=== PATIENT | male | born 1960 | race Caucasian/White ===

== ENCOUNTER 2020-09-15 14:07 | Outpatient (REF) | payer OTHER, SELFPAY ==
--- NOTE | 2020-09-15 | XR_ITS ---
EXAMINATION: XR CHEST CLINICAL INFORMATION: Mild intermittent asthma COMPARISON: Chest x-ray 10/05/2015 TECHNIQUE: 2 views of the chest were obtained. FINDINGS: Asymmetric elevation of left diaphragm compared to the right. No acute change. No airspace opacities. No pulmonary vascular congestion or pleural effusion. No pneumothorax. Cardiac and mediastinal contours are normal. The heart size is normal. Compared to prior chest x-ray there has not been substantial change. XR/XR chest 2V IMPRESSION: No acute abnormality of chest.
== END 2020-09-15 14:08 | disposition home or self-care (01) ==
LOC: HO.XRAY 14:07
PROVIDERS: PCP Internal Medicine; Visit Provider Internal Medicine
DX: J45.20 Mild intermittent asthma, uncomplicated (principal)
CPT/HCPCS: 71046

== ENCOUNTER 2020-11-16 10:10 | Outpatient (REF) | payer OTHER, SELFPAY | END 2020-11-16 10:11 | disposition home or self-care (01) | LOC: HO.LAB 10:10 | PROVIDERS: Visit Provider Internal Medicine | DX: Z20.822 Contact with and (suspected) exposure to COVID-19 (principal) | CPT/HCPCS: 36415; C9803; U0003 ==

== ENCOUNTER 2021-05-03 19:50 | Emergency (ER) | payer OTHER, SELFPAY ==
[2021-05-03 19:55] VITALS: BP 141/80; PULSE 76; RESP 17; TEMP 36.7; O2SAT 94; BMI 29.5
--- NOTE | 2021-05-03 21:29 | ED.ANIMALBIT ---
HPI - Animal Bite General Chief Complaint: Animal Bite Stated Complaint: dog scratch Source: patient Mode of arrival: ambulatory Limitations: no limitations History of Present Illness HPI narrative: 61-year-old male presents with a abrasion to the back of his leg which he believes is a dog bite. He was walking his dog, and other dog approached his animal, a fight ensued which ended with a superficial skin break to the left lower extremity. He does not know this was a dog bite, scratch, or injury from another unknown object. He does not report any other concerning symptoms. MD complaint: animal bite Onset (ago): hour(s) ( within the hour of arrival) Animal: dog Description of animal: household pet and unknown animal Mechanism: bite and scratch Location - Extremities: left: lower leg Context: animals fighting Associated symptoms: none Related Data Patient tetanus UTD: Yes Previous Rx's Medication Instructions Recorded amoxicillin-pot clavulanate 1 tab PO Q12H 10 Days #20 tab 05/03/21 [Augmentin] Allergies Allergy/AdvReac Type Severity Reaction Status Date / Time Iodinated Contrast Media Allergy Unknown SHORTNESS Verified 05/03/21 19:55 [IV CONTRAST] OF BREATH Review of Systems Review of Systems: Constitutional: No Fever, No Chills ENT/Mouth: No Ear Pain, No Hoarseness, No sore throat Eyes: No Eye Pain, No Swelling, No Redness, No Foreign Body Cardiovascular: No Chest Pain, No SOB Respiratory: No Cough, No Dyspnea Gastrointestinal: No Nausea, No Vomiting, No Diarrhea, No abdominal Pain Genitourinary: No Dysuria, No Hematuria Musculoskeletal: positive left leg pain, No Myalgias, No Joint Swelling Skin: positive left leg abrasion, No Skin lacerations, No rash Neuro: No Weakness, No Numbness, No Paresthesias, No Loss of Consciousness, No Dizziness, No Headache Psych: No Anxiety/Panic, No Depression Heme/Lymph: no easy bruising, no Lymphadenopathy Endocrine: No Polyuria, No Polydipsia Yes all other systems are reviewed and are negative [facility] Past Medical History Attestation statement: The following information was validated with the patient. Source: old records reviewed Medical History Asthma Social History Social History Advance Directives: No Advance Directives Information Provided: Yes Physical Exam Vital Signs: Vital Signs: Last Vital Signs Temp 98.0 F 05/03/21 19:55 Pulse 76 05/03/21 19:55 Resp 17 05/03/21 19:55 BP 141/80 H 05/03/21 19:55 Pulse Ox 94 05/03/21 19:55 Body Mass Index 29.5 Appearance: Alert. Oriented X3. No acute distress. Eyes: Pupils equal, round and reactive to light. ENT: Pharynx normal. Neck: Normal inspection. Neck supple. CVS: Normal heart rate and rhythm. Pulses normal. Respiratory: No respiratory distress. Breath sounds normal. Abdomen: Soft and nontender. Skin: 3 cm by 2 mm linear abrasion to the left leg, Skin warm and dry. Normal skin color. Normal skin turgor. Extremities: No lower extremity edema. Neuro: No motor deficit. No sensory deficit. Course Course Course Narrative: 61-year-old male presents with skin break abrasion to the back the left leg suspected to be an animal bite. Will treat for Tdap, rabies vaccine and immunoglobulin. Patient does understand that he must return for serial vaccinations. Patient verbalized understanding of and agrees plan of care discharge home. MDM - Animal Bite Differential Diagnosis Differential diagnosis: Likely bite by animal and rabies contact Medical Records Attestation: I reviewed the patient's medical records. Lab Data Attestation: I reviewed the patient's lab results. Discharge Plan Discharge Clinical Impression: Dog bite Qualifiers: Encounter type: initial encounter Qualified Code(s): W54.0XXA - Bitten by dog, initial encounter Patient Disposition: Home, Self-Care Instructions: Animal Bite (ED) Additional Instructions: you were evaluated for an injury suspected to be an animal bite. You must continue to follow-up to receive the rest of Your rabies vaccinations. please take Augmentin twice a day for the next 10 days. Thank you for choosing this emergency department for evaluation. Please follow-up with primary care physician as needed. Return to the emergency department for any new, concerning, or worsening symptoms. Prescriptions: New amoxicillin-pot clavulanate [Augmentin] 875-125 mg tablet 1 tab PO Q12H 10 Days Qty: 20 RF: 0 Interventions: ED Discharge Assessment Last Done: 05/03/21 23:42 Discharge Date/Time: 05/03/21 22:24
[2021-05-03] MEDS: Rabies Vaccine (PCEC)/PF 1 ML VIAL IM (22:01)
[2021-05-03] MEDS: Diphth,Pertus(ACell),Tet Adult 0.5 ML SYRINGE IM (22:02)
[2021-05-03] MEDS: Rabies Immune Globulin/PF 1,500 UNIT/5 ML VIAL 1923.24 UNIT IM (22:04)
[2021-05-03] MEDS: Amoxicillin/Potassium Clav 875 MG TABLET PO (22:04)
--- NOTE | 2021-05-03 23:46 | PC.NURSE ---
PT SMALL SUPERFICIAL SCRATCH TO LEFT CALF CLEANED AND LEFT GIOVANNA. PT SCRIPT FAXED TO [facility].
== END 2021-05-03 22:24 | disposition home or self-care (01) ==
PROVIDERS: Emergency Provider Internal Medicine; PCP Internal Medicine
DX: S80.812A Abrasion, left lower leg, initial encounter (principal); Z20.3 Contact with and (suspected) exposure to rabies; Z29.14 Encounter for prophylactic rabies immune globulin; W54.0XXA Bitten by dog, initial encounter; Y93.K1 Activity, walking an animal; Y92.9 Unspecified place or not applicable; Y99.9 Unspecified external cause status
CPT/HCPCS: 90375; 90471; 90675; 90715; 96372; 99284

== ENCOUNTER 2021-05-06 14:26 | Outpatient (REF) | payer OTHER, SELFPAY | END 2021-05-06 14:27 | disposition home or self-care (01) | LOC: HO.MDS 14:26 | PROVIDERS: PCP Internal Medicine; Visit Provider Nurse Practitioner Family | DX: Z29.14 Encounter for prophylactic rabies immune globulin (principal); S80.872D Other superficial bite, left lower leg, subsequent encounter; W54.0XXD Bitten by dog, subsequent encounter; Z20.3 Contact with and (suspected) exposure to rabies | CPT/HCPCS: 90471; 90675 ==

== ENCOUNTER 2021-05-10 14:26 | Outpatient (REF) | payer OTHER, SELFPAY | END 2021-05-10 14:27 | disposition home or self-care (01) | LOC: HO.MDS 14:26 | PROVIDERS: PCP Internal Medicine; Visit Provider Nurse Practitioner Family | DX: Z29.14 Encounter for prophylactic rabies immune globulin (principal); S80.872D Other superficial bite, left lower leg, subsequent encounter; W54.0XXD Bitten by dog, subsequent encounter; Z20.3 Contact with and (suspected) exposure to rabies | CPT/HCPCS: 90471; 90675 ==

== ENCOUNTER 2021-05-17 14:33 | Outpatient (REF) | payer OTHER, SELFPAY | END 2021-05-17 14:34 | disposition home or self-care (01) | LOC: HO.MDS 14:33 | PROVIDERS: PCP Internal Medicine; Visit Provider Nurse Practitioner Family | DX: Z29.14 Encounter for prophylactic rabies immune globulin (principal); S80.872D Other superficial bite, left lower leg, subsequent encounter; W54.0XXD Bitten by dog, subsequent encounter; Z20.3 Contact with and (suspected) exposure to rabies | CPT/HCPCS: 90471; 90675 ==

== ENCOUNTER 2021-05-20 11:08 | Outpatient (REF) | payer OTHER, SELFPAY | END 2021-05-20 11:09 | disposition home or self-care (01) | LOC: HO.LAB 11:08 | PROVIDERS: PCP Internal Medicine; Visit Provider Internal Medicine | DX: Z20.822 Contact with and (suspected) exposure to COVID-19 (principal) | CPT/HCPCS: C9803; U0003; U0005 ==

== ENCOUNTER 2021-05-30 13:57 | Inpatient (IN) | payer OTHER, SELFPAY ==
[2021-05-30] VITALS (8 sets, daily range): BP systolic 137–158; BP diastolic 69–109; PULSE 71–144; RESP 16–20; TEMP 36.4–36.9; O2SAT 94–98; BMI 31.1; BMI 30.9
--- NOTE | ~2021-05-30 | XR_ITS ---
EXAMINATION: XR CHEST CLINICAL INFORMATION: Asthma COMPARISON: Previous chest x-ray most recent September 2020 TECHNIQUE: Frontal view of the chest was obtained. FINDINGS: The cardiac and mediastinal contours are stable. The lungs are clear. There is elevation of the left hemidiaphragm similar to previous exam. There is no pleural effusion or pneumothorax. Bony structures are unremarkable. XR/XR chest 1V IMPRESSION: No evidence for acute disease in the chest. Elevated left hemidiaphragm similar to previous exam.
--- NOTE | 2021-05-30 14:13 | ECG_ITS ---
Test Reason : RAPID HEART RATE Blood Pressure : / mmHG Vent. Rate : 140 BPM Atrial Rate : 280 BPM P-R Int : 000 ms QRS Dur : 092 ms QT Int : 360 ms P-R-T Axes : 000 038 269 degrees QTc Int : 549 ms Atrial flutter with 2:1 A-V conduction Abnormal ECG No previous ECGs available Referred By: Santi Lima Electronically Signed By:RANDALL GOMEZ
--- NOTE | 2021-05-30 14:15 | ED_ITS ---
HPI - Arrhythmia/Palpitations General Chief Complaint: Arrhythmia/Palpitations Stated Complaint: abnormal EKG Time Seen by Provider: 05/30/21 14:15 Source: patient Mode of arrival: ambulatory Limitations: no limitations History of Present Illness HPI narrative: Patient did not feel well since last night, shoulder pain, headache and irritable. Patient is currently on prednisone for asthma. history of GERD, no heart issues. According to his data from his watch it looks like he has been having non sustained episodes since the . Onset (ago): day(s) Duration: intermittent Severity: mild Context: occurred during rest Related Data Previous Rx's Medication Instructions Recorded amoxicillin-pot clavulanate 1 tab PO Q12H 10 Days #20 tab 05/03/21 [Augmentin] Allergies Allergy/AdvReac Type Severity Reaction Status Date / Time Iodinated Contrast Media Allergy Unknown SHORTNESS Verified 05/03/21 19:55 [IV CONTRAST] OF BREATH Review of Systems Constitutional: Constitutional: Reports no additional constitutional complaints Eyes: Eyes: Reports no additional eye complaints ENT: Denies dizziness Cardiovascular: Cardiovascular: Reports no additional cardiovascular complaint s Respiratory: Respiratory: Reports as per HPI Gastrointestinal: Gastrointestinal: Reports no additional gastrointestinal complaints Musculoskeletal: Musculoskeletal: Reports no additional musculoskeletal complaints Integumentary/Breasts: Skin/Breast: Denies rash Neurologic: Reports system reviewed and no additional complaints, except as documented, Denies dizziness and Denies Sensory deficit (Neuro) Psychiatric: Psychiatric: Denies anxiety [facility] Past Medical History Medical History Asthma Social History Social History Advance Directives: No Advance Directives Information Provided: No Physical Exam Vital Signs: Vital Signs: Last Vital Signs Temp 98.4 F 05/30/21 14:08 Pulse 94 05/30/21 14:53 Resp 16 05/30/21 14:53 BP 158/104 H 05/30/21 14:53 Pulse Ox 97 05/30/21 14:53 Body Mass Index 31.1 Const: General: healthy appearing Nutritional Appearance: average body habitus Orientation/consciousness: oriented to person and patient oriented x3 Limitations: no limitations HENMT: Head: Yes normal to inspection Ears: external ears normal General nose exam: Normal external nose present Mouth: Normal oral and palatal mucosa present and oropharynx normal Throat: Yes posterior oropharynx normal Eyes: General: appearance normal, both eyes and all related structures Neck: Other: supple Neck: Yes normal visual inspection Chest: Chest palpation & inspection: normal inspection of the chest Resp: Auscultation: clear to auscultation bilaterally Cardio: Other: tacycardia Jugular venous distension: no JVD Rate: regular rate Rhythm: regular rhythm Heart sounds: S1 normal heart sound present and S2 normal heart sound present GI: Inspection: Yes normal to inspection Palpation (GI): Soft to palpation, nontender and No hepatosplenomegaly present Auscultation: normal bowel sounds : General: Yes no CVA tenderness Back/Spine/Pelvis: Back: no CVA tenderness Skin: General skin exam: no rashes or lesions noted Neuro: General: oriented to person and patient oriented x3 Cranial nerves: Yes CN's II-XII intact bilaterally Motor exam (neuro): 5/5 motor strength present throughout Sensory Exam: No Sensory deficit (Neuro) Extrem: General: Yes normal to inspection Psych: Appearance: grossly normal Course Reevaluation(s) Reevaluation #1: Discussed with Dr. Mclaughlin. He would like me to increase cardizem drip and to anticoagulate with eliquis and admit Time: 15:54 Reevaluation #2: I spent 40 minutes of critical care, with interventions, assessments, speaking to patient, consultants, and family. Time: 15:54 MDM - Arrhythmia/Palpitations Lab Data Result diagrams: 05/30/21 14:32 05/30/21 14:32 Labs: Lab Results 05/30/21 05/30/21 05/30/21 Range/Units 14:32 14:32 14:32 WBC 10.1 (4.8-10.8) X10*3/uL RBC 5.13 (4.60-5.80) X10*6/uL Hgb 15.5 (14.0-18.0) g/dl Hct 45.4 (42-52) % MCV 88.5 (80-98) fL MCH 30.2 (27.0-33.0) pg MCHC 34.1 (31.0-36.0) g/dl RDW 13.5 (11.0-16.0) % Plt Count 269 (160-400) X10*3/uL MPV 9.7 (9.4-12.4) fL Immature Gran % (Auto) 0.8 H (0.0-0.4) % Neut % (Auto) 81.7 H (45-73) % Lymph % (Auto) 12.9 L (20-40) % [place] % (Auto) 4.4 (2-11) % Eos % (Auto) 0.0 (0-4) % Baso % (Auto) 0.2 (0-2) % Lymph # (Auto) 1.3 (1.2-4.9) X10*3/uL [place] # (Auto) 0.4 (0.1-1.2) X10*3/uL Eos # (Auto) 0.0 (0.0-0.4) X10*3/uL Baso # (Auto) 0.0 (0.0-0.2) X10*3/uL Abs Immat Gran (auto) 0.08 H (0.00-0.03) X10*3/uL Absolute Neuts (auto) 8.2 (2.0-8.3) X10*3/uL Absolute Nucleated RBC 0.000 (0.0-0.012) X10*3/uL Nucleated RBC % (auto) 0.0 (0.0-0.2) /100WBC Sodium 139 (135-145) mmol/L Potassium 4.9 (3.3-5.1) mmol/L Chloride 107 (96-108) mmol/L Carbon Dioxide 22 (22-29) mmol/L Anion Gap 15 (12-20) BUN 19 H (9-16) mg/dL Creatinine 1.05 (0.5-1.4) mg/dL Estim Creat Clear Calc 91.7 Estimated GFR > 60 Random Glucose 136 H (60-115) mg/dL Calcium 9.8 (8.4-10.2) mg/dL Troponin I High Sens < 3.5 (<3.5-35.0) ng/L TSH 0.42 (0.32-4.0) uIU/mL Imaging Data Chest x-ray: Radiologist's impression: no infiltrate ECG Data Attestation: I personally reviewed and interpreted this ECG as follows: Interpretation: atrial flutter rate of [address] or twave changes Discharge Plan Discharge Clinical Impression: Atrial flutter Patient Disposition: Admitted As Inpatient Prescriptions: No Action amoxicillin-pot clavulanate [Augmentin] 875-125 mg tablet 1 tab PO Q12H 10 Days Qty: 20 RF: 0
[2021-05-30] MEDS: dilTIAZem HCL 50 MG/10 ML VIAL 15 MG IVPUSH (14:35)
[2021-05-30 14:44] LABS: MANUAL DIFF FLAG NO
[2021-05-30 14:47] LABS: Basophils Percent Auto 0.2 % (0-2); Hematocrit 45.4 % (42-52); Hemoglobin 15.5 g/dl (14.0-18.0); Imm Gran Abs Auto 0.08 X10*3/uL (0.00-0.03); Imm Gran Pct Auto 0.8 % (0.0-0.4); Lymphocytes Absolute Auto 1.3 X10*3/uL (1.2-4.9); Lymphocytes Percent Auto 12.9 % (20-40); Mean Corpuscular HGB Conc 34.1 g/dl (31.0-36.0); Mean Corpuscular Hemoglobin 30.2 pg (27.0-33.0); Mean Corpuscular Volume 88.5 fL (80-98); Mean Platelet Volume 9.7 fL (9.4-12.4); Monocytes Absolute Auto 0.4 X10*3/uL (0.1-1.2); Monocytes Percent Auto 4.4 % (2-11); Neutrophils Absolute Auto 8.2 X10*3/uL (2.0-8.3); Neutrophils Percent Auto 81.7 % (45-73); Platelet Count 269 X10*3/uL (160-400); Red Blood Count 5.13 X10*6/uL (4.60-5.80); Red Cell Distribution Width 13.5 % (11.0-16.0); White Blood Count 10.1 X10*3/uL (4.8-10.8)
[2021-05-30] MEDS: dilTIAZem HCL 125 MG in 0.9 % Sodium Chloride 100 ML 10 MG IVCONT (14:50)
[2021-05-30] MEDS: Aspirin Enteric Coated 81 MG TABLET.DR 162 MG PO (14:50)
[2021-05-30 15:05] LABS: Anion Gap 15 (12-20); Blood Urea Nitrogen 19 mg/dL (9-16); Calcium 9.8 mg/dL (8.4-10.2); Carbon Dioxide 22 mmol/L (22-29); Chloride 107 mmol/L (96-108); Creatinine Clr Calc Pharmacy 91.7; Estimated Glomerular Filt Rate > 60; Glucose Random 136 mg/dL (60-115); Potassium 4.9 mmol/L (3.3-5.1); Sodium 139 mmol/L (135-145)
[2021-05-30 15:11] LABS: Troponin-I High Sensitivity < 3.5 ng/L (<3.5-35.0)
[2021-05-30 15:27] LABS: TSH reflex Free T4 0.42 uIU/mL (0.32-4.0)
--- NOTE | 2021-05-30 16:17 | PC.NURSE ---
Cardizem titrated from 10mg/hr to 15mg/hr.
--- NOTE | 2021-05-30 16:36 | PM.IMHP ---
History of Present Illness Date of Service: 05/30/21 Chief Complaint: Sent from PCP for tachycardia This is a 61-year-old male with a past medical history of asthma who presents to the emergency room after being referred by his PCP for tachycardia. Patient reports that about 1 week ago he had a tele health/telephone visit with this primary care doctor for what appeared to be an asthma exacerbation. He was treated with albuterol and a course of prednisone and had a follow-up with the primary care provider today. When he arrived he was noted to be tachycardic in the 140s and then subsequently referred to the emergency room. Upon arrival to the ED patient's EKG revealed atrial fibrillation /flutter with rapid ventricular response. He was given IV Cardizem push without much improvement and subsequently initiated on IV Cardizem drip. The case was discussed by the ED provider with pipe and test supervisor who recommended anticoagulation in preparation for planned cardioversion tomorrow. Patient is seen and examined in the emergency room. His family is bedside. Patient endorses symptoms (shortness of breath) for at least 1 week and upon further review, likely started earlier in the month. he denies any chest pain or palpitations. He denies any orthopnea, although does endorse the site sleeps with several pillows for some time period. He denies any personal cardiac history but does endorse CVA history in his parents. He reports feeling, possibly, slight better since arrival, although his family bedside feels he appears the same. Of note, patient has a digital what and upon brief review looks like his heart rate has been above 100 since May 21. Pt endorses he received J&J vaccine for COVID-19 in February of this year. Review of Systems Review of Systems: General - denies fevers or chills, denies weakness or fatigue HEENT -denies blurred vision, denies headache, denies sore throat Cardiovascular - denies cp or palp, no edema Respiratory - +shortness of breath and cough, no wheezing Gastrointestinal - denies abdominal pain, nausea, vomiting, diarrhea - denies flank pain, denies dysuria, denies frequency or urgency Musculoskeletal - denies back pain, denies hip pain, denies knee pain, denies shoulder pain Neurological - denies any focal weakness or numbness Skin, denies any bruising or redness Psychiatric - denies any suicidal ideation, hallucinations, homicidal ideation Endocrinology - denies intolerance to hot / cold temperatures COUNTS INCLUDE 234 BEDS AT THE [facility] Medical History (Updated 05/30/21 @ 15:56 by Santi Lima MD) Asthma Family History (Updated 05/30/21 @ 16:41 by Anant Del Rio MD) Other CVA (cerebral vascular accident) Surgical History (Updated 05/30/21 @ 16:43 by Anant Del Rio MD) No significant past surgical history Social History (Updated 05/30/21 @ 16:42 by Anant Del Rio MD) Alcohol intake: current Alcohol intake frequency: 0-2 drinks per day Patient Tobacco Use Status: Never used Tobacco Use of substances other than those prescribed or required for medical reasons: No Advance Directives: No Advance Directives Information Provided: No Meds Allergies Allergy/AdvReac Type Severity Reaction Status Date / Time Iodinated Contrast Media Allergy Unknown SHORTNESS Verified 05/03/21 19:55 [IV CONTRAST] OF BREATH Active Medications: Current Medications Generic Name Dose Route Start Last Admin Trade Name Freq PRN Reason Stop Dose Admin Acetaminophen 650 mg 05/30/21 16:31 Acetaminophen 325 Mg Tablet PO Q6H PRN Pain, Mild (Pain Scale 1-3) Apixaban 5 mg 05/31/21 04:00 Apixaban 5 Mg Tablet PO Q12H [facility] Aspirin 162 mg 05/30/21 14:30 05/30/21 14:50 Aspirin Enteric Coated 81 Mg Tablet. PO 162 mg DAILY CHICO Administration Diltiazem HCl 125 mg/ Sodium 125 mls @ 0 mls/hr 05/30/21 14:30 05/30/21 16:04 Chloride IVCONT 15 mg/hr .Q0M CHICO 15 mls/hr Titration Protocol Per Protocol Lorazepam 1 mg 05/30/21 16:30 Lorazepam 1 Mg Tablet PO BEDTIME PRN Insomnia Montelukast Sodium 10 mg 05/31/21 09:00 Montelukast Sodium 10 Mg Tablet PO DAILY [facility] Non-Formulary Medication 1 puff 05/30/21 21:00 Fluticasone Propion-Salmeterol [Advair Diskus] PO BID CHICO Omeprazole 20 mg 05/31/21 09:00 Omeprazole 20 Mg Capsule. PO DAILY [facility] Ondansetron HCl 4 mg 05/30/21 16:31 Ondansetron Hcl 4 Mg/2 Ml Vial IVPUSH Q8H PRN Nausea and Vomiting Pharmacy Consult 1 each 05/30/21 15:51 Consult Rx Perform Med Rec MISCELLANE ONCE PRN Consult order Sodium Chloride 3 ml 05/31/21 00:00 0.9 % Sodium Chloride Flush 3 Ml Syringe IVFLUSH [facility] Medications Medication Instructions Recorded Confirmed Last Taken Type albuterol sulfate 2 puff INHALATION Q4H PRN 05/30/21 05/30/21 Unknown History cetirizine [Zyrtec] 10 mg PO DAILY 05/30/21 05/30/21 Unknown History fluticasone propion-salmeterol 1 puff PO BID 05/30/21 05/30/21 Unknown History [Advair Diskus] lorazepam 1 tab PO BEDTIME PRN 05/30/21 05/30/21 Unknown History montelukast 1 tab PO DAILY 05/30/21 05/30/21 Unknown History omeprazole 20 mg PO DAILY 05/30/21 05/30/21 Unknown History prednisone See Taper PO DAILY 05/30/21 05/30/21 Unknown History Physical Exam Vital Signs and Narrative: Vital Signs: Last Vital Signs Temp 98.4 F 05/30/21 14:08 Pulse 99 05/30/21 16:04 Resp 16 05/30/21 14:53 BP 150/99 H 05/30/21 16:04 Pulse Ox 97 05/30/21 14:53 Body Mass Index 31.1 Const: Other: Constitutional - Awake and Alert, No apparent distress Eyes - PERRLA, EOMI Cardiovascular - IRR, tachycardic Respiratory - Dimished breath sounds throughout, poor air entry Gastrointestinal - NT / ND; +BS; No rebound or guarding - No CVA tenderness Extremities - no calf tenderness bilaterally, no swelling Musculoskeletal - Normal inspection, normal ROM Skin - Warm/Dry Neurological - Alert & oriented x3, No focal deficit Psychological - Appropriate affect Results Labs CBC and Chem 7: 05/30/21 14:32 05/30/21 14:32 Labs: Laboratory Results - last 24 hr 05/30/21 05/30/21 05/30/21 14:32 14:32 14:32 MCV 88.5 MCH 30.2 MCHC 34.1 RDW 13.5 Plt Count 269 MPV 9.7 Immature Gran % (Auto) 0.8 H Neut % (Auto) 81.7 H Lymph % (Auto) 12.9 L [place] % (Auto) 4.4 Eos % (Auto) 0.0 Baso % (Auto) 0.2 Lymph # (Auto) 1.3 [place] # (Auto) 0.4 Eos # (Auto) 0.0 Baso # (Auto) 0.0 Abs Immat Gran (auto) 0.08 H Absolute Neuts (auto) 8.2 Absolute Nucleated RBC 0.000 Nucleated RBC % (auto) 0.0 Anion Gap 15 Estim Creat Clear Calc 91.7 Estimated GFR > 60 Random Glucose 136 H Calcium 9.8 Troponin I High Sens < 3.5 TSH 0.42 Imaging Radiologist's Impressions: Impressions Chest X-Ray 05/30/21 14:59 IMPRESSION: No evidence for acute disease in the chest. Elevated left hemidiaphragm similar to previous exam. Assessment and Plan (1) Atrial flutter: Qualifiers: Atrial flutter type: typical Qualified Code(s): I48.3 - Typical atrial flutter Status: Acute This is a relatively healthy 61 yo M who is presents to the hospital after being seen in the PCP's office where he was noted to be tachycardic in the 140s. His EKG is consistent with A. Flutter with RVR. He will be admitted for further treatment. 1. New onset A. Flutter/fib with RVR rates remain in the 100-110s on cardizem gtt @ 10 mg/hr, will likely need to uptitrated to 15mg/hr Eliquis 5mg now and then q12 hours (per cardiology recommendations) Echo May need CV if doesnt convert -- keep NPO past midnight No evidnce of CHF at this time 2. Asthma exacerbation recently treated with a course of prednisone still very tight on exam with poor air entry diffusely will give IV solu-medrol and scheduled updrafts with Xopenex (due to tachycardia) -- primarily to optimize his pulmonary status in prep for cardioversion 3. Alcohol use endorse up to 10 drinks weekly denies previous withdrawal symptoms last drink about 2 days ago not in withdrawal at this time -- will monitor with CIWA Full Code DVT pptx, Eliquis Patients COVID testing pending at the time of this note -- ordered and to be completed. Quality Stroke Does the patient have a stroke diagnosis?: No VTE Prior VTE?: No VTE Risk Level:: Medical - moderate - high VTE Device Contraindication: N/A - Device Ordered VTE Drug Contraindication: N/A - Med Ordered
[2021-05-30 16:44] LABS: B Type Natriuretic Peptide 87 pg/mL (<100)
[2021-05-30] MEDS: Apixaban 5 MG TABLET PO (17:03)
--- NOTE | 2021-05-30 17:07 | PHA.MEDREC ---
Pharmacy Consult ? Medication Reconciliation Pharmacy has completed the medication reconciliation. There are no remarkable issue for provider's attention. Rosemary Gotti, DelmyD
[2021-05-30 17:25] LABS: D Dimer < 200 NG/ML
[2021-05-30] MEDS: methylPREDNISolone Sod Succ 40 MG/ML VIAL IVPUSH (18:15)
--- NOTE | 2021-05-30 20:33 | MHC.CM.PN ---
CM met with pt. To be admitted to room 482. Pt A&Ox3. Lives with and daughter. Employed. HCP is Mylene Vergara ([phone]). It is not on file. Copy requested. Pt had J&J vaccine on 02/2021. Pt has no DME or services. Expect d/c home without services. to provide transportation home. CM to follow for d/c needs.
[2021-05-30] MEDS: Ipratropium Bromide 0.5 MG/2.5 ML SOLUTION INHALE (20:41)
[2021-05-30] MEDS: LORazepam 1 MG TABLET PO (22:23)
[2021-05-31] VITALS (15 sets, daily range): BP systolic 117–142; BP diastolic 60–90; PULSE 69–144; RESP 17–20; TEMP 36.7–37.2; O2SAT 93–96
[2021-05-31] MEDS: dilTIAZem HCL 125 MG in 0.9 % Sodium Chloride 100 ML IVCONT (00:30)
[2021-05-31 02:41] LABS: COVID-19 Test Negative (Negative); IDNOW Serial# 9DD0AD1C
[2021-05-31] MEDS: Apixaban 5 MG TABLET PO ×2 (03:53→14:24)
[2021-05-31] MEDS: methylPREDNISolone Sod Succ 40 MG/ML VIAL IVPUSH ×2 (03:53→11:13)
--- NOTE | 2021-05-31 07:30 | CA_ITS ---
Transthoracic Echocardiogram Patient (Last, First, Middle): Gerardo Vergara K Gender: Male Date of : 1960 Age: 61 Procedure Date: 05/31/2021 Procedure Type: Transthoracic Echocardiogram Location: [facility] [place] Height: 180.34 cm Weight: 100.25 kg BSA: 2.20 m2 Heart Rate: bpm BP: 142 / 90 mmHg Senior Product Development Manager: Referring MD: Andres Mclaughlin MD Symptoms: Atrial flutter Study Quality: Good ECG Rhythm: Atrial flutter with rapid rate Conclusions: - The left ventricular systolic function is normal. The visually estimated ejection fraction is between 55-60%. - Mildly increased right ventricular cavity size. - No obvious valvular pathology seen on this study. Findings Left Ventricle Normal left ventricular cavity size. The left ventricular systolic function is normal. The visually estimated ejection fraction is between 55-60%. There is no evidence of regional wall motion abnormalities. Diastolic function is indeterminate on the basis of available data. Likely normal left ventricular wall thickness. Right Ventricle Mildly increased right ventricular cavity size. There is normal right ventricular systolic function. Atria The left atrium is normal in size. The right atrium is normal in size. Aortic Valve There is a normal trileaflet aortic valve. There is no aortic valve stenosis. There is no aortic valve regurgitation. Mitral Valve There is mild anterior mitral leaflet thickening. There is no mitral valve regurgitation. There is no mitral valve stenosis. Pulmonic Valve The pulmonic valve was not well visualized. Tricuspid Valve Normal tricuspid valve structure. There is trace tricuspid valve regurgitation. The pulmonary artery systolic pressure is normal. Great Vessels The asc aorta is normal in size. Venous The inferior vena cava is mildly dilated and collapses greater than 50% with inspiration. Pericardium/Pleural There is no evidence of pericardial effusion. Prior Study Comparison No prior study available for comparison. Recommendations, Care & Conclusions No obvious valvular pathology seen on this study. Measurements 2D Linear Measurements IVSd: 1.00 0.6-0.9/0.6-1.0 cm LVIDd: 4.52 3.9-5.3/4.2-5.9 cm LVIDd Index: 2.05 2.4-3.2/2.2-3.1 cm/m2 LVIDs: 3.05 2.0-3.6 cm LVPWd: 1.31 0.7-1.1 cm Ao Root: 3.40 2.1-3.5 cm LA Diam: 4.60 2.7-3.8/3.0-4.0 cm LAIDs Index: 2.09 1.5-2.3 cm/m2 LV Mass: 288.91 67-162/88-224 g LV Mass Index: 131.32 43-95/49-115 g/m2 LVOT Diam: 2.10 3.0+(-)1.3 cm Mitral Valve MV Pk E: 1.16 MV Decel Time: 147.00 E'Lateral: 13.70 E'Medial: 14.10 E/E' Med: 8.20 E/E' Lat: 8.50 PHT: 43.00 MVA PHT: 5.12 Decel [place]: 7.91 Aortic Valve AoV Pk Yoshi: 1.76 AoV Mn Yoshi: 1.24 AoV VTI: 0.34 AoV Pk Grad: 12.00 Aov Mn Grad: 7.00 BRITTANY Cont.VTI: 2.57 LVOT LVOT Pk Yoshi: 1.35 LVOT Mn Yoshi: 0.93 LVOT VTI: 0.25 LVOT Pk Grad: 7.00 LVOT Mn Grad: 4.00 LVOT Diam: 2.10 LVOT Area: 3.46 Diastolic Function MV Pk E: 1.16 E'Medial: 14.10 E/E' Med: 8.20 E' Laterial: 13.70 E/E' Lat: 8.50 Tricuspid Valve TR Pk Yoshi: 1.97 TR Pk Grad: 16.00 RA Press: 8.00 RVSP: 24.00 Great Vessels Aorta Ao Root-2D: 3.40 2.0-3.7 cm Ao Asc: 3.40 2.1-3.4 cm Updated in Other Vendor System with Status of Final Andres Mclaughlin MD electronically signed on 05/31/2021 12:09:47 PM with status of Final
[2021-05-31] MEDS: Montelukast Sodium 10 MG TABLET PO (07:39)
[2021-05-31] MEDS: Omeprazole 20 MG CAPSULE.DR PO (07:39)
[2021-05-31] MEDS: Ipratropium Bromide 0.5 MG/2.5 ML SOLUTION INHALE ×3 (08:42→16:28)
[2021-05-31] MEDS: Fluticasone/Vilanterol 200/25 BLST.W.DEV 1 PUFF INHALE (08:42)
--- NOTE | 2021-05-31 09:55 | HO.PM.IMPN ---
Subjective Subjective Date of Service: 05/31/21 Interval History: seen and examined this AM bedside pt endorses no new complaints ROS General - no fevers or chills Cardiovascular - no chest pain Respiratory - no shortness of breath or cough Abdominal- no abdominal pain, nausea, vomiting, diarrhea Physical Exam Vital Signs: Vital Signs: Last Vital Signs Temp 98.3 F 05/31/21 07:08 Pulse 122 H 05/31/21 08:47 Resp 18 05/31/21 07:08 BP 136/86 05/31/21 07:08 Pulse Ox 94 05/31/21 07:08 Body Mass Index 30.9 Const: Other: Constitutional - Awake and Alert, No apparent distress Eyes - PERRLA, EOMI Cardiovascular - IRR, tachycardic Respiratory - improving air entry Gastrointestinal - NT / ND; +BS; No rebound or guarding - No CVA tenderness Extremities - no calf tenderness bilaterally, no swelling Musculoskeletal - Normal inspection, normal ROM Skin - Warm/Dry Neurological - Alert & oriented x3, No focal deficit Psychological - Appropriate affect Objective Data Current Medications Generic Name Dose Route Start Last Admin Trade Name Freq PRN Reason Stop Dose Admin Acetaminophen 650 mg 05/30/21 16:31 Acetaminophen 325 Mg Tablet PO Q6H PRN Pain, Mild (Pain Scale 1-3) Apixaban 5 mg 05/31/21 04:00 05/31/21 03:53 Apixaban 5 Mg Tablet PO 5 mg Q12H [facility] Administration Fluticasone/Vilanterol 1 puff 05/31/21 08:00 05/31/21 08:42 Fluticasone/Vilanterol 200/25 Blst.W.Dev INHALE 1 puff RDAILY [facility] Administration Diltiazem HCl 125 mg/ Sodium 125 mls @ 0 mls/hr 05/30/21 14:30 05/31/21 08:45 Chloride IVCONT 15 mg/hr .Q0M [facility] 15 mls/hr Titration Protocol Per Protocol Ipratropium [place] 0.5 mg 05/30/21 20:00 05/31/21 08:42 Ipratropium [place] 0.5 Mg/2.5 Ml Solution INHALE 0.5 mg RQ4H WHILE AWAKE [facility] Administration Levalbuterol HCl 1.25 mg 05/30/21 20:00 05/31/21 08:42 Levalbuterol Hcl 1.25 Mg/0.5 Ml Vial.Neb INHALE 1.25 mg RQ4H WHILE AWAKE [facility] Administration Lorazepam 1 mg 05/30/21 16:30 05/30/21 22:23 Lorazepam 1 Mg Tablet PO 1 mg BEDTIME PRN Administration Insomnia Methylprednisolone Sodium Succinate 40 mg 05/31/21 10:00 Methylprednisolone Sod Succ 40 Mg/Ml Vial IVPUSH Q24H [facility] Metoprolol Tartrate 25 mg 05/31/21 10:00 Metoprolol Tartrate 25 Mg Tablet PO TID [facility] Protocol Montelukast Sodium 10 mg 05/31/21 09:00 05/31/21 07:39 Montelukast Sodium 10 Mg Tablet PO 10 mg DAILY [facility] Administration Omeprazole 20 mg 05/31/21 09:00 05/31/21 07:39 Omeprazole 20 Mg Capsule.Dr PO 20 mg DAILY [facility] Administration Ondansetron HCl 4 mg 05/30/21 16:31 Ondansetron Hcl 4 Mg/2 Ml Vial IVPUSH Q8H PRN Nausea and Vomiting Pharmacy Consult 1 each 05/30/21 15:51 Consult Rx Perform Med Rec MISCELLANE ONCE PRN Consult order Sodium Chloride 3 ml 05/31/21 00:00 05/31/21 07:39 0.9 % Sodium Chloride Flush 3 Ml Syringe IVFLUSH Not Given QSHIFT [facility] Labs CBC & Chem 7: 05/30/21 14:32 05/30/21 14:32 Labs: Laboratory Results - last 24 hr 05/30/21 05/30/21 05/30/21 14:32 14:32 14:32 WBC 10.1 RBC 5.13 Hgb 15.5 Hct 45.4 MCV 88.5 MCH 30.2 MCHC 34.1 RDW 13.5 Plt Count 269 MPV 9.7 Immature Gran % (Auto) 0.8 H Neut % (Auto) 81.7 H Lymph % (Auto) 12.9 L [place] % (Auto) 4.4 Eos % (Auto) 0.0 Baso % (Auto) 0.2 Lymph # (Auto) 1.3 [place] # (Auto) 0.4 Eos # (Auto) 0.0 Baso # (Auto) 0.0 Abs Immat Gran (auto) 0.08 H Absolute Neuts (auto) 8.2 Absolute Nucleated RBC 0.000 Nucleated RBC % (auto) 0.0 D-Dimer Sodium 139 Potassium 4.9 Chloride 107 Carbon Dioxide 22 Anion Gap 15 BUN 19 H Creatinine 1.05 Estim Creat Clear Calc 91.7 Estimated GFR > 60 Random Glucose 136 H Calcium 9.8 Troponin I High Sens < 3.5 B-Natriuretic Peptide 87 TSH 0.42 COVID-19 ([facility]) COVID-19 Clin Com 05/30/21 05/31/21 17:01 02:16 WBC RBC Hgb Hct MCV MCH MCHC RDW Plt Count MPV Immature Gran % (Auto) Neut % (Auto) Lymph % (Auto) [place] % (Auto) Eos % (Auto) Baso % (Auto) Lymph # (Auto) [place] # (Auto) Eos # (Auto) Baso # (Auto) Abs Immat Gran (auto) Absolute Neuts (auto) Absolute Nucleated RBC Nucleated RBC % (auto) D-Dimer < 200 Sodium Potassium Chloride Carbon Dioxide Anion Gap BUN Creatinine Estim Creat Clear Calc Estimated GFR Random Glucose Calcium Troponin I High Sens B-Natriuretic Peptide TSH COVID-19 ([facility]) Negative COVID-19 Clin Com See Note Imaging Chest x-ray: Radiologist's impression: Impressions Chest X-Ray 05/30/21 14:59 IMPRESSION: No evidence for acute disease in the chest. Elevated left hemidiaphragm similar to previous exam. Assessment and Plan (1) Atrial flutter: Status: Acute Assessment and Plan: This is a relatively healthy 61 yo M who is presents to the hospital after being seen in the PCP's office where he was noted to be tachycardic in the 140s. His EKG is consistent with A. Flutter with RVR. He will be admitted for further treatment. 1. New onset A. Flutter/fib with RVR rates uncontrolled on max cardizem gtt, will add metoprolol 25mg TID may need cardioversion continue Eliquis 5mg BID no evidence of CHF 2. Asthma exacerbation air entry improving change to daily solu-medrol continue nebs scheduled + PRN 3. Alcohol use endorse up to 10 drinks weekly denies previous withdrawal symptoms CIWA have been low Full Code DVT pptx, Eliquis Quality Stroke Does the patient have a stroke diagnosis?: No VTE Prior VTE?: No VTE Risk Level:: Medical - moderate - high VTE Device Contraindication: N/A - Device Ordered VTE Drug Contraindication: N/A - Med Ordered
--- NOTE | 2021-05-31 10:27 | PM.CNCAR ---
History of Present Illness History of Present Illness Date of Service: 05/31/21 Consult reason: other (Atrial flutter) Chief complaint: a flutter with RVR Narrative: This is a cardiology consultation regarding atrial flutter. Patient has a history of asthma and he was referred to the ER after noted to have tachycardia by his PCP. He does have a history of asthma and recently been started on steroids for an exacerbation. He has also been noticing rapid heart rates on his smart watch for the last several days. Upon evaluation in the ER, found to have atrial flutter and he has been put on a Cardizem drip and admitted. He really does not feel any palpitations. Some chest tightness that seems to be more from asthma than anything else. He also has some hoarseness and parker. Otherwise, he does not have any prior cardiac issues like coronary disease or cardiomyopathy or in fact anything else. Review of Systems Review of Systems: Yes all other systems are reviewed and are negative Cardiovascular: Cardiovascular: Reports as per HPI, Reports no additional cardiovascular complaints, Denies acrocyanosis, Denies cool extremities, Denies painful fingertips, Denies chest pain, Denies chest pain at rest, Denies diaphoresis, Denies syncope, Denies irregular heart rhythm, Denies claudication, Denies leg edema, Denies lightheadedness, Denies palpitations and Reports dyspnea Respiratory: Respiratory: Reports dyspnea Neurologic: Denies syncope Endocrine: Endocrine: Denies palpitations PMFSH Past Medical History Medical History Asthma Family History Family History Other CVA (cerebral vascular accident) Surgical History Surgical History No significant past surgical history Social History Social History Household Members: Spouse and Children Housing: House Alcohol intake: current Alcohol intake frequency: 0-2 drinks per day Patient Tobacco Use Status: Never used Tobacco Use of substances other than those prescribed or required for medical reasons: No Currently Displaying Signs/Symptoms of Drug Intoxication Withdrawal: No Have you been hit, kicked, punched, or otherwise hurt by someone within the past year? If so, by whom?: No Do you feel safe in your current relationship?: Yes Is there a partner from a previous relationship who is making you feel unsafe now?: No Are you made to feel afraid or neglected: No Advance Directives: No Advance Directives Information Provided: No Do you have thoughts of harming others: None Do you have a plan to hurt others: No Plan Recently lost weight without trying: No Nutrition Risks: No Nutritional Risk service: No Current occupational status: employed Meds Allergies Allergy/AdvReac Type Severity Reaction Status Date / Time Iodinated Contrast Media Allergy Unknown SHORTNESS Verified 05/03/21 19:55 [IV CONTRAST] OF BREATH Active Medications: Current Medications Generic Name Dose Route Start Last Admin Trade Name Freq PRN Reason Stop Dose Admin Acetaminophen 650 mg 05/30/21 16:31 Acetaminophen 325 Mg Tablet PO Q6H PRN Pain, Mild (Pain Scale 1-3) Apixaban 5 mg 05/31/21 04:00 05/31/21 03:53 Apixaban 5 Mg Tablet PO 5 mg Q12H [facility] Administration Fluticasone/Vilanterol 1 puff 05/31/21 08:00 05/31/21 08:42 Fluticasone/Vilanterol 200/25 Blst.W.Dev INHALE 1 puff RDAILY [facility] Administration Diltiazem HCl 125 mg/ Sodium 125 mls @ 0 mls/hr 05/30/21 14:30 05/31/21 08:45 Chloride IVCONT 15 mg/hr .Q0M [facility] 15 mls/hr Titration Protocol Per Protocol Ipratropium [place] 0.5 mg 05/30/21 20:00 05/31/21 08:42 Ipratropium [place] 0.5 Mg/2.5 Ml Solution INHALE 0.5 mg RQ4H WHILE AWAKE [facility] Administration Levalbuterol HCl 1.25 mg 05/30/21 20:00 05/31/21 08:42 Levalbuterol Hcl 1.25 Mg/0.5 Ml Vial.Neb INHALE 1.25 mg RQ4H WHILE AWAKE [facility] Administration Lorazepam 1 mg 05/30/21 16:30 05/30/21 22:23 Lorazepam 1 Mg Tablet PO 1 mg BEDTIME PRN Administration Insomnia Methylprednisolone Sodium Succinate 40 mg 05/31/21 10:00 Methylprednisolone Sod Succ 40 Mg/Ml Vial IVPUSH Q24H [facility] Metoprolol Tartrate 25 mg 05/31/21 10:00 Metoprolol Tartrate 25 Mg Tablet PO TID [facility] Protocol Montelukast Sodium 10 mg 05/31/21 09:00 05/31/21 07:39 Montelukast Sodium 10 Mg Tablet PO 10 mg DAILY [facility] Administration Omeprazole 20 mg 05/31/21 09:00 05/31/21 07:39 Omeprazole 20 Mg Capsule.Dr PO 20 mg DAILY [facility] Administration Ondansetron HCl 4 mg 05/30/21 16:31 Ondansetron Hcl 4 Mg/2 Ml Vial IVPUSH Q8H PRN Nausea and Vomiting Pharmacy Consult 1 each 05/30/21 15:51 Consult Rx Perform Med Rec MISCELLANE ONCE PRN Consult order Sodium Chloride 3 ml 05/31/21 00:00 05/31/21 07:39 0.9 % Sodium Chloride Flush 3 Ml Syringe IVFLUSH Not Given QSHIFT [facility] Home Medications Medication Instructions Recorded Confirmed Last Taken Type albuterol sulfate 2 puff INHALATION Q4H PRN 05/30/21 05/30/21 Unknown History cetirizine [Zyrtec] 10 mg PO DAILY 05/30/21 05/30/21 Unknown History fluticasone propion-salmeterol 1 puff PO BID 05/30/21 05/30/21 Unknown History [Advair Diskus] lorazepam 1 tab PO BEDTIME PRN 05/30/21 05/30/21 Unknown History montelukast 1 tab PO DAILY 05/30/21 05/30/21 Unknown History omeprazole 20 mg PO DAILY 05/30/21 05/30/21 Unknown History prednisone See Taper PO DAILY 05/30/21 05/30/21 Unknown History psyllium [Metamucil] 1 packet PO TID PRN 05/30/21 05/30/21 Unknown History Physical Exam Vital Signs: Vital Signs: Last Vital Signs Temp 98.3 F 05/31/21 07:08 Pulse 122 H 05/31/21 08:47 Resp 18 05/31/21 07:08 BP 136/86 05/31/21 07:08 Pulse Ox 94 05/31/21 07:08 Body Mass Index 30.9 Const: General: cooperative and no acute distress HENMT: Other: Unremarkable Neck: Neck: Yes normal visual inspection Chest: Chest palpation & inspection: normal inspection of the chest Resp: Auscultation: clear to auscultation bilaterally, no crackles and no wheezes Cardio: Jugular venous distension: no JVD Palpation: normal PMI Heart sounds: S1 normal heart sound present, S2 normal heart sound present, no gallops, no murmurs and no rubs GI: Palpation (GI): Soft to palpation Back/Spine/Pelvis: Other: unremarkable Skin: General skin exam: no rashes or lesions noted Neuro: Cranial nerves: Yes Other cranial nerve findings present Extrem: General: Yes no clubbing, cyanosis or edema Psych: Mental Status: other Results Labs and Meds Result diagrams: 05/30/21 14:32 05/30/21 14:32 Lab results: Laboratory Results - last 24 hr 05/30/21 05/30/21 05/30/21 14:32 14:32 14:32 WBC 10.1 RBC 5.13 Hgb 15.5 Hct 45.4 MCV 88.5 MCH 30.2 MCHC 34.1 RDW 13.5 Plt Count 269 MPV 9.7 Immature Gran % (Auto) 0.8 H Neut % (Auto) 81.7 H Lymph % (Auto) 12.9 L [place] % (Auto) 4.4 Eos % (Auto) 0.0 Baso % (Auto) 0.2 Lymph # (Auto) 1.3 [place] # (Auto) 0.4 Eos # (Auto) 0.0 Baso # (Auto) 0.0 Abs Immat Gran (auto) 0.08 H Absolute Neuts (auto) 8.2 Absolute Nucleated RBC 0.000 Nucleated RBC % (auto) 0.0 D-Dimer Sodium 139 Potassium 4.9 Chloride 107 Carbon Dioxide 22 Anion Gap 15 BUN 19 H Creatinine 1.05 Estim Creat Clear Calc 91.7 Estimated GFR > 60 Random Glucose 136 H Calcium 9.8 Troponin I High Sens < 3.5 B-Natriuretic Peptide 87 TSH 0.42 COVID-19 ([facility]) COVID-19 Clin Com 05/30/21 05/31/21 17:01 02:16 WBC RBC Hgb Hct MCV MCH MCHC RDW Plt Count MPV Immature Gran % (Auto) Neut % (Auto) Lymph % (Auto) [place] % (Auto) Eos % (Auto) Baso % (Auto) Lymph # (Auto) [place] # (Auto) Eos # (Auto) Baso # (Auto) Abs Immat Gran (auto) Absolute Neuts (auto) Absolute Nucleated RBC Nucleated RBC % (auto) D-Dimer < 200 Sodium Potassium Chloride Carbon Dioxide Anion Gap BUN Creatinine Estim Creat Clear Calc Estimated GFR Random Glucose Calcium Troponin I High Sens B-Natriuretic Peptide TSH COVID-19 ([facility]) Negative COVID-19 Clin Com See Note ECG Attestation: I personally reviewed and interpreted this ECG as follows: Interpretation: EKG with atrial flutter and rapid rate at 140/Min. Typical flutter. Imaging Radiologist's impression: Impressions Chest X-Ray 05/30/21 14:59 IMPRESSION: No evidence for acute disease in the chest. Elevated left hemidiaphragm similar to previous exam. Assessment and Plan (1) Atrial flutter with rapid ventricular response: Status: Acute Atrial flutter of uncertain duration. Based on smart watch episodes of tachycardia, at least several days but could be longer. Asthma exacerbation/respiratory issues may have played a role. He is on a Cardizem drip at maximum dose and still quite tachycardic. May add some beta-blockers as he does not have any wheezing. If he continues to be in rapid atrial flutter tomorrow, then SHE/cardioversion. Discussed about this with the patient and he understands and agrees. Also discussed with . Procedures Date of Service Date of Service: 05/31/21
[2021-05-31] MEDS: Metoprolol Tartrate 25 MG TABLET PO ×3 (11:12→23:50)
[2021-05-31] MEDS: Acetaminophen 325 MG TABLET 650 MG PO (11:21)
[2021-05-31] MEDS: dilTIAZem HCL 125 MG in 0.9 % Sodium Chloride 100 ML 15 MG IVCONT (14:21)
[2021-05-31] MEDS: LORazepam 1 MG TABLET PO (20:55)
[2021-05-31] MEDS: 0.9 % Sodium Chloride Flush 3 ML SYRINGE IVFLUSH (23:53)
[2021-06-01] VITALS (19 sets, daily range): BP systolic 84–142; BP diastolic 41–90; PULSE 67–122; RESP 16–20; TEMP 36.3–36.9; O2SAT 93–97
--- NOTE | 2021-06-01 | ECG_ITS ---
Test Reason : POST CARDIOVERSION Blood Pressure : / mmHG Vent. Rate : 077 BPM Atrial Rate : 077 BPM P-R Int : 164 ms QRS Dur : 090 ms QT Int : 386 ms P-R-T Axes : 056 034 032 degrees QTc Int : 436 ms Normal sinus rhythm Normal ECG When compared with ECG of 30-MAY-2021 14:13, Sinus rhythm has replaced Atrial flutter Vent. rate has decreased BY 63 BPM Referred By: Randall Gomez Electronically Signed By:RANDALL GOMEZ
[2021-06-01] MEDS: dilTIAZem HCL 125 MG in 0.9 % Sodium Chloride 100 ML 15 MG IVCONT (00:06)
[2021-06-01] MEDS: Apixaban 5 MG TABLET PO ×2 (05:50→15:21)
[2021-06-01] MEDS: Metoprolol Tartrate 25 MG TABLET PO (05:50)
[2021-06-01] MEDS: 0.9 % Sodium Chloride Flush 3 ML SYRINGE IVFLUSH ×3 (08:07→21:47)
[2021-06-01] MEDS: Fluticasone/Vilanterol 200/25 BLST.W.DEV 1 PUFF INHALE (08:14)
[2021-06-01] MEDS: Ipratropium Bromide 0.5 MG/2.5 ML SOLUTION INHALE ×4 (08:14→20:17)
--- NOTE | 2021-06-01 09:56 | MHC.SHP ---
Pre-Procedural Eval Section A Date of Service: 06/01/21 Section B Chief Complaint: a flutter with RVR Allergies: Allergies Allergy/AdvReac Type Severity Reaction Status Date / Time Iodinated Contrast Media Allergy Unknown SHORTNESS Verified 05/03/21 19:55 [IV CONTRAST] OF BREATH Plan I have reviewed the history and physical and performed a pertinent physical examination on my patient. No changes have occurred unless specified.
--- NOTE | 2021-06-01 09:57 | HO.ANESPROP2 ---
FORM[facility]LY [facility] Active Problems Active Problems: All Active Problems (Updated 05/31/21 @ 10:30 by Andres Mclaughlin MD) Atrial flutter with rapid ventricular response (Acute) Atrial flutter (Acute) Past Medical History Medical History Asthma Family History Family History Other CVA (cerebral vascular accident) Surgical History Surgical History No significant past surgical history Social History Social History Household Members: Spouse and Children Housing: House Alcohol intake: current Alcohol intake frequency: 0-2 drinks per day Patient Tobacco Use Status: Never used Tobacco Use of substances other than those prescribed or required for medical reasons: No Currently Displaying Signs/Symptoms of Drug Intoxication Withdrawal: No Have you been hit, kicked, punched, or otherwise hurt by someone within the past year? If so, by whom?: No Do you feel safe in your current relationship?: Yes Is there a partner from a previous relationship who is making you feel unsafe now?: No Are you made to feel afraid or neglected: No Are you DNR?: No Advance Directives: No Advance Directives Information Provided: No Do you have thoughts of harming others: None Do you have a plan to hurt others: No Plan Recently lost weight without trying: No Nutrition Risks: No Nutritional Risk service: No Current occupational status: employed Meds Allergies Allergy/AdvReac Type Severity Reaction Status Date / Time Iodinated Contrast Media Allergy Unknown SHORTNESS Verified 05/03/21 19:55 [IV CONTRAST] OF BREATH Active Medications: Current Medications Generic Name Dose Route Start Last Admin Trade Name Freq PRN Reason Stop Dose Admin Acetaminophen 650 mg 05/30/21 16:31 05/31/21 11:21 Acetaminophen 325 Mg Tablet PO 650 mg Q6H PRN Administration Pain, Mild (Pain Scale 1-3) Apixaban 5 mg 05/31/21 04:00 06/01/21 05:50 Apixaban 5 Mg Tablet PO 5 mg Q12H [facility] Administration Fluticasone/Vilanterol 1 puff 05/31/21 08:00 06/01/21 08:14 Fluticasone/Vilanterol 200/25 Blst.W.Dev INHALE 1 puff RDAILY [facility] Administration Diltiazem HCl 125 mg/ Sodium 125 mls @ 0 mls/hr 05/30/21 14:30 06/01/21 08:52 Chloride IVCONT 0 mg/hr .Q0M [facility] 0 mls/hr Titration Protocol Per Protocol Ipratropium [place] 0.5 mg 05/30/21 20:00 06/01/21 08:14 Ipratropium [place] 0.5 Mg/2.5 Ml Solution INHALE 0.5 mg RQ4H WHILE AWAKE [facility] Administration Levalbuterol HCl 1.25 mg 05/30/21 20:00 06/01/21 08:14 Levalbuterol Hcl 1.25 Mg/0.5 Ml Vial.Neb INHALE 1.25 mg RQ4H WHILE AWAKE [facility] Administration Lorazepam 1 mg 05/30/21 16:30 05/31/21 20:55 Lorazepam 1 Mg Tablet PO 1 mg BEDTIME PRN Administration Insomnia Methylprednisolone Sodium Succinate 40 mg 05/31/21 10:00 05/31/21 11:13 Methylprednisolone Sod Succ 40 Mg/Ml Vial IVPUSH 40 mg Q24H [facility] Administration Metoprolol Tartrate 25 mg 05/31/21 11:00 06/01/21 05:50 Metoprolol Tartrate 25 Mg Tablet PO 25 mg Q6H [facility] Administration Protocol Montelukast Sodium 10 mg 05/31/21 09:00 06/01/21 08:08 Montelukast Sodium 10 Mg Tablet PO Not Given DAILY [facility] Omeprazole 20 mg 05/31/21 09:00 06/01/21 08:08 Omeprazole 20 Mg Capsule.Dr PO Not Given DAILY [facility] Ondansetron HCl 4 mg 05/30/21 16:31 Ondansetron Hcl 4 Mg/2 Ml Vial IVPUSH Q8H PRN Nausea and Vomiting Pharmacy Consult 1 each 05/30/21 15:51 Consult Rx Perform Med Rec MISCELLANE ONCE PRN Consult order Sodium Chloride 3 ml 05/31/21 00:00 06/01/21 08:07 0.9 % Sodium Chloride Flush 3 Ml Syringe IVFLUSH 3 ml QSHIFT [facility] Administration Home Medications Medication Instructions Recorded Confirmed Last Taken Type albuterol sulfate 90 mcg/actuation 2 puff INHALATION Q4H PRN 05/30/21 05/30/21 Unknown History aerosol inhaler cetirizine 10 mg capsule (Zyrtec) 10 mg PO DAILY 05/30/21 05/30/21 Unknown History fluticasone 500 mcg-salmeterol 50 1 puff PO BID 05/30/21 05/30/21 Unknown History mcg/dose blistr powdr for inhalation (Advair Diskus) lorazepam 1 mg tablet 1 tab PO BEDTIME PRN 05/30/21 05/30/21 Unknown History montelukast 10 mg tablet 1 tab PO DAILY 05/30/21 05/30/21 Unknown History omeprazole 20 mg tablet,delayed 20 mg PO DAILY 05/30/21 05/30/21 Unknown History release prednisone 10 mg tablet See Taper PO DAILY 05/30/21 05/30/21 Unknown History psyllium 1 packet PO TID PRN 05/30/21 05/30/21 Unknown History Exam Exam Date and Time: June 01, 2021 0957 Height,Weight and Vital Signs: Height 5 ft 11 in Weight 100.4 kg Last Vital Signs Temp 98 F 06/01/21 09:16 Pulse 122 H 06/01/21 09:16 Resp 18 06/01/21 09:16 BP 142/83 H 06/01/21 09:16 Pulse Ox 94 06/01/21 09:16 Pertinent Lab Results Pertinent Lab Results: Laboratory Tests 05/30/21 05/30/21 05/30/21 14:32 14:32 14:32 WBC 10.1 RBC 5.13 Hgb 15.5 Hct 45.4 MCV 88.5 MCH 30.2 MCHC 34.1 RDW 13.5 Plt Count 269 MPV 9.7 Immature Gran % (Auto) 0.8 H Neut % (Auto) 81.7 H Lymph % (Auto) 12.9 L [place] % (Auto) 4.4 Eos % (Auto) 0.0 Baso % (Auto) 0.2 Lymph # (Auto) 1.3 [place] # (Auto) 0.4 Eos # (Auto) 0.0 Baso # (Auto) 0.0 Abs Immat Gran (auto) 0.08 H Absolute Neuts (auto) 8.2 Absolute Nucleated RBC 0.000 Nucleated RBC % (auto) 0.0 D-Dimer Sodium 139 Potassium 4.9 Chloride 107 Carbon Dioxide 22 Anion Gap 15 BUN 19 H Creatinine 1.05 Estim Creat Clear Calc 91.7 Estimated GFR > 60 Random Glucose 136 H Calcium 9.8 Troponin I High Sens < 3.5 B-Natriuretic Peptide 87 TSH 0.42 COVID-19 ([facility]) COVID-19 Clin Com 05/30/21 05/31/21 17:01 02:16 WBC RBC Hgb Hct MCV MCH MCHC RDW Plt Count MPV Immature Gran % (Auto) Neut % (Auto) Lymph % (Auto) [place] % (Auto) Eos % (Auto) Baso % (Auto) Lymph # (Auto) [place] # (Auto) Eos # (Auto) Baso # (Auto) Abs Immat Gran (auto) Absolute Neuts (auto) Absolute Nucleated RBC Nucleated RBC % (auto) D-Dimer < 200 Sodium Potassium Chloride Carbon Dioxide Anion Gap BUN Creatinine Estim Creat Clear Calc Estimated GFR Random Glucose Calcium Troponin I High Sens B-Natriuretic Peptide TSH COVID-19 ([facility]) Negative COVID-19 Clin Com See Note Assessment and Plan Final Anesthetic Review NPO: Yes ASA Class: III Final Preanesthetic Review: No Changes in Pt Med Stat, Meds/Allgs Chart Reviewed and Anes Risks/Benef Reviewed Patient Risk: Intermediate Procedure Risk: Low Assessment/Block/Sedation in SS: Assess/Block/Sedation-SS Anesthetic Plan Anesthetic Plan: GA Disposition: Standard PACU
--- NOTE | 2021-06-01 10:30 | CA_ITS ---
Transesophageal Echocardiogram Patient (Last, First, Middle): Gerardo Vergara K Gender: Male Date of : 1960 Age: 61 Procedure Date: 06/01/2021 Procedure Type: Transesophageal Echocardiogram Location: [facility] [place] Height: 180.34 cm Weight: 100.25 kg BSA: 2.20 m2 Heart Rate: bpm BP: 142 / 83 mmHg Artist Relationship Manager: ALENA Referring MD: Andres Mclaughlin MD Symptoms: Atrial flutter Conclusion: ??? There is no evidence of a thrombus in the left atrial appendage. Findings Procedure Information The quality of the study was good. Consent was obtained prior to the procedure. The adult 3D probe was passed with no difficulty. Left Ventricle Normal left ventricular cavity size. The left ventricular systolic function is normal. The visually estimated ejection fraction is between 55-60%. There is no evidence of regional wall motion abnormalities. Right Ventricle Normal right ventricular cavity size and systolic function. Atria The left atrial appendage is normal in size and flow. There is no evidence of a thrombus in the left atrial appendage. There is no evidence of interatrial shunt by color Doppler. Aortic Valve There is a normal trileaflet aortic valve. There is no aortic valve stenosis. There is trace (trivial) aortic valve regurgitation. Mitral Valve The mitral valve appears normal. There is mild mitral valve regurgitation. There is no mitral valve stenosis. Pulmonic Valve The pulmonic valve is likely normal. Tricuspid Valve Normal tricuspid valve structure. There is trace tricuspid valve regurgitation. Great Vessels The aortic annulus, sinuses of valsalva, and asc aorta are normal in size. Pericardium/Pleural There is no evidence of pericardial effusion. Prior Study Comparison No significant change compared to prior study dated: 05/31/2021. Updated by Andres Mclaughlin on 04:25 PM with Status of Final Andres Mclaughlin MD electronically signed on 06/01/2021 4:25:45 PM with status of Final
--- NOTE | 2021-06-01 11:19 | PM.PNCARD ---
Subjective Subjective Date of Service: 06/01/21 Interval history: Feels well. No specific complaints. Review of Systems Review of Systems Yes all other systems are reviewed and are negative Cardiovascular: Reports as per HPI, Reports no additional cardiovascular complaints, Denies acrocyanosis, Denies cool extremities, Denies painful fingertips, Denies chest pain, Denies chest pain at rest, Denies diaphoresis, Denies syncope, Denies irregular heart rhythm, Denies claudication, Denies leg edema, Denies lightheadedness, Denies palpitations and Reports dyspnea Respiratory: Reports dyspnea Denies syncope Endocrine: Denies palpitations Physical Exam Vital Signs: Last Vital Signs Temp 98 F 06/01/21 09:16 Pulse 122 H 06/01/21 09:16 Resp 18 06/01/21 09:16 BP 142/83 H 06/01/21 09:16 Pulse Ox 94 06/01/21 09:16 Body Mass Index 30.9 Const General: cooperative and no acute distress [facility] Other: Unremarkable Neck Neck: Yes normal visual inspection Chest Chest palpation & inspection: normal inspection of the chest Resp Auscultation: clear to auscultation bilaterally, no crackles and no wheezes Cardio Jugular venous distension: no JVD Palpation: normal PMI Heart sounds: S1 normal heart sound present, S2 normal heart sound present, no gallops, no murmurs and no rubs GI Palpation (GI): Soft to palpation Back/Spine/Pelvis Other: unremarkable Skin General skin exam: no rashes or lesions noted Neuro Cranial nerves: Yes Other cranial nerve findings present Extrem General: Yes no clubbing, cyanosis or edema Psych Mental Status: other Results Labs and Meds Result diagrams: 05/30/21 14:32 05/30/21 14:32 Progress Note: A&P Assessment and plan (1) Atrial flutter with rapid ventricular response: Status: Acute Assessment and Plan: Atrial flutter of uncertain duration. Based on smart watch episodes of tachycardia, at least several days but could be longer. Asthma exacerbation/respiratory issues may have played a role. He underwent SHE today. No evidence of any left atrial appendage thrombus. Successful cardioversion at 120 joules. He is in sinus rhythm now. Start flecainide 50 mg b.i.d.. Start diltiazem p.o.. Will watch him today and possibly discharge tomorrow. Fall Risk Details Current Medications: Current Medications Generic Name Dose Route Start Last Admin Trade Name Freq PRN Reason Stop Dose Admin Acetaminophen 650 mg 05/30/21 16:31 05/31/21 11:21 Acetaminophen 325 Mg Tablet PO 650 mg Q6H PRN Administration Pain, Mild (Pain Scale 1-3) Apixaban 5 mg 05/31/21 04:00 06/01/21 05:50 Apixaban 5 Mg Tablet PO 5 mg Q12H [facility] Administration Flecainide Acetate 50 mg 06/01/21 11:20 Flecainide Acetate 50 Mg Tablet PO BID [facility] Fluticasone/Vilanterol 1 puff 05/31/21 08:00 06/01/21 08:14 Fluticasone/Vilanterol 200/25 Blst.W.Dev INHALE 1 puff RDAILY [facility] Administration Ipratropium [place] 0.5 mg 05/30/21 20:00 06/01/21 08:14 Ipratropium [place] 0.5 Mg/2.5 Ml Solution INHALE 0.5 mg RQ4H WHILE AWAKE [facility] Administration Levalbuterol HCl 1.25 mg 05/30/21 20:00 06/01/21 08:14 Levalbuterol Hcl 1.25 Mg/0.5 Ml Vial.Neb INHALE 1.25 mg RQ4H WHILE AWAKE [facility] Administration Lorazepam 1 mg 05/30/21 16:30 05/31/21 20:55 Lorazepam 1 Mg Tablet PO 1 mg BEDTIME PRN Administration Insomnia Methylprednisolone Sodium Succinate 40 mg 05/31/21 10:00 05/31/21 11:13 Methylprednisolone Sod Succ 40 Mg/Ml Vial IVPUSH 40 mg Q24H [facility] Administration Montelukast Sodium 10 mg 05/31/21 09:00 06/01/21 08:08 Montelukast Sodium 10 Mg Tablet PO Not Given DAILY [facility] Omeprazole 20 mg 05/31/21 09:00 06/01/21 08:08 Omeprazole 20 Mg Capsule.Dr PO Not Given DAILY [facility] Ondansetron HCl 4 mg 05/30/21 16:31 Ondansetron Hcl 4 Mg/2 Ml Vial IVPUSH Q8H PRN Nausea and Vomiting Pharmacy Consult 1 each 05/30/21 15:51 Consult Rx Perform Med Rec MISCELLANE ONCE PRN Consult order Sodium Chloride 3 ml 05/31/21 00:00 06/01/21 08:07 0.9 % Sodium Chloride Flush 3 Ml Syringe IVFLUSH 3 ml QSHIFT [facility] Administration Time Spent With Patient Time: Total time spent is greater than 50% in coordination of care (as documented) at patient's floor/unit and/or counseling patient: Time with patient: less than 15 minutes Progress Note: Quality Stroke Does the patient have a stroke diagnosis?: No Procedures Date of Service Date of Service: 06/01/21
--- NOTE | 2021-06-01 11:22 | HO.CARDIVERS ---
Cardioversion Procedure Note Cardioversion Date of Procedure: 06/01/2021 Ordering Provider: Dr. Mclaughlin Performing Provider: Dr. Mclaughlin Indication for Procedure: Atrial flutter with rapid rate Pre-Op Diagnosis: Atrial flutter with rapid rate Post-Op Diagnosis: Sinus rhythm SHE findings (if SHE Performed): No evidence of left atrial appendage thrombus. History: Atrial flutter with rapid rate; shortness of breath; asthma exacerbation Consent: Informed consent obtained. Procedure: After informed consent was obtained, patient was taken to the PACU. The patient was then positioned appropriately. The cardioversion pads were placed in anteroposterior position. Once under anesthesia, 120 joules of synchronized shock was administered. The rhythm converted from atrial flutter to sinus rhythm. Patient remained in sinus rhythm after the end of procedure. Complications: None Impression: Successful cardioversion from atrial flutter to sinus. Recommendations: Obtain EKG; start Flecainide/Cardizem.
[2021-06-01] MEDS: Flecainide Acetate 50 MG TABLET PO ×2 (11:51→21:44)
[2021-06-01] MEDS: dilTIAZem HCL CD 120 MG CAP.ER.DEG PO (11:52)
--- NOTE | 2021-06-01 11:54 | P.CDIC_ITS ---
CDI Concurrent Query Service Date: 06/01/21 Documentation Clarification: Please clarify if you are treating a proba ble/suspected/likely or confirmed: Specifics: Typical Atrial Flutter Atypical Atrial Flutter Please specify if known or undetermined Undetermined Atrial Flutter Provider Response: Other Other Diagnosis: Undetermined A. Flutter PLEASE DO NOT DELETE/MODIFY EXISTING CONTENT Additional information is needed in order to code to the highest accuracy and appropriate Severity of Illness (SOI). Please clarify the information noted below in your progress notes and discharge summary. Risk Factors/Clinical Indicators/Treatments H&P: Assessment/plan: #1 Atrial flutter: Typical Qualified code: I48.3 - Typical atrial flutter new onset A Flutter/fib w RVR rates remain in the 100-110's on Cardizem gtt 10 mg/hr. may need cardioverson CDS: Helena Little CCS, CDIS Contact Number: [phone] Please Review the information above and exercise your independent professional judgment in responding to the query. If you concur, pleas document in the PROGRESS NOTES and DISCHARGE SUMMARY. If you do not agree with the query, please document in the query above. THIS QUERY IS PART OF THE PERMANENT MEDICAL RECORD
[2021-06-01] MEDS: methylPREDNISolone Sod Succ 40 MG/ML VIAL IVPUSH (12:14)
--- NOTE | 2021-06-01 13:18 | MHC.CM.PN ---
Male 61 DX AFIB. Patient S/P Cardioversion today. DP home no services family will transport. CM will follow.
--- NOTE | 2021-06-01 15:11 | P.PNIM_ITS ---
Subjective Subjective Date of Service: 06/01/21 Interval History: seen and examined this AM awaiting CV at that time no new complaints ROS General - no fevers or chills Cardiovascular - no chest pain Respiratory - no shortness of breath or cough Abdominal- no abdominal pain, nausea, vomiting, diarrhea Physical Exam Vital Signs: Vital Signs: Last Vital Signs Temp 97.3 F 06/01/21 12:00 Pulse 69 06/01/21 12:27 Resp 20 06/01/21 12:00 BP 109/68 06/01/21 12:00 Pulse Ox 96 06/01/21 12:00 Body Mass Index 30.9 Const: Other: Constitutional - Awake and Alert, No apparent distress Eyes - PERRLA, EOMI Cardiovascular - IRR, tachycardic Respiratory - improving air entry Gastrointestinal - NT / ND; +BS; No rebound or guarding - No CVA tenderness Extremities - no calf tenderness bilaterally, no swelling Musculoskeletal - Normal inspection, normal ROM Skin - Warm/Dry Neurological - Alert & oriented x3, No focal deficit Psychological - Appropriate affect Objective Data Current Medications Generic Name Dose Route Start Last Admin Trade Name Freq PRN Reason Stop Dose Admin Acetaminophen 650 mg 05/30/21 16:31 05/31/21 11:21 Acetaminophen 325 Mg Tablet PO 650 mg Q6H PRN Administration Pain, Mild (Pain Scale 1-3) Apixaban 5 mg 05/31/21 04:00 06/01/21 05:50 Apixaban 5 Mg Tablet PO 5 mg Q12H [facility] Administration Diltiazem HCl 120 mg 06/01/21 12:00 06/01/21 11:52 Diltiazem Hcl Cd 120 Mg Cap.Er.Deg PO 120 mg DAILY [facility] Administration Protocol Flecainide Acetate 50 mg 06/01/21 12:00 06/01/21 11:51 Flecainide Acetate 50 Mg Tablet PO 50 mg BID [facility] Administration Fluticasone/Vilanterol 1 puff 05/31/21 08:00 06/01/21 08:14 Fluticasone/Vilanterol 200/25 Blst.W.Dev INHALE 1 puff RDAILY [facility] Administration Ipratropium [place] 0.5 mg 05/30/21 20:00 06/01/21 12:26 Ipratropium [place] 0.5 Mg/2.5 Ml Solution INHALE 0.5 mg RQ4H WHILE AWAKE [facility] Administration Levalbuterol HCl 1.25 mg 05/30/21 20:00 06/01/21 12:26 Levalbuterol Hcl 1.25 Mg/0.5 Ml Vial.Neb INHALE 1.25 mg RQ4H WHILE AWAKE [facility] Administration Lorazepam 1 mg 05/30/21 16:30 05/31/21 20:55 Lorazepam 1 Mg Tablet PO 1 mg BEDTIME PRN Administration Insomnia Methylprednisolone Sodium Succinate 40 mg 05/31/21 10:00 06/01/21 12:14 Methylprednisolone Sod Succ 40 Mg/Ml Vial IVPUSH 40 mg Q24H [facility] Administration Montelukast Sodium 10 mg 05/31/21 09:00 06/01/21 08:08 Montelukast Sodium 10 Mg Tablet PO Not Given DAILY [facility] Omeprazole 20 mg 05/31/21 09:00 06/01/21 08:08 Omeprazole 20 Mg Capsule.Dr PO Not Given DAILY [facility] Ondansetron HCl 4 mg 05/30/21 16:31 Ondansetron Hcl 4 Mg/2 Ml Vial IVPUSH Q8H PRN Nausea and Vomiting Pharmacy Consult 1 each 05/30/21 15:51 Consult Rx Perform Med Rec MISCELLANE ONCE PRN Consult order Sodium Chloride 3 ml 05/31/21 00:00 06/01/21 08:07 0.9 % Sodium Chloride Flush 3 Ml Syringe IVFLUSH 3 ml QSHIFT [place] Administration Labs CBC & Chem 7: 05/30/21 14:32 05/30/21 14:32 Assessment and Plan (1) Atrial flutter with rapid ventricular response: Status: Acute Assessment and Plan: This is a relatively healthy 61 yo M who is presents to the hospital after being seen in the PCP's office where he was noted to be tachycardic in the 140s. His EKG is consistent with A. Flutter with RVR. He will be admitted for further treatment. 1. New onset A. Flutter/fib with RVR s/p cardioversion started on Flec 50mg BID + Cardizem 120 CD continue Eliquis 5mg BID monitor on tele over night, likely d/c in the AM 2. Asthma exacerbation improved change to prednisone upon d/c for total 5D 3. Alcohol use CIWA low, can stop monitoring Full Code DVT pptx, Eliquis Quality Stroke Does the patient have a stroke diagnosis?: No VTE Prior VTE?: No VTE Risk Level:: Medical - moderate - high VTE Device Contraindication: N/A - Device Ordered VTE Drug Contraindication: N/A - Med Ordered
[2021-06-01] MEDS: LORazepam 1 MG TABLET PO (21:44)
[2021-06-02] VITALS (7 sets, daily range): BP systolic 106–144; BP diastolic 58–82; PULSE 71–94; RESP 18; TEMP 36.1–36.4; O2SAT 94–97
[2021-06-02] MEDS: Apixaban 5 MG TABLET PO (03:05)
--- NOTE | 2021-06-02 08:16 | HO.POSTANES ---
Post Anesthesia Evaluation Post Anesthesia Evaluation Vital Signs: Vital Signs Temp Pulse Resp BP Pulse Ox 06/02/21 07:27 97.5 F 82 18 142/82 H 95 06/02/21 03:01 97.4 F 80 18 114/62 94 06/02/21 00:00 97 F 86 18 106/58 L 95 06/01/21 21:44 100 133/75 06/01/21 20:17 90 Anesthesia: Monitored Mental Status: Awake Pain Control: Satisfactory Nausea/Vomiting: None Hydration: Adequate Anesthesia-Related Issues: No Anes. Related Issues
[2021-06-02] MEDS: Ipratropium Bromide 0.5 MG/2.5 ML SOLUTION INHALE ×2 (08:33→12:16)
[2021-06-02] MEDS: Fluticasone/Vilanterol 200/25 BLST.W.DEV 1 PUFF INHALE (08:33)
--- NOTE | 2021-06-02 09:44 | PM.DS ---
DS: Providers Provider Date of Service: 06/02/21 Date of admission: 05/30/21 16:31 Primary care physician: Memo Hamilton MD Consults: 05/31/21 08:51 Consult to Cardiology Routine Consulting Provider: [facility] Cardiovascular Services Reason for consultation: a. fib rvr DS: Diagnosis Discharge Diagnosis (1) Atrial flutter with rapid ventricular response: Status: Acute DS: Medications Discharge Medications Home Medications: Home Medications Medication Instructions Recorded Confirmed albuterol sulfate 90 mcg/actuation 2 puff INHALATION Q4H PRN 05/30/21 05/30/21 aerosol inhaler cetirizine 10 mg capsule (Zyrtec) 10 mg PO DAILY 05/30/21 05/30/21 fluticasone 500 mcg-salmeterol 50 1 puff PO BID 05/30/21 05/30/21 mcg/dose blistr powdr for inhalation (Advair Diskus) lorazepam 1 mg tablet 1 tab PO BEDTIME PRN 05/30/21 05/30/21 montelukast 10 mg tablet 1 tab PO DAILY 05/30/21 05/30/21 omeprazole 20 mg tablet,delayed 20 mg PO DAILY 05/30/21 05/30/21 release psyllium 1 packet PO TID PRN 05/30/21 05/30/21 Previous Rx's Medication Instructions Recorded apixaban 5 mg tablet (Eliquis) 5 mg PO Q12H #60 tab 06/02/21 diltiazem HCl 120 mg 120 mg PO DAILY #30 cap 06/02/21 capsule,extended release 24 hr (Cardizem CD) flecainide 50 mg tablet 50 mg PO BID #60 tab 06/02/21 DS: Summary Hospital Course Hospital Course: Discharge diagnosis: 1. A Flutter with RVR 2. Asthma Exacerbation HPI from the admission H&P: This is a 61-year-old male with a past medical history of asthma who presents to the emergency room after being referred by his PCP for tachycardia.? Patient reports that about 1 week ago he had a tele health/telephone visit with this primary care doctor for what appeared to be an asthma exacerbation.? He was treated with albuterol and a course of prednisone and had a follow-up with the primary care provider today.? When he arrived he was noted to be tachycardic in the 140s and then subsequently referred to the emergency room.? Upon arrival to the ED patient's EKG revealed atrial fibrillation /flutter with rapid ventricular response.? He was given IV Cardizem push without much improvement and subsequently initiated on IV Cardizem drip.? The case was discussed by the ED provider with semiconductor processing technician who recommended anticoagulation in preparation for planned cardioversion tomorrow. Patient is seen and examined in the emergency room.? His family is bedside.? Patient endorses symptoms (shortness of breath) for at least 1 week and upon further review, likely started earlier in the month.? he denies any chest pain or palpitations.? He denies any orthopnea, although does endorse the site sleeps with several pillows for some time period. ? He denies any personal cardiac history but does endorse CVA history in his parents. He reports feeling, possibly, slight better since arrival, although his family bedside feels he appears the same. ? Of note, patient has a digital what and upon brief review looks like his heart rate has been above 100 since May 21. Pt endorses he received J&J vaccine for COVID-19 in February of this year. Hospital Course: Patient was started on Eliquis, cardizem drip and was admitted. He was evaluated by Cardiology and metoprolol was added.. His remained in rapid A. Flutter and ultimately underwent cardioversion successfully. He was started on Flecainide 50mg BID post cardioversion which he will be d/c on. He was also transitioned to oral Cardizem 120mg daily. He will be d/c on on Cardizem 120mg daily, Flecainide 50mg BID, Eliquis 5mg BID (which he needs to take for a minimum of 4 weeks due to recent cardioversion). He will be followed up with the cardiology clinic. Echo showed: The left ventricular systolic function is normal.? The visually estimated ejection fraction is between 55-60%. ? - Mildly increased right ventricular cavity size.? - No obvious valvular pathology seen on this study.? Patients was also treated for asthma exacerbation with IV systemic steroids and nebulizers. His respiratory symptoms have improved and he has completed his steroid course which was started as an outpatient, in the hospital. Time Spent with Patient Time attestation: Total time spent providing and/or coordinating discharge services: Discharge coordination time: Greater than 30 minutes Quality: Stroke Does the patient have a stroke diagnosis?: No Physical Exam Vital Signs: Vital Signs: Last Vital Signs Temp 97.5 F 06/02/21 07:27 Pulse 71 06/02/21 08:33 Resp 18 06/02/21 07:27 BP 142/82 H 06/02/21 07:27 Pulse Ox 95 06/02/21 07:27 Body Mass Index 30.9 General - no acute distress, appears comfortable Cardiovascular - regular rate and rhythm, S1-S2 Lungs - normal respiratory effort, clear to auscultation bilaterally, no wheezing Abdomen - soft, nontender, no rebound or guarding Extremities - no edema bilaterally Neuro - awake and alert, no focal deficits DS: Data Imaging Chest x-ray: Radiologist's impression: ITS Impressions Chest X-Ray 05/30/21 14:59 IMPRESSION: No evidence for acute disease in the chest. Elevated left hemidiaphragm similar to previous exam. Discharge Plan Discharge Patient Disposition: Home Health Service Discharge Diagnosis: New onset A. Fib Referrals: Memo Hamilton MD [Primary Care Provider] - 1 Week Andres Mclaughlin MD [Physician] - None Discharge Medications: New flecainide 50 mg Tablet 50 mg PO BID Qty: 60 RF: 0 diltiazem HCl [Cardizem CD] 120 mg Capsule,Extended Release 24hr 120 mg PO DAILY Qty: 30 RF: 0 Eliquis 5 mg Tablet 5 mg PO Q12H Qty: 60 RF: 0 Continued fluticasone propion-salmeterol [Advair Diskus] 500-50 mcg/dose blister with device 1 puff PO BID RF: 0 montelukast 10 mg tablet 1 tab PO DAILY RF: 0 lorazepam 1 mg tablet 1 tab PO BEDTIME PRN (Reason: Insomnia) RF: 0 albuterol sulfate 90 mcg/actuation HFA aerosol inhaler 2 puff inhalation Q4H PRN (Reason: Wheezing) RF: 0 omeprazole 20 mg Tablet,Delayed Release (Dr/Ec) 20 mg PO DAILY RF: 0 Zyrtec 10 mg Capsule 10 mg PO DAILY RF: 0 psyllium Packet 1 packet PO TID PRN (Reason: Digestion) RF: 0 Discontinued prednisone 10 mg tablet See Taper mg PO DAILY RF: 0 Discharge Orders: Discharge Order (Routine); Ordered 06/02/21 Ordered By: Anant Del [place] Diet: advance to usual diet Activity on Discharge: As tolerated Stand Alone Forms: Patient Portal Discharge page Care Plan Goals: To stay healthy and out of the hospital. Health Concerns: New-onset A. Flutter Plan of Treatment: Take Flecainide Take Cardizem Take Eliquis Follow up with Dr. Mclaughlin (his office will call you to arrange for follow up) Assessment: 61 yo M presented with A. Flutter with RVR. Underwent successful cardioversion and started on Flecainide, Cardizem and Eliquis
--- NOTE | 2021-06-02 10:02 | MHC.CM.PN ---
Male 61 DX A-flutter w/RVR discharge today to home with family. Family is providing transportation to home. No home services ordered or needed.
[2021-06-02] MEDS: 0.9 % Sodium Chloride Flush 3 ML SYRINGE IVFLUSH (10:39)
[2021-06-02] MEDS: dilTIAZem HCL CD 120 MG CAP.ER.DEG PO (10:40)
[2021-06-02] MEDS: Flecainide Acetate 50 MG TABLET PO (10:40)
[2021-06-02] MEDS: Montelukast Sodium 10 MG TABLET PO (10:41)
[2021-06-02] MEDS: Omeprazole 20 MG CAPSULE.DR PO (10:41)
[2021-06-02] MEDS: methylPREDNISolone Sod Succ 40 MG/ML VIAL IVPUSH (10:42)
--- NOTE | 2021-06-02 11:21 | PM.PNCARD ---
Subjective Subjective Date of Service: 06/02/21 Interval history: Feels well. No complaints. Review of Systems Review of Systems Yes all other systems are reviewed and are negative Cardiovascular: Reports as per HPI, Reports no additional cardiovascular complaints, Denies acrocyanosis, Denies cool extremities, Denies painful fingertips, Denies chest pain, Denies chest pain at rest, Denies diaphoresis, Denies syncope, Denies irregular heart rhythm, Denies claudication, Denies leg edema, Denies lightheadedness, Denies palpitations and Reports dyspnea Respiratory: Reports dyspnea Denies syncope Endocrine: Denies palpitations Physical Exam Vital Signs: Last Vital Signs Temp 97.5 F 06/02/21 11:16 Pulse 78 06/02/21 11:16 Resp 18 06/02/21 11:16 BP 133/72 06/02/21 11:16 Pulse Ox 95 06/02/21 11:16 Body Mass Index 30.9 Const General: cooperative and no acute distress Neck Neck: Yes normal visual inspection Chest Chest palpation & inspection: normal inspection of the chest Resp Auscultation: clear to auscultation bilaterally, no crackles and no wheezes Cardio Jugular venous distension: no JVD Palpation: normal PMI Heart sounds: S1 normal heart sound present, S2 normal heart sound present, no gallops, no murmurs and no rubs GI Palpation (GI): Soft to palpation Skin General skin exam: no rashes or lesions noted Neuro Cranial nerves: Yes Other cranial nerve findings present Extrem General: Yes no clubbing, cyanosis or edema Psych Mental Status: other Results Labs and Meds Result diagrams: 05/30/21 14:32 05/30/21 14:32 Progress Note: A&P Assessment and plan (1) Atrial flutter with rapid ventricular response: Status: Acute Assessment and Plan: Atrial flutter of uncertain duration. Based on smart watch episodes of tachycardia, at least several days but could be longer. Asthma exacerbation/respiratory issues may have played a role. He underwent SHE yesterday. No evidence of any left atrial appendage thrombus. Successful cardioversion at 120 joules. He is in sinus rhythm now. Continue flecainide 50 mg b.i.d./ diltiazem p.o.. Discharge. FU in office. Fall Risk Details Current Medications: Current Medications Generic Name Dose Route Start Last Admin Trade Name Freq PRN Reason Stop Dose Admin Acetaminophen 650 mg 05/30/21 16:31 05/31/21 11:21 Acetaminophen 325 Mg Tablet PO 650 mg Q6H PRN Administration Pain, Mild (Pain Scale 1-3) Apixaban 5 mg 05/31/21 04:00 06/02/21 03:05 Apixaban 5 Mg Tablet PO 5 mg Q12H [facility] Administration Diltiazem HCl 120 mg 06/01/21 12:00 06/02/21 10:40 Diltiazem Hcl Cd 120 Mg Cap.Er.Deg PO 120 mg DAILY [facility] Administration Protocol Flecainide Acetate 50 mg 06/01/21 12:00 06/02/21 10:40 Flecainide Acetate 50 Mg Tablet PO 50 mg BID [facility] Administration Fluticasone/Vilanterol 1 puff 05/31/21 08:00 06/02/21 08:33 Fluticasone/Vilanterol 200/25 Blst.W.Dev INHALE 1 puff RDAILY [facility] Administration Ipratropium [place] 0.5 mg 05/30/21 20:00 06/02/21 08:33 Ipratropium [place] 0.5 Mg/2.5 Ml Solution INHALE 0.5 mg RQ4H WHILE AWAKE [facility] Administration Levalbuterol HCl 1.25 mg 05/30/21 20:00 06/02/21 08:33 Levalbuterol Hcl 1.25 Mg/0.5 Ml Vial.Neb INHALE 1.25 mg RQ4H WHILE AWAKE [place] Administration Lorazepam 1 mg 05/30/21 16:30 06/01/21 21:44 Lorazepam 1 Mg Tablet PO 1 mg BEDTIME PRN Administration Insomnia Methylprednisolone Sodium Succinate 40 mg 05/31/21 10:00 06/02/21 10:42 Methylprednisolone Sod Succ 40 Mg/Ml Vial IVPUSH 40 mg Q24H [facility] Administration Montelukast Sodium 10 mg 05/31/21 09:00 06/02/21 10:41 Montelukast Sodium 10 Mg Tablet PO 10 mg DAILY [facility] Administration Omeprazole 20 mg 05/31/21 09:00 06/02/21 10:41 Omeprazole 20 Mg Capsule.Dr PO 20 mg DAILY [facility] Administration Ondansetron HCl 4 mg 05/30/21 16:31 Ondansetron Hcl 4 Mg/2 Ml Vial IVPUSH Q8H PRN Nausea and Vomiting Pharmacy Consult 1 each 05/30/21 15:51 Consult Rx Perform Med Rec MISCELLANE ONCE PRN Consult order Sodium Chloride 3 ml 05/31/21 00:00 06/02/21 10:39 0.9 % Sodium Chloride Flush 3 Ml Syringe IVFLUSH 3 ml QSHIFT [place] Administration Time Spent With Patient Time: Total time spent is greater than 50% in coordination of care (as documented) at patient's floor/unit and/or counseling patient: Time with patient: less than 15 minutes Progress Note: Quality Stroke Does the patient have a stroke diagnosis?: No Procedures Date of Service Date of Service: 06/02/21
== END 2021-06-02 13:27 | disposition home health service (06) | DRG 309 ==
LOC: HO.ED 15:56 → HO.EDOVER 16:53 → HO.IMC 19:58
PROVIDERS: Internal Medicine; Admitting Provider Family Medicine; Emergency Provider Emergency Medicine; PCP Internal Medicine; Visit Provider Family Medicine
PROC: 5A2204Z Restoration of Cardiac Rhythm, Single (ICD-10-PCS; principal; 2021-06-01 10:20)
DX: I48.3 Typical atrial flutter (principal); J45.901 Unspecified asthma with (acute) exacerbation; Z20.822 Contact with and (suspected) exposure to COVID-19; Z79.01 Long term (current) use of anticoagulants; Z79.899 Other long term (current) drug therapy
CPT/HCPCS: 36415; 71045; 80048; 83880; 84443; 84484; 85025; 85379; 87635; 92960; 93005; 93306; 93312; 94640; 99285; J2250; J2920

== ENCOUNTER → 2021-06-20 10:27 | Outpatient (BNVA) | payer OTHER, SELFPAY | PROVIDERS: PCP Internal Medicine; Referring Provider Internal Medicine; Visit Provider Internal Medicine | DX: I48.92 Unspecified atrial flutter (principal) | CPT/HCPCS: 93005 ==

== ENCOUNTER 2021-06-21 09:58 | Day surgery (SDC) | payer OTHER, SELFPAY ==
--- NOTE | 2021-06-20 14:22 | P.CONAN_ITS ---
Documented by User: Dinorah Chong NP 06/20/21 14:25 HPI - Anesthesia Eval Consult details Narrative: 61yo M for Cardioversion s/p SHE/Cardioversion 06/01/21 [facility] Active Problems Active Problems: All Active Problems (Updated 06/20/21 @ 11:05 by Andres Mclaughlin MD) Atrial flutter with rapid ventricular response (Acute) Past Medical History Medical History Asthma Atrial flutter Atrial flutter with rapid ventricular response Family History Family History Other CVA (cerebral vascular accident) Surgical History Surgical History No significant past surgical history Social History Social History Household Members: Spouse and Children Housing: House Alcohol intake: current Alcohol intake frequency: 0-2 drinks per day Patient Tobacco Use Status: Never used Tobacco Advance Directives: No Advance Directives Information Provided: Yes service: No Current occupational status: employed Meds Allergies Allergy/AdvReac Type Severity Reaction Status Date / Time Iodinated Contrast Media Allergy Unknown SHORTNESS Verified 06/21/21 10:26 [IV CONTRAST] OF BREATH Home Medications Medication Instructions Recorded Confirmed Last Taken Type albuterol sulfate 90 mcg/actuation 2 puff INHALATION Q4H PRN 05/30/21 06/20/21 06/21/21 08:00 History aerosol inhaler cetirizine 10 mg capsule (Zyrtec) 10 mg PO DAILY 05/30/21 06/20/21 06/21/21 08:00 History fluticasone 500 mcg-salmeterol 50 1 puff PO BID 05/30/21 06/20/21 Unknown History mcg/dose blistr powdr for inhalation (Advair Diskus) lorazepam 1 mg tablet 1 tab PO BEDTIME PRN 05/30/21 06/20/21 Unknown History montelukast 10 mg tablet 1 tab PO DAILY 05/30/21 06/20/21 Unknown History omeprazole 20 mg tablet,delayed 20 mg PO DAILY 05/30/21 06/20/21 06/21/21 08:00 History release psyllium 1 packet PO TID PRN 05/30/21 06/20/21 Unknown History flecainide 50 mg tablet 100 mg PO BID tab 06/20/21 06/20/21 06/21/21 08:00 History fluticasone 500 mcg-salmeterol 50 1 puff PO BID 06/21/21 06/21/21 06/21/21 08:00 History mcg/dose blistr powdr for inhalation (Advair Diskus) Exam Exam Date and Time: June 20, 2021 1422 Narrative Narrative: EKG 06/20/21 atrial flutter with 2-1 block at 124/Min ECHO 05/2021 Conclusions: - The left ventricular systolic function is normal.? The visually estimated ejection fraction is between 55-60%. ? - Mildly increased right ventricular cavity size.? - No obvious valvular pathology seen on this study.? ? ? Assessment and Plan Assessment Anesthesia Assessment: Chart Reviewed Documented by User: Houston Bajwa MD 06/21/21 10:39 [facility] Past Medical History Medical History Asthma Atrial flutter Atrial flutter with rapid ventricular response Family History Family History Other CVA (cerebral vascular accident) Family history of problems with anesthesia: No Surgical History Surgical History No significant past surgical history History of Problems with Anesthesia: No Social History Social History Household Members: Spouse and Children Housing: House Alcohol intake: current Alcohol intake frequency: 0-2 drinks per day Patient Tobacco Use Status: Never used Tobacco Advance Directives: No Advance Directives Information Provided: Yes service: No Current occupational status: employed Meds Allergies Allergy/AdvReac Type Severity Reaction Status Date / Time Iodinated Contrast Media Allergy Unknown SHORTNESS Verified 06/21/21 10:26 [IV CONTRAST] OF BREATH Home Medications Medication Instructions Recorded Confirmed Last Taken Type albuterol sulfate 90 mcg/actuation 2 puff INHALATION Q4H PRN 05/30/21 06/20/21 06/21/21 08:00 History aerosol inhaler cetirizine 10 mg capsule (Zyrtec) 10 mg PO DAILY 05/30/21 06/20/21 06/21/21 08:00 History fluticasone 500 mcg-salmeterol 50 1 puff PO BID 05/30/21 06/20/21 Unknown History mcg/dose blistr powdr for inhalation (Advair Diskus) lorazepam 1 mg tablet 1 tab PO BEDTIME PRN 05/30/21 06/20/21 Unknown History montelukast 10 mg tablet 1 tab PO DAILY 05/30/21 06/20/21 Unknown History omeprazole 20 mg tablet,delayed 20 mg PO DAILY 05/30/21 06/20/21 06/21/21 08:00 History release psyllium 1 packet PO TID PRN 05/30/21 06/20/21 Unknown History flecainide 50 mg tablet 100 mg PO BID tab 06/20/21 06/20/21 06/21/21 08:00 History fluticasone 500 mcg-salmeterol 50 1 puff PO BID 06/21/21 06/21/21 06/21/21 08:00 History mcg/dose blistr powdr for inhalation (Advair Diskus) Exam Airway Mallampati Class: III TM Dist: >3cm Neck ROM: Full Loose/Missing/Broken Teeth: No Heart: irreg irreg s1s2 Lungs: cta b/l Assessment and Plan Assessment Anesthesia Assessment: Anesthesia Plan Discussed Final Anesthetic Review Family History of Problems with Anesthesia: No History of Problems with Anesthesia: No NPO: Yes ASA Class: III Final Preanesthetic Review: No Changes in Pt Med Stat, Meds/Allgs Chart Reviewed, Consent Obtained/Reviewed and Anes Risks/Benef Reviewed Patient Risk: Intermediate Procedure Risk: Low Assessment/Block/Sedation in SS: Assess/Block/Sedation-SS Anesthetic Plan Anesthetic Plan: MAC: and Agree w/ Assess. and Plan Disposition: Standard PACU
[2021-06-21] VITALS (7 sets, daily range): BP systolic 117–147; BP diastolic 75–104; PULSE 77–128; RESP 14–21; TEMP 36.9–37.2; O2SAT 94–98; BMI 30.1
--- NOTE | 2021-06-21 | ECG_ITS ---
Test Reason : POST CARDIOVERSION Blood Pressure : / mmHG Vent. Rate : 076 BPM Atrial Rate : 076 BPM P-R Int : 182 ms QRS Dur : 102 ms QT Int : 398 ms P-R-T Axes : 060 028 038 degrees QTc Int : 447 ms Normal sinus rhythm Possible Left atrial enlargement Borderline ECG When compared with ECG of 01-JUN-2021 11:42, No significant change was found Referred By: Andres Mclaughlin Electronically Signed By:LISA DUPREE
--- NOTE | 2021-06-21 11:32 | MHC.SHP ---
Pre-Procedural Eval Section A Date of Service: 06/21/21 The patient is an INPATIENT: No Section B Chief Complaint: Atrial Flutter Allergies: Allergies Allergy/AdvReac Type Severity Reaction Status Date / Time Iodinated Contrast Media Allergy Unknown SHORTNESS Verified 06/21/21 10:26 [IV CONTRAST] OF BREATH Plan I have reviewed the history and physical and performed a pertinent physical examination on my patient. No changes have occurred unless specified.
--- NOTE | 2021-06-21 11:47 | HO.CARDIVERS ---
Cardioversion Procedure Note Cardioversion Date of Procedure: 06/21/2021 Ordering Provider: Dr. Mclaughlin Performing Provider: Dr. Mclaughlin Indication for Procedure: Atrial flutter with rapid ventricular rate Pre-Op Diagnosis: Atrial flutter with rapid ventricular rate Post-Op Diagnosis: Sinus rhythm History: Symptomatic atrial flutter with palpitations and shortness of breath and hence referred for cardioversion. Consent: Verbal and Written consent was obtained from the patient before starting. Procedure: After informed consent was obtained, patient was taken to the PACU. The patient was then positioned appropriately. The cardioversion pads were placed in anteroposterior position. Once under anesthesia, 120 joules of synchronized shock was administered. The rhythm converted from atrial flutter to sinus rhythm. Patient remained in sinus rhythm after the end of procedure. Complications: None Impression: Successful cardioversion from atrial flutter to sinus rhythm Recommendations: Referred for atrial flutter ablation. Continue current medications.
== END 2021-06-21 12:45 | disposition home or self-care (01) ==
PROVIDERS: PCP Internal Medicine; Visit Provider Internal Medicine
PROC: 5A2204Z Restoration of Cardiac Rhythm, Single (ICD-10-PCS; principal; 2021-06-21 12:30)
DX: I48.92 Unspecified atrial flutter (principal); Z79.01 Long term (current) use of anticoagulants; R00.2 Palpitations; J45.909 Unspecified asthma, uncomplicated; Z79.51 Long term (current) use of inhaled steroids; Z82.3 Family history of stroke; Z91.041 Radiographic dye allergy status
CPT/HCPCS: 92960; 93005; J0330; J0461; J2370

== ENCOUNTER → 2021-07-04 13:05 | Outpatient (BNVA) | payer OTHER, SELFPAY | PROVIDERS: PCP Internal Medicine; Visit Provider Internal Medicine | DX: I48.92 Unspecified atrial flutter (principal) | CPT/HCPCS: 93005 ==

== ENCOUNTER → 2021-07-22 08:03 | Outpatient (REF) | payer OTHER, SELFPAY ==
--- NOTE | ~2021-07-22 | NM_ITS ---
Lexiscan Myocardial perfusion study Indication: Atrial flutter, on antiarrhythmics, assess for ischemia Technique: The patient was brought in for a Lexiscan perfusion study on 07/22/2021 and was injected 0.4 mg of Lexiscan intravenously. Within a minute of this injection 35 mCi of sestamibi was given intravenously. Images were obtained using the SPECT gamma camera interlaced with the gating device. Images were obtained in supine position. Resting perfusion study was performed on 07/25/2021. Patient was administered 35 mCi of sestamibi intravenously at rest. Images were then obtained in supine position. Total DLP 109mGy-cm. Images were processed with the software and compared side to side in short axis, horizontal long axis and vertical long axis views. Findings: Raw acquisition reviewed. The stress perfusion study showed mildly diminished tracer uptake along the inferior wall. With CT attrition correction, there is improvement suggesting diaphragmatic attenuation artifact. The gated study shows mildly diminished LV systolic function with calculated LVEF of 49%. LV cavity is normal in size. The gated study shows normal wall thickening and contraction of segments. Resting study shows diminished tracer uptake along the inferior wall, more prominent in the basal portion. There is improvement with CT attenuation correction and hence suggestive of diaphragmatic attenuation artifact. Gating at rest reveals normal wall motion with ejection fraction at 62%. The findings are consistent with no reversible defects. Fixed inferior defect likely from diaphragmatic attenuation artifact. NH/NH cardiolite stress test Impression: 1. Myocardial perfusion imaging study shows no evidence of any ischemia or infarction. Likely normal perfusion. 2. Gated LVEF is 49% during stress but visually appears normal; 62% during rest-correlate with echocardiogram. 3. Transient ischemic dilatation not present. EKG component of the test reported separately.
--- NOTE | 2021-07-22 08:08 | CA_ITS ---
Acquisition Time: 2021-07-22 08:10:15 Total Exercise Time: 00:02:00 Test Indications: Abnormal Treadmill Test Medications: ALBUTEROL APIXABAN CETIRIZINE DILTIAZEM FLECAINIDE ADVAIR LORAZAPAM SINGULAIR OMEPRAZOLE Protocol: LEXISCAN Max HR: 115 BPM 71% of Pred: 161 BPM Max BP: 142/068 mmHG Max Work Load: 1.6 METS Pharmacological stress test with Lexiscan injection, while walking on treadmill, without anginal symptoms, without arrythmia, with normotensive response to injection, with nondiagnostic EKG for ischemia. IAt 6 min recovery he reported ongoing lightheadedness that was treated with Aminophylline 75mg IVP to reverse Lexiscan with resolution of symptom. Nuclear images pending. Test reviewed with Dr Oconnell. Referred By: Andres Mclaughlin Overread By: SADA TRUJILLO
== END ==
LOC: HO.CARD 08:03
PROVIDERS: Visit Provider Internal Medicine
DX: I48.92 Unspecified atrial flutter (principal); R06.02 Shortness of breath
CPT/HCPCS: 78452; 93017; A9500; J0280; J2785

== ENCOUNTER 2021-07-27 08:23 | Outpatient (REF) | payer OTHER, SELFPAY ==
[2021-07-27 10:13] LABS: MANUAL DIFF FLAG NO
[2021-07-27 10:16] LABS: Basophils Absolute Auto 0.1 X10*3/uL (0.0-0.2); Basophils Percent Auto 0.9 % (0-2); Eosinophils Absolute Auto 0.1 X10*3/uL (0.0-0.4); Eosinophils Percent Auto 2.6 % (0-4); Hematocrit 46.7 % (42-52); Hemoglobin 15.5 g/dl (14.0-18.0); Imm Gran Abs Auto 0.02 X10*3/uL (0.00-0.03); Imm Gran Pct Auto 0.4 % (0.0-0.4); Lymphocytes Absolute Auto 1.6 X10*3/uL (1.2-4.9); Lymphocytes Percent Auto 28.7 % (20-40); Mean Corpuscular HGB Conc 33.2 g/dl (31.0-36.0); Mean Corpuscular Hemoglobin 29.9 pg (27.0-33.0); Monocytes Absolute Auto 0.4 X10*3/uL (0.1-1.2); Monocytes Percent Auto 7.9 % (2-11); Neutrophils Absolute Auto 3.2 X10*3/uL (2.0-8.3); Neutrophils Percent Auto 59.5 % (45-73); Platelet Count 257 X10*3/uL (160-400); Red Blood Count 5.19 X10*6/uL (4.60-5.80); Red Cell Distribution Width 13.1 % (11.0-16.0); White Blood Count 5.4 X10*3/uL (4.8-10.8)
[2021-07-27 10:56] LABS: Erythrocyte Sedimentation Rate 4 MM/HR (0-15)
== END 2021-07-27 08:24 | disposition home or self-care (01) ==
LOC: HO.LAB 08:23
PROVIDERS: PCP Internal Medicine; Visit Provider Hospitalist
DX: J45.40 Moderate persistent asthma, uncomplicated (principal); I48.92 Unspecified atrial flutter; R05 Cough; Z79.51 Long term (current) use of inhaled steroids
CPT/HCPCS: 36415; 82785; 85025; 85652; 86003

== ENCOUNTER 2021-08-08 08:12 | Outpatient (REF) | payer OTHER, SELFPAY ==
--- NOTE | 2021-08-08 17:11 | PFT_ITS ---
INDICATION: Asthma. SPIROMETRY: The FEV1 to FVC of 79% with an FEV1 of 2.88 L which is 76% predicted and FVC of 3.66 L, which is 72% predicted. Post bronchodilators, there was a significant improvement of the FEV1 by 13%. Also to note, the patient had a significant amount of small airway disease of 50% predicted that normalized after the bronchodilation was provided. Maximum voluntary ventilation 91% predicted. LUNG VOLUMES: Total lung capacity 94% predicted with residual volume of 130% predicted. DIFFUSION CAPACITY: DLCO of 85% predicted. COMPARISONS: None. INTERPRETATION: There is a reversible obstructive ventilatory defect consistent with diagnosis of asthma. There was a significant response to bronchodilators noted. There is also significant amount of small airways disease also consistent with diagnosis of asthma. Maximum voluntary ventilation was within normal limits. Lung volumes with significant air trapping due to the small airway disease and the obstructive airway disease. In addition to that, diffusion capacity is within normal limits. Clinical correlation warranted. MD OCTAVIO Ewing/DENICE / [id number]
== END 2021-08-08 08:13 | disposition home or self-care (01) ==
LOC: HO.RESP 08:12
PROVIDERS: PCP Internal Medicine; Visit Provider Hospitalist
DX: J45.909 Unspecified asthma, uncomplicated (principal); I48.92 Unspecified atrial flutter
CPT/HCPCS: 94060; 94727; 94729

== ENCOUNTER 2021-08-22 08:33 | Outpatient (REF) | payer OTHER, SELFPAY ==
--- NOTE | ~2021-08-22 | FL_ITS ---
EXAMINATION: FL BARIUM SWALLOW CLINICAL INFORMATION: Difficulty swallowing. COMPARISON: None. TECHNIQUE: Barium swallow examination is performed using fluoroscopic evaluation in addition to multiple fluoroscopic spot views. The patient is imaged both upright and prone and using both thick and thin sulfate along with effervescent granules. Fluoroscopy time: 1.7 minutes DAP: 13.163 Gycm2 Images: 53 FINDINGS: Following oral administration of thick barium and barium-coated turkey in upright view, there is normal propagation of bolus from the oral cavity through the pharynx and thoracic esophagus and into the stomach without obstruction. There is mild irregularity seen along the cervical esophagus on initial images, on image 3/6 at or below the cervical esophageal sphincter. This is not seen on subsequent images. The rest of the esophagus is normal caliber. On placing patient prone and oral administration of thin barium, there is good distention of the entire esophagus without any evidence of obstruction, narrowing or stricture. There is no gastroesophageal reflux or hiatal hernia seen in supine or prone position. FL/FL barium swallow IMPRESSION: Mild irregularity seen along the cervical esophagus on initial images not seen subsequently. Otherwise the rest of the esophagus is unremarkable. No gastroesophageal reflux or hiatal hernia.
== END 2021-08-22 08:34 | disposition home or self-care (01) ==
LOC: HO.XRAY 08:33
PROVIDERS: PCP Internal Medicine; Visit Provider Hospitalist
DX: K21.9 Gastro-esophageal reflux disease without esophagitis (principal)
CPT/HCPCS: 74220

== ENCOUNTER → 2021-09-07 09:05 | Outpatient (BNVA) | payer OTHER, SELFPAY | PROVIDERS: PCP Internal Medicine; Visit Provider Hospitalist | DX: J45.40 Moderate persistent asthma, uncomplicated (principal); I48.92 Unspecified atrial flutter; R05.3 Chronic cough | CPT/HCPCS: 90471; 90732 ==

== ENCOUNTER 2021-09-13 10:44 | Outpatient (REF) | payer OTHER, SELFPAY ==
[2021-09-13 10:47] LABS: MANUAL DIFF FLAG NO
[2021-09-13 10:58] LABS: Imm Gran Abs Auto 0.01 X10*3/uL (0.00-0.03); Imm Gran Pct Auto 0.2 % (0.0-0.4)
[2021-09-13 11:04] LABS: Appearance Urine CLEAR; Color Urine YELLOW; Glucose Urine UA NEG (NEG); Leukocyte Esterase Urine NEG (NEG); Nitrite Urine NEG (NEG); PH 5.5 (5.0-8.0); Specific Gravity - Urine 1.025 (1.005-1.025); Urine Blood NEG (NEG); Urine Ketones NEG (NEG); Urine Protein NEG (NEG-TRACE)
[2021-09-13 11:09] LABS: Basophils Percent Auto 0.7 % (0-2); Eosinophils Absolute Auto 0.1 X10*3/uL (0.0-0.4); Eosinophils Percent Auto 2.3 % (0-4); Hematocrit 45.8 % (42.0-52.0); Hemoglobin 15.3 g/dl (14.0-18.0); Lymphocytes Percent Auto 22.8 % (20-40); Mean Corpuscular HGB Conc 33.4 g/dl (31.0-36.0); Mean Corpuscular Hemoglobin 30.2 pg (27.0-33.0); Mean Corpuscular Volume 90.3 fL (80.0-98.0); Mean Platelet Volume 10.5 fL (9.4-12.4); Monocytes Absolute Auto 0.4 X10*3/uL (0.1-1.2); Monocytes Percent Auto 9.4 % (2-11); Neutrophils Absolute Auto 2.8 x10*3/uL (2.0-8.3); Neutrophils Percent Auto 64.6 % (45-73); Platelet Count 271 X10*3/uL (160-400); Red Blood Count 5.07 X10*6/uL (4.60-5.80); Red Cell Distribution Width 13.1 % (11.0-16.0); White Blood Count 4.3 X10*3/uL (4.8-10.8)
[2021-09-13 11:32] LABS: Alanine Aminotransferase 16 U/L (0-40); Albumin Level 4.4 g/dL (3.5-5.0); Alkaline Phosphatase 97 U/L (39-117); Anion Gap 16 (12-20); Aspartate Amino Transferase 17 U/L (5-37); Bilirubin Total 0.6 mg/dL (0.0-1.0); Blood Urea Nitrogen 11 mg/dL (9-16); Calcium 9.3 mg/dL (8.4-10.2); Carbon Dioxide 22 mmol/L (22-29); Chloride 109 mmol/L (96-108); Cholesterol 245 mg/dL; Estimated Glomerular Filt Rate > 60; Glucose Fasting 95 mg/dL (60-99); HDL Cholesterol 61 mg/dL; LDL Cholesterol Calculated 161 mg/dl; Potassium 4.4 mmol/L (3.3-5.1); Sodium 143 mmol/L (135-145); Total Protein 6.7 g/dL (6.5-8.0); Triglycerides 115 mg/dL
[2021-09-13 11:56] LABS: PSA,Total (Free>4and<10) 1.48 ng/mL (0.00-4.00)
[2021-09-13 13:47] LABS: Reflex LDLD? No
== END 2021-09-13 10:45 | disposition home or self-care (01) ==
LOC: HO.LNP 10:44
PROVIDERS: PCP Internal Medicine; Visit Provider Internal Medicine
DX: Z00.00 Encounter for general adult medical examination without abnormal findings (principal); Z12.5 Encounter for screening for malignant neoplasm of prostate; E78.00 Pure hypercholesterolemia, unspecified
CPT/HCPCS: 80053; 80061; 81003; 84153; 85025

== ENCOUNTER → 2021-10-04 12:47 | Outpatient (BNVA) | payer OTHER, SELFPAY | PROVIDERS: PCP Internal Medicine; Referring Provider Internal Medicine; Visit Provider Internal Medicine | DX: I48.92 Unspecified atrial flutter (principal); J45.909 Unspecified asthma, uncomplicated; R05.3 Chronic cough; R00.1 Bradycardia, unspecified; Z98.890 Other specified postprocedural states; Z82.3 Family history of stroke; Z91.041 Radiographic dye allergy status; Z79.899 Other long term (current) drug therapy; Z79.01 Long term (current) use of anticoagulants; Z51.81 Encounter for therapeutic drug level monitoring | CPT/HCPCS: 93005 ==

== ENCOUNTER 2021-12-12 12:04 | Day surgery (SDC) | payer OTHER, SELFPAY ==
[2021-12-06 15:15] VITALS: BMI 29.9
--- NOTE | 2021-12-09 13:19 | P.CONAN_ITS ---
Documented by User: Dinorah Chong NP 12/09/21 13:21 HPI - Anesthesia Eval Consult details Narrative: 61yo M for Upper Endoscopy s/p cardioversion 06/2021 with TIVA PMF[facility] Active Problems Active Problems: All Active Problems (Updated 12/06/21 @ 15:13 by Jennifer Madera RN) Paroxysmal atrial flutter (Acute) Status post catheter ablation of atrial flutter (Acute) Anticoagulation management encounter (Acute) Chronic cough (Acute) Asthma (Acute) Atrial flutter with rapid ventricular response (Acute) Past Medical History Medical History (Updated 12/06/21 @ 15:13 by Jennifer Madera RN) Asthma Atrial flutter with rapid ventricular response Chronic cough History of cardioversion Renal calculi Family History Family History Other CVA (cerebral vascular accident) Family history of problems with anesthesia: No Surgical History Surgical History H/O colonoscopy History of cardiac radiofrequency ablation History of esophagogastroduodenoscopy (EGD) Hx of tonsillectomy History of Problems with Anesthesia: No Social History Social History Household Members: Spouse and Children Housing: House Alcohol intake: current Alcohol intake frequency: former alcohol drinker Patient Tobacco Use Status: Never used Tobacco Advance Directives: No Advance Directives Information Provided: Yes Advance Directives on File: No service: No Current occupational status: employed Meds Allergies Allergy/AdvReac Type Severity Reaction Status Date / Time Iodinated Contrast Media Allergy Severe SHORTNESS Verified 10/04/21 12:56 [IV CONTRAST] OF BREATH Home Medications Medication Instructions Recorded Confirmed Last Taken Type albuterol 2 puff 05/30/21 12/06/21 06/21/21 08:00 History sulfate 90 INHALATION Q4H mcg/actuation PRN aerosol inhaler cetirizine 10 10 mg PO DAILY 05/30/21 12/06/21 06/21/21 08:00 History mg capsule (Zyrtec) lorazepam 1 mg 1 tab PO 05/30/21 12/06/21 Unknown History tablet BEDTIME PRN montelukast 10 1 tab PO DAILY 05/30/21 12/06/21 Unknown History mg tablet psyllium 1 packet PO TID 05/30/21 12/06/21 Unknown History PRN cholecalciferol 25 mcg PO DAILY 09/07/21 12/06/21 Unknown History (vitamin D3) 25 mcg (1,000 unit) capsule Exam Exam Date and Time: December 09, 2021 1319 Height,Weight and Vital Signs: Height 5 ft 11 in Weight 97.522 kg Pertinent Lab Results Pertinent Lab Results: Laboratory Tests 09/13/21 09/13/21 07:55 07:55 WBC 4.3 L Hgb 15.3 Hct 45.8 Plt Count 271 Sodium 143 Potassium 4.4 Chloride 109 H Carbon Dioxide 22 BUN 11 Creatinine 0.91 Narrative Narrative: ECHO 05/2021 Conclusions: - The left ventricular systolic function is normal.? The visually estimated ejection fraction is between 55-60%. ? - Mildly increased right ventricular cavity size.? - No obvious valvular pathology seen on this study. EKG 09/2021 sinus bradycardia, 52/Min; no significant ST-T changes and otherwise unremarkable Assessment and Plan Assessment Anesthesia Assessment: Chart Reviewed Final Anesthetic Review Family History of Problems with Anesthesia: No History of Problems with Anesthesia: No Documented by User: Terrence Gomez 12/12/21 16:43 HPI - Anesthesia Eval Consult details Narrative: 61yo M for Upper Endoscopy s/p cardioversion 06/2021 with TIVA s/p ablation in [facility] Past Medical History Medical History (Updated 12/06/21 @ 15:13 by Jennifer Madera RN) Asthma Atrial flutter with rapid ventricular response Chronic cough History of cardioversion Renal calculi Family History Family History Other CVA (cerebral vascular accident) Surgical History Surgical History H/O colonoscopy History of cardiac radiofrequency ablation History of esophagogastroduodenoscopy (EGD) Hx of tonsillectomy Social History Social History Household Members: Spouse and Children Housing: House Alcohol intake: current Alcohol intake frequency: former alcohol drinker Patient Tobacco Use Status: Never used Tobacco Advance Directives: No Advance Directives Information Provided: Yes Advance Directives on File: No service: No Current occupational status: employed Meds Allergies Allergy/AdvReac Type Severity Reaction Status Date / Time Iodinated Contrast Media Allergy Severe SHORTNESS Verified 10/04/21 12:56 [IV CONTRAST] OF BREATH Home Medications Medication Instructions Recorded Confirmed Last Taken Type albuterol 2 puff 05/30/21 12/06/21 06/21/21 08:00 History sulfate 90 INHALATION Q4H mcg/actuation PRN aerosol inhaler cetirizine 10 10 mg PO DAILY 05/30/21 12/06/21 06/21/21 08:00 History mg capsule (Zyrtec) lorazepam 1 mg 1 tab PO 05/30/21 12/06/21 Unknown History tablet BEDTIME PRN montelukast 10 1 tab PO DAILY 05/30/21 12/06/21 Unknown History mg tablet psyllium 1 packet PO TID 05/30/21 12/06/21 Unknown History PRN cholecalciferol 25 mcg PO DAILY 09/07/21 12/06/21 Unknown History (vitamin D3) 25 mcg (1,000 unit) capsule Exam Airway Mallampati Class: II TM Dist: >3cm Neck ROM: Full Loose/Missing/Broken Teeth: Yes (Cap , fillings ) Heart: rrr Lungs: bl breath sounds Assessment and Plan Assessment Anesthesia Assessment: Anesthesia Plan Discussed Final Anesthetic Review NPO: Yes ASA Class: III Final Preanesthetic Review: Meds/Allgs Chart Reviewed and Anes Risks/Benef Reviewed Patient Risk: Intermediate Procedure Risk: Intermediate Anesthetic Plan Anesthetic Plan: MAC: Disposition: Standard PACU
[2021-12-12 12:33] VITALS: BP 150/87; PULSE 56; RESP 18; TEMP 36.6; O2SAT 97
[2021-12-12] MEDS: Lactated Ringers 1,000 ML 100 ML IVCONT (12:39)
[2021-12-12 14:33] VITALS: BP 117/69; PULSE 56; RESP 20; TEMP 36.6; O2SAT 95
--- NOTE | 2021-12-12 14:35 | P.BOP_ITS ---
Brief Operative Note Date of Service: 12/12/21 Pre-op diagnosis: GERD, Abnormal Barium swallow Post-op diagnosis: other (Hiatal hernia, R/O Galan's, Gastric polyps) Procedure: EGD with biopsies Surgeon: Bala Romero Anesthesia: MAC Was an Cashier Associate used for this Procedure?: No Estimated blood loss (mL): 2.0 Pathology: other (A. Esophagus 37-38cm B. Gastric polyps) Condition: stable Disposition: PACU
[2021-12-12 14:48] VITALS: BP 124/77; PULSE 53; RESP 18; TEMP 36.3; O2SAT 95
--- NOTE | 2021-12-13 00:42 | OP_ITS ---
SURGEON: Bala Romero MD INDICATIONS: The patient presents for evaluation of gastroesophageal reflux and abnormal barium swallow. Full consent was obtained from him for this, including risks of bleeding and perforation. PREOPERATIVE DIAGNOSIS: POSTOPERATIVE DIAGNOSIS: PROCEDURE PERFORMED: Esophagogastroduodenoscopy with biopsies. ESTIMATED BLOOD LOSS: COMPLICATIONS: ANESTHESIA: Medication used, monitored anesthesia care. ASSISTANTS: SPECIMENS: PREOPERATIVE DIAGNOSES: Gastroesophageal reflux and abnormal barium swallow. POSTOPERATIVE DIAGNOSES: Gastroesophageal reflux and abnormal barium swallow, hiatal hernia, rule out Galan's esophagus, gastric polyps. DESCRIPTION OF PROCEDURE: Patient was placed in the left lateral decubitus position. The Olympus video gastroscope was passed in the posterior oropharynx and upper esophagus under direct vision. The scope was passed slowly into the distal esophagus. The gastroesophageal junction appeared at 38 cm. Extending from this to 37 cm where some areas of probable Galan's mucosa. There was no evidence of any ulceration, esophagitis, nor mass. The scope was advanced into the stomach, there was a small hiatal hernia. The scope was advanced to the pylorus and the duodenum was cannulated to the descending portion. The duodenum including the bulb appeared normal without mass or ulceration. Scope was withdrawn back in the stomach. The gastric antrum and body appeared normal with good peristalsis. The scope was retroflexed, visualizing the proximal stomach carefully, which appeared normal without any sign of mass or ulceration, other than multiple hyperplastic appearing gastric polyps. Two of these were biopsied. The scope was withdrawn back in the esophagus. Biopsies were obtained between 37 and 38 cm to inspect for the Galan's esophagus. Proximal to this, the esophageal mucosa appeared normal. The cervical esophagus appeared normal without any abnormality. The scope was withdrawn from the patient. He tolerated the procedure well and was returned to recovery area in stable condition. IMPRESSION: 1. Hiatal hernia, gastroesophageal reflux, rule out Galan's esophagus. 2. Gastric polyps. PLAN: The results of the biopsies will be checked. Assuming there is Galan's esophagus without dysplasia, I would recommend a repeat upper endoscopy in 3 years for surveillance. He was advised to continue his daily PPI. He will be due for colonoscopy next year. MD SINGH Beck/DENICE / [id number] LUIS
== END 2021-12-12 15:27 | disposition home or self-care (01) ==
PROVIDERS: PCP Internal Medicine; Visit Provider Internal Medicine
PROC: 0DJ08ZZ Inspection of Upper Intestinal Tract, Via Natural or Artificial Opening Endoscopic (ICD-10-PCS; CPT 43235; principal; 2021-12-12 13:10)
DX: K21.9 Gastro-esophageal reflux disease without esophagitis (principal); K22.70 Barrett's esophagus without dysplasia; K31.7 Polyp of stomach and duodenum; K44.9 Diaphragmatic hernia without obstruction or gangrene; J45.909 Unspecified asthma, uncomplicated; I48.91 Unspecified atrial fibrillation; Z87.442 Personal history of urinary calculi; Z79.51 Long term (current) use of inhaled steroids; Z79.899 Other long term (current) drug therapy
CPT/HCPCS: 43239; 88305; 88342

== ENCOUNTER → 2022-01-03 09:04 | Outpatient (BNVA) | payer OTHER, SELFPAY | PROVIDERS: PCP Internal Medicine; Visit Provider Hospitalist | DX: J45.909 Unspecified asthma, uncomplicated (principal) ==

== ENCOUNTER → 2022-03-30 12:34 | Outpatient (BNVA) | payer OTHER, SELFPAY | PROVIDERS: PCP Internal Medicine; Referring Provider Internal Medicine; Visit Provider Internal Medicine | DX: I48.92 Unspecified atrial flutter (principal) ==

== ENCOUNTER 2022-09-19 11:03 | Outpatient (REF) | payer OTHER, SELFPAY ==
[2022-09-19 11:07] LABS: MANUAL DIFF FLAG NO
[2022-09-19 11:20] LABS: Basophils Absolute Auto 0.1 X10*3/uL (0.0-0.2); Basophils Percent Auto 1.5 % (0-2); Eosinophils Absolute Auto 0.3 X10*3/uL (0.0-0.4); Eosinophils Percent Auto 6.7 % (0-4); Hematocrit 40.8 % (42.0-52.0); Hemoglobin 13.6 g/dl (14.0-18.0); Imm Gran Abs Auto 0.01 X10*3/uL (0.00-0.03); Imm Gran Pct Auto 0.2 % (0.0-0.4); Lymphocytes Absolute Auto 1.4 X10*3/uL (1.2-4.9); Lymphocytes Percent Auto 30.1 % (20-40); Mean Corpuscular HGB Conc 33.3 g/dl (31.0-36.0); Mean Corpuscular Hemoglobin 30.2 pg (27.0-33.0); Mean Corpuscular Volume 90.5 fL (80.0-98.0); Mean Platelet Volume 10.5 fL (9.4-12.4); Monocytes Absolute Auto 0.5 X10*3/uL (0.1-1.2); Monocytes Percent Auto 9.8 % (2-11); Neutrophils Absolute Auto 2.5 x10*3/uL (2.0-8.3); Neutrophils Percent Auto 51.7 % (45-73); Platelet Count 214 X10*3/uL (160-400); Red Blood Count 4.51 X10*6/uL (4.60-5.80); Red Cell Distribution Width 12.3 % (11.0-16.0); White Blood Count 4.8 X10*3/uL (4.8-10.8)
[2022-09-19 11:37] LABS: Alanine Aminotransferase 21 U/L (0-40); Alkaline Phosphatase 107 U/L (39-117); Anion Gap 17 (12-20); Aspartate Amino Transferase 19 U/L (5-37); Bilirubin Total 0.8 mg/dL (0.0-1.0); Blood Urea Nitrogen 16 mg/dL (9-16); Calcium 9.2 mg/dL (8.4-10.2); Carbon Dioxide 26 mmol/L (22-29); Chloride 103 mmol/L (96-108); Cholesterol 193 mg/dL; Estimated Glomerular Filt Rate > 60; Glucose Fasting 93 mg/dL (60-99); HDL Cholesterol 48 mg/dL; LDL Cholesterol Calculated 136 mg/dl; Potassium 3.9 mmol/L (3.3-5.1); Sodium 142 mmol/L (135-145); Total Protein 6.6 g/dL (6.5-8.0); Triglycerides 48 mg/dL
[2022-09-19 11:57] LABS: PSA,Total (Free>4and<10) 3.17 ng/mL (0.00-4.00)
[2022-09-19 12:01] LABS: Appearance Urine Clear; Color Urine Yellow; Glucose Urine UA Negative (Negative); Leukocyte Esterase Urine Negative (Negative); Nitrite Urine Negative (Negative); Specific Gravity - Urine 1.025 (1.005-1.025); Urine Blood Negative (Negative); Urine Ketones Negative (Negative); Urine Protein Negative (Neg-Trace)
[2022-09-19 12:52] LABS: Bacteria Urine Trace (None Seen); Hyaline Casts Urine 0-2 /LPF (0-2); RBC Urine 0-2 /HPF (0-2); Squamous Epithelial Cell Urine 0-2 /HPF (0-2); WBC Urine 0-5 /HPF (0-5)
== END 2022-09-19 11:04 | disposition home or self-care (01) ==
LOC: HO.LNP 11:03
PROVIDERS: Visit Provider Internal Medicine
DX: Z00.00 Encounter for general adult medical examination without abnormal findings (principal); E78.00 Pure hypercholesterolemia, unspecified; Z12.5 Encounter for screening for malignant neoplasm of prostate
CPT/HCPCS: 80053; 80061; 81001; 84153; 85025

== ENCOUNTER 2022-09-25 16:07 | Outpatient (REF) | payer OTHER, SELFPAY ==
[2022-09-25 17:08] LABS: PSA,Total (Free>4and<10) 1.26 ng/mL (0.00-4.00)
== END 2022-09-25 16:08 | disposition home or self-care (01) ==
LOC: HO.LNP 16:07
PROVIDERS: Visit Provider Internal Medicine
DX: Z12.5 Encounter for screening for malignant neoplasm of prostate (principal); R97.20 Elevated prostate specific antigen [PSA]
CPT/HCPCS: 84153

== ENCOUNTER 2022-11-25 12:39 | Emergency (ER) | payer OTHER, SELFPAY ==
--- NOTE | ~2022-11-25 | US_ITS ---
EXAMINATION: US VENOUS ULTRASOUND WITH DOPPLER LOWER EXTREMITY, RIGHT CLINICAL INFORMATION: Pain and numbness COMPARISON: None TECHNIQUE: Ultrasound of the deep veins is performed from the hip to the calf with compression sonography and color and pulse Doppler assessment. Spectral analysis with color-flow imaging is performed. FINDINGS: There is normal venous compression and respiratory variation and augmented flow. The visualized common femoral vein, superficial femoral vein, profunda femoral vein, popliteal vein, and the trifurcation region shows no evidence of deep venous thrombosis. There is no significant popliteal fossa cyst. If the patient's symptoms persist, followup ultrasound in 5 days 7 days might be of value to exclude proximal propagation from a non-visualized calf vein. US/US venous duplex LE RT IMPRESSION: No DVT demonstrated in the right lower extremity.
[2022-11-25 12:43] VITALS: BP 157/63; PULSE 80; RESP 18; TEMP 36.8; O2SAT 98; BMI 30.4
--- NOTE | 2022-11-25 12:49 | ED_ITS ---
HPI - Extremity Problem General Chief complaint: General Medical <Beryl Carrizales CNP - Last Filed: 11/25/22 12:52> Stated complaint: r calf numbness covid + <Beryl Carrizales CNP - Last Filed: 11/25/22 12:52> Time Seen by Provider: 11/25/22 13:12 <Beryl Carrizales CNP - Last Filed: 11/25/22 12:52> Source: patient <Jacob Zeng MD - Last Filed: 11/25/22 15:55> Mode of arrival: ambulatory <Jacob Zeng MD - Last Filed: 11/25/22 15:55> Limitations: no limitations <Jacob Zeng MD - Last Filed: 11/25/22 15:55> History of Present Illness HPI Narrative: pt presented because rt calf numbness and pain,he was diagnosed with covid 2 Weeks ago and he has been taking paxlovid X 2 course,denies fever,chills,vomiting,SOB and fever <Jacob Zeng MD - Last Filed: 11/25/22 15:55> MD Complaint: other (rt calf) <Jacob Zeng MD - Last Filed: 11/25/22 15:55> Onset (ago): day(s) (1) <Jacob Zeng MD - Last Filed: 11/25/22 15:55> Pain Consistency: constant <Jacob Zeng MD - Last Filed: 11/25/22 15:55> Location: right and other (calf) <Jacob Zeng MD - Last Filed: 11/25/22 15:55> Radiation: none <Jacob Zeng MD - Last Filed: 11/25/22 15:55> Relieving factors: nothing <Jacob Zeng MD - Last Filed: 11/25/22 15:55> Exacerbating factors: nothing <Jacob Zeng MD - Last Filed: 11/25/22 15:55> Associated symptoms: denies other symptoms <Jacob Zeng MD - Last Filed: 11/25/22 15:55> Related Data Home medications: Home Medications Medication Instructions Recorded Confirmed cetirizine 10 mg capsule (Zyrtec) 10 mg PO DAILY 05/30/21 03/30/22 lorazepam 1 mg tablet 1 tab PO BEDTIME PRN Insomnia 05/30/21 03/30/22 cholecalciferol (vitamin D3) 25 25 mcg PO DAILY 09/07/21 03/30/22 mcg (1,000 unit) capsule Previous Rx's Medication Instructions Recorded omeprazole 40 mg capsule,delayed 40 mg PO DAILY 30 days #30 caps 07/27/21 release beclomethasone dipropionate 80 1 inh inhalation BID 90 days #30.6 06/02/22 mcg/actuation HFA breath activated grams aerosol (Qvar RediHaler) levalbuterol tartrate 45 2 puff inhalation Q6H PRN 08/17/22 mcg/actuation aerosol inhaler shortness of breath or wheezing 90 (Xopenex HFA) days #3 ea doxycycline hyclate 100 mg capsule 100 mg PO BID 10 days #20 caps 08/21/22 prednisone 20 mg tablet See Rx Instructions PO DAILY 10 08/21/22 days #15 tabs levalbuterol HCl 1.25 mg/3 mL 1.25 mg (3 mL) inhalation BID #540 11/10/22 solution for nebulization mL <Beryl Carrizales CNP - Last Filed: 11/25/22 12:52> Allergies/Adverse reactions: Allergies Allergy/AdvReac Type Severity Reaction Status Date / Time Iodinated Contrast Media Allergy Severe SHORTNESS Verified 08/01/22 10:37 [IV CONTRAST] OF BREATH <Beryl Carrizales CNP - Last Filed: 11/25/22 12:52> Review of Systems Constitutional: Constitutional: Reports no additional constitutional complaints <Jacob Zeng MD - Last Filed: 11/25/22 15:55> Cardiovascular: Cardiovascular: Reports no additional cardiovascular complaints <Jacob Zeng MD - Last Filed: 11/25/22 15:55> Respiratory: Respiratory: Reports other (cough) <Jacob Zeng MD - Last Filed: 11/25/22 15:55> [facility] Past Medical History Medical History: Medical History Asthma Atrial flutter with rapid ventricular response Chronic cough History of cardioversion Renal calculi <Beryl De La Rosa JAYDON Carrizales - Last Filed: 11/25/22 12:52> Surgical History: Surgical History H/O colonoscopy History of cardiac radiofrequency ablation History of esophagogastroduodenoscopy (EGD) Hx of tonsillectomy <Beryl Estrellalinda Carrizales CNP - Last Filed: 11/25/22 12:52> Family History Family History: Family History Other CVA (cerebral vascular accident) <Beryl Estrellalinda Carrizales CNP - Last Filed: 11/25/22 12:52> Social History Social History: Social History Household Members: Spouse and Children Housing: House Alcohol intake: unknown Patient Tobacco Use Status: Never used Tobacco Smoked in Last 30 Days: No Use of substances other than those prescribed or required for medical reasons: Unknown Advance Directives: Yes Advance Directives on File: No service: No Current occupational status: employed <Beryl De La Rosa JAYDON Carrizales - Last Filed: 11/25/22 12:52> Physical Exam Vital Signs: Vital Signs: Last Vital Signs Temp 98.2 F 11/25/22 12:43 Pulse 67 11/25/22 13:58 Resp 18 11/25/22 13:58 BP 139/80 11/25/22 13:58 Pulse Ox 95 11/25/22 13:58 O2 Del Method 11/25/22 13:58 BMI result Body Mass Index 30.4 <Beryl De La Rosa JAYDON Carrizales - Last Filed: 11/25/22 12:52> Vital Signs: Last Vital Signs Temp 98.2 F 11/25/22 12:43 Pulse 67 11/25/22 13:58 Resp 18 11/25/22 13:58 BP 139/80 11/25/22 13:58 Pulse Ox 95 11/25/22 13:58 O2 Del Method 11/25/22 13:58 BMI result Body Mass Index 30.4 <Jacob Zeng MD - Last Filed: 11/25/22 15:55> Const: General: cooperative, healthy appearing, comfortable, no acute distress , well developed, alert and awake <Jacob Zeng MD - Last Filed: 11/25/22 15:55> Nutritional Appearance: average body habitus <Jacob Zeng MD - Last Filed: 11/25/22 15:55> Orientation/consciousness: patient oriented x3 <Jacob Zeng MD - Last Filed: 11/25/22 15:55> Limitations: no limitations <Jacob Zeng MD - Last Filed: 11/25/22 15:55> HEENT: Head: Yes normal to inspection <Jacob Zeng MD - Last Filed: 11/25/22 15:55> Ears: hearing grossly normal bilaterally <Jacob Zeng MD - Last Filed: 11/25/22 15:55> General nose exam: Normal external nose present <Jacob Zeng MD - Last Filed: 11/25/22 15:55> Face and sinus: Yes normal facial exam <Jacob Zeng MD - Last Filed: 11/25/22 15:55> Throat: Yes posterior oropharynx normal <Jacob Zeng MD - Last Filed: 11/25/22 15:55> Neck: Neck: Yes normal visual inspection and Yes full ROM <Jacob Zeng MD - Last Filed: 11/25/22 15:55> Chest: Chest palpation & inspection: normal inspection of the chest <Jacob Zeng MD - Last Filed: 11/25/22 15:55> Resp: Effort & Inspection: normal respiratory effort <Jacob Zeng MD - Last Filed: 11/25/22 15:55> Cardio: Jugular venous distension: no JVD <Jacob Zeng MD - Last Filed: 11/25/22 15:55> Rate: regular rate <Jacob Zeng MD - Last Filed: 11/25/22 15:55> Rhythm: regular rhythm <MD Robyn Mendosa Last Filed: 11/25/22 15:55> GI: Inspection: Yes normal to inspection <MD Robyn Mendosa Last Filed: 11/25/22 15:55> Palpation (GI): Soft to palpation, not firm and nontender <Jacob Zeng MD - Last Filed: 11/25/22 15:55> : General: Yes no CVA tenderness <Jacob Zeng MD - Last Filed: 11/25/22 15:55> Back/Spine/Pelvis: Back: no CVA tenderness <Jacob Zeng MD - Last Filed: 11/25/22 15:55> Neuro: General: patient oriented x3 <Jacob Zeng MD - Last Filed: 11/25/22 15:55> Cranial nerves: Yes CN's II-XII intact bilaterally <Jacob Zeng MD - Last Filed: 11/25/22 15:55> Extrem: Other: rt lower extremity very good pulses ,good color,good capillary refill <Jacob Zeng MD - Last Filed: 11/25/22 15:55> Course Course Course Narrative: This is an RME: Additional HPI, ROS, PE not included below will be deferred to primary provider. Patient is a 8-year-old male who presents emergency department for evaluation of right leg pain/numbness. Patient states that 2 weeks ago he tested positive for COVID-19, he was treated with Paxlovid. Had rebound symptoms and he began taking a 2nd course of Paxlovid 2 days ago. Currently complaining of sharp pain and numbness to the right anterior skin. Plan: labs, venous US <Beryl Carrizales CNP - Last Filed: 11/25/22 12:52> Reevaluation(s) Reevaluation #1: US negative willn d/c home <Jacob Zeng MD - Last Filed: 11/25/22 15:55> Time: 15:23 <Jacob Zeng MD - Last Filed: 11/25/22 15:55> Medical Decision Making Medical Decision Making MDM Narrative: presend with rt calf pain <Jacob Zeng MD - Last Filed: 11/25/22 15:55> Differential Diagnosis dvt/perypheral neuritis <Jacob Zeng MD - Last Filed: 11/25/22 15:55> Lab Data MDM Lab Attestation statement: I reviewed the patient's lab results. <Jacob Zeng MD - Last Filed: 01/21/23 15:55> Result Diagrams: 11/25/22 12:58 11/25/22 12:58 <Beryl Carrizales, [employer] - Last Filed: 11/25/22 12:52> Labs: Lab Results 11/25/22 11/25/22 11/25/22 Range/Units 12:58 12:58 12:58 WBC 5.3 (4.8-10.8) X10*3/uL RBC 5.28 (4.60-5.80) X10*6/uL Hgb 15.9 (14.0-18.0) g/dl Hct 46.9 (42.0-52.0) % MCV 88.8 (80.0-98.0) fL MCH 30.1 (27.0-33.0) pg MCHC 33.9 (31.0-36.0) g/dl RDW 12.6 (11.0-16.0) % Plt Count 254 (160-400) X10*3/uL MPV 9.6 (9.4-12.4) fL Immature Gran % (Auto) 0.8 H (0.0-0.4) % Neut % (Auto) 57.8 (45-73) % Lymph % (Auto) 29.9 (20-40) % [place] % (Auto) 9.2 (2-11) % Eos % (Auto) 1.5 (0-4) % Baso % (Auto) 0.8 (0-2) % Lymph # (Auto) 1.6 (1.2-4.9) X10*3/uL [place] # (Auto) 0.5 (0.1-1.2) X10*3/uL Eos # (Auto) 0.1 (0.0-0.4) X10*3/uL Baso # (Auto) 0.0 (0.0-0.2) X10*3/uL Abs Immat Gran (auto) 0.04 H (0.00-0.03) X10*3/uL Absolute Neuts (auto) 3.1 (2.0-8.3) x10*3/uL Absolute Nucleated RBC 0.000 (0.0-0.012) X10*3/uL Nucleated RBC % (auto) 0.0 (0.0-0.2) /100WBC PT 12.0 (10.0-13.1) SEC INR 1.0 (0.9-1.1) Sodium 143 (135-145) mmol/L Potassium 4.9 D (3.3-5.1) mmol/L Chloride 106 (96-108) mmol/L Carbon Dioxide 24 (22-29) mmol/L Anion Gap 18 (12-20) BUN 14 (9-16) mg/dL Creatinine 1.14 (0.5-1.4) mg/dL Estim Creat Clear Calc 82.5 Estimated GFR > 60 Random Glucose 150 H (60-115) mg/dL Calcium 9.8 D (8.4-10.2) mg/dL Total Bilirubin 0.7 (0.0-1.0) mg/dL AST 18 (5-37) U/L ALT 14 (0-40) U/L Alkaline Phosphatase 87 (39-117) U/L Total Protein 7.0 (6.5-8.0) g/dL Albumin 4.4 (3.5-5.0) g/dL <Beryl Carrizales, [employer] - Last Filed: 11/25/22 12:52> Lab Results 11/25/22 11/25/22 11/25/22 Range/Units 12:58 12:58 12:58 WBC 5.3 (4.8-10.8) X10*3/uL RBC 5.28 (4.60-5.80) X10*6/uL Hgb 15.9 (14.0-18.0) g/dl Hct 46.9 (42.0-52.0) % MCV 88.8 (80.0-98.0) fL MCH 30.1 (27.0-33.0) pg MCHC 33.9 (31.0-36.0) g/dl RDW 12.6 (11.0-16.0) % Plt Count 254 (160-400) X10*3/uL MPV 9.6 (9.4-12.4) fL Immature Gran % (Auto) 0.8 H (0.0-0.4) % Neut % (Auto) 57.8 (45-73) % Lymph % (Auto) 29.9 (20-40) % [place] % (Auto) 9.2 (2-11) % Eos % (Auto) 1.5 (0-4) % Baso % (Auto) 0.8 (0-2) % Lymph # (Auto) 1.6 (1.2-4.9) X10*3/uL [place] # (Auto) 0.5 (0.1-1.2) X10*3/uL Eos # (Auto) 0.1 (0.0-0.4) X10*3/uL Baso # (Auto) 0.0 (0.0-0.2) X10*3/uL Abs Immat Gran (auto) 0.04 H (0.00-0.03) X10*3/uL Absolute Neuts (auto) 3.1 (2.0-8.3) x10*3/uL Absolute Nucleated RBC 0.000 (0.0-0.012) X10*3/uL Nucleated RBC % (auto) 0.0 (0.0-0.2) /100WBC PT 12.0 (10.0-13.1) SEC INR 1.0 (0.9-1.1) Sodium 143 (135-145) mmol/L Potassium 4.9 D (3.3-5.1) mmol/L Chloride 106 (96-108) mmol/L Carbon Dioxide 24 (22-29) mmol/L Anion Gap 18 (12-20) BUN 14 (9-16) mg/dL Creatinine 1.14 (0.5-1.4) mg/dL Estim Creat Clear Calc 82.5 Estimated GFR > 60 Random Glucose 150 H (60-115) mg/dL Calcium 9.8 D (8.4-10.2) mg/dL Total Bilirubin 0.7 (0.0-1.0) mg/dL AST 18 (5-37) U/L ALT 14 (0-40) U/L Alkaline Phosphatase 87 (39-117) U/L Total Protein 7.0 (6.5-8.0) g/dL Albumin 4.4 (3.5-5.0) g/dL <Jacob Zeng MD - Last Filed: 11/25/22 15:55> Independent Interpretation I performed an independent interpretation of an: Ultrasound <Jacob Zeng MD - Last Filed: 11/25/22 15:55> Interpretation: negative for DVT <Jacob Zeng MD - Last Filed: 11/25/22 15:55> Radiology Impression Radiologist Impression: Ultrasound of the deep veins is performed from the hip to the calf with compression sonography and color and pulse Doppler assessment. Spectral analysis with color-flow imaging is performed. FINDINGS: There is normal venous compression and respiratory variation and augmented flow. The visualized common femoral vein, superficial femoral vein, profunda femoral vein, popliteal vein, and the trifurcation region shows no evidence of deep venous thrombosis. ? There is no significant popliteal fossa cyst. If the patient's symptoms persist, followup ultrasound in 5 days 7 days might be of value to exclude proximal propagation from a non-visualized calf vein. US/US venous duplex LE RT IMPRESSION: No DVT demonstrated in the right lower extremity. Dictated By: Jose Villanueva MD Signed By: <Electronically signed by Jose Villanueva MD in [place]> 11/25/22 1414 <Jacob Zeng MD - Last Filed: 11/25/22 15:55> Discharge Plan Discharge Clinical Impression: Leg pain <Beryl Carrizales CNP - Last Filed: 11/25/22 12:52> Patient Disposition: Home, Self-Care <Beryl Carrizales CNP - Last Filed: 11/25/22 12:52> Instructions: Leg Pain (ED) <Beryl Carrizales CNP - Last Filed: 11/25/22 12:52> Additional Instructions: follow nup with Primary care doctor <Beryl Carrizales CNP - Last Filed: 11/25/22 12:52> Prescriptions: No Action Qvar RediHaler 80 mcg/actuation HFA aerosol breath activated 1 inh inhalation BID 90 Days Qty: 30.6 3RF levalbuterol tartrate [Xopenex HFA] 45 mcg/actuation HFA aerosol inhaler 2 puff inhalation Q6H PRN (Reason: shortness of breath or wheezing) 90 Days Qty: 3 3RF doxycycline hyclate 100 mg capsule 100 mg PO BID 10 Days Qty: 20 0RF prednisone 20 mg tablet See Rx Instructions PO DAILY 10 Days Qty: 15 0RF Rx Instructions: PO daily; Take 2 tabs daily x 5 days, then 1 tablet daily x 5 days levalbuterol HCl 1.25 mg/3 mL solution for nebulization 1.25 mg inhalation BID Qty: 540 0RF lorazepam 1 mg tablet 1 tab PO BEDTIME PRN (Reason: Insomnia) Zyrtec 10 mg Capsule 10 mg PO DAILY omeprazole 40 mg capsule,delayed release(DR/EC) 40 mg PO DAILY 30 Days Qty: 30 4RF cholecalciferol (vitamin D3) 25 mcg (1,000 unit) capsule 25 mcg PO DAILY <Beryl Carrizales CNP - Last Filed: 11/25/22 12:52> Interventions: ED Discharge Assessment Last Done: 11/25/22 15:31 <Beryl Carrizales CNP - Last Filed: 11/25/22 12:52> Discharge Date/Time: 11/25/22 15:32 <Beryl Carrizales CNP - Last Filed: 11/25/22 12:52>
[2022-11-25 13:02] LABS: MANUAL DIFF FLAG NO
[2022-11-25 13:12] LABS: Basophils Percent Auto 0.8 % (0-2); Eosinophils Absolute Auto 0.1 X10*3/uL (0.0-0.4); Eosinophils Percent Auto 1.5 % (0-4); Hematocrit 46.9 % (42.0-52.0); Hemoglobin 15.9 g/dl (14.0-18.0); Imm Gran Abs Auto 0.04 X10*3/uL (0.00-0.03); Imm Gran Pct Auto 0.8 % (0.0-0.4); Lymphocytes Absolute Auto 1.6 X10*3/uL (1.2-4.9); Lymphocytes Percent Auto 29.9 % (20-40); Mean Corpuscular HGB Conc 33.9 g/dl (31.0-36.0); Mean Corpuscular Hemoglobin 30.1 pg (27.0-33.0); Mean Corpuscular Volume 88.8 fL (80.0-98.0); Mean Platelet Volume 9.6 fL (9.4-12.4); Monocytes Absolute Auto 0.5 X10*3/uL (0.1-1.2); Monocytes Percent Auto 9.2 % (2-11); Neutrophils Absolute Auto 3.1 x10*3/uL (2.0-8.3); Neutrophils Percent Auto 57.8 % (45-73); Platelet Count 254 X10*3/uL (160-400); Red Blood Count 5.28 X10*6/uL (4.60-5.80); Red Cell Distribution Width 12.6 % (11.0-16.0); White Blood Count 5.3 X10*3/uL (4.8-10.8)
[2022-11-25 13:48] VITALS: BP 139/80; PULSE 66; RESP 18; O2SAT 95
[2022-11-25 13:57] LABS: Alanine Aminotransferase 14 U/L (0-40); Albumin Level 4.4 g/dL (3.5-5.0); Alkaline Phosphatase 87 U/L (39-117); Anion Gap 18 (12-20); Aspartate Amino Transferase 18 U/L (5-37); Bilirubin Total 0.7 mg/dL (0.0-1.0); Blood Urea Nitrogen 14 mg/dL (9-16); Calcium 9.8 mg/dL (8.4-10.2); Carbon Dioxide 24 mmol/L (22-29); Chloride 106 mmol/L (96-108); Creatinine Clr Calc Pharmacy 82.5; Estimated Glomerular Filt Rate > 60; Glucose Random 150 mg/dL (60-115); Potassium 4.9 mmol/L (3.3-5.1); Sodium 143 mmol/L (135-145)
[2022-11-25 13:58] VITALS: BP 139/80; PULSE 67; RESP 18; O2SAT 95
== END 2022-11-25 15:32 | disposition home or self-care (01) ==
PROVIDERS: Nurse Practitioner Family; Emergency Provider Emergency Medicine; PCP Internal Medicine
DX: M79.661 Pain in right lower leg (principal); R20.0 Anesthesia of skin; Z79.899 Other long term (current) drug therapy
CPT/HCPCS: 36415; 80053; 85025; 85610; 93971; 99284

== ENCOUNTER 2022-12-29 10:00 | Outpatient (REF) | payer OTHER, SELFPAY ==
--- NOTE | ~2022-12-29 | XR_ITS ---
EXAMINATION: XR chest 2V CLINICAL INFORMATION: Reason for Exam ACUTE ASTHMA COMPARISON: Chest radiograph 05/30/2021 TECHNIQUE: 2 views of the chest FINDINGS: Persistent elevation of the left hemidiaphragm. Lung bases are clear. Unchanged cardiomediastinal silhouette. No effusion or pneumothorax. XR/XR chest 2V Impression: Persistent elevation of the left hemidiaphragm.
--- NOTE | 2022-12-29 11:28 | PFT_ITS ---
FLOWS: 1. FEV1 63% of predicted at 2.37 L. 2. FVC 74% of predicted at 3.64 L. 3. FEV1 to FVC ratio 0.65. 4. No bronchodilator response. LUNG VOLUMES: 1. Total lung capacity 84% of predicted at 6.10 L. 2. Residual volume 106% of predicted at 2.47 L. 3. Slow vital capacity 74% of predicted at 3.64 L. 4. Expiratory reserve volume 27% of predicted at 0.4 L. 5. Diffusion capacity is normal. In comparison to pulmonary function test from August of 2021, FVC and SVC have been without significant changes; FEV1 has decreased by 0.51 L; total lung capacity has decreased by 0.69 L; residual volume has decreased by 0.51 L; expiratory reserve volume has decreased by 0.9 L; diffusion capacity has been without significant changes. IMPRESSION: Moderate obstructive ventilatory defect with no bronchodilator response. Decreased expiratory reserve volume suggests extrathoracic restriction likely secondary to abdominal obesity. MD ROXANNA Kendrick/MOD[facility] / [id number]
== END 2022-12-29 10:01 | disposition home or self-care (01) ==
LOC: HO.RESP 10:00
PROVIDERS: Absent Provider Internal Medicine; PCP Internal Medicine; Visit Provider Hospitalist
DX: J45.40 Moderate persistent asthma, uncomplicated (principal)
CPT/HCPCS: 71046; 94060; 94727; 94729

== ENCOUNTER 2023-01-02 22:39 | Emergency (ER) | payer OTHER, SELFPAY ==
--- NOTE | 2023-01-02 22:44 | ECG_ITS ---
Test Reason : chest pain Blood Pressure : / mmHG Vent. Rate : 131 BPM Atrial Rate : 234 BPM P-R Int : 000 ms QRS Dur : 092 ms QT Int : 330 ms P-R-T Axes : -88 030 -47 degrees QTc Int : 487 ms Atrial flutter with variable A-V block ST & T wave abnormality, consider lateral ischemia Abnormal ECG When compared with ECG of 21-JUN-2021 11:53, Atrial flutter has replaced Sinus rhythm Vent. rate has increased BY [address] now depressed in Anterior leads T wave inversion now evident in Inferior leads T wave inversion now evident in Lateral leads Referred By: Dipti Thakkar Electronically Signed By:TADEO BINGHAM MD
[2023-01-02 22:46] VITALS: BP 164/89; PULSE 122; RESP 18; TEMP 37; O2SAT 96; BMI 40.8
[2023-01-02] MEDS: Metoprolol Tartrate 5 MG/5 ML VIAL IVPUSH (23:24)
[2023-01-02 23:26] LABS: MANUAL DIFF FLAG NO
[2023-01-02 23:27] LABS: Basophils Absolute Auto 0.1 X10*3/uL (0.0-0.2); Basophils Percent Auto 0.7 % (0-2); Eosinophils Absolute Auto 0.2 X10*3/uL (0.0-0.4); Eosinophils Percent Auto 1.9 % (0-4); Hematocrit 44.1 % (42.0-52.0); Hemoglobin 15.3 g/dl (14.0-18.0); Imm Gran Abs Auto 0.02 X10*3/uL (0.00-0.03); Imm Gran Pct Auto 0.2 % (0.0-0.4); Lymphocytes Absolute Auto 2.6 X10*3/uL (1.2-4.9); Lymphocytes Percent Auto 29.7 % (20-40); Mean Corpuscular HGB Conc 34.7 g/dl (31.0-36.0); Mean Corpuscular Hemoglobin 30.5 pg (27.0-33.0); Mean Platelet Volume 9.5 fL (9.4-12.4); Monocytes Absolute Auto 0.6 X10*3/uL (0.1-1.2); Monocytes Percent Auto 6.4 % (2-11); Neutrophils Absolute Auto 5.3 x10*3/uL (2.0-8.3); Neutrophils Percent Auto 61.1 % (45-73); Platelet Count 251 X10*3/uL (160-400); Red Blood Count 5.01 X10*6/uL (4.60-5.80); White Blood Count 8.6 X10*3/uL (4.8-10.8)
--- NOTE | 2023-01-02 23:29 | PC.NURSE ---
pt hr 150 high 160 treated with metoprolol 5mg iv. bp stable 176/83 pt denies pain, skin pink warm and dry, talking in full sentences. provider is aware of hr.
[2023-01-02 23:30] VITALS: BP 176/83; PULSE 131; RESP 16; O2SAT 97
--- NOTE | 2023-01-02 23:31 | ED_ITS ---
HPI - Arrhythmia/Palpitations General Chief Complaint: Arrhythmia/Palpitations Stated Complaint: palpitations Time Seen by Provider: 01/02/23 22:58 Source: patient Mode of arrival: ambulatory History of Present Illness HPI narrative: 62-year-old male with prior history of atrial flutter and underwent an ablation procedure little over a year ago and has not been on anticoagulation and denies any problems since that time until this evening. Patient states that he has some alcohol with dinner also has some caffeine throughout the day and states that as he was getting ready for bed began feeling chest tightness and felt that his heart was racing. He denies any recent illnesses to include no fevers, chills, changes in medications. Related Data Home Medications Medication Instructions Recorded Confirmed cetirizine 10 mg capsule (Zyrtec) 10 mg PO DAILY 05/30/21 03/30/22 lorazepam 1 mg tablet 1 tab PO BEDTIME PRN Insomnia 05/30/21 03/30/22 cholecalciferol (vitamin D3) 25 25 mcg PO DAILY 09/07/21 03/30/22 mcg (1,000 unit) capsule Previous Rx's Medication Instructions Recorded omeprazole 40 mg capsule,delayed 40 mg PO DAILY 30 days #30 caps 07/27/21 release beclomethasone dipropionate 80 1 inh inhalation BID 90 days #30.6 06/02/22 mcg/actuation HFA breath activated grams aerosol (Qvar RediHaler) levalbuterol tartrate 45 2 puff inhalation Q6H PRN 08/17/22 mcg/actuation aerosol inhaler shortness of breath or wheezing 90 (Xopenex HFA) days #3 ea doxycycline hyclate 100 mg capsule 100 mg PO BID 10 days #20 caps 08/21/22 prednisone 20 mg tablet See Rx Instructions PO DAILY 10 08/21/22 days #15 tabs levalbuterol HCl 1.25 mg/3 mL 1.25 mg (3 mL) inhalation BID #540 11/10/22 solution for nebulization mL apixaban 5 mg tablet (Eliquis) 5 mg PO BID #60 tabs 01/03/23 Allergies Allergy/AdvReac Type Severity Reaction Status Date / Time Iodinated Contrast Media Allergy Severe SHORTNESS Verified 08/01/22 10:37 [IV CONTRAST] OF BREATH Review of Systems Review of Systems: Pertinent positives and negatives as stated in HPI PMFSH Past Medical History Source: nursing notes reviewed Medical History Asthma Atrial flutter with rapid ventricular response Chronic cough History of cardioversion Renal calculi Surgical History H/O colonoscopy History of cardiac radiofrequency ablation History of esophagogastroduodenoscopy (EGD) Hx of tonsillectomy Family History Family History Other CVA (cerebral vascular accident) Social History Social History Household Members: Spouse and Children Housing: House Alcohol intake: unknown Patient Tobacco Use Status: Never used Tobacco Advance Directives: No Advance Directives Information Provided: No service: No Current occupational status: employed Physical Exam Vital Signs: Vital Signs: Last Vital Signs Temp 98.6 F 01/02/23 22:46 Pulse 132 H 01/03/23 00:07 Resp 16 01/03/23 00:07 BP 134/93 H 01/03/23 00:07 Pulse Ox 97 01/03/23 00:07 O2 Del Method 01/03/23 00:07 BMI result Body Mass Index 40.8 VITAL SIGNS: Reviewed. GENERAL: Well developed, well nourished, in no acute distress. HEAD: Normocephalic/atraumatic EYES: PERRLA, EOMI LUNGS: Normal breath sounds. No adventitious sounds or accessory muscle use. SpO2<97> CARDIOVASCULAR: IRR rate and IRR rhythm without noted murmurs, no JVD or lower extremity edema. ABDOMEN: Soft, non-tender, non-distended with bowel sounds. MUSCULOSKELETAL: No tenderness, deformities, or effusions noted on gross inspection. EXTREMITIES: No cyanosis, clubbing or edema. SKIN: Inspection of the skin reveals no rashes NEUROLOGIC: Alert and oriented x 4. Strength and sensation to light touch were grossly intact x 4. Medications Administered Discontinued Medications Generic Name Dose Route Start Last Admin Trade Name Freq PRN Reason Stop Dose Admin Metoprolol Tartrate 5 mg 01/02/23 23:12 01/02/23 23:24 Metoprolol Tartrate 5 Mg/5 Ml Vial IVPUSH 01/02/23 23:13 5 mg ONCE ONE Administration Metoprolol Tartrate 5 mg 01/02/23 23:46 01/03/23 00:13 Metoprolol Tartrate 5 Mg/5 Ml Vial IVPUSH 01/02/23 23:47 5 mg ONCE ONE Administration Medical Decision Making Medical Decision Making MDM Narrative: 62-year-old male with atrial fibrillation and RVR with stable blood pressure. P atient is not currently anticoagulated cardioversion is not an option. Will treat with IV Lopressor and evaluation for infection, anemia, electrolyte abnormalities. 0043: After 2 rounds Lopressor 5 mg patient is noted to have converted into a normal sinus rhythm. He is otherwise hemodynamically stable and endorses feeling well. I reviewed all investigate shins in my interpretation is spontane ous arrhythmia possibly associated with alcohol and/or caffeine consumption that was successfully rate controlled and converted to normal sinus rhythm. Patient's chads Vasc score-1, I have given him risk by a signing hypertension as review of multiple blood pressures here in the emergency department he meets criteria for hypertension. This places the patient in to a low-moderate risk and therefore I will initiate anticoagulation, patient is aware of this decision and agrees with the plan to remain on the anticoagulation until he is re- evaluated and seen by his clinical rehabilitation specialist. Differential Diagnosis Please see the discussion above Lab Data Please see the above discussion 01/02/23 23:20 01/02/23 23:20 Labs: Lab Results 01/02/23 01/02/23 01/02/23 Range/Units 23:19 23:20 23:20 WBC (4.8-10.8) X10*3/uL RBC (4.60-5.80) X10*6/uL Hgb (14.0-18.0) g/dl Hct (42.0-52.0) % MCV (80.0-98.0) fL MCH (27.0-33.0) pg MCHC (31.0-36.0) g/dl RDW (11.0-16.0) % Plt Count (160-400) X10*3/uL MPV (9.4-12.4) fL Immature Gran % (Auto) (0.0-0.4) % Neut % (Auto) (45-73) % Lymph % (Auto) (20-40) % [place] % (Auto) (2-11) % Eos % (Auto) (0-4) % Baso % (Auto) (0-2) % Lymph # (Auto) (1.2-4.9) X10*3/uL [place] # (Auto) (0.1-1.2) X10*3/uL Eos # (Auto) (0.0-0.4) X10*3/uL Baso # (Auto) (0.0-0.2) X10*3/uL Abs Immat Gran (auto) (0.00-0.03) X10*3/uL Absolute Neuts (auto) (2.0-8.3) x10*3/uL Absolute Nucleated RBC (0.0-0.012) X10*3/uL Nucleated RBC % (auto) (0.0-0.2) /100WBC PT (10.0-13.1) SEC INR (0.9-1.1) Sodium (135-145) mmol/L Potassium (3.3-5.1) mmol/L Chloride (96-108) mmol/L Carbon Dioxide (22-29) mmol/L Anion Gap (12-20) BUN (9-16) mg/dL Creatinine (0.5-1.4) mg/dL Estim Creat Clear Calc Estimated GFR Random Glucose (60-115) mg/dL Calcium (8.4-10.2) mg/dL Total Bilirubin (0.0-1.0) mg/dL AST (5-37) U/L ALT (0-40) U/L Alkaline Phosphatase (39-117) U/L Troponin I High Sens 3.8 (<3.5-35.0) ng/L B-Natriuretic Peptide 19 (<100) pg/mL Total Protein (6.5-8.0) g/dL Albumin (3.5-5.0) g/dL COVID-19 ([facility]) (Negative) COVID-19 Clin Com Influenza Type A ([facility]) Negative (Negative) Influenza Type B ([facility]) Negative (Negative) Influenza A & B Note See Note 01/02/23 01/02/23 01/02/23 Range/Units 23:20 23:20 23:20 WBC 8.6 (4.8-10.8) X10*3/uL RBC 5.01 (4.60-5.80) X10*6/uL Hgb 15.3 (14.0-18.0) g/dl Hct 44.1 (42.0-52.0) % MCV 88.0 (80.0-98.0) fL MCH 30.5 (27.0-33.0) pg MCHC 34.7 (31.0-36.0) g/dl RDW 13.0 (11.0-16.0) % Plt Count 251 (160-400) X10*3/uL MPV 9.5 (9.4-12.4) fL Immature Gran % (Auto) 0.2 (0.0-0.4) % Neut % (Auto) 61.1 (45-73) % Lymph % (Auto) 29.7 (20-40) % [place] % (Auto) 6.4 (2-11) % Eos % (Auto) 1.9 (0-4) % Baso % (Auto) 0.7 (0-2) % Lymph # (Auto) 2.6 (1.2-4.9) X10*3/uL [place] # (Auto) 0.6 (0.1-1.2) X10*3/uL Eos # (Auto) 0.2 (0.0-0.4) X10*3/uL Baso # (Auto) 0.1 (0.0-0.2) X10*3/uL Abs Immat Gran (auto) 0.02 (0.00-0.03) X10*3/uL Absolute Neuts (auto) 5.3 (2.0-8.3) x10*3/uL Absolute Nucleated RBC 0.000 (0.0-0.012) X10*3/uL Nucleated RBC % (auto) 0.0 (0.0-0.2) /100WBC PT 10.3 (10.0-13.1) SEC INR 0.9 (0.9-1.1) Sodium (135-145) mmol/L Potassium (3.3-5.1) mmol/L Chloride (96-108) mmol/L Carbon Dioxide (22-29) mmol/L Anion Gap (12-20) BUN (9-16) mg/dL Creatinine (0.5-1.4) mg/dL Estim Creat Clear Calc Estimated GFR Random Glucose (60-115) mg/dL Calcium (8.4-10.2) mg/dL Total Bilirubin (0.0-1.0) mg/dL AST (5-37) U/L ALT (0-40) U/L Alkaline Phosphatase (39-117) U/L Troponin I High Sens (<3.5-35.0) ng/L B-Natriuretic Peptide (<100) pg/mL Total Protein (6.5-8.0) g/dL Albumin (3.5-5.0) g/dL COVID-19 ([facility]) Negative (Negative) COVID-19 Clin Com See Note Influenza Type A ([facility]) (Negative) Influenza Type B ([facility]) (Negative) Influenza A & B Note 01/02/23 Range/Units 23:20 WBC (4.8-10.8) X10*3/uL RBC (4.60-5.80) X10*6/uL Hgb (14.0-18.0) g/dl Hct (42.0-52.0) % MCV (80.0-98.0) fL MCH (27.0-33.0) pg MCHC (31.0-36.0) g/dl RDW (11.0-16.0) % Plt Count (160-400) X10*3/uL MPV (9.4-12.4) fL Immature Gran % (Auto) (0.0-0.4) % Neut % (Auto) (45-73) % Lymph % (Auto) (20-40) % [place] % (Auto) (2-11) % Eos % (Auto) (0-4) % Baso % (Auto) (0-2) % Lymph # (Auto) (1.2-4.9) X10*3/uL [place] # (Auto) (0.1-1.2) X10*3/uL Eos # (Auto) (0.0-0.4) X10*3/uL Baso # (Auto) (0.0-0.2) X10*3/uL Abs Immat Gran (auto) (0.00-0.03) X10*3/uL Absolute Neuts (auto) (2.0-8.3) x10*3/uL Absolute Nucleated RBC (0.0-0.012) X10*3/uL Nucleated RBC % (auto) (0.0-0.2) /100WBC PT (10.0-13.1) SEC INR (0.9-1.1) Sodium 142 (135-145) mmol/L Potassium 3.5 D (3.3-5.1) mmol/L Chloride 109 H (96-108) mmol/L Carbon Dioxide 21 L (22-29) mmol/L Anion Gap 16 (12-20) BUN 15 (9-16) mg/dL Creatinine 0.78 (0.5-1.4) mg/dL Estim Creat Clear Calc 100.5 Estimated GFR > 60 Random Glucose 130 H (60-115) mg/dL Calcium 9.1 D (8.4-10.2) mg/dL Total Bilirubin 0.5 (0.0-1.0) mg/dL AST 17 (5-37) U/L ALT 16 (0-40) U/L Alkaline Phosphatase 87 (39-117) U/L Troponin I High Sens (<3.5-35.0) ng/L B-Natriuretic Peptide (<100) pg/mL Total Protein 6.3 L (6.5-8.0) g/dL Albumin 4.1 (3.5-5.0) g/dL COVID-19 ([facility]) (Negative) COVID-19 Clin Com Influenza Type A ([facility]) (Negative) Influenza Type B ([facility]) (Negative) Influenza A & B Note Independent Interpretation I performed an independent interpretation of an: EKG Interpretation: 2244: Atrial fibrillation with RVR, HR-131, no STEMI, QRS within normal limits QTC-487. ST changes in anteriorly likely associated with increased work and rate. 0039: Normal sinus rhythm, HR-75, TN/QRS/QTC is within normal limits. External Record Review External record reviewed: Outpatient record and Prior outpatient labs Chronic Conditions Patient?s care impacted by: Hypertension Critical Care Time Critical Care Time Critical Care Time: Yes Total Critical Care Time: 30 Attestation: I personally attest to this time spent taking care of the patient. Discharge Plan Discharge Clinical Impression: Atrial fibrillation with RVR Patient Disposition: Home, Self-Care Instructions: A-fib (Atrial Fibrillation) (ED), Blood Thinners (ED) Additional Instructions: 1. Resume all home medications as prescribed. 2. I have prescribed Eliquis and sent this prescription to your pharmacy. 3. Please find the referral below to Cardiology. 4. Return to the ER for any worsening of symptoms. Prescriptions: New Eliquis 5 mg tablet 5 mg PO BID Qty: 60 0RF No Action Qvar RediHaler 80 mcg/actuation HFA aerosol breath activated 1 inh inhalation BID 90 Days Qty: 30.6 3RF levalbuterol tartrate [Xopenex HFA] 45 mcg/actuation HFA aerosol inhaler 2 puff inhalation Q6H PRN (Reason: shortness of breath or wheezing) 90 Days Qty: 3 3RF doxycycline hyclate 100 mg capsule 100 mg PO BID 10 Days Qty: 20 0RF prednisone 20 mg tablet See Rx Instructions PO DAILY 10 Days Qty: 15 0RF Rx Instructions: PO daily; Take 2 tabs daily x 5 days, then 1 tablet daily x 5 days levalbuterol HCl 1.25 mg/3 mL solution for nebulization 1.25 mg inhalation BID Qty: 540 0RF lorazepam 1 mg tablet 1 tab PO BEDTIME PRN (Reason: Insomnia) Zyrtec 10 mg Capsule 10 mg PO DAILY omeprazole 40 mg capsule,delayed release(DR/EC) 40 mg PO DAILY 30 Days Qty: 30 4RF cholecalciferol (vitamin D3) 25 mcg (1,000 unit) capsule 25 mcg PO DAILY Referrals: Chuck Hamilton MD [Primary Care Provider] - Andres Mclaughlin MD [Physician] - 1 day (Went into a-fib with RVR, converted with 2x 5mg lopressor, Chads-vasc: 1, started on Eliquis)
[2023-01-02 23:33] LABS: INTERNATIONAL NORM RATIO 0.9 (0.9-1.1); Prothrombin Time 10.3 SEC (10.0-13.1)
[2023-01-02 23:34] VITALS: BP 131/100; PULSE 114; RESP 14; O2SAT 96
[2023-01-02 23:42] VITALS: BP 136/95; PULSE 113; RESP 14; O2SAT 96
[2023-01-02 23:42] LABS: Alanine Aminotransferase 16 U/L (0-40); Albumin Level 4.1 g/dL (3.5-5.0); Alkaline Phosphatase 87 U/L (39-117); Anion Gap 16 (12-20); Aspartate Amino Transferase 17 U/L (5-37); Bilirubin Total 0.5 mg/dL (0.0-1.0); Blood Urea Nitrogen 15 mg/dL (9-16); Calcium 9.1 mg/dL (8.4-10.2); Carbon Dioxide 21 mmol/L (22-29); Chloride 109 mmol/L (96-108); Creatinine Clr Calc Pharmacy 100.5; Estimated Glomerular Filt Rate > 60; Glucose Random 130 mg/dL (60-115); Potassium 3.5 mmol/L (3.3-5.1); Sodium 142 mmol/L (135-145); Total Protein 6.3 g/dL (6.5-8.0)
[2023-01-02 23:44] LABS: COVID-19 Test Negative (Negative); IDNOW Serial# 16C4AD1C; IDNOW Serial# BCCEAD1C; Influenza A Negative (Negative); Influenza B2 Negative (Negative)
[2023-01-02 23:48] LABS: Troponin-I High Sensitivity 3.8 ng/L (<3.5-35.0)
[2023-01-02 23:49] LABS: B Type Natriuretic Peptide 19 pg/mL (<100)
[2023-01-03 00:07] VITALS: BP 134/92; BP 134/93; PULSE 132; PULSE 75; RESP 16; O2SAT 97
[2023-01-03] MEDS: Metoprolol Tartrate 5 MG/5 ML VIAL IVPUSH (00:13)
[2023-01-03 00:22] VITALS: BP 126/91; PULSE 73; RESP 16
--- NOTE | 2023-01-03 00:27 | ECG_ITS ---
Test Reason : aflutter to nsr Blood Pressure : / mmHG Vent. Rate : 075 BPM Atrial Rate : 075 BPM P-R Int : 178 ms QRS Dur : 096 ms QT Int : 358 ms P-R-T Axes : 060 030 032 degrees QTc Int : 399 ms Normal sinus rhythm Normal ECG When compared with ECG of 02-JAN-2023 22:44, Sinus rhythm has replaced Atrial flutter Vent. rate has decreased BY [address] no longer depressed in Inferior leads ST no longer depressed in Anterior leads T wave inversion no longer evident in Inferior leads T wave inversion no longer evident in Lateral leads Referred By: Dipti Thakkar Electronically Signed By:TADEO BINGHAM MD
[2023-01-03 01:03] VITALS: BP 126/85; PULSE 70; RESP 16; TEMP 36.4; O2SAT 96
[2023-01-03 01:04] LABS: Appearance Urine Cloudy; Color Urine Yellow; Glucose Urine UA Negative (Negative); Leukocyte Esterase Urine Negative (Negative); Nitrite Urine Negative (Negative); Specific Gravity - Urine <= 1.005 (1.005-1.025); Urine Blood Negative (Negative); Urine Ketones Negative (Negative); Urine Protein Negative (Neg-Trace)
[2023-01-03] MEDS: Apixaban 5 MG TABLET PO (01:04)
[2023-01-03 01:06] VITALS: BP 122/89; PULSE 68; RESP 16; O2SAT 96
== END 2023-01-03 01:25 | disposition home or self-care (01) ==
PROVIDERS: Emergency Provider Student in an Organized Health Care Education/Training Program; PCP Internal Medicine
DX: I48.20 Chronic atrial fibrillation, unspecified (principal); R07.89 Other chest pain; R00.2 Palpitations; R06.02 Shortness of breath; I48.91 Unspecified atrial fibrillation; Z79.01 Long term (current) use of anticoagulants; Z20.822 Contact with and (suspected) exposure to COVID-19; Z20.828 Contact with and (suspected) exposure to other viral communicable diseases; Z79.899 Other long term (current) drug therapy
CPT/HCPCS: 36415; 80053; 81003; 83880; 84484; 85025; 85610; 87502; 87635; 93005; 96374; 96376; 99285

== ENCOUNTER → 2023-01-03 10:04 | Outpatient (BNVA) | payer OTHER, SELFPAY | PROVIDERS: PCP Internal Medicine; Visit Provider Hospitalist | DX: Z13.89 Encounter for screening for other disorder (principal) ==

== ENCOUNTER → 2023-01-04 08:33 | Outpatient (BNVA) | payer OTHER, SELFPAY | PROVIDERS: PCP Internal Medicine; Visit Provider Internal Medicine | DX: Z13.89 Encounter for screening for other disorder (principal) ==

== ENCOUNTER 2023-01-07 10:31 | Inpatient (IN) | payer OTHER, SELFPAY ==
[2023-01-07] VITALS (7 sets, daily range): BP systolic 115–159; BP diastolic 74–111; PULSE 63–123; RESP 12–20; TEMP 36.1–36.7; O2SAT 96; BMI 30.2
--- NOTE | ~2023-01-07 | XR_ITS ---
EXAMINATION: XR CHEST CLINICAL INFORMATION: Atrial flutter and dizziness COMPARISON: Chest 12/29/2022 TECHNIQUE: Frontal view of the chest was obtained. FINDINGS: The lungs are well-expanded and clear of acute process. There is elevated left hemidiaphragm. The heart size and pulmonary vascularity is normal. No gross bony abnormality seen. XR/XR chest 1V IMPRESSION: Elevated left hemidiaphragm. No acute process seen.
--- NOTE | 2023-01-07 10:32 | ECG_ITS ---
Test Reason : AFLUTTER Blood Pressure : / mmHG Vent. Rate : 122 BPM Atrial Rate : 244 BPM P-R Int : 000 ms QRS Dur : 088 ms QT Int : 314 ms P-R-T Axes : 266 031 -43 degrees QTc Int : 447 ms Atrial flutter with 2:1 A-V conduction Abnormal ECG When compared with ECG of 03-JAN-2023 00:39, Atrial flutter has replaced Sinus rhythm Referred By: Generic ED Physician Electronically Signed By:RANDALL GOMEZ
[2023-01-07 11:19] LABS: MANUAL DIFF FLAG NO
[2023-01-07 11:21] LABS: Basophils Absolute Auto 0.1 X10*3/uL (0.0-0.2); Basophils Percent Auto 0.9 % (0-2); Eosinophils Absolute Auto 0.1 X10*3/uL (0.0-0.4); Hematocrit 48.5 % (42.0-52.0); Hemoglobin 16.5 g/dl (14.0-18.0); Imm Gran Abs Auto 0.02 X10*3/uL (0.00-0.03); Imm Gran Pct Auto 0.3 % (0.0-0.4); Lymphocytes Absolute Auto 1.9 X10*3/uL (1.2-4.9); Lymphocytes Percent Auto 29.1 % (20-40); Mean Corpuscular Hemoglobin 29.8 pg (27.0-33.0); Mean Corpuscular Volume 87.5 fL (80.0-98.0); Mean Platelet Volume 9.5 fL (9.4-12.4); Monocytes Absolute Auto 0.5 X10*3/uL (0.1-1.2); Neutrophils Absolute Auto 3.9 x10*3/uL (2.0-8.3); Neutrophils Percent Auto 60.7 % (45-73); Platelet Count 276 X10*3/uL (160-400); Red Blood Count 5.54 X10*6/uL (4.60-5.80); Red Cell Distribution Width 13.1 % (11.0-16.0); White Blood Count 6.4 X10*3/uL (4.8-10.8)
[2023-01-07 11:22] LABS: Appearance Urine Clear; Color Urine Yellow; Glucose Urine UA Negative (Negative); Leukocyte Esterase Urine Negative (Negative); Nitrite Urine Negative (Negative); Urine Blood Negative (Negative); Urine Ketones Negative (Negative); Urine Protein Negative (Neg-Trace)
--- NOTE | 2023-01-07 11:23 | ED_ITS ---
HPI - General Adult General Chief complaint: General Medical Stated complaint: Atrial flutter Time Seen by Provider: 01/07/23 11:02 Source: patient and family (Spouse.) Mode of arrival: ambulatory Limitations: no limitations History of Present Illness HPI narrative: 62-year-old male came in for evaluation of lightheadedness. Patient with a history of atrial flutter patient had a cardiac ablation in 12/2020 patient was doing fine after the ablation until last week when he presented for rapid atrial flutter,he was started on Eliquis and diltiazem, patient was walking the dog today when he felt a flutter palpitation in his chest with some shortness of breath and lightheadedness patient came to the ED for further evaluation for the above symptoms. Related Data Home Medications Medication Instructions Recorded Confirmed cetirizine 10 mg capsule (Zyrtec) 10 mg PO DAILY 05/30/21 01/04/23 lorazepam 1 mg tablet 1 tab PO BEDTIME PRN Insomnia 05/30/21 01/04/23 cholecalciferol (vitamin D3) 25 25 mcg PO DAILY 09/07/21 01/04/23 mcg (1,000 unit) capsule nebulizers 01/03/23 01/04/23 Previous Rx's Medication Instructions Recorded omeprazole 40 mg capsule,delayed 40 mg PO DAILY 30 days #30 caps 07/27/21 release beclomethasone dipropionate 80 1 inh inhalation BID 90 days #30.6 06/02/22 mcg/actuation HFA breath activated grams aerosol (Qvar RediHaler) levalbuterol tartrate 45 2 puff inhalation Q6H PRN 08/17/22 mcg/actuation aerosol inhaler shortness of breath or wheezing 90 (Xopenex HFA) days #3 ea levalbuterol HCl 1.25 mg/3 mL 1.25 mg (3 mL) inhalation BID #540 11/10/22 solution for nebulization mL apixaban 5 mg tablet (Eliquis) 5 mg PO BID 90 days #180 tabs 01/03/23 diltiazem HCl 120 mg 120 mg PO DAILY #90 caps 01/03/23 capsule,extended release 24 hr tiotropium bromide 2.5 2 puff inhalation DAILY 30 days #1 01/03/23 mcg/actuation mist for inhalation ea (Spiriva Respimat) Allergies Allergy/AdvReac Type Severity Reaction Status Date / Time Iodinated Contrast Media Allergy Severe SHORTNESS Verified 01/04/23 08:45 [IV CONTRAST] OF BREATH Review of Systems Review of Systems: All other systems are reviewed and are negative Constitutional: Reports as per HPI and Reports no additional constitutional complaints Eyes: Reports as per HPI and Reports no additional eye complaints Reports system reviewed and no additional complaints, except as documented Cardiovascular: Reports as per HPI and Reports no additional cardiovascular complaints Respiratory: Reports as per HPI and Reports no additional respiratory complaints Gastrointestinal: Reports as per HPI and Reports no additional gastrointestinal complaints Genitourinary: Reports no additional female genitourinary complaints Musculoskeletal: Reports no additional musculoskeletal complaints Skin/Breast: Reports system reviewed and no additional complaints, except as do cu Psychiatric: Reports no additional psychiatric complaints Endocrine: Reports no additional endocrine complaints Hematologic/Lymphatic: Reports no additional hematologic/lymphatic complaints Allergic/Immunologic: Reports no additional allergic/immunologic complaints Reports system reviewed and no additional complaints, except as documented and Reports Abnormal speech present [facility] Past Medical History Medical History Asthma Atrial flutter with rapid ventricular response Chronic cough History of cardioversion Renal calculi Surgical History H/O colonoscopy History of cardiac radiofrequency ablation History of esophagogastroduodenoscopy (EGD) Hx of tonsillectomy Family History Family History Mother A-fib CVA (cerebral vascular accident) Father CVA (cerebral vascular accident) Social History Social History Household Members: Spouse and Children Housing: House Alcohol intake: current Alcohol intake frequency: former alcohol drinker Alcohol type: beer, wine and hard liquor Patient Tobacco Use Status: Never used Tobacco Advance Directives: Yes Advance Directives Information Provided: No Advance Directives on File: No service: No Current occupational status: employed Physical Exam ED Vital Signs: Vital Signs - 24 hr 01/07/23 10:35 01/07/23 11:15 01/07/23 11:48 Temperature 97 F 98.0 F Pulse Rate 122 H 123 H 118 H Respiratory Rate 20 18 Blood Pressure 146/98 H 159/111 H 150/101 H Pulse Oximetry 96 96 Oxygen Delivery Method Room Air Room Air 01/07/23 12:36 Temperature 98 F Pulse Rate 117 H Respiratory Rate 14 Blood Pressure 146/106 H Pulse Oximetry 96 Oxygen Delivery Method Room Air BMI result Body Mass Index 30.2 Vital signs have been reviewed as appeared to be correct. Blood pressure elevated. Heart rate elevated. Respiration rate normal. Temperature normal. Oxygen saturation normal. Appearance: Alert. Oriented X3. No acute distress. Head: Normal external exam. Normocephalic. Atraumatic. No Roach signs noted. No raccoon eyes noted Eyes: PERRLA. EOMI. Conjunctiva and sclera normal. Eyelids normal. ENT: TM's Normal. Pharynx normal. Uvula midline. Moist mucous membranes. No trismus noted. No drooling noted. No muffled voice noted. Neck: Normal inspection. Neck supple. FROM. No adenopathy. Thyroid Normal. No meningeal signs. No neck mass noted. CVS: Normal heart rate and rhythm. Heart sound normal. No murmurs noted. Pulses normal throughout. Respiratory: No respiratory distress. Painless inspiration. Breath sounds normal. No wheezes/rales/rhonchi noted. Chest nontender. No accessory muscle usage noted or decreased air movement noted. Abdomen: Soft and nontender. Bowel sounds normal in all 4 quadrants. No distention noted. No organomegaly noted. No visible injury noted. Back: No CVA tenderness. Full range of motion noted. Skin: Skin warm and dry. Normal skin color. Normal skin turgor. No rashes/lesions/lacerations noted. Extremities: No lower extremity edema. Extremities exhibit normal range of motion. Extremities nontender. Neuro: Oriented X 3. Cranial nerve exam: II-XII are grossly intact No motor deficit. No sensory deficit. Reflexes normal. Course Course Course Narrative: 62-year-old male with history of atrial flutter status post ablation in 2020 patient had no atrial flutter since then until last week when he presented to the ED found to be in rapid a flutter patient was discharged home in diltiazem and was started on Eliquis, returned today because he felt dizzy, lightheadedness, shortness of breath while he was walking his dog and found to be in atrial flutter at rate of 122. Patient was given Lopressor in the emergency department and will be admitted for further evaluation. Reevaluation(s) Reevaluation #1: Patient received Lopressor x2 with no effect on the heart rate patient now is getting Cardizem 20 mg IV then start on Cardizem drip heart rate now is better 60-70 BPM. Time: 13:31 Medications Administered Discontinued Medications Generic Name Dose Route Start Last Admin Trade Name Freq PRN Reason Stop Dose Admin Diltiazem HCl 20 mg 01/07/23 13:00 01/07/23 13:13 Diltiazem Hcl 50 Mg/10 Ml Vial IVPUSH 01/07/23 13:01 20 mg STAT STA Administration Metoprolol Tartrate 5 mg 01/07/23 11:21 01/07/23 11:27 Metoprolol Tartrate 5 Mg/5 Ml Vial IVPUSH 01/07/23 11:22 5 mg ONCE ONE Administration Metoprolol Tartrate 25 mg 01/07/23 11:21 01/07/23 11:27 Metoprolol Tartrate 25 Mg Tablet PO 01/07/23 11:22 25 mg ONCE ONE Administration Protocol Metoprolol Tartrate 5 mg 01/07/23 11:49 01/07/23 12:09 Metoprolol Tartrate 5 Mg/5 Ml Vial IVPUSH 01/07/23 11:50 5 mg ONCE ONE Administration Medical Decision Making Differential Diagnosis Differential Diagnoses: The differential diagnosis associated with the presentation includes (Atrial flutter, atrial fibrillation, ACS, CHF, electrolyte disturbance, severe anemia.) Admission/Observation Consideration of admission/observation: Escalation of care including admission/observation considered Consult Healthcare Provider Management of the patient was discussed with: Hospitalist Lab Data MDM Lab Attestation statement: I reviewed the patient's lab results. 01/07/23 11:14 01/07/23 11:14 Labs: Lab Results 01/07/23 01/07/23 01/07/23 Range/Units 11:13 11:14 11:14 WBC 6.4 (4.8-10.8) X10*3/uL RBC 5.54 (4.60-5.80) X10*6/uL Hgb 16.5 (14.0-18.0) g/dl Hct 48.5 (42.0-52.0) % MCV 87.5 (80.0-98.0) fL MCH 29.8 (27.0-33.0) pg MCHC 34.0 (31.0-36.0) g/dl RDW 13.1 (11.0-16.0) % Plt Count 276 (160-400) X10*3/uL MPV 9.5 (9.4-12.4) fL Immature Gran % (Auto) 0.3 (0.0-0.4) % Neut % (Auto) 60.7 (45-73) % Lymph % (Auto) 29.1 (20-40) % [place] % (Auto) 7.0 (2-11) % Eos % (Auto) 2.0 (0-4) % Baso % (Auto) 0.9 (0-2) % Lymph # (Auto) 1.9 (1.2-4.9) X10*3/uL [place] # (Auto) 0.5 (0.1-1.2) X10*3/uL Eos # (Auto) 0.1 (0.0-0.4) X10*3/uL Baso # (Auto) 0.1 (0.0-0.2) X10*3/uL Abs Immat Gran (auto) 0.02 (0.00-0.03) X10*3/uL Absolute Neuts (auto) 3.9 (2.0-8.3) x10*3/uL Absolute Nucleated RBC 0.000 (0.0-0.012) X10*3/uL Nucleated RBC % (auto) 0.0 (0.0-0.2) /100WBC Sodium 143 (135-145) mmol/L Potassium 4.5 D (3.3-5.1) mmol/L Chloride 108 (96-108) mmol/L Carbon Dioxide 24 (22-29) mmol/L Anion Gap 16 (12-20) BUN 16 (9-16) mg/dL Creatinine 0.89 (0.5-1.4) mg/dL Estim Creat Clear Calc 105.5 Estimated GFR > 60 Random Glucose 95 (60-115) mg/dL Calcium 9.5 (8.4-10.2) mg/dL Troponin I High Sens (<3.5-35.0) ng/L B-Natriuretic Peptide (<100) pg/mL Urine Color Yellow Urine Appearance Clear Urine pH 6.0 (5.0-9.0) Ur Specific [place] 1.010 (1.005-1.025) Urine Protein Negative (Neg-Trace) mg/dL Urine Glucose (UA) Negative (Negative) mg/dL Urine Ketones Negative (Negative) mg/dL Urine Blood Negative (Negative) Urine Nitrite Negative (Negative) Ur Leukocyte Esterase Negative (Negative) COVID-19 ([facility]) (Negative) COVID-19 Clin Com 01/07/23 01/07/23 01/07/23 Range/Units 11:14 11:14 12:20 WBC (4.8-10.8) X10*3/uL RBC (4.60-5.80) X10*6/uL Hgb (14.0-18.0) g/dl Hct (42.0-52.0) % MCV (80.0-98.0) fL MCH (27.0-33.0) pg MCHC (31.0-36.0) g/dl RDW (11.0-16.0) % Plt Count (160-400) X10*3/uL MPV (9.4-12.4) fL Immature Gran % (Auto) (0.0-0.4) % Neut % (Auto) (45-73) % Lymph % (Auto) (20-40) % [place] % (Auto) (2-11) % Eos % (Auto) (0-4) % Baso % (Auto) (0-2) % Lymph # (Auto) (1.2-4.9) X10*3/uL [place] # (Auto) (0.1-1.2) X10*3/uL Eos # (Auto) (0.0-0.4) X10*3/uL Baso # (Auto) (0.0-0.2) X10*3/uL Abs Immat Gran (auto) (0.00-0.03) X10*3/uL Absolute Neuts (auto) (2.0-8.3) x10*3/uL Absolute Nucleated RBC (0.0-0.012) X10*3/uL Nucleated RBC % (auto) (0.0-0.2) /100WBC Sodium (135-145) mmol/L Potassium (3.3-5.1) mmol/L Chloride (96-108) mmol/L Carbon Dioxide (22-29) mmol/L Anion Gap (12-20) BUN (9-16) mg/dL Creatinine (0.5-1.4) mg/dL Estim Creat Clear Calc Estimated GFR Random Glucose (60-115) mg/dL Calcium (8.4-10.2) mg/dL Troponin I High Sens 6.3 D (<3.5-35.0) ng/L B-Natriuretic Peptide 20 (<100) pg/mL Urine Color Urine Appearance Urine pH (5.0-9.0) Ur Specific [place] (1.005-1.025) Urine Protein (Neg-Trace) mg/dL Urine Glucose (UA) (Negative) mg/dL Urine Ketones (Negative) mg/dL Urine Blood (Negative) Urine Nitrite (Negative) Ur Leukocyte Esterase (Negative) COVID-19 ([facility]) Negative (Negative) COVID-19 Clin Com See Note Independent Interpretation I performed an independent interpretation of an: EKG (Atrial flutter at 122 beats per minutes, 2-1 AV block conduction, otherwise normal intervals.) and Plain X-Ray (No acute intrathoracic pathology.) Radiology Impression Discussion of test interpretation with radiology: I have reviewed the radiologist's reading. Critical Care Time Critical Care Time Critical Care Time: Yes Total Critical Care Time: 60 Attestation: I spent 60 minutes providing critical care service to the patient, this including time spent at the bedside to evaluate the patient, reassess the patient, monitoring vital signs, review labs, and radiographic studies, counseling the patient/family, discussing the case with consultants, disposition the patient. Discharge Plan Discharge Clinical Impression: Atrial flutter with rapid ventricular response Patient Disposition: Admitted As Inpatient
[2023-01-07] MEDS: Metoprolol Tartrate 25 MG TABLET PO (11:27)
[2023-01-07] MEDS: Metoprolol Tartrate 5 MG/5 ML VIAL IVPUSH ×2 (11:27→12:09)
[2023-01-07 11:36] LABS: Anion Gap 16 (12-20); Blood Urea Nitrogen 16 mg/dL (9-16); Calcium 9.5 mg/dL (8.4-10.2); Carbon Dioxide 24 mmol/L (22-29); Chloride 108 mmol/L (96-108); Creatinine Clr Calc Pharmacy 105.5; Estimated Glomerular Filt Rate > 60; Glucose Random 95 mg/dL (60-115); Potassium 4.5 mmol/L (3.3-5.1); Sodium 143 mmol/L (135-145)
[2023-01-07 11:43] LABS: B Type Natriuretic Peptide 20 pg/mL (<100)
[2023-01-07 11:44] LABS: Troponin-I High Sensitivity 6.3 ng/L (<3.5-35.0)
[2023-01-07 12:38] LABS: COVID-19 Test Negative (Negative); IDNOW Serial# BCCEAD1C
[2023-01-07] MEDS: dilTIAZem HCL 50 MG/10 ML VIAL 20 MG IVPUSH (13:13)
--- NOTE | 2023-01-07 13:20 | ECG_ITS ---
Test Reason : s/p cardizem Blood Pressure : / mmHG Vent. Rate : 060 BPM Atrial Rate : 234 BPM P-R Int : 000 ms QRS Dur : 094 ms QT Int : 384 ms P-R-T Axes : 251 027 011 degrees QTc Int : 384 ms Atrial flutter with variable A-V block Abnormal ECG When compared with ECG of 07-JAN-2023 10:35, Vent. rate has decreased BY 62 BPM Referred By: Shaheen De La Cruz Electronically Signed By:RANDALL GOMEZ
--- NOTE | 2023-01-07 13:24 | PC.NURSE ---
Patients Heart rate sustaining at 120's. Diltiazem ordered iv push and given. tele: afib 59-60's now bp also improved. Patient states feels much better now that heart rate is controlled.
--- NOTE | 2023-01-07 13:27 | PM.IMHP ---
History of Present Illness Date of Service: 01/07/23 Attending physician on admission: Jacquelin Louis Chief Complaint: palpitations 62-year-old gentleman with past medical history significant for atrial flutter diagnosed in May of 2021 status post cardioversion x2 and ablation in August 2021 was doing fine up until recently when he presented to ER last week with chest tightness and palpitation and was diagnosed to be in atrial flutter patient was treated in ER with beta-blockers heart rate improved patient was subsequently discharged and was evaluated by primary cadd manager Dr. Mclaughlin patient was treated with Cardizem CD 120 mg and Eliquis 5 mg b.i.d. and plan was for repeat ablation treatment however this morning while walking the dog he felt palpitation and chest with some shortness of breath and lightheadedness therefore came to the emergency room EKG showed atrial flutter with rapid ventricular response patient was treated with IV and by mouth Lopressor ventricular rate remains in 120s elevated blood pressure 146/106, patient few feels persistent chest fluttering he has been complaining of dizziness in last few days denies recent fever chills rigors, no URI symptoms, has stopped caffeine intake since last week, history of heavy alcohol abuse but trying to quit, denies smoking has not been using QVAR in last several days due to recurrent atrial flutter with RVR patient is being admitted to [facility] his electrolytes and CBC are unremarkable, and troponin within normal range, chest x-ray showed no acute process, EKG showed atrial flutter with variable AV blocks. Review of Systems Review of Systems: General no headache no dizziness no fever chills. Respiratory no cough no sputum production, no respiratory distress. Gastrointestinal no nausea no vomiting, no abdominal pain no urgency, no frequency musculoskeletal no pain Yes all other systems are reviewed and are negative [facility] Medical History Asthma Atrial flutter with rapid ventricular response Chronic cough History of cardioversion Renal calculi Family History Mother A-fib CVA (cerebral vascular accident) Father CVA (cerebral vascular accident) Surgical History H/O colonoscopy History of cardiac radiofrequency ablation History of esophagogastroduodenoscopy (EGD) Hx of tonsillectomy Social History Household Members: Spouse and Children Housing: House Alcohol intake: current Alcohol intake frequency: former alcohol drinker Alcohol type: beer, wine and hard liquor Patient Tobacco Use Status: Never used Tobacco Advance Directives: Yes Advance Directives Information Provided: No Advance Directives on File: No service: No Current occupational status: employed Meds Allergies Allergy/AdvReac Type Severity Reaction Status Date / Time Iodinated Contrast Media Allergy Severe SHORTNESS Verified 01/04/23 08:45 [IV CONTRAST] OF BREATH Active Medications: Current Medications Pharmacy Consult (Consult Rx Perform Med Rec) 1 each MISCELLANE ONCE PRN PRN Reason: Consult order Home Medications Medication Instructions Recorded Confirmed Last Taken Type cetirizine 10 mg capsule (Zyrtec) 10 mg PO DAILY 05/30/21 01/07/23 01/06/23 History lorazepam 1 mg tablet 1 tab PO BEDTIME PRN Insomnia 05/30/21 01/07/23 Unknown History cholecalciferol (vitamin D3) 25 25 mcg PO DAILY 09/07/21 01/07/23 01/07/23 History mcg (1,000 unit) capsule nebulizers 01/03/23 01/04/23 Unknown History levalbuterol HCl 1.25 mg/3 mL 1.25 mg inhalation BID PRN 01/07/23 01/07/23 Unknown History solution for nebulization Shortness Of Breath Or Wheezing psyllium 1 packet PO DAILY 01/07/23 01/07/23 01/06/23 History Physical Exam Vital Signs and Narrative: Vital Signs: Last Vital Signs Temp 98 F 01/07/23 12:36 Pulse 117 H 01/07/23 12:36 Resp 14 01/07/23 12:36 BP 146/106 H 01/07/23 12:36 Pulse Ox 96 01/07/23 12:36 O2 Del Method 01/07/23 12:36 BMI result Body Mass Index 30.2 Const: Other: General awake alert x3, resting comfortably in no acute distress. anicteric sclera Neck supple no JVD. CVS irregular rate rhythm, tachy, no murmurs Respiratory lungs clear to auscultation, no respiratory distress, no wheeze, no rhonchi. Gastrointestinal abdomen soft, nontender, bowel sounds audible, no guarding , no rigidity. Extremities no edema. Neuro nonfocal , speech clear. Skin no rash psych appropriate affect Results Labs 01/07/23 11:14 01/07/23 11:14 Labs: Laboratory Results - last 24 hr 01/07/23 01/07/23 01/07/23 11:13 11:14 11:14 MCV 87.5 MCH 29.8 MCHC 34.0 RDW 13.1 Plt Count 276 MPV 9.5 Immature Gran % (Auto) 0.3 Neut % (Auto) 60.7 Lymph % (Auto) 29.1 [place] % (Auto) 7.0 Eos % (Auto) 2.0 Baso % (Auto) 0.9 Lymph # (Auto) 1.9 [place] # (Auto) 0.5 Eos # (Auto) 0.1 Baso # (Auto) 0.1 Abs Immat Gran (auto) 0.02 Absolute Neuts (auto) 3.9 Absolute Nucleated RBC 0.000 Nucleated RBC % (auto) 0.0 Anion Gap 16 Estim Creat Clear Calc 105.5 Estimated GFR > 60 Random Glucose 95 Calcium 9.5 Troponin I High Sens B-Natriuretic Peptide Urine Color Yellow Urine Appearance Clear Urine pH 6.0 Ur Specific [place] 1.010 Urine Protein Negative Urine Glucose (UA) Negative Urine Ketones Negative Urine Blood Negative Urine Nitrite Negative Ur Leukocyte Esterase Negative COVID-19 ([facility]) COVID-[place] Com 01/07/23 01/07/23 01/07/23 11:14 11:14 12:20 MCV MCH MCHC RDW Plt Count MPV Immature Gran % (Auto) Neut % (Auto) Lymph % (Auto) [place] % (Auto) Eos % (Auto) Baso % (Auto) Lymph # (Auto) [place] # (Auto) Eos # (Auto) Baso # (Auto) Abs Immat Gran (auto) Absolute Neuts (auto) Absolute Nucleated RBC Nucleated RBC % (auto) Anion Gap Estim Creat Clear Calc Estimated GFR Random Glucose Calcium Troponin I High Sens 6.3 D B-Natriuretic Peptide 20 Urine Color Urine Appearance Urine pH Ur Specific [place] Urine Protein Urine Glucose (UA) Urine Ketones Urine Blood Urine Nitrite Ur Leukocyte Esterase COVID-19 ([facility]) Negative COVID-19 Clin Com See Note Imaging Radiologist's Impressions: Impressions Chest X-Ray 01/07/23 12:18 IMPRESSION: Elevated left hemidiaphragm. No acute process seen. Assessment and Plan (1) Atrial flutter with rapid ventricular response: Status: Acute Plan 62-year-old gentleman with past medical history of atrial flutter presented to [facility] due to palpitation might lightheadedness and noted to be in atrial flutter with rapid ventricular rate. paroxysmal Atrial flutter with RVR status post cardioversion x2 and status post ablation August 2021 patient received 3 dosages of beta blockers with no significant improvement ,will give Cardizem [address] on IV diltiazem drip, continue Eliquis, no evidence of CHF or acute decompensation patient recently evaluated by primary cadd manager and referred for EP study and repeat ablation echocardiogram 2020, showed normal EF, myocardial perfusion imaging study showed no acute ischemia or infarction strongly recommend to abstain from alcohol, normal electrolytes, will check TSH history of mild persistent asthma with no acute exacerbation will resume home medication. alcohol use disorder, patient has not had alcohol in last several days declined care team eval code status full code DVT prophylaxis with Eliquis patient need 2 night inpatient stay for atrial flutter with RVR since requiring IV Cardizem drip and close tele monitoring. Time Spent With Patient Time: Total time managing care of this patient today ____ minutes. Quality Stroke Does the patient have a stroke diagnosis?: No VTE Prior VTE?: No VTE Risk Level:: Medical - moderate - high VTE Device Contraindication: Treatment Not Indicated VTE Drug Contraindication: N/A - Med Ordered
[2023-01-07] MEDS: dilTIAZem HCL 125 MG in 0.9 % Sodium Chloride 100 ML IVCONT (13:42)
--- NOTE | 2023-01-07 14:27 | PHA.MEDREC ---
Pharmacy Consult ? Medication Reconciliation Pharmacy has completed the medication reconciliation. med rec completed. spoke with patient
[2023-01-07] MEDS: Apixaban 5 MG TABLET PO (21:09)
[2023-01-07] MEDS: LORazepam 1 MG TABLET PO (21:09)
--- NOTE | 2023-01-08 00:06 | PC.NURSE ---
pt ambulatory to bathroom. pt assisted back into bed, reconnected to awake overnight monitor. resting on stretcher at this time
[2023-01-08 04:19] VITALS: BP 126/75; PULSE 80; RESP 14; O2SAT 96
--- NOTE | 2023-01-08 04:20 | PC.NURSE ---
pt sleeping on back on stretcher. HR 80 at this time
--- NOTE | 2023-01-08 05:11 | PC.NURSE ---
pt ambulatory to bathroom. pt requested additional blanket at this time. pt assisted back into bed and provided with warm blanket
[2023-01-08 06:31] VITALS: BP 133/79; PULSE 94; RESP 11; TEMP 36.5; O2SAT 96
[2023-01-08] MEDS: Omeprazole 40 MG CAPSULE.DR PO (06:41)
[2023-01-08] MEDS: Loratadine 10 MG TABLET PO (09:24)
[2023-01-08] MEDS: Metoprolol Tartrate 25 MG TABLET PO ×3 (09:24→17:28)
[2023-01-08] MEDS: Cholecalciferol (Vitamin D3) 25 MCG TABLET PO (09:25)
[2023-01-08] MEDS: Apixaban 5 MG TABLET PO (09:29)
[2023-01-08] MEDS: dilTIAZem HCL 125 MG in 0.9 % Sodium Chloride 100 ML 10 MG IVCONT (09:40)
--- NOTE | 2023-01-08 10:11 | P.CONCA_ITS ---
History of Present Illness History of Present Illness Date of Service: 01/08/23 Chief complaint: Atrial Flutter with RVR Narrative: This is a cardiology consultation regarding atrial flutter with rapid rate. Patient is well known to us. He was recently seen just last week. He has a his tory of atrial flutter with rapid rate. In the past, underwent cardioversion but kept having recurrences. Subsequently, underwent atrial flutter ablation. He had 1 further occurrence of flutter few days ago at that point, we restarted diltiazem as well as Eliquis. He was supposed to see EP for possibly a repeat ablation. However, he had 1 further episode of palpitations accompanied by chest discomfort and various other symptoms leading to hospitalization. He is atrial flutter with rapid rate and on Cardizem drip. Still feels the palpitations. Review of Systems Review of Systems: Yes all other systems are reviewed and are negative Constitutional: Constitutional: Reports as per HPI and Reports no additional constitutional complaints Eyes: Eyes: Reports as per HPI and Denies no additional eye complaints ENT: Denies system reviewed and no additional complaints, except as documented and Reports as per HPI Cardiovascular: Cardiovascular: Reports as per HPI, Reports no additional cardiovascular complaints, Denies acrocyanosis, Denies cool extremities, Denies chest pain, Denies leg edema, Denies lightheadedness, Reports palpitations and Denies dyspnea Respiratory: Respiratory: Reports as per HPI, Denies no additional respiratory complaints and Denies dyspnea Gastrointestinal: Gastrointestinal: Reports as per HPI and Denies no additional gastrointestinal complaints Genitourinary: Genitourinary: Reports no additional male genitourinary complaints and Reports as per HPI Musculoskeletal: Musculoskeletal: Reports no additional musculoskeletal complaints and Reports as per HPI Integumentary/Breasts: Skin/Breast: Reports system reviewed and no additional complaints, except as docu Neurologic: Reports system reviewed and no additional complaints, except as documented and Reports as per HPI Psychiatric: Psychiatric: Reports no additional psychiatric complaints and Reports as per HPI Endocrine: Endocrine: Reports no additional endocrine complaints, Reports as per HPI and Reports palpitations Hematologic/Lymphatic: Hematologic/Lymphatic: Reports no additional hematologic/lymphatic complaints and Reports as per HPI Allergic/Immunologic: Allergic/Immunologic: Reports no additional allerg ic/immunologic complaints and Reports as per HPI [facility] Past Medical History Medical History Asthma Atrial flutter with rapid ventricular response Chronic cough History of cardioversion Renal calculi Family History Family History Mother A-fib CVA (cerebral vascular accident) Father CVA (cerebral vascular accident) Surgical History Surgical History H/O colonoscopy History of cardiac radiofrequency ablation History of esophagogastroduodenoscopy (EGD) Hx of tonsillectomy Social History Social History Household Members: Spouse and Children Housing: House Alcohol intake: current Alcohol intake frequency: former alcohol drinker Alcohol type: beer, wine and hard liquor Patient Tobacco Use Status: Never used Tobacco Advance Directives: Yes Advance Directives Information Provided: No Advance Directives on File: No service: No Current occupational status: employed Meds Allergies Allergy/AdvReac Type Severity Reaction Status Date / Time Iodinated Contrast Media Allergy Severe SHORTNESS Verified 01/04/23 08:45 [IV CONTRAST] OF BREATH Active Medications: Current Medications Acetaminophen (Acetaminophen 325 Mg Tablet) 650 mg PO Q6H PRN PRN Reason: Pain, Mild (Pain Scale 1-3) Apixaban (Apixaban 5 Mg Tablet) 5 mg PO BID [facility] Last Admin: 01/08/23 09:29 Dose: 5 mg Fluticasone Propionate (Fluticasone Propionate 100 Mcg Blst.W.Dev) 1 puff INHALE RBID [facility] Last Admin: 01/08/23 07:37 Dose: Not Given Diltiazem HCl 125 mg/ Sodium (Chloride) 125 mls @ 0 mls/hr IVCONT .Q0M [facility]; Protocol Last Admin: 01/08/23 09:40 Dose: 10 mg/hr, 10 mls/hr Levalbuterol HCl (Levalbuterol Hcl 1.25 Mg/0.5 Ml Vial.Neb) 1.25 mg INHALE Q3H PRN PRN Reason: SHORTNESS OF BREATH Loratadine (Loratadine 10 Mg Tablet) 10 mg PO DAILY [facility] Last Admin: 01/08/23 09:24 Dose: 10 mg Lorazepam (Lorazepam 1 Mg Tablet) 1 mg PO BEDTIME PRN PRN Reason: Insomnia Last Admin: 01/07/23 21:09 Dose: 1 mg Melatonin (Melatonin 3 Mg Tablet) 6 mg PO BEDTIME PRN PRN Reason: Insomnia Metoprolol Tartrate (Metoprolol Tartrate 25 Mg Tablet) 25 mg PO QID [facility]; Protocol Last Admin: 01/08/23 09:24 Dose: 25 mg Omeprazole (Omeprazole 40 Mg Capsule.Dr) 40 mg PO DAILY@0630 [facility] Last Admin: 01/08/23 06:41 Dose: 40 mg Ondansetron HCl (Ondansetron Hcl 4 Mg/2 Ml Vial) 4 mg IVPUSH Q8H PRN PRN Reason: Nausea and Vomiting Pharmacy Consult (Consult Rx Perform Med Rec) 1 each MISCELLANE ONCE PRN PRN Reason: Consult order Psyllium Hydrophilic Mucilloid (Psyllium Seed 3.4 Gm Powd.Pack) 3.4 gm PO DAILY [facility] Last Admin: 01/08/23 09:28 Dose: Not Given Sodium Chloride (0.9 % Sodium Chloride Flush 3 Ml Syringe) 3 ml IVFLUSH QSHIFT [facility] Last Admin: 01/08/23 09:28 Dose: Not Given Vitamin D (Cholecalciferol (Vitamin D3) 25 Mcg Tablet) 25 mcg PO DAILY [facility] Last Admin: 01/08/23 09:25 Dose: 25 mcg Home Medications Medication Instructions Recorded Confirmed Last Taken Type cetirizine 10 mg capsule (Zyrtec) 10 mg PO DAILY 05/30/21 01/07/23 01/06/23 History lorazepam 1 mg tablet 1 tab PO BEDTIME PRN Insomnia 05/30/21 01/07/23 Unknown History cholecalciferol (vitamin D3) 25 25 mcg PO DAILY 09/07/21 01/07/23 01/07/23 History mcg (1,000 unit) capsule nebulizers 01/03/23 01/04/23 Unknown History levalbuterol HCl 1.25 mg/3 mL 1.25 mg inhalation BID PRN 01/07/23 01/07/23 Unknown History solution for nebulization Shortness Of Breath Or Wheezing psyllium 1 packet PO DAILY 01/07/23 01/07/23 01/06/23 History Physical Exam Vital Signs: Vital Signs: Last Vital Signs Temp 97.7 F 01/08/23 06:31 Pulse 94 01/08/23 06:31 Resp 11 L 01/08/23 06:31 BP 133/79 01/08/23 06:31 Pulse Ox 96 01/08/23 06:31 O2 Del Method 01/08/23 06:31 BMI result Body Mass Index 30.2 Const: General: comfortable and no acute distress Orie ntation/consciousness: patient oriented x3 HEENT: Other: Unremarkable Head: Yes normal to inspection Neck: Neck: Yes normal visual inspection Chest: Chest palpation & inspection: normal inspection of the chest Resp: Auscultation: clear to auscultation bilaterally Cardio: Palpation: normal PMI Heart sounds: S1 normal heart sound present, S2 normal heart sound present, no gallops, no murmurs and no rubs GI: Palpation (GI): Soft to palpation Back/Spine/Pelvis: Other: unremarkable Skin: General skin exam: no rashes or lesions noted Neuro: General: patient oriented x3 Extrem: General: Yes normal to inspection Psych: Mental Status: mental status grossly normal Objective Labs and Meds 01/07/23 11:14 01/07/23 11:14 Lab results: Laboratory Results - last 24 hr 01/07/23 01/07/23 01/07/23 11:13 11:14 11:14 WBC 6.4 RBC 5.54 Hgb 16.5 Hct 48.5 MCV 87.5 MCH 29.8 MCHC 34.0 RDW 13.1 Plt Count 276 MPV 9.5 Immature Gran % (Auto) 0.3 Neut % (Auto) 60.7 Lymph % (Auto) 29.1 [place] % (Auto) 7.0 Eos % (Auto) 2.0 Baso % (Auto) 0.9 Lymph # (Auto) 1.9 [place] # (Auto) 0.5 Eos # (Auto) 0.1 Baso # (Auto) 0.1 Abs Immat Gran (auto) 0.02 Absolute Neuts (auto) 3.9 Absolute Nucleated RBC 0.000 Nucleated RBC % (auto) 0.0 Sodium 143 Potassium 4.5 D Chloride 108 Carbon Dioxide 24 Anion Gap 16 BUN 16 Creatinine 0.89 Estim Creat Clear Calc 105.5 Estimated GFR > 60 Random Glucose 95 Calcium 9.5 Troponin I High Sens B-Natriuretic Peptide TSH 1.30 Urine Color Yellow Urine Appearance Clear Urine pH 6.0 Ur Specific [place] 1.010 Urine Protein Negative Urine Glucose (UA) Negative Urine Ketones Negative Urine Blood Negative Urine Nitrite Negative Ur Leukocyte Esterase Negative COVID-19 ([facility]) COVID-19 Clin Com 01/07/23 01/07/23 01/07/23 11:14 11:14 12:20 WBC RBC Hgb Hct MCV MCH MCHC RDW Plt Count MPV Immature Gran % (Auto) Neut % (Auto) Lymph % (Auto) [place] % (Auto) Eos % (Auto) Baso % (Auto) Lymph # (Auto) [place] # (Auto) Eos # (Auto) Baso # (Auto) Abs Immat Gran (auto) Absolute Neuts (auto) Absolute Nucleated RBC Nucleated RBC % (auto) Sodium Potassium Chloride Carbon Dioxide Anion Gap BUN Creatinine Estim Creat Clear Calc Estimated GFR Random Glucose Calcium Troponin I High Sens 6.3 D B-Natriuretic Peptide 20 TSH Urine Color Urine Appearance Urine pH Ur Specific [place] Urine Protein Urine Glucose (UA) Urine Ketones Urine Blood Urine Nitrite Ur Leukocyte Esterase COVID-19 ([facility]) Negative COVID-19 Clin Com See Note ECG Interpretation: EKG with atrial flutter and rate of 122/Min. On telemetry, still in atrial flutter with rapid rate. Imaging Radiologist's impression: Impressions Chest X-Ray 01/07/23 12:18 IMPRESSION: Elevated left hemidiaphragm. No acute process seen. Assessment and Plan (1) Atrial flutter with rapid ventricular response: Status: Acute Plan Labs unremarkable. Troponin within normal limits. Renal function normal. Cardiac BNP is also normal. Thyroid function within normal limits. As he is having recurrent episodes of highly symptomatic atrial flutter and rapid in spite of diltiazem drip, he will benefit from repeat ablation. This was supposed to be done as an outpatient but because of recurrent symptoms, he got admitted. Discussed with , electrophysiology at [facility]. Based on the clinical situation, probably appropriate to ablate him as an inpatient. Hence we will transfer the patient today for procedure. In the interim, keep him on diltiazem drip but increase the rate. Add oral metoprolol for additional rate control. Continue Eliquis. Plan discussed with patient and he is highly interested in proceeding with ablation. Hence can be transferred. Time Spent With Patient Time: Total time managing care of this patient today 75 minutes. Procedures Date of Service Date of Service: 01/08/23
--- NOTE | 2023-01-08 10:43 | PM.DS ---
DS: Providers Provider Date of Service: 01/08/23 Date of admission: 01/07/23 13:25 Primary care physician: Memo Hamilton MD Consults: 01/08/23 07:16 Consult to Cardiology Routine Consulting Provider: Andres Mclaughlin Reason for consultation: atrial flutter Has provider been notified: No DS: Diagnosis Discharge Diagnosis (1) Atrial flutter with rapid ventricular response: Status: Acute DS: Summary Hospital Course Hospital Course: Date of Service: 01/07/23 Attending physician on admission: Jacquelin Louis Chief Complaint:? palpitations ?62-year-old gentleman with past medical history significant for atrial flutter diagnosed in May of 2021 status post? cardioversion x2 and ablation in August 2021 was doing fine up until recently when he presented to ER ?last week with chest tightness and palpitation and was diagnosed to be in atrial flutter patient was treated in ER with beta-blockers heart rate improved patient was subsequently discharged and was evaluated by primary retirement plan specialist Dr. Mclaughlin patient was treated with Cardizem CD 120 mg and Eliquis 5 mg b.i.d. and plan was for repeat ablation treatment however this morning while walking the dog he felt palpitation and chest with some shortness of breath and lightheadedness therefore came to the emergency room EKG showed atrial flutter with rapid ventricular response patient was treated with IV and by mouth Lopressor ventricular rate remains in 120s elevated blood pressure? 146/106, patient few feels persistent chest fluttering he has been complaining of dizziness in last few days denies recent fever chills rigors, no URI symptoms, has stopped caffeine intake since last week, history of heavy alcohol abuse but trying to quit, denies smoking has not been using QVAR in last several days due to recurrent atrial flutter with RVR patient is being admitted to [facility] his electrolytes and CBC are unremarkable, and troponin within normal range, chest x-ray showed no acute process, EKG showed atrial flutter with variable AV blocks. hospital course 62-year-old gentleman with past medical history of atrial flutter presented to [facility] due to palpitation ,lightheadedness and noted to be in atrial flutter with rapid ventricular rate. ?Paroxysmal Atrial flutter with RVR, patient admitted to intermediate care unit and placed on IV Cardizem drip, troponins were within normal limits, renal function was stable, chest x-ray showed no acute abnormality , cardiac BNP normal, patient remained in atrial flutter with rapid rate despite diltiazem drip therefore started on metoprolol 25 mg q.6 hours patient evaluated by Dr. Mclaughlin he recommend transfer to [facility] for repeat ablation due to highly symptomatic atrial flutter therefore will discharge him on IV diltiazem beta-blockers in regard to his underlying history of mild persistent asthma there is no acute exacerbation, noted patient has been strongly advised to abstain from alcohol. ? Time Spent with Patient Time attestation: Total time managing care of this patient today ____ minutes. Discharge coordination time: Greater than 30 minutes Quality: Safe Use of Opioids Does Pt have an Active Cancer Diagnosis on the Problem List?: No Quality: Stroke Does the patient have a stroke diagnosis?: No Physical Exam Vital Signs: Vital Signs: Last Vital Signs Temp 97.7 F 01/08/23 06:31 Pulse 94 01/08/23 06:31 Resp 11 L 01/08/23 06:31 BP 133/79 01/08/23 06:31 Pulse Ox 96 01/08/23 06:31 O2 Del Method 01/08/23 06:31 BMI result Body Mass Index 30.2 Const: Other: General? awake eldon rt x3, resting com fortably in no acu te distress. anict mily sclera Neck? supple no JVD. CVS ? irregular rate r hythm, tachy, no m urmurs Respiratory lungs clear to au scultation, no res piratory distress, no wheeze, no rho nchi. Gastrointest inal abdomen soft, nontender, bowel sounds audible, no guarding , no rig idity. Extremities no edema. Neuro n onfocal , speech c lear. Skin no rash psych appropriate affect DS: Data Data Completed and Pending Completed studies during hospitalization [Text1]: Procedures [facility] Cardiac Rhythm, Single (05/30/21) Labs on day of discharge: Laboratory Results - last 24 hr 01/07/23 01/07/23 01/07/23 11:13 11:14 11:14 WBC 6.4 RBC 5.54 Hgb 16.5 Hct 48.5 MCV 87.5 MCH 29.8 MCHC 34.0 RDW 13.1 Plt Count 276 MPV 9.5 Immature Gran % (Auto) 0.3 Neut % (Auto) 60.7 Lymph % (Auto) 29.1 [place] % (Auto) 7.0 Eos % (Auto) 2.0 Baso % (Auto) 0.9 Lymph # (Auto) 1.9 [place] # (Auto) 0.5 Eos # (Auto) 0.1 Baso # (Auto) 0.1 Abs Immat Gran (auto) 0.02 Absolute Neuts (auto) 3.9 Absolute Nucleated RBC 0.000 Nucleated RBC % (auto) 0.0 Sodium 143 Potassium 4.5 D Chloride 108 Carbon Dioxide 24 Anion Gap 16 BUN 16 Creatinine 0.89 Estim Creat Clear Calc 105.5 Estimated GFR > 60 Random Glucose 95 Calcium 9.5 Troponin I High Sens B-Natriuretic Peptide TSH 1.30 Urine Color Yellow Urine Appearance Clear Urine pH 6.0 Ur Specific [place] 1.010 Urine Protein Negative Urine Glucose (UA) Negative Urine Ketones Negative Urine Blood Negative Urine Nitrite Negative Ur Leukocyte Esterase Negative COVID-19 ([facility]) COVID-[employer] 01/07/23 01/07/23 01/07/23 11:14 11:14 12:20 WBC RBC Hgb Hct MCV MCH MCHC RDW Plt Count MPV Immature Gran % (Auto) Neut % (Auto) Lymph % (Auto) [place] % (Auto) Eos % (Auto) Baso % (Auto) Lymph # (Auto) [place] # (Auto) Eos # (Auto) Baso # (Auto) Abs Immat Gran (auto) Absolute Neuts (auto) Absolute Nucleated RBC Nucleated RBC % (auto) Sodium Potassium Chloride Carbon Dioxide Anion Gap BUN Creatinine Estim Creat Clear Calc Estimated GFR Random Glucose Calcium Troponin I High Sens 6.3 D B-Natriuretic Peptide 20 TSH Urine Color Urine Appearance Urine pH Ur Specific [place] Urine Protein Urine Glucose (UA) Urine Ketones Urine Blood Urine Nitrite Ur Leukocyte Esterase COVID-19 ([facility]) Negative COVID-[employer] See Note Discharge Plan Discharge Anticipated Discharge Date/Time: 01/08/23 10:29 Patient Disposition: Xfer Acute Care Hospital Discharge Diagnosis: atrial flutter with RVR Referrals: Memo Hamilton MD [Primary Care Provider] - 1 Week Discharge Medications: New metoprolol tartrate 25 mg Tablet 25 mg PO QID Qty: 30 0RF Protocol: Hold for SBP/HR < HOLD for SBP < : 90 HOLD for HR < : 60 Continued Qvar RediHaler 80 mcg/actuation HFA aerosol breath activated 1 inh inhalation BID 90 Days Qty: 30.6 3RF Rx Instructions: patient states he only uses once a day levalbuterol tartrate [Xopenex HFA] 45 mcg/actuation HFA aerosol inhaler 2 puff inhalation Q6H PRN (Reason: shortness of breath or wheezing) 90 Days Qty: 3 3RF Eliquis 5 mg tablet 5 mg PO BID 90 Days Qty: 180 1RF lorazepam 1 mg tablet 1 tab PO BEDTIME PRN (Reason: Insomnia) Zyrtec 10 mg Capsule 10 mg PO DAILY psyllium Packet 1 packet PO DAILY Rx Instructions: mix into at least 8 oz of water or juice before administering levalbuterol HCl 1.25 mg/3 mL solution for nebulization 1.25 mg inhalation BID PRN (Reason: Shortness Of Breath Or Wheezing) omeprazole 40 mg capsule,delayed release(DR/EC) 40 mg PO DAILY 30 Days Qty: 30 4RF cholecalciferol (vitamin D3) 25 mcg (1,000 unit) capsule 25 mcg PO DAILY (DME) nebulizers Misc See Rx Instructions .Route Rx Instructions: As directed Spiriva Respimat 2.5 mcg/actuation mist 2 puff inhalation DAILY 30 Days Qty: 1 6RF Rx Instructions: medication was just recently prescribed and pt has not started yet Discontinued diltiazem HCl 120 mg capsule,extended release 24hr 120 mg PO DAILY Qty: 90 1RF Discharge Orders: Discharge Order (Routine); Ordered 01/08/23 Ordered By: Jacquelin Louis Diet: Low fat, low cholesterol Activity on Discharge: bedrest Stand Alone Forms: Patient Portal Discharge page Care Plan Goals: atrial flutter with rapid ventricular response, on IV diltiazem drip 10mg/h and metoprolol 25 mg q.6 hours, continue Murray being discharged to [facility] for electrophysiology at [facility] to ablate him as inpatient continue IV diltiazem drip 10 milligram/hour and titrate for desired heart rate. Health Concerns: continue all home inhalers no acute exacerbation Plan of Treatment: follow-up with cardiology and primary care physician Assessment: As above
[2023-01-08 14:33] VITALS: BP 120/60; PULSE 116; RESP 15; O2SAT 95
--- NOTE | 2023-01-08 14:33 | PC.NURSE ---
medicated as ordered, a flutter on monitor, skin wpd, ate lunch, no comoplaints, skin wpd, no pain or dizziness, no sob
--- NOTE | 2023-01-09 08:13 | MHC.CM.ED ---
Patient transferred to [facility] before being seen by case management.
== END 2023-01-08 17:55 | disposition short-term general hospital (02) | DRG 201 ==
LOC: HO.ED 12:14 → HO.EDOVER 13:30
PROVIDERS: Admitting Provider Hospitalist; Emergency Provider Emergency Medicine; PCP Internal Medicine; Visit Provider Hospitalist
DX: I48.92 Unspecified atrial flutter (principal); F10.10 Alcohol abuse, uncomplicated; J45.30 Mild persistent asthma, uncomplicated; Z20.822 Contact with and (suspected) exposure to COVID-19; Z79.01 Long term (current) use of anticoagulants; Z91.041 Radiographic dye allergy status; Z79.899 Other long term (current) drug therapy
CPT/HCPCS: 36415; 71045; 80048; 81003; 83880; 84443; 84484; 85025; 87635; 93005; 99285

== ENCOUNTER → 2023-02-02 10:56 | Outpatient (REF) | payer OTHER, SELFPAY ==
--- NOTE | 2023-02-02 10:58 | HM_ITS ---
Cardiac event monitor Indication: Hypothyroidism Technique: Patient was hooked up to cardiac event monitor on 02/02/2023 for total period of 30 days with compliance rate of 88.3%. Some of the rhythm strip showed artifactual data. Findings: Baseline was normal sinus rhythm with lowest heart rate of 47 beats per minute fastest heart of 122 beats per minute. There were no significant pauses or AV block noted. Frequent sinus bradycardia with 41.5% time heart rate below 60 beats per minute was noted No episodes of atrial fibrillation noted total burden of PVCs at about 2% consistent with frequent PVCs, all isolated. Patient reported symptoms 12 times with no associated symptoms, correlating with sinus rhythm Conclusion: 1. Baseline was normal sinus rhythm with no pauses 2. Frequent isolated PVCs, 2% of total beats 3. Patient reported events correlated with sinus rhythm MTDD
== END ==
LOC: HO.CARD 10:56
PROVIDERS: PCP Internal Medicine; Visit Provider Internal Medicine
DX: I48.0 Paroxysmal atrial fibrillation (principal); I48.92 Unspecified atrial flutter
CPT/HCPCS: 93270

== ENCOUNTER → 2023-04-06 14:18 | Outpatient (BNVA) | payer OTHER, SELFPAY | PROVIDERS: PCP Internal Medicine; Referring Provider Internal Medicine; Visit Provider Nurse Practitioner Family ==

== ENCOUNTER 2023-07-13 09:18 | Outpatient (REF) | payer OTHER, SELFPAY ==
--- NOTE | ~2023-07-13 | XR_ITS ---
EXAMINATION: XR CHEST 2 VIEWS CLINICAL INFORMATION: Elevated diaphragm. COMPARISON: Prior chest radiographs as remote as 09/17/2008. TECHNIQUE: Frontal and lateral views of the chest were obtained. FINDINGS: The heart, great vessels, pulmonary vasculature and mediastinum are normal. The lungs show no focal infiltrate, effusion or pneumothorax. There is chronic mild to moderate elevation of the left hemidiaphragm. There is no acute osseous abnormality. XR/XR chest 2V IMPRESSION: 1. No active cardiopulmonary disease. 2. There is chronic mild to moderate elevation of the left hemidiaphragm.
== END 2023-07-13 09:19 | disposition home or self-care (01) ==
LOC: HO.XRAY 09:18
PROVIDERS: PCP Internal Medicine; Visit Provider Internal Medicine
DX: J98.6 Disorders of diaphragm (principal)
CPT/HCPCS: 71046

== ENCOUNTER 2023-08-08 09:57 | Outpatient (AMB) | payer OTHER, SELFPAY ==
[2023-08-08 10:08] VITALS: PULSE 60; O2SAT 96
--- NOTE | 2023-08-08 10:08 | A.OFFVIS_ITS ---
Intake Vital Signs 08/08/23 10:08 Height 5 ft 11 in Weight 215 lb BMI 30.0 Pulse 60 Pulse Source Pulse Oximeter Pulse Oximetry (%) 96 Oxygen Delivery Method Room Air Intake Visit Reasons: Asthma Gunite Nozzle Operator Required: No Allergies Iodinated Contrast Media [IV CONTRAST] Allergy (Severe, Verified 08/08/23 10:09) SHORTNESS OF BREATH HPI HPI Comments History of Present Illness Details The patient is a 63-year-old gentleman with a previous history of asthma who apparently it has been noticing increasing chest tightness and coughing for the last few years but now getting worse. Per the patient required a short-acting beta agonist a more recently he was placed on Advair. The inhal ers to help control his symptoms But only partially. In addition to this the patient started developing vague symptoms of fatigue and chest heaviness. He was evaluated by his primary care doctor who symptom to the ER to be evaluated for tachyarrhythmia. The patient is diagnosed with AFib and flutter. he has been cardioverted x2. Currently on anticoagulation. He was also placed on a anti rhythmic agent. Now considering ablation which is likely going to her in the next few weeks. In the meantime the patient denies any significant exposures. he was exposed to secondhand smoke. May also have mold in his home. denies having any birds or any farm animals. The patient does complaint of heartburn. He has been taking omeprazole [id number]. Symptoms usually worse at nighttime. 09/07/2021 the patient is here for a pulmonary follow-up visit. Overall he is doing better. He is tolerating the QVAR. Since we last spoke he did have his ablation and now has been in normal sinus mechanism. This is been reassuring. We did review his blood work demonstrating no evidence of any allergies or any eosinophilia. He also had a barium swallow which was relatively normal severe did mention some initial irregularity to the mucosa in the cervical area. Therefore, the patient is aware and the symptoms that may be will need to be looked that is specially if he continues having any symptoms. We did review his pulmonary function studies which demonstrated small airways disease in addition to a reversible obstruction consistent with asthma moderate severity. The patient also had air trapping consistent with small airways disease. He did have 1 episode where he felt chest tightness but he was concerned about using his albuterol. Specially with a history of AFib and failed cardioversions. Therefore, I will prescribe Xopenex for in order for him to be able to use short-acting beta agonist with less concern of precipitating cardiac arrhythmias with his history will continue with reflux diet for now and will follow-up in 6 months. 01/03/2022 the patient is here for a pulmo sandyy follow-up visit. He continues to do well. He continues on the QVAR. He was able to stop the singular. He has been doing well after the ablation and was able to stop the Eliquis as well. He has not required a short-acting beta agonist. He does have Xopenex because of history of tachyarrhythmias. He did receive a letter from his insurance company that they are no longer going to cover it. Right now he has enough medication and will add readdress that once he needs a refill. In the meantime he did follow-up with GI he was diagnosed with Galan's esophagus. He is going to be closely monitor for that. He continue the reflux diet and seems to be helpful. Overall the patient is doing well. Will plan to follow-up in a year's time will PFTs. 08/01/2022 the patient is here for sick v isit. Apparently he started developing worsening chest tightness and shortness of breath. He denies any sick contacts although the recently spent time with a therefore may have been exposed then. Denies any fevers or chills denies any for throat. He has continued to use the QVAR. He also start using his rescue inhaler. He felt that he needed a nebulizer because of the chest tightness that was moderate severity. The inhaler was only partially helpful. However when he went to use the nebulizer was broken. The patient actually has now received a nebulizer himself this was a stoney down. Therefore, the patient needs to get a nebulizer at this time. I did provide him with Xopenex nebulized therapy in the office. The patient does have a history of AFib and flutter so therefore try to minimize beta agonist effect. Currently he does have some expiratory wheezing but minimal. I am hopeful that increasing the inhaled steroids and using the nebulizer would help him improve his symptoms. However, the patient is not better by the end of week he will call the office in order to send him additional medicines of pharmacy including prednisone and possibly an antibiotic if he is congested. We can also consider long-acting muscarinic antagonist if he continues to have symptoms in order to provide bronchodilation without interacting with his cardiac issues. 01/03/2023 the patient is here for a pulmo carola follow-up visit. Last night he had to go to the ER because his AFib was acting up. He was rate controlled and he was able to be discharged home. He is back in the Eliis and he is taking better care of himself. Sore breathing standpoint the patient did have COVID and he was taking QVAR his rescue inhaler more often. Now he is recovering and doing better. He it does continue to use the QVAR but has not had to use the Xopenex recently. On examination he still has some wheezing. Specially when the forced exhalation. Therefore we talked about considering to try a small dose of long-acting muscarinic antagonist to help with breathing but not interf ere with his cardiac issues. The patient is willing to do so. I did give him a prescription on paper for him to in order to consider. He is continue the QVAR for now. We did review his chest x-ray that he had recently specially when he had COVID and he still has that elevated left hemidiaphragm. Otherwise no acute disease. Will plan to follow-up in the fall or sooner if he develops any other new issues. 08/08/2023 the patient is here for a pul n[place] follow-up visit. The patient was doing well till about a week ago when he started developing URI like symptoms. Had some fevers and chills. Also runny nose. Positive sick contacts in the house. His fevers went away he tested negative for COVID but then started developing increasing chest tightness and shortness of breath and wheezing. Increased the QVAR to twice a day. He has been using the Xopenex via the nebulizer. This has been partially helpful. He still has some wheezing on examination. The patient will benefit from additional prednisone and antibiotics at this time. Likely has a component of post viral reactive airway disease and or the possibility of a postviral bacterial process that may be starting. In the meantime the patient did have a chest x-ray in July 13 before he got sick and was noted again that he is left hemidiaphragm is elevated. This goes back sometime. We talked about that is likely related to an injury of some type. Will go ahead and request a sniff study to assess for any diaphragmatic excursion of that left hemidiaphragm. [facility] Medical History (Updated 08/08/23 @ 10:20 by Luis Schroeder MD) Acquired elevated diaphragm Renal calculi History of cardioversion Chronic cough Atrial flutter with rapid ventricular response Asthma Surgical History (Updated 04/06/23 @ 15:49 by Saida Martinez NP-C) Hx of tonsillectomy History of esophagogastroduodenoscopy (EGD) H/O colonoscopy History of cardiac radiofrequency ablation Family History Mother A-fib CVA (cerebral vascular accident) Father CVA (cerebral vascular accident) Social History Household Members: Spouse and Children Housing: House Alcohol intake: current Alcohol intake frequency: former alcohol drinker Alcohol type: beer, wine and hard liquor Patient Tobacco Use Status: Never used Tobacco service: No Current occupational status: employed [employer] Const Denies chills, Denies fatigue, Denies fever(s), Denies frequent falls, Denies weakness, Denies weight gain and Denies weight loss ENT Denies dizziness Card Denies chest pain, Denies leg edema, Denies lightheadedness, Denies dyspnea, Reports dyspnea on exertion, Denies orthopnea and Denies other (Loss of consciousness) Resp Reports chest congestion, Reports cough, Denies dyspnea, Reports dyspnea on exertion and Reports wheezing GI Denies hematochezia and Denies change in bowel habits Musc Denies abnormal gait, Denies muscle weakness, Denies numbness, Denies radiating pain into limb and Denies tingling Neuro Denies abnormal gait, Denies dizziness, Denies frequent falls, Denies numbness, Denies tingling and Denies weakness Endo Denies fatigue Aller/Immun Reports wheezing Physical Exam Vital Signs: Last Vital Signs Pulse 60 08/08/23 10:08 Pulse Ox 96 08/08/23 10:08 Oxygen Delivery Method Room Air 08/08/23 10:08 BMI result Body Mass Index 30.0 Const General: alert Neck Neck: Yes normal visual inspection, Yes full ROM and Yes no lymphadenopathy Chest Chest palpation & inspection: normal inspection of the chest Resp Auscultation: wheezes and diminished lung sounds Cardio Rate: regular rate Rhythm: abnormal rhythm Heart sounds: S1 normal heart sound present and S2 normal heart sound present GI Palpation (GI): Soft to palpation and nontender Auscultation: normal bowel sounds Skin General skin exam: rashes and/or lesions noted Assessment & Plan Assessment & Plan (1) Asthma: Code(s): J45.909 - Unspecified asthma, uncomplicated Qualifiers: Asthma complication type: with acute exacerbation Asthma persistence: persistent Asthma severity: moderate Qualified Code(s): J45.41 - Moderate persistent asthma with (acute) exacerbation (2) Paroxysmal atrial flutter: Code(s): I48.92 - Unspecified atrial flutter Plan: s/p ablation (3) Chronic cough: Code(s): R05 - Cough (4) Acquired elevated diaphragm: Code(s): J98.6 - Disorders of diaphragm Plan continue reflux diet continue QVAR 2puff Xopenex as needed Needs a nebulizer continue spiriva start Prednisone taper start doxycycline SNIFF study F/U 6 months Orders: Orders IR fluoroscopy <1hr Today J98.6 - Disorders of diaphragm Medications: New prednisone PO daily; Take 2 tabs daily x 5 days, then 1 tablet daily x 5 days 10 days 15 tabs 0RF doxycycline hyclate 100 mg PO BID 10 days 20 caps 0RF Coding Level of Care Code Est Pt Level 4 (11740) Diagnoses Moderate persistent asthma with acute exacerbation J45.41 Asthma complication type: with acute exacerbation Asthma persistence: persistent Asthma severity: moderate Paroxysmal atrial flutter I48.92 Chronic cough R05 Acquired elevated diaphragm J98.6 Time Spent (min) 17
== END 2023-08-08 10:27 | disposition home or self-care (01) ==
PROVIDERS: PCP Internal Medicine; Visit Provider Hospitalist
DX: J45.41 Moderate persistent asthma with (acute) exacerbation (principal); I48.92 Unspecified atrial flutter; R05.9 Cough, unspecified; J98.6 Disorders of diaphragm
CPT/HCPCS: 99214

== ENCOUNTER → 2023-08-08 09:57 | Outpatient (BNVA) | payer OTHER, SELFPAY | PROVIDERS: Visit Provider Hospitalist ==

== ENCOUNTER 2023-09-25 10:33 | Outpatient (REF) | payer OTHER, SELFPAY ==
[2023-09-25 10:36] LABS: MANUAL DIFF FLAG NO
[2023-09-25 11:07] LABS: Appearance Urine Clear; Color Urine Yellow; Glucose Urine UA Negative (Negative); Leukocyte Esterase Urine Negative (Negative); Nitrite Urine Negative (Negative); Urine Blood Negative (Negative); Urine Ketones Negative (Negative); Urine Protein Negative (Neg-Trace)
[2023-09-25 11:10] LABS: Basophils Absolute Auto 0.1 X10*3/uL (0.0-0.2); Basophils Percent Auto 0.9 % (0-2); Eosinophils Absolute Auto 0.1 X10*3/uL (0.0-0.4); Eosinophils Percent Auto 0.6 % (0-4); Hematocrit 43.9 % (42.0-52.0); Hemoglobin 14.4 g/dl (14.0-18.0); Imm Gran Abs Auto 0.05 X10*3/uL (0.00-0.03); Imm Gran Pct Auto 0.5 % (0.0-0.4); Lymphocytes Absolute Auto 3.7 X10*3/uL (1.2-4.9); Lymphocytes Percent Auto 38.3 % (20-40); Mean Corpuscular HGB Conc 32.8 g/dl (31.0-36.0); Mean Corpuscular Hemoglobin 29.1 pg (27.0-33.0); Mean Corpuscular Volume 88.9 fL (80.0-98.0); Mean Platelet Volume 9.8 fL (9.4-12.4); Monocytes Absolute Auto 0.9 X10*3/uL (0.1-1.2); Monocytes Percent Auto 8.7 % (2-11); Platelet Count 283 X10*3/uL (160-400); Red Blood Count 4.94 X10*6/uL (4.60-5.80); Red Cell Distribution Width 12.8 % (11.0-16.0); White Blood Count 9.8 X10*3/uL (4.8-10.8)
[2023-09-25 11:12] LABS: Bacteria Urine None Seen (None Seen); Hyaline Casts Urine 0-2 /LPF (0-2); RBC Urine 0-2 /HPF (0-2); Squamous Epithelial Cell Urine 0-2 /HPF (0-2); WBC Urine 0-5 /HPF (0-5)
[2023-09-25 11:23] LABS: Alanine Aminotransferase 14 U/L (0-40); Alkaline Phosphatase 78 U/L (39-117); Anion Gap 8 (12-20); Aspartate Amino Transferase 16 U/L (5-37); Bilirubin Total 0.6 mg/dL (0.0-1.0); Blood Urea Nitrogen 16 mg/dL (9-16); Calcium 9.4 mg/dL (8.4-10.2); Carbon Dioxide 29 mmol/L (22-29); Chloride 105 mmol/L (96-108); Cholesterol 271 mg/dL (<200); Estimated Glomerular Filt Rate > 60; Glucose Fasting 76 mg/dL (60-99); HDL Cholesterol 65 mg/dL (>40); LDL Cholesterol Calculated 179 mg/dL (<100); Potassium 3.7 mmol/L (3.3-5.1); Sodium 138 mmol/L (135-145); Total Protein 6.6 g/dL (6.5-8.0); Triglycerides 136 mg/dL (<150)
[2023-09-25 11:40] LABS: PSA,Total (Free>4and<10) 1.02 ng/mL (0.00-4.00)
== END 2023-09-25 10:34 | disposition home or self-care (01) ==
LOC: HO.LNP 10:33
PROVIDERS: Visit Provider Internal Medicine
DX: Z00.00 Encounter for general adult medical examination without abnormal findings (principal); Z12.5 Encounter for screening for malignant neoplasm of prostate; E78.00 Pure hypercholesterolemia, unspecified
CPT/HCPCS: 80053; 80061; 81001; 84153; 85025

== ENCOUNTER 2023-10-08 13:58 | Outpatient (AMB) | payer OTHER, SELFPAY ==
--- NOTE | 2023-10-08 14:00 | A.OFFVIS_ITS ---
Intake Vital Signs 10/08/23 14:01 Height 5 ft 11 in Weight 224 lb 13.944 oz BMI 31.4 BP 110/70 Blood Pressure Location Lt brachial Position Sitting Pulse 71 Intake Visit Reasons: 6 month f/u per DC Intake Note: 6 month follow up Fleet Operations Manager Required: No Accompanied by: Self / Same As Patient Allergies Iodinated Contrast Media [IV CONTRAST] Allergy (Severe, Verified 10/08/23 14:03) SHORTNESS OF BREATH Medication List - Last Reconciled 10/08/23 by Andres Mclaughlin MD beclomethasone dipropionate 80 mcg/actuation (Qvar RediHaler) 1 inh PO BID cetirizine (Zyrtec) 10 mg PO DAILY cholecalciferol (vitamin D3) 25 mcg PO DAILY diltiazem HCl 120 mg PO DAILY levalbuterol HCl 1.25 mg (3 mL) inhalation BID PRN levalbuterol tartrate 45 mcg/actuation (Xopenex HFA) 2 puffs inhalation Q6H PRN 90 days lorazepam 1 tab PO BEDTIME PRN nebulizers As directed omeprazole 40 mg PO DAILY 30 days psyllium 1 packet PO DAILY HPI HPI Comments History of Present Illness0 Details Gerardo returns for atrial flutter. He has undergone 2 cardioversions as well as 2 ablations. Most recent flutter ablation was performed in January 3. After that, no further episodes. He states he is feeling good. Fairly active with no limitations. He is even running on the treadmill, doing the rowing machine extra. [facility] Medical History (Updated 08/08/23 @ 10:20 by Luis Schroeder MD) Acquired elevated diaphragm Renal calculi History of cardioversion Chronic cough Atrial flutter with rapid ventricular response Asthma Surgical History (Updated 10/08/23 @ 14:05 by Beryl Oliver) History of ureteroscopy Hx of tonsillectomy History of esophagogastroduodenoscopy (EGD) H/O colonoscopy History of cardiac radiofrequency ablation Family History Mother A-fib CVA (cerebral vascular accident) Father CVA (cerebral vascular accident) Social History Household Members: Spouse and Children Housing: House Alcohol intake: current Alcohol intake frequency: former alcohol drinker Alcohol type: beer, wine and hard liquor Patient Tobacco Use Status: Never used Tobacco service: No Current occupational status: employed Review [employer] Systems Const Denies weakness ENT Denies dizziness Card Denies chest pain, Denies chest pain with activity, Denies syncope, Denies rapid heart rate, Denies pedal edema, Denies edema, Denies leg edema, Denies lightheadedness, Denies palpitations, Denies dyspnea, Denies dyspnea on exertion and Denies orthopnea Resp Denies cough, Denies dyspnea and Denies dyspnea on exertion GI Denies hematochezia and Denies change in stool character Musc Denies abnormal gait, Denies muscle cramps, Denies muscle weakness, Denies numbness, Denies radiating pain into limb and Denies tingling Neuro Denies abnormal gait, Denies dizziness, Denies syncope, Denies numbness, Denies tingling and Denies weakness Endo Denies palpitations Physical Exam Vital Signs: Last Vital Signs Pulse 71 10/08/23 14:01 BP 110/70 10/08/23 14:01 BMI result Body Mass Index 31.4 Const General: comfortable and no acute distress Orientation/consciousness: patient oriented x3 HEENT Other: Unremarkable Head: Yes normal to inspection Neck Neck: Yes normal visual inspection Chest Chest palpation & inspection: normal inspection of the chest Resp Auscultation: clear to auscultation bilaterally Cardio Palpation: normal PMI Heart sounds: S1 normal heart sound present, S2 normal heart sound present, no gallops, no murmurs and no rubs GI Palpation (GI): Soft to palpation Back/Spine/Pelvis Other: unremarkable Skin General skin exam: no rashes or lesions noted Neuro General: patient oriented x3 Extrem General: Yes normal to inspection Psych Mental Status: mental status grossly normal Assessment & Plan Assessment & Plan (1) Paroxysmal atrial flutter: Code(s): I48.92 - Unspecified atrial flutter (2) Status post catheter ablation of atrial flutter: Comment: 2020 and again 01/10/23 Code(s): Z98.890 - Other specified postprocedural states Plan Status post cardioversion x2 as well as flutter ablation x2. Remains in sinus rhythm. Continue Diltiazem. Due to low thromboembolic risk, off Eliquis. Otherwise, stable. Cardiac testing- Echocardiogram with normal LVEF. Myocardial perfusion imaging study without any ischemia or infarction. Coding Level of Care Code Est Pt Level 3 (90165) Diagnoses Paroxysmal atrial flutter I48.92 Status post catheter ablation of atrial flutter Z98.890
[2023-10-08 14:01] VITALS: BP 110/70; PULSE 71; BMI 31.4
== END 2023-10-08 14:16 | disposition home or self-care (01) ==
PROVIDERS: PCP Internal Medicine; Visit Provider Internal Medicine
DX: I48.92 Unspecified atrial flutter (principal); Z98.890 Other specified postprocedural states
CPT/HCPCS: 99213

== ENCOUNTER → 2023-10-08 13:58 | Outpatient (BNVA) | payer OTHER, SELFPAY | PROVIDERS: PCP Internal Medicine; Visit Provider Internal Medicine ==

== ENCOUNTER 2024-02-12 10:56 | Outpatient (REF) | payer OTHER, SELFPAY ==
[2024-02-12 12:38] LABS: Alanine Aminotransferase 21 U/L (0-40); Albumin Level 4.2 g/dL (3.5-5.0); Alkaline Phosphatase 74 U/L (39-117); Aspartate Amino Transferase 26 U/L (5-37); Bilirubin Direct 0.3 mg/dL (0.0-0.5); Bilirubin Total 0.9 mg/dL (0.0-1.0); Cholesterol 211 mg/dL (<200); HDL Cholesterol 65 mg/dL (>40); LDL Cholesterol Calculated 126 mg/dL (<100); Total Protein 6.5 g/dL (6.5-8.0); Triglycerides 104 mg/dL (<150)
[2024-02-12 12:52] LABS: Reflex LDLD? No
== END 2024-02-12 10:57 | disposition home or self-care (01) ==
LOC: HO.LNP 10:56
PROVIDERS: Visit Provider Internal Medicine
DX: E78.00 Pure hypercholesterolemia, unspecified (principal)
CPT/HCPCS: 80061; 80076

== ENCOUNTER 2024-02-13 10:14 | Outpatient (AMB) | payer OTHER, SELFPAY ==
[2024-02-13 10:24] VITALS: PULSE 64; O2SAT 95; BMI 30.4
--- NOTE | 2024-02-13 10:24 | MHC.OFFVIS ---
Intake Vital Signs 02/13/24 10:24 Height 5 ft 11 in Weight 218 lb BMI 30.4 Pulse 64 Pulse Source Pulse Oximeter Pulse Oximetry (%) 95 Oxygen Delivery Method Room Air Intake Visit Reasons: Asthma Vocational Rehabilitation Consultant Required: No Allergies Iodinated Contrast Media [IV CONTRAST] Allergy (Severe, Verified 02/13/24 10:25) SHORTNESS OF BREATH HPI HPI Comments History of Present Illness Details The patient is a 64-year-old gentleman with a previous history of asthma who apparently it has been noticing increasing chest tightness and coughing for the last few years but now getting worse. Per the patient required a short-acting beta agonist a more recently he was placed on Advair. The inhalers to help control his symptoms But only partially. In addition to this the patient started developing vague symptoms of fatigue and chest heaviness. He was evaluated by his primary care doctor who symptom to the ER to be evaluated for tachyarrhythmia. The patient is diagnosed with AFib and flutter. he has been cardioverted x2. Currently on anticoagulation. He was also placed on a anti rhythmic agent. Now considering ablation which is likely going to her in the next few weeks. In the meantime the patient denies any significant exposures. he was exposed to secondhand smoke. May also have mold in his home. denies having any birds or any farm animals. The patient does complaint of heartburn. He has been taking omeprazole [id number]. Symptoms usually worse at nighttime. 09/07/2021 the patient is here for a pulmonary follow-up visit. Overall he is doing better. He is tolerating the QVAR. Since we last spoke he did have his ablation and now has been in normal sinus mechanism. This is been reassuring. We did review his blood work demonstrating no evidence of any allergies or any eosinophilia. He also had a barium swallow which was relatively normal severe did mention some initial irregularity to the mucosa in the cervical area. Therefore, the patient is aware and the symptoms that may be will need to be looked that is specially if he continues having any symptoms. We did review his pulmonary function studies which demonstrated small airways disease in addition to a reversible obstruction consistent with asthma moderate severity. The patient also had air trapping consistent with small airways disease. He did have 1 episode where he felt chest tightness but he was concerned about using his albuterol. Specially with a history of AFib and failed cardioversions. Therefore, I will prescribe Xopenex for in order for him to be able to use short-acting beta agonist with less concern of precipitating cardiac arrhythmias with his history will continue with reflux diet for now and will follow-up in 6 months. 01/03/2022 the patient is here for a pulmonary follow-up visit. He continues to do well. He continues on the QVAR. He was able to stop the singular. He has been doing well after the ablation and was able to stop the Eliquis as well. He has not required a short-acting beta agonist. He does have Xopenex because of history of tachyarrhythmias. He did receive a letter from his insurance company that they are no longer going to cover it. Right now he has enough medication and will add readdress that once he needs a refill. In the meantime he did follow-up with GI he was diagnosed with Galan's esophagus. He is going to be closely monitor for that. He continue the reflux diet and seems to be helpful. Overall the patient is doing well. Will plan to follow-up in a year's time will PFTs. 08/01/2022 the patient is here for sick visit. Apparently he started developing worsening chest tightness and shortness of breath. He denies any sick contacts although the recently spent time with a therefore may have been exposed then. Denies any fevers or chills denies any for throat. He has continued to use the QVAR. He also start using his rescue inhaler. He felt that he needed a nebulizer because of the chest tightness that was moderate severity. The inhaler was only partially helpful. However when he went to use the nebulizer was broken. The patient actually has now received a nebulizer himself this was a stoney down. Therefore, the patient needs to get a nebulizer at this time. I did provide him with Xopenex nebulized therapy in the office. The patient does have a history of AFib and flutter so therefore try to minimize beta agonist effect. Currently he does have some expiratory wheezing but minimal. I am hopeful that increasing the inhaled steroids and using the nebulizer would help him improve his symptoms. However, the patient is not better by the end of week he will call the office in order to send him additional medicines of pharmacy including prednisone and possibly an antibiotic if he is congested. We can also consider long-acting muscarinic antagonist if he continues to have symptoms in order to provide bronchodilation without interacting with his cardiac issues. 01/03/2023 the patient is here for a pulmonary follow-up visit. Last night he had to go to the ER because his AFib was acting up. He was rate controlled and he was able to be discharged home. He is back in the Eliquis and he is taking better care of himself. Sore breathing standpoint the patient did have COVID and he was taking QVAR his rescue inhaler more often. Now he is recovering and doing better. He it does continue to use the QVAR but has not had to use the Xopenex recently. On examination he still has some wheezing. Specially when the forced exhalation. Therefore we talked about considering to try a small dose of long-acting muscarinic antagonist to help with breathing but not interfere with his cardiac issues. The patient is willing to do so. I did give him a prescription on paper for him to in order to consider. He is continue the QVAR for now. We did review his chest x-ray that he had recently specially when he had COVID and he still has that elevated left hemidiaphragm. Otherwise no acute disease. Will plan to follow-up in the fall or sooner if he develops any other new issues. 08/08/2023 the patient is here for a pulmonary follow-up visit. The patient was doing well till about a week ago when he started developing URI like symptoms. Had some fevers and chills. Also runny nose. Positive sick contacts in the house. His fevers went away he tested negative for COVID but then started developing increasing chest tightness and shortness of breath and wheezing. Increased the QVAR to twice a day. He has been using the Xopenex via the nebulizer. This has been partially helpful. He still has some wheezing on examination. The patient will benefit from additional prednisone and antibiotics at this time. Likely has a component of post viral reactive airway disease and or the possibility of a postviral bacterial process that may be starting. In the meantime the patient did have a chest x-ray in July 13 before he got sick and was noted again that he is left hemidiaphragm is elevated. This goes back sometime. We talked about that is likely related to an injury of some type. Will go ahead and request a sniff study to assess for any diaphragmatic excursion of that left hemidiaphragm. 02/13/2024 the patient is here for a pulmonary follow-up visit. The patient has been doing well. He did undergo an ablation and has been sinus rhythm. The patient was taken off the Eliquis. His breathing has been very good. Denies any significant chest tightness or wheezing. He was able to come off the Spiriva and also had not been using his rescue inhaler. He has continued on the QVAR. However, more recently he started developing some chest tightness and cough. He is thinking about using the levo albuterol. He does not have the Spiriva any longer. The patient may have a component of allergies as well. He did not have his sniff study done. At this point the patient is doing well would like to hold off. Therefore will continue to monitor his symptoms and will hold off on the sniff study. He understands he does have an elevated diaphragm doing likely an injury of some type. The patient will continue with current respiratory therapy and follow-up in a year's time unless he has any new issues he will call for an earlier assessment. [facility] Medical History (Updated 02/13/24 @ 10:26 by Luis Schroeder MD) Acquired elevated diaphragm Renal calculi History of cardioversion Chronic cough Atrial flutter with rapid ventricular response Asthma Surgical History (Updated 10/08/23 @ 14:05 by Beryl Oliver) History of ureteroscopy Hx of tonsillectomy History of esophagogastroduodenoscopy (EGD) H/O colonoscopy History of cardiac radiofrequency ablation Family History Mother A-fib CVA (cerebral vascular accident) Father CVA (cerebral vascular accident) Social History Household Members: Spouse and Children Housing: House Alcohol intake: current Alcohol intake frequency: former alcohol drinker Alcohol type: beer, wine and hard liquor Patient Tobacco Use Status: Never used Tobacco service: No Current occupational status: employed Review of Systems Const Denies chills, Denies fatigue, Denies fever(s), Denies frequent falls, Denies weakness, Denies weight gain and Denies weight loss ENT Denies dizziness Card Denies chest pain, Denies leg edema, Denies lightheadedness, Denies dyspnea, Reports dyspnea on exertion, Denies orthopnea and Denies other (Loss of consciousness) Resp Reports chest congestion, Reports cough, Denies dyspnea, Reports dyspnea on exertion and Reports wheezing GI Denies hematochezia and Denies change in bowel habits Musc Denies abnormal gait, Denies muscle weakness, Denies numbness, Denies radiating pain into limb and Denies tingling Neuro Denies abnormal gait, Denies dizziness, Denies frequent falls, Denies numbness, Denies tingling and Denies weakness Endo Denies fatigue Aller/Immun Reports wheezing Physical Exam Vital Signs: Last Vital Signs Pulse 64 02/13/24 10:24 Pulse Ox 95 02/13/24 10:24 Oxygen Delivery Method Room Air 02/13/24 10:24 BMI result Body Mass Index 30.4 Const General: alert Neck Neck: Yes normal visual inspection, Yes full ROM and Yes no lymphadenopathy Chest Chest palpation & inspection: normal inspection of the chest Resp Auscultation: no wheezes and diminished lung sounds Cardio Rate: regular rate Rhythm: regular rhythm Heart sounds: S1 normal heart sound present and S2 normal heart sound present GI Palpation (GI): Soft to palpation and nontender Auscultation: normal bowel sounds Skin General skin exam: rashes and/or lesions noted Assessment & Plan Assessment & Plan (1) Asthma: Code(s): J45.909 - Unspecified asthma, uncomplicated Qualifiers: Asthma complication type: uncomplicated Asthma persistence: persistent Asthma severity: moderate Qualified Code(s): J45.40 - Moderate persistent asthma, uncomplicated (2) Paroxysmal atrial flutter: Comment: s/p ablation Code(s): I48.92 - Unspecified atrial flutter Plan: s/p ablation (3) Chronic cough: Code(s): R05 - Cough (4) Acquired elevated diaphragm: Code(s): J98.6 - Disorders of diaphragm Plan continue reflux diet continue QVAR 2puff Xopenex as needed start Singulair consider spiriva consider SNIFF study F/U 6 months Medications: New tiotropium bromide 2.5 mcg/actuation (Spiriva Respimat) 2 puffs inhalation DAILY 1 ea 11RF 30 days montelukast (Singulair) 10 mg PO BEDTIME 30 tabs 11RF 30 days J45.909 - Unspecified asthma, uncomplicated Changed From levalbuterol tartrate 45 mcg/actuation (Xopenex HFA) 2 puffs inhalation Q6H 90 days PRN 3 ea 3RF shortness of breath or wheezing J45.909 - Unspecified asthma, uncomplicated To levalbuterol tartrate 45 mcg/actuation (Xopenex HFA) 2 puffs inhalation Q6H PRN 1 ea 11RF shortness of breath or wheezing 30 days J45.909 - Unspecified asthma, uncomplicated Coding Level of Care Code Est Pt Level 4 (11974) Diagnoses Moderate persistent asthma without complication J45.40 Asthma complication type: uncomplicated Asthma persistence: persistent Asthma severity: moderate Paroxysmal atrial flutter I48.92 Chronic cough R05 Acquired elevated diaphragm J98.6 Time Spent (min) 16
== END 2024-02-13 10:35 | disposition home or self-care (01) ==
PROVIDERS: PCP Internal Medicine; Visit Provider Hospitalist
DX: J45.40 Moderate persistent asthma, uncomplicated (principal); I48.92 Unspecified atrial flutter; R05.9 Cough, unspecified; J98.6 Disorders of diaphragm
CPT/HCPCS: 99214

== ENCOUNTER → 2024-02-13 10:14 | Outpatient (BNVA) | payer OTHER, SELFPAY | PROVIDERS: PCP Internal Medicine; Visit Provider Hospitalist | DX: J98.6 Disorders of diaphragm (principal) ==

== ENCOUNTER 2024-07-04 11:11 | Outpatient (REF) | payer BC, SELFPAY ==
[2024-07-04 11:39] LABS: Alanine Aminotransferase 22 U/L (0-40); Albumin Level 4.3 g/dL (3.5-5.0); Alkaline Phosphatase 73 U/L (39-117); Aspartate Amino Transferase 25 U/L (5-37); Bilirubin Direct 0.3 mg/dL (0.0-0.5); Bilirubin Total 0.9 mg/dL (0.0-1.0); Cholesterol 176 mg/dL (<200); HDL Cholesterol 59 mg/dL (>40); LDL Cholesterol Calculated 96 mg/dL (<100); Total Protein 6.7 g/dL (6.5-8.0); Triglycerides 105 mg/dL (<150)
[2024-07-04 14:23] LABS: Reflex LDLD? No
== END 2024-07-04 11:12 | disposition home or self-care (01) ==
LOC: HO.LNP 11:11
PROVIDERS: Visit Provider Internal Medicine
DX: E78.00 Pure hypercholesterolemia, unspecified (principal)
CPT/HCPCS: 80061; 80076

== ENCOUNTER 2024-07-29 10:07 | Outpatient (AMB) | payer BC, SELFPAY ==
--- NOTE | 2024-07-29 10:10 | MHC.OFFVIS ---
Vital Signs 07/29/24 10:11 Height 5 ft 11 in Weight 219 lb 5.759 oz BMI 30.6 BP 128/70 Blood Pressure Location Lt brachial Position Sitting Pulse 58 Pulse Source Pulse Oximeter Pulse Oximetry (%) 97 Oxygen Delivery Method Room Air Intake Visit Reasons: Asthma Information Services Vice President Required: No Allergies Iodinated Contrast Media [IV CONTRAST] Allergy (Severe, Verified 07/29/24 10:13) SHORTNESS OF BREATH HPI Comments Details: The patient is a 64-year-old gentleman with a previous history of asthma who apparently it has been noticing increasing chest tightness and coughing for the last few years but now getting worse. Per the patient required a short-acting beta agonist a more recently he was placed on Advair. The inhalers to help control his symptoms But only partially. In addition to this the patient started developing vague symptoms of fatigue and chest heaviness. He was evaluated by his primary care doctor who symptom to the ER to be evaluated for tachyarrhythmia. The patient is diagnosed with AFib and flutter. he has been cardioverted x2. Currently on anticoagulation. He was also placed on a anti rhythmic agent. Now considering ablation which is likely going to her in the next few weeks. In the meantime the patient denies any significant exposures. he was exposed to secondhand smoke. May also have mold in his home. denies having any birds or any farm animals. The patient does complaint of heartburn. He has been taking omeprazole [id number]. Symptoms usually worse at nighttime. 09/07/2021 the patient is here for a pulmonary follow-up visit. Overall he is doing better. He is tolerating the QVAR. Since we last spoke he did have his ablation and now has been in normal sinus mechanism. This is been reassuring. We did review his blood work demonstrating no evidence of any allergies or any eosinophilia. He also had a barium swallow which was relatively normal severe did mention some initial irregularity to the mucosa in the cervical area. Therefore, the patient is aware and the symptoms that may be will need to be looked that is specially if he continues having any symptoms. We did review his pulmonary function studies which demonstrated small airways disease in addition to a reversible obstruction consistent with asthma moderate severity. The patient also had air trapping consistent with small airways disease. He did have 1 episode where he felt chest tightness but he was concerned about using his albuterol. Specially with a history of AFib and failed cardioversions. Therefore, I will prescribe Xopenex for in order for him to be able to use short-acting beta agonist with less concern of precipitating cardiac arrhythmias with his history will continue with reflux diet for now and will follow-up in 6 months. 01/03/2022 the patient is here for a pulmonary follow-up visit. He continues to do well. He continues on the QVAR. He was able to stop the singular. He has been doing well after the ablation and was able to stop the Eliquis as well. He has not required a short-acting beta agonist. He does have Xopenex because of history of tachyarrhythmias. He did receive a letter from his insurance company that they are no longer going to cover it. Right now he has enough medication and will add readdress that once he needs a refill. In the meantime he did follow-up with GI he was diagnosed with Galan's esophagus. He is going to be closely monitor for that. He continue the reflux diet and seems to be helpful. Overall the patient is doing well. Will plan to follow-up in a year's time will PFTs. 08/01/2022 the patient is here for sick visit. Apparently he started developing worsening chest tightness and shortness of breath. He denies any sick contacts although the recently spent time with a therefore may have been exposed then. Denies any fevers or chills denies any for throat. He has continued to use the QVAR. He also start using his rescue inhaler. He felt that he needed a nebulizer because of the chest tightness that was moderate severity. The inhaler was only partially helpful. However when he went to use the nebulizer was broken. The patient actually has now received a nebulizer himself this was a stoney down. Therefore, the patient needs to get a nebulizer at this time. I did provide him with Xopenex nebulized therapy in the office. The patient does have a history of AFib and flutter so therefore try to minimize beta agonist effect. Currently he does have some expiratory wheezing but minimal. I am hopeful that increasing the inhaled steroids and using the nebulizer would help him improve his symptoms. However, the patient is not better by the end of week he will call the office in order to send him additional medicines of pharmacy including prednisone and possibly an antibiotic if he is congested. We can also consider long-acting muscarinic antagonist if he continues to have symptoms in order to provide bronchodilation without interacting with his cardiac issues. 01/03/2023 the patient is here for a pulmonary follow-up visit. Last night he had to go to the ER because his AFib was acting up. He was rate controlled and he was able to be discharged home. He is back in the [facility] and he is taking better care of himself. Sore breathing standpoint the patient did have COVID and he was taking QVAR his rescue inhaler more often. Now he is recovering and doing better. He it does continue to use the QVAR but has not had to use the Xopenex recently. On examination he still has some wheezing. Specially when the forced exhalation. Therefore we talked about considering to try a small dose of long-acting muscarinic antagonist to help with breathing but not interfere with his cardiac issues. The patient is willing to do so. I did give him a prescription on paper for him to in order to consider. He is continue the QVAR for now. We did review his chest x-ray that he had recently specially when he had COVID and he still has that elevated left hemidiaphragm. Otherwise no acute disease. Will plan to follow-up in the fall or sooner if he develops any other new issues. 08/08/2023 the patient is here for a pulmonary follow-up visit. The patient was doing well till about a week ago when he started developing URI like symptoms. Had some fevers and chills. Also runny nose. Positive sick contacts in the house. His fevers went away he tested negative for COVID but then started developing increasing chest tightness and shortness of breath and wheezing. Increased the QVAR to twice a day. He has been using the Xopenex via the nebulizer. This has been partially helpful. He still has some wheezing on examination. The patient will benefit from additional prednisone and antibiotics at this time. Likely has a component of post viral reactive airway disease and or the possibility of a postviral bacterial process that may be starting. In the meantime the patient did have a chest x-ray in July 13 before he got sick and was noted again that he is left hemidiaphragm is elevated. This goes back sometime. We talked about that is likely related to an injury of some type. Will go ahead and request a sniff study to assess for any diaphragmatic excursion of that left hemidiaphragm. 02/13/2024 the patient is here for a pulmonary follow-up visit. The patient has been doing well. He did undergo an ablation and has been sinus rhythm. The patient was taken off the Eliquis. His breathing has been very good. Denies any significant chest tightness or wheezing. He was able to come off the Spiriva and also had not been using his rescue inhaler. He has continued on the QVAR. However, more recently he started developing some chest tightness and cough. He is thinking about using the levo albuterol. He does not have the Spiriva any longer. The patient may have a component of allergies as well. He did not have his sniff study done. At this point the patient is doing well would like to hold off. Therefore will continue to monitor his symptoms and will hold off on the sniff study. He understands he does have an elevated diaphragm doing likely an injury of some type. The patient will continue with current respiratory therapy and follow-up in a year's time unless he has any new issues he will call for an earlier assessment. 07/29/2024 the patient is here for a pulmonary follow-up visit. Overall the patient has been doing okay. He is still having episodes of atrial fibrillation at times. Seems like the asthma seems to be better controlled on the singular. He does take that nightly. In addition to that he is continue with respiratory inhalers. Seems to be tolerating well. He does need a refill Xopenex as he is out at this time. The patient does have underlying daytime drowsiness. Does have headaches in the morning. His [place] score is elevated 09/28. In view of his underlying cardiac arrhythmias and daytime drowsiness the patient should definitely get a sleep study. I will request a home sleep study at this time. If he does have sleep apnea then we need to talk about potential therapies specially with a cardiac history. [facility] Medical History (Updated 07/29/24 @ 10:18 by Luis Schroeder MD) YOLANDE (obstructive sleep apnea) Acquired elevated diaphragm Renal calculi History of cardioversion Chronic cough Atrial flutter with rapid ventricular response Asthma Surgical History (Updated 10/08/23 @ 14:05 by Beryl Oliver) History of ureteroscopy Hx of tonsillectomy History of esophagogastroduodenoscopy (EGD) H/O colonoscopy History of cardiac radiofrequency ablation Family History Mother A-fib CVA (cerebral vascular accident) Father CVA (cerebral vascular accident) Social History Household Members: Spouse and Children Housing: House Alcohol intake: current Alcohol intake frequency: former alcohol drinker Alcohol type: beer, wine and hard liquor Patient Tobacco Use Status: Never used Tobacco service: No Current occupational status: employed Review of Systems Const Denies chills, Reports daytime sleepiness, Reports difficulty sleeping, Denies fatigue, Denies fever(s), Denies frequent falls, Reports snoring, Denies weakness, Denies weight gain and Denies weight loss ENT Denies dizziness Card Denies chest pain, Denies leg edema, Denies lightheadedness, Reports palpitations, Denies dyspnea, Reports dyspnea on exertion and Denies other (Loss of consciousness) Resp Denies chest congestion, Reports cough, Denies dyspnea, Reports dyspnea on exertion, Reports snoring and Reports wheezing GI Denies hematochezia and Denies change in bowel habits Musc Denies abnormal gait, Denies muscle weakness, Denies numbness, Denies radiating pain into limb and Denies tingling Neuro Denies abnormal gait, Denies dizziness, Denies frequent falls, Denies numbness, Denies tingling and Denies weakness Endo Denies fatigue and Reports palpitations Aller/Immun Reports wheezing Physical Exam Vital Signs: Last Vital Signs Pulse 58 07/29/24 10:11 BP 128/70 07/29/24 10:11 Pulse Ox 97 07/29/24 10:11 Oxygen Delivery Method Room Air 07/29/24 10:11 BMI result Body Mass Index 30.6 Const General: alert Neck Neck: Yes normal visual inspection, Yes full ROM and Yes no lymphadenopathy Chest Chest palpation & inspection: normal inspection of the chest Resp Auscultation: no wheezes and diminished lung sounds Cardio Rate: regular rate Rhythm: regular rhythm Heart sounds: S1 normal heart sound present and S2 normal heart sound present GI Palpation (GI): Soft to palpation and nontender Auscultation: normal bowel sounds Skin General skin exam: rashes and/or lesions noted Assessment & Plan Assessment & Plan (1) Asthma: Code(s): J45.909 - Unspecified asthma, uncomplicated Category: Medical Qualifiers: Asthma complication type: uncomplicated Asthma persistence: persistent Asthma severity: moderate Qualified Code(s): J45.40 - Moderate persistent asthma, uncomplicated (2) Paroxysmal atrial flutter: Comment: s/p ablation Code(s): I48.92 - Unspecified atrial flutter Category: Medical Plan: s/p ablation (3) Chronic cough: Code(s): R05 - Cough Category: Medical (4) Acquired elevated diaphragm: Code(s): J98.6 - Disorders of diaphragm Category: Medical (5) YOLANDE (obstructive sleep apnea): Code(s): G47.33 - Obstructive sleep apnea (adult) (pediatric) Category: Medical Plan continue reflux diet continue QVAR 2puff Xopenex as needed continue Singulair consider spiriva home PSG consider SNIFF study F/U 6 months Orders: Orders RT home sleep study Today G47.33 - Obstructive sleep apnea (adult) (pediatric), I48.92 - Unspecified atrial flutter Medications: Changed From levalbuterol HCl 1.25 mg (3 mL) inhalation BID PRN 90 mL 0RF Shortness Of Breath Or Wheezing J45.40 - Moderate persistent asthma, uncomplicated To levalbuterol HCl 1.25 mg (3 mL) inhalation BID 30 days PRN 90 mL 11RF Shortness Of Breath Or Wheezing J45.40 - Moderate persistent asthma, uncomplicated Refilled levalbuterol HCl 1.25 mg (3 mL) inhalation BID PRN 90 mL 11RF Shortness Of Breath Or Wheezing 30 days J45.40 - Moderate persistent asthma, uncomplicated levalbuterol tartrate 45 mcg/actuation (Xopenex HFA) 2 puffs inhalation Q6H PRN 1 ea 11RF shortness of breath or wheezing 30 days J45.909 - Unspecified asthma, uncomplicated Coding Level of Care Code Est Pt Level 4 (03372) Diagnoses Moderate persistent asthma without complication J45.40 Asthma complication type: uncomplicated Asthma persistence: persistent Asthma severity: moderate Paroxysmal atrial flutter I48.92 Chronic cough R05 Acquired elevated diaphragm J98.6 YOLANDE (obstructive sleep apnea) G47.33 Time Spent (min) 16
[2024-07-29 10:11] VITALS: BP 128/70; PULSE 58; O2SAT 97; BMI 30.6
== END 2024-07-29 10:25 | disposition home or self-care (01) ==
PROVIDERS: PCP Internal Medicine; Visit Provider Hospitalist
DX: J45.40 Moderate persistent asthma, uncomplicated (principal); I48.92 Unspecified atrial flutter; R05.9 Cough, unspecified; J98.6 Disorders of diaphragm; G47.33 Obstructive sleep apnea (adult) (pediatric)
CPT/HCPCS: 99214

== ENCOUNTER → 2024-07-29 10:07 | Outpatient (BNVA) | payer OTHER, SELFPAY | PROVIDERS: PCP Internal Medicine; Visit Provider Hospitalist ==

== ENCOUNTER 2024-08-15 10:32 | Outpatient (REF) | payer BC, SELFPAY ==
[2024-08-15 14:02] LABS: Potassium 4.7 mmol/L (3.3-5.1)
== END 2024-08-15 10:33 | disposition home or self-care (01) ==
LOC: HO.10HDL 10:32
PROVIDERS: Visit Provider Internal Medicine
DX: I48.91 Unspecified atrial fibrillation (principal)
CPT/HCPCS: 36415; 84132

== ENCOUNTER → 2024-09-17 10:05 | Outpatient (REF) | payer BC, SELFPAY | LOC: HO.SL 10:05 | PROVIDERS: PCP Internal Medicine; Visit Provider Hospitalist | DX: G47.33 Obstructive sleep apnea (adult) (pediatric) (principal); I48.92 Unspecified atrial flutter | CPT/HCPCS: 95806 ==

== ENCOUNTER → 2024-09-17 10:15 | Outpatient (BNV) | payer BC, SELFPAY | PROVIDERS: PCP Internal Medicine; Visit Provider Internal Medicine | DX: R06.83 Snoring (principal) | CPT/HCPCS: 95806 ==

== ENCOUNTER 2024-09-19 12:05 | Outpatient (REF) | payer BC, SELFPAY ==
--- NOTE | ~2024-09-19 | US_ITS ---
EXAMINATION: US TRIPLEX LOWER EXTREMITY, RIGHT CLINICAL INFORMATION: Right calf tenderness COMPARISON: DVT ultrasound November 25, 2022 TECHNIQUE: Color-flow triplex imaging with spectral analysis and compression Doppler were performed on the right lower extremity. FINDINGS: Respiratory variation, normal compression and augmented flow are noted throughout the right lower extremity. The visualized common femoral vein, superficial femoral vein, profunda femoral vein, popliteal vein and midcalf peroneal and posterior tibial venous segments show no evidence of deep venous thrombosis. There is no Willson's cyst. US/US venous duplex LE RT IMPRESSION: No evidence of deep venous thrombosis involving the right lower extremity. Electronically signed by: Juwan Mejia MD 09/19/2024 01:06 PM KARMEN ARZATE
== END 2024-09-19 12:06 | disposition home or self-care (01) ==
LOC: HO.US 12:05
PROVIDERS: PCP Internal Medicine; Visit Provider Internal Medicine
DX: M79.661 Pain in right lower leg (principal)
CPT/HCPCS: 93971

== ENCOUNTER 2024-09-23 11:54 | Outpatient (REF) | payer BC, SELFPAY ==
[2024-09-23 11:59] LABS: MANUAL DIFF FLAG NO
[2024-09-23 12:35] LABS: Basophils Absolute Auto 0.1 X10*3/uL (0.0-0.2); Eosinophils Absolute Auto 0.2 X10*3/uL (0.0-0.4); Hematocrit 45.6 % (42.0-52.0); Hemoglobin 15.4 g/dl (14.0-18.0); Lymphocytes Absolute Auto 1.8 X10*3/uL (1.2-4.9); Lymphocytes Percent Auto 35.1 % (20-40); Mean Corpuscular HGB Conc 33.8 g/dl (31.0-36.0); Mean Corpuscular Hemoglobin 30.3 pg (27.0-33.0); Mean Corpuscular Volume 89.6 fL (80.0-98.0); Mean Platelet Volume 9.9 fL (9.4-12.4); Monocytes Absolute Auto 0.4 X10*3/uL (0.1-1.2); Neutrophils Absolute Auto 2.6 x10*3/uL (2.0-8.3); Neutrophils Percent Auto 52.9 % (45-73); Platelet Count 270 X10*3/uL (160-400); Red Blood Count 5.09 X10*6/uL (4.60-5.80); Red Cell Distribution Width 12.8 % (11.0-16.0)
[2024-09-23 12:46] LABS: Alanine Aminotransferase 21 U/L (0-40); Alkaline Phosphatase 77 U/L (39-117); Anion Gap 8 (12-20); Aspartate Amino Transferase 25 U/L (5-37); Bilirubin Total 0.6 mg/dL (0.0-1.0); Blood Urea Nitrogen 13 mg/dL (9-16); Carbon Dioxide 27 mmol/L (22-29); Chloride 109 mmol/L (96-108); Cholesterol 184 mg/dL (<200); Estimated Glomerular Filt Rate > 60; Glucose Fasting 107 mg/dL (60-99); HDL Cholesterol 66 mg/dL (>40); LDL Cholesterol Calculated 102 mg/dL (<100); Potassium 4.2 mmol/L (3.3-5.1); Sodium 140 mmol/L (135-145); Total Protein 6.4 g/dL (6.5-8.0); Triglycerides 80 mg/dL (<150)
[2024-09-23 13:06] LABS: PSA,Total (Free>4and<10) 1.03 ng/mL (0.00-4.00)
== END 2024-09-23 11:55 | disposition home or self-care (01) ==
LOC: HO.LNP 11:54
PROVIDERS: Visit Provider Internal Medicine
DX: Z00.00 Encounter for general adult medical examination without abnormal findings (principal); E78.00 Pure hypercholesterolemia, unspecified
CPT/HCPCS: 80053; 80061; 84153; 85025

== ENCOUNTER 2024-10-07 10:08 | Outpatient (AMB) | payer BC, SELFPAY ==
[2024-10-07 10:10] VITALS: BP 130/50; PULSE 58; BMI 30.6
--- NOTE | 2024-10-07 10:10 | A.OFFVIS_ITS ---
Vital Signs 10/07/24 10:10 Height 5 ft 11 in Weight 219 lb 9.286 oz BMI 30.6 BP 130/50 L Blood Pressure Location Lt brachial Position Sitting Pulse 58 Intake Visit Reasons: 1 year follow up Director Mba Required: No Accompanied by: Self / Same As Patient Allergies Iodinated Contrast Media [IV CONTRAST] Allergy (Severe, Verified 07/29/24 10:13) SHORTNESS OF BREATH Medication List - Last Reconciled 10/07/24 by Andres Mclaughlin MD atorvastatin 20 mg PO DAILY beclomethasone dipropionate 80 mcg/actuation (Qvar RediHaler) 1 inh PO BID cetirizine (Zyrtec) 10 mg PO DAILY cholecalciferol (vitamin D3) 25 mcg PO DAILY diltiazem HCl CD 120 mg PO DAILY levalbuterol HCl 1.25 mg (3 mL) inhalation BID PRN 30 days levalbuterol tartrate 45 mcg/actuation (Xopenex HFA) 2 puffs inhalation Q6H PRN 30 days lorazepam 1 tab PO BEDTIME PRN montelukast (Singulair) 10 mg PO BEDTIME 30 days nebulizers As directed omeprazole 40 mg PO DAILY 30 days potassium citrate ER 2,160 mg PO BID psyllium 1 packet PO DAILY HPI Comments Details: Gerardo returns for follow-up regarding atrial flutter. He has undergone 2 cardioversions as well as 2 ablations. Last atrial flutter ablation was performed in January 2023. Overall, he states that he feels good. He has had very short episodes of heart fluttering/palpitations but otherwise fine for the most part. These episodes last for a few minutes and he takes extra diltiazem and then it resolved completely. Otherwise, quite active with no limitations. [facility] Medical History (Updated 07/29/24 @ 10:18 by Luis Schroeder MD) YOLANDE (obstructive sleep apnea) Acquired elevated diaphragm Renal calculi History of cardioversion Chronic cough Atrial flutter with rapid ventricular response Asthma Surgical History History of ureteroscopy Hx of tonsillectomy History of esophagogastroduodenoscopy (EGD) H/O colonoscopy History of cardiac radiofrequency ablation Family History Mother A-fib CVA (cerebral vascular accident) Father CVA (cerebral vascular accident) Social History Household Members: Spouse and Children Housing: House Alcohol intake: current Alcohol intake frequency: former alcohol drinker Alcohol type: beer, wine and hard liquor Patient Tobacco Use Status: Never used Tobacco service: No Current occupational status: employed Review of Systems Const Denies chills, Denies fatigue, Denies fever(s), Denies weight gain and Denies weight loss ENT Denies dizziness Card Denies chest pain, Denies leg edema, Denies lightheadedness, Denies palpitations, Denies dyspnea on exertion, Denies orthopnea and Denies other Resp Denies cough and Denies dyspnea on exertion GI Denies hematochezia and Denies change in stool character Musc Denies abnormal gait, Denies muscle weakness, Denies numbness, Denies radiating pain into limb and Denies tingling Neuro Denies abnormal gait, Denies dizziness, Denies numbness and Denies tingling Endo Denies fatigue and Denies palpitations Physical Exam Vital Signs: Last Vital Signs Pulse 58 10/07/24 10:10 BP 130/50 L 10/07/24 10:10 BMI result Body Mass Index 30.6 Const General: comfortable and no acute distress Orientation/consciousness: patient oriented x3 HEENT Other: Unremarkable Head: Yes normal to inspection Neck Neck: Yes normal visual inspection Chest Chest palpation & inspection: normal inspection of the chest Resp Auscultation: clear to auscultation bilaterally Cardio Palpation: normal PMI Heart sounds: S1 normal heart sound present, S2 normal heart sound present, no gallops, no murmurs and no rubs GI Palpation (GI): Soft to palpation Back/Spine/Pelvis Other: unremarkable Skin General skin exam: no rashes or lesions noted Neuro General: patient oriented x3 Extrem General: Yes normal to inspection Psych Mental Status: mental status grossly normal Office Procedures EKG Details: EKG with sinus bradycardia at 58/Min; no significant ST-T changes and otherwise unremarkable[place] [id number], Complete Assessment & Plan Assessment & Plan (1) Paroxysmal atrial flutter: Comment: s/p ablation Code(s): I48.92 - Unspecified atrial flutter Category: Medical (2) Status post catheter ablation of atrial flutter: Comment: 2020 and again 01/10/23 Code(s): Z98.890 - Other specified postprocedural states Category: Surgical Plan Status post cardioversion x2 as well as flutter ablation x2. EKG today shows sinus rhythm. Reviewed his smart watch tracings. Lot of the rhythm is sinus. There is suggestion of atrial fibrillation a couple of strips but fairly brief duration. Overall, possible rare atrial fibrillation but very low burden. Advised him that the next time he feels palpitations, he should probably contact us so we can get an EKG for confirmation. Otherwise, we will do a 2 week monitor. Continue diltiazem. He has not been on Eliquis since the ablation. Otherwise stable. Total time spent including review of data, counseling, documentation, taxicab coordinator rdination of care-31 minutes. Orders: Orders ECG 14 day holter monitor Today I48.0 - Paroxysmal atrial fibrillation CA echo transthoracic complete Today I48.92 - Unspecified atrial flutter Coding Level of Care Code Est Pt Level 4 (21856) Diagnoses Paroxysmal atrial flutter I48.92 Status post catheter ablation of atrial flutter Z98.890 CPT Codes EKG - CPT: 90012-[id number], Complete ([id number])
== END 2024-10-07 10:36 | disposition home or self-care (01) ==
PROVIDERS: PCP Internal Medicine; Visit Provider Internal Medicine
DX: I48.92 Unspecified atrial flutter (principal); Z98.890 Other specified postprocedural states
CPT/HCPCS: 93010; 99214

== ENCOUNTER → 2024-10-07 10:08 | Outpatient (BNVA) | payer OTHER, SELFPAY | PROVIDERS: PCP Internal Medicine; Visit Provider Internal Medicine | DX: I48.0 Paroxysmal atrial fibrillation (principal); I48.92 Unspecified atrial flutter; Z98.890 Other specified postprocedural states | CPT/HCPCS: 93005 ==

== ENCOUNTER → 2024-11-03 09:59 | Outpatient (REF) | payer BC, SELFPAY ==
--- OUTSIDE RECORDS SUMMARY | 2024-11-03 10:02 | XMS_ITS ---
Author Organization Memo Hamilton MD Address [address] [place] [id number] Care Team Providers Care Outbound Sales Advisor Name Role Phone Memo Hamilton Primary Care Provider ALLERGIES Allergen (clinical drug ingredient) Drug/Non Drug Allergy documented on EMR Reaction Allergy Type Onset Date Status IVP Dye (uncoded) panic attack Allergy Active REASON FOR VISIT annual visit MEDICATIONS Medication SIG (Take, Route, Frequency, Duration) Notes Start Date End Date Status LORazepam 1 MG take 1 tablet by terence th at bedtime once a day as needed Orally Once a day for 30 days 10/09/2024 Active Tadalafil 20 MG 1 tablet Orally Once a day for 30 day(s) 06/20/2019 Not-Taking Xopenex HFA 45 MCG/ACT 1 puff as needed Inhalation every 4 hrs Not-Takin g Propranolol HCl 20 MG 2 tablet Orally on ce a day for 1 days 09/23/2013 Not-Taking Ibuprofen 200 MG 1 tablet with food o r milk as needed Orally Three times a day Not-Taking Qvar RediHaler 40 MCG/ACT 1 puff Inhalat ion Once a day Active Spiriva HandiHaler 18 MCG 1 capsule by i nhaling the contents of the capsule using the HandiHaler device Inhalation Once a day Not-Taking Nystatin 074958 UNIT/ML as directed Mouth/Throat 01/26/2023 Not-Taking Nystatin 843578 UNIT/ML as directed Mouth/Throat every 8 hrs for 10 days 01/25/2023 Not-Taking Atorvastatin Calcium 20 MG 1 tablet Orally Once a day 10/26/2023 Active Levalbuterol HCl 0.63 MG/3ML 3 mL as needed Inhalation every 8 hrs Active Singulair 10 MG 1 tablet Orally Once a day Active Omeprazole 20 MG 1 capsule Orally Onc e a day 11/28/2016 Active Vitamin D3 25 MCG (1000 UT) 1 capsule Orally Once a day for 30 day(s) Active Metamucil 48.57 % as directed Orally Active ZyrTEC Allergy 10 MG 1 tablet Orally Onc e a day for 30 day(s) Active dilTIAZem HCl 120 MG as directed Orally Active Potassium Citrate ER 10 MEQ (1080 MG) 1 tablet with meals Orally Three times a day for 30 day(s) Active SOCIAL HISTORY Tobacco Use: Social History Observation Description Date Details (start date - stop date) Never Smoker NA - NA Sex Assigned At : Social History Observation Description Sex Assigned At Unknown Tobacco Use/Smoking Question Answer Notes Patient is a nonsmoker Additional Findings: Tobacco Non-User Cu rrent non-smoker, currently using no form of tobacco Alcohol Screen Question Answer Notes Did you have a drink contain ing alcohol in the past year? Yes How often did you have a dri nk containing alcohol in the past year? Monthly or less (1 point) How many drinks did you have on a typical day when you were drinking in the past year? 1 or 2 drinks (0 point) How often did you have 6 or more drinks on one occasion in the past year? 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 10/09/2024 Subcutaneous nodule (ICD-10 - R22.9) needs referral to [facility] info given to patient to call and make his own appt 10/09/2024 Unspecified atrial fibrillation (ICD-10 - I48.91) is being evaluated by cardiology PLAN OF TREATMENT Medication Medication Name Sig Start Date Stop Date Notes LORazepam 1 MG take 1 tablet by terence th at bedtime once a day as needed Orally Once a day for 30 days 10/09/2024 Treatment Notes Assessment Notes Encounter for general adult medical examination with abnormal findings Labs reviewed and discussed with patient Pure hypercholesterolemia well controlle d 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 Subcutaneous nodule needs referral to [facility] info given to patient to call and make his own appt Unspecified atrial fibrillation is being evaluated by cardiology Next Appt Details Follow Up: 6 Months, Reason: Provider Name:Memo cummings, 04/03/2025 07:30:00 AM, [address] [place] [address], [address], [phone], Provider Name:Memo cummings, 04/10/2025 09:00:00 AM, [address] [place] [address], [address] [place] [address], [phone], Provider Name:Memo cummings, 10/06/2025 07:45:00 AM, [address] [place] [address], [address], [phone], Provider Name:Memo cummings, 10/13/2025 08:30:00 AM, [address] [place] [address], [address], [phone], Progress Notes * Examination Category Sub-Category Detail Notes General Examination GENERAL APPEARANCE: well dev eloped, well nourished, in no acute distress HEAD: normocephalic, atrau matic EYES: pupils equal, round, reactive to light and accommodation, sclera non- icteric EARS: normal THROAT: clear NECK/THYROID: neck supple, full ra nge of motion, no cervical lymphadenopathy, no bruits HEART: regular rate and rhy thm, S1, S2 normal, no murmurs LUNGS: clear to auscultatio n bilaterally ABDOMEN: soft, nontender, non distended, bowel sounds present, normal, no organomegaly , no masses palpable NEUROLOGIC: nonfocal, motor stre ngth normal upper and lower extremities, sensory exam intact SKIN: warm and dry, no shiraz picious lesions EXTREMITIES: no clubbing, cyanosi s, or edema MALE GENITOURINARY: circumcised , no pen ile lesions or discharge , testes descended bilaterally , no testicular mass RECTAL EXAM: normal tone, no exte rnal hemorrhoids, no masses palpable, prostate normal, stool guaiac negative , abnormal o n the right buttocks is a one inch nodule ORAL CAVITY: mucosa moist History and Physical Notes * HPI (History of Present Illness) Category Sub-Category Detail Notes Depression Screening PHQ-9 Little inte rest or pleasure in doing things: Not at all Feeling down, depressed, or hopeless: No t at all Trouble falling or staying asleep, or sl eeping too much: Not at all Feeling tired or having little energy: N ot at all Poor appetite or overeating: Not at all Feeling bad about yourself o r that you are a failure, or have let yourself or your family down: Not at all Trouble concentrating on thi ngs, such as reading the newspaper or watching television: Not at all Moving or speaking so slowly that other people could have noticed; or the opposite, being so fidgety or restless that you have been moving around a lot more than usual: Not at all Thoughts that you would be b fidel off or of hurting yourself in some way: Not at all Total Score: 0 SDOH Questions SDOH Questions In the past year have you been worried about losing housing?: No In the past year have you or any family members you live with been unable to get any of the following when it was really needed? Check all that apply:: None Fall Risk History Have you had any falls with injury in the past year?: No Have you had two or more falls in the year?: No Communication Needs Communication Needs Does the patient have a hearing impairment: No Does the patient have a vision impairmen t?: Yes ?If yes, what is the vision impairment?: Glasses Does the patient have a cognition impair ment?: No
--- OUTSIDE RECORDS SUMMARY | 2024-11-03 10:02 | XMS_ITS ---
Author Organization Memo Hamilton MD Address [address] [place] [address] [place] [phone] Care Team Providers Care Coin Machine Service Repairer Name Role Phone Memo Hamilton Primary Care Provider REASON FOR VISIT referral to urology Encounters Encounter Location Date Provider Diagnosis Memo Hamilton MD [address] [place] [address] [place] [phone] 10/30/2024 Memo Hamilton PLAN OF TREATMENT Next Appt Details Provider Name:Memo Christiansen iekaylin, 04/03/2025 07:30:00 AM, [address] [place] [address], [address], [phone], Provider Name:Memo cummings, 04/10/2025 09:00:00 AM, [address] [place] [address], [address], [phone], Provider Name:Memo cummings, 10/06/2025 07:45:00 AM, [address] [place] [address], [address], [phone], Provider Name:Memo cummings, 10/13/2025 08:30:00 AM, [address] [place] [address], [phone],
--- NOTE | 2024-11-03 10:03 | CA_ITS ---
Transthoracic Echocardiogram Patient (Last, First, Middle): Gerardo Vergara K Gender: Male Date of : 1960 Age: 64 Procedure Date: 11/03/2024 Procedure Type: Transthoracic Echocardiogram Location: OP Height: 177.8 cm Weight: 100.25 kg BSA: 2.18 m2 Heart Rate: 64 bpm BP: 138 / 80 mmHg Tax Consultant: SERGE Vila MD: Andres Mclaughlin MD Etymology Professor: Mitesh Francis MD Symptoms: I48.92 - Unspecified atrial flutter Study Quality: Fair ECG Rhythm: Sinus Conclusions: - 1. Normal LV ejection fraction of 60 65% with impaired relaxation filling pattern 2. Mildly dilated left atrium 3. Normal cardiac valvular Dopplers 4. No gross pericardial effusion Findings Left Ventricle Normal left ventricular size, thickness, and systolic function. The visually estimated ejection fraction is between 60-65%. Spectral Doppler is indicative of an impaired relaxation filling pattern. Right Ventricle Normal right ventricular cavity size and systolic function. Atria The left atrium is mildly dilated. There is no evidence of interatrial shunt. The right atrium is normal in size. Aortic Valve Normal aortic valve structure and function. There is no aortic valve stenosis. There is no aortic valve regurgitation. Mitral Valve Normal mitral valve structure and function. There is trace mitral valve regurgitation. There is no mitral valve stenosis. Tricuspid Valve Likely normal tricuspid valve structure and function. Tricuspid regurgitation envelope is inadequate for calculation of right ventricular systolic pressure. Normal right atrial pressure. Great Vessels All visible segments of the aorta are normal in size. The pulmonary artery was not well visualized. There is no dilatation of the ascending aorta measuring 3.40 cm. Venous The inferior vena cava is normal in size. Pericardium/Pleural There is no evidence of pericardial effusion. Measurements 2D Linear Measurements IVSd: 0.78 0.6-0.9/0.6-1.0 cm LVIDd: 4.25 3.9-5.3/4.2-5.9 cm LVIDd Index: 1.95 2.4-3.2/2.2-3.1 cm/m2 LVIDs: 2.52 2.0-3.6 cm LVPWd: 1.08 0.7-1.1 cm LA Diam: 4.30 2.7-3.8/3.0-4.0 cm LAIDs Index: 1.97 1.5-2.3 cm/m2 LV Mass: 156.80 67-162/88-224 g LV Mass Index: 71.93 43-95/49-115 g/m2 LVOT Diam: 1.90 3.0+(-)1.3 cm 2D Systolic Function EF 4C: 59.90 >55% EF 2C: 74.00 >55% EF BiP: 65.60 >55% Mitral Valve MV Pk E: 0.95 MV PK A: 0.82 MV Decel Time: 191.00 E/A: 1.20 E'Lateral: 11.10 E'Medial: 7.07 E/E' Med: 13.40 E/E' Lat: 8.50 PHT: 56.00 MVA PHT: 3.93 Decel Bre[place]itt: 4.95 Aortic Valve AoV Pk Yoshi: 1.77 AoV Mn Yoshi: 1.30 AoV VTI: 0.41 AoV Pk Grad: 13.00 Aov Mn Grad: 8.00 BRITTANY Cont.VTI: 2.40 LVOT LVOT Pk Yoshi: 1.65 LVOT Mn Yoshi: 1.04 LVOT VTI: 0.34 LVOT Pk Grad: 11.00 LVOT Mn Grad: 5.00 LVOT Diam: 1.90 LVOT Area: 2.84 Diastolic Function MV Pk E: 0.95 MV Pk A: 0.82 E/A: 1.20 E'Medial: 7.07 E/E' Med: 13.40 E' Laterial: 11.10 E/E' Lat: 8.50 Right Ventricle TAPSE (mm): 26.70 TVS' Yoshi: 14.00 Tricuspid Valve RA Press: 15.00 Great Vessels Aorta Sinus of Valsalva: 3.20 2.0-3.5 cm Ao Asc: 3.40 2.1-3.4 cm Ao Arch: 3.20 Pulmonary Valve PV Pk Yoshi: 1.76 Peak PV Grad: 12.00 Updated in Other Vendor System with Status of Final Mitesh Francis MD electronically signed on 11/04/2024 12:04:47 PM with status of Final
--- OUTSIDE RECORDS SUMMARY | 2024-11-03 10:03 | XMS_ITS | Patient Health Record ---
Author Organization Memo Hamilton MD Address [address] [place], [place] [id number] Care Team Providers Care Installer Interior Assemblies Name Role Phone Memo Hamilton Primary Care Provider ALLERGIES Allergen (clinical drug ingredient) Drug/Non Drug Allergy documented on EMR Reaction Allergy Type Onset Date Status IVP Dye (uncoded) panic attack Allergy Active RESULTS Component Value Reference Range Notes Hold Gold Reviewed date:02/12/2024 02:04:48 PM Interpretation: Performing Lab:[facility], [address] [place] [phone] Notes/Report: Jose Alfredo Prather See Note Specimen held untested for 24 hours; Call to request Chemistry testing. Liver Panel Reviewed date:02/12/2024 02:07:32 PM Interpretation: Performing Lab:[facility], [address] [place] [phone] Notes/Report: Bilirubin Total 0.9 0.0-1.0 mg/dL Bilirubin Direct 0.3 0.0-0.5 mg/dL Aspartate Amino Transferase 26 5-37 U/L Alanine Aminotransferase 21 0-40 U/L Total Protein 6.5 6.5-8.0 g/dL Albumin Level 4.2 3.5-5.0 g/dL Alkaline Phosphatase 74 39-117 U/L Lipid Panel with Reflex Reviewed date:02/12/2024 02:05:05 PM Interpretation: Performing Lab:[facility], [address] [place] [phone] Notes/Report: Triglycerides 104 <150 mg/dL Desirable Triglyceride: less than 150 mg/dL Borderline High Triglyceride 150-199 mg/dL High Triglyceride: 200-499 mg/dL Very High Triglyceride: greater than or equal to 5OO mg/dL Cholesterol 211 <200 mg/dL Desirable Cholesterol: less than 200 mg/dL Borderline High Cholesterol: 200-239 mg/dL High Cholesterol: greater than 239 mg/dL LDL Cholesterol Calculated 126 <100 mg/dL Desirable LDL: less than 100 mg/dL Near Optimal/Above Optimal LDL: 110-129 mg/dL Borderline High LDL: 130-159 mg/dL High LDL: 160-189 mg/dL Very High LDL: greater than or equal to 190 mg/dL HDL Cholesterol 65 >40 mg/dL Desirable HDL: greater than 40 mg/dL Note: This HDL assay may give artificially low results in patients with liver disease. Jose Alfredo Prather Reviewed date:07/04/2024 12:18:03 PM Interpretation: Performing Lab:[facility], [address] [place] [phone] Notes/Report: Jose Alfredo Prather See Note Specimen held untested for 24 hours; Call to request Chemistry testing. Liver Panel Reviewed date:07/06/2024 03:27:33 PM Interpretation: Performing Lab:[facility], [address] [place] [phone] Notes/Report: Bilirubin Total 0.9 0.0-1.0 mg/dL Bilirubin Direct 0.3 0.0-0.5 mg/dL Aspartate Amino Transferase 25 5-37 U/L Alanine Aminotransferase 22 0-40 U/L Total Protein 6.7 6.5-8.0 g/dL Albumin Level 4.3 3.5-5.0 g/dL Alkaline Phosphatase 73 39-117 U/L Lipid Panel with Reflex Reviewed date:07/04/2024 04:37:28 PM Interpretation: Performing Lab:[facility], [address] [place] [phone] Notes/Report: Triglycerides 105 <150 mg/dL Desirable Triglyceride: less than 150 mg/dL Borderline High Triglyceride 150-199 mg/dL High Triglyceride: 200-499 mg/dL Very High Triglyceride: greater than or equal to 5OO mg/dL Cholesterol 176 <200 mg/dL Desirable Cholesterol: less than 200 mg/dL Borderline High Cholesterol: 200-239 mg/dL High Cholesterol: greater than 239 mg/dL LDL Cholesterol Calculated 96 <100 mg/dL Desirable LDL: less than 100 mg/dL Near Optimal/Above Optimal LDL: 110-129 mg/dL Borderline High LDL: 130-159 mg/dL High LDL: 160-189 mg/dL Very High LDL: greater than or equal to 190 mg/dL HDL Cholesterol 59 >40 mg/dL Desirable HDL: greater than 40 mg/dL Note: This HDL assay may give artificially low results in patients with liver disease. Potassium Reviewed date:08/17/2024 09:19:05 AM Interpretation: Performing Lab:[facility], [address] [place] [phone] Notes/Report: Potassium 4.7 3.3-5.1 mmol/L US venous duplex LE RT Reviewed date:09/19/2024 01:47:09 PM Interpretation: Performing Lab: Notes/Report: [address] [address] Ultrasound Report Signed Patient: Gerardo Vergara MR#: [id number] 2 : 1960 Acct:[id number] Age/Sex: 64 / M ADM Date: 09/19/24 Loc: HO.US Attending Dr: Memo Hamilton MD Ordering Physician: Memo Hamilton MD Date of Service: 09/19/24 Procedure(s): US venous duplex LE RT Accession Number(s): [id number] cc: Memo Hamilton MD EXAMINATION: US TRIPLEX LOWER EXTREMITY, RIGHT CLINICAL INFORMATION: Right calf tenderness COMPARISON: DVT ultrasound November 25, 2022 TECHNIQUE: Color-flow triplex imaging with spectral analysis and compression Doppler were performed on the right lower extremity. FINDINGS: Respiratory variation, normal compression and augmented flow are noted throughout the right lower extremity. The visualized common femoral vein, superficial femoral vein, profunda femoral vein, popliteal vein and midcalf peroneal and posterior tibial venous segments show no evidence of deep venous thrombosis. There is no Willson's cyst. US/US venous duplex LE RT IMPRESSION: No evidence of deep venous thrombosis involving the right lower extremity. Electronically signed by: Juwan Mejia MD 09/19/2024 01:06 PM [facility] Dictated By: Juwan Mejia MD Signed By: <Electronically signed by Juwan Mejia MD in OV> 09/19/24 1306 DD/ 1241 TD/TT: 09/19/24 1248 Nut Grader: Complete Blood Count Auto Di ff Reviewed date:09/23/2024 08:13:39 PM Interpretation: Performing Lab:[facility], [address] [place] [phone] Notes/Report: White Blood Count 5.0 4.8-10.8 X10*3/uL Red Blood Count 5.09 4.60-5.80 X10*6/uL Hemoglobin 15.4 14.0-18.0 g/dl Hematocrit 45.6 42.0-52.0 % Mean Corpuscular Volume 89.6 80.0-98.0 fL Mean Corpuscular Hemoglobin 30.3 27.0-33.0 pg Mean Corpuscular HGB Conc 33.8 31.0-36.0 g/dl Red Cell Distribution Width 12.8 11.0-16.0 % Platelet Count 270 160-400 X10*3/uL Mean Platelet Volume 9.9 9.4-12.4 fL Neutrophils Percent Auto 52.9 45-73 % Imm Gran Pct Auto 0.0 0.0-0.4 % Lymphocytes Percent Auto 35.1 20-40 % Monocytes Percent Auto 8.0 2-11 % Eosinophils Percent Auto 3.0 0-4 % Basophils Percent Auto 1.0 0-2 % NRBC Pct Auto 0.0 0.0-0.2 /100WBC Neutrophils Absolute Auto 2.6 2.0-8.3 x10*3/u L Imm Gran Abs Auto 0.00 0.00-0.03 X10*3/uL Lymphocytes Absolute Auto 1.8 1.2-4.9 X10*3/u L Monocytes Absolute Auto 0.4 0.1-1.2 X10*3/uL Eosinophils Absolute Auto 0.2 0.0-0.4 X10*3/u L Basophils Absolute Auto 0.1 0.0-0.2 X10*3/uL NRBC Abs Auto 0.000 0.0-0.012 X10*3/uL Comprehensive [place]. Panel Fa st Reviewed date:09/23/2024 08:11:15 PM Interpretation: Performing Lab:[facility], [address] [place] [phone] Notes/Report: Sodium 140 135-145 mmol/L Potassium 4.2 3.3-5.1 mmol/L Chloride 109 96-108 mmol/L Carbon Dioxide 27 22-29 mmol/L Anion Gap 8 12-20 Blood Urea Nitrogen 13 9-16 mg/dL Creatinine 0.83 0.5-1.4 mg/dL Estimated Glomerular Filt Rate > 60 Chronic Kidney Disease: Estimated GFR < 60 mL/min/1.73m2 Severe Kidney Disease: Estimated GFR < 15 mL/min/1.73m2 Glucose Fasting 107 60-99 mg/dL A fasting glucose from 100-125 mg/dl is considered impaired (pre-diabetes). Calcium 9.0 8.4-10.2 mg/dL Bilirubin Total 0.6 0.0-1.0 mg/dL Aspartate Amino Transferase 25 5-37 U/L Alanine Aminotransferase 21 0-40 U/L Total Protein 6.4 6.5-8.0 g/dL Albumin Level 4.0 3.5-5.0 g/dL Alkaline Phosphatase 77 39-117 U/L Lipid Panel Reviewed date:09/23/2024 08:10:49 PM Interpretation: Performing Lab:[facility], [address] [place] [phone] Notes/Report: Triglycerides 80 <150 mg/dL Desirable Triglyceride: less than 150 mg/dL Borderline High Triglyceride 150-199 mg/dL High Triglyceride: 200-499 mg/dL Very High Triglyceride: greater than or equal to 5OO mg/dL Cholesterol 184 <200 mg/dL Desirable Cholesterol: less than 200 mg/dL Borderline High Cholesterol: 200-239 mg/dL High Cholesterol: greater than 239 mg/dL LDL Cholesterol Calculated 102 <100 mg/dL Desirable LDL: less than 100 mg/dL Near Optimal/Above Optimal LDL: 110-129 mg/dL Borderline High LDL: 130-159 mg/dL High LDL: 160-189 mg/dL Very High LDL: greater than or equal to 190 mg/dL HDL Cholesterol 66 >40 mg/dL Desirable HDL: greater than 40 mg/dL Note: This HDL assay may give artificially low results in patients with liver disease. PSA,Total (Free>4and<10) Reviewed date:09/23/2024 08:09:36 PM Interpretation: Performing Lab:[facility], [address] [facility], [place] [address] Notes/Report: PSA,Total (Free>4and<10) 1.03 0.00-4.00 ng/mL A Free PSA was not performed: The percentage of Free PSA can be used to enhance the differentiation of prostate cancer from benign prostatic disease in subjects whose PSA levels are between 4.0 and 10.0 ng/mL. For subjects whose PSA levels are below 4.0 or above 10.0 ng/mL, the risk of prostate cancer is determined on the basis of the PSA alone. Therefore the % Free PSA is recommended only for those subjects whose PSA levels are between 4.0 and 10.0 ng/mL. PSA methodology: [employer] i Chemiluminescent Microparticle Immunoassay (CMIA) REASON FOR REFERRAL No Information MEDICATIONS Medication SIG (Take, Route, Frequency, Duration) Notes Start Date End Date Status Qvar RediHaler 40 MCG/ACT 1 puff Inhalat ion Once a day Active LORazepam 1 MG take 1 tablet by terence th at bedtime once a day as needed Orally Once a day for 30 days 10/09/2024 Active Levalbuterol HCl 0.63 MG/3ML 3 mL as needed Inhalation every 8 hrs Active Singulair 10 MG 1 tablet Orally Once a day Active Tadalafil 20 MG 1 tablet Orally Once a day for 30 day(s) 06/20/2019 Not-Taking Omeprazole 20 MG 1 capsule Orally Onc e a day 11/28/2016 Active Xopenex HFA 45 MCG/ACT 1 puff as needed Inhalation every 4 hrs Not-Takin g Vitamin D3 25 MCG (1000 UT) 1 capsule Orally Once a day for 30 day(s) Active Propranolol HCl 20 MG 2 tablet Orally on ce a day for 1 days 09/23/2013 Not-Taking Metamucil 48.57 % as directed Orally Active Ibuprofen 200 MG 1 tablet with food o r milk as needed Orally Three times a day Not-Taking ZyrTEC Allergy 10 MG 1 tablet Orally Onc e a day for 30 day(s) Active Spiriva HandiHaler 18 MCG 1 capsule by i nhaling the contents of the capsule using the HandiHaler device Inhalation Once a day Not-Taking dilTIAZem HCl 120 MG as directed Orally Active Nystatin 693020 UNIT/ML as directed Mouth/Throat 01/26/2023 Not-Taking Potassium Citrate ER 10 MEQ (1080 MG) 1 tablet with meals Orally Three times a day for 30 day(s) Active Nystatin 507063 UNIT/ML as directed Mouth/Throat every 8 hrs for 10 days 01/25/2023 Not-Taking Atorvastatin Calcium 20 MG 1 tablet Orally Once a day 10/26/2023 Active IMMUNIZATIONS Vaccine Route Administration Date Status Comme nts Flu Vaccine IM Intramuscular 07/22/2012 Administered PPSV23 (Pnemovax) IM Intramuscular 04/29/2015 Administered Fluarix Quadrivalent IM Intramuscular 08/17/2015 Administe red Fluarix Quadrivalent IM Intramuscular 01/02/2017 Administe red Fluarix Quadrivalent IM Intramuscular 09/05/2018 Administe red Shingrix IM Intramuscular 09/12/2018 Administered Shingrix IM Intramuscular 12/12/2018 Administered TDaP Unknown 07/07/2019 Administered [facility] Fluarix Quadrivalent IM Intramuscular 08/05/2019 Administe red Fluarix Quadrivalent IM Intramuscular 08/05/2020 Administe red PPSV23 (Pnemovax) IM Intramuscular 09/07/2020 Administered Covid Vaccine Unknown 02/12/2021 Administered J&J Fluarix Quadrivalent IM Intramuscular 07/25/2021 Administe red SARS-COV-2 Moderna Unknown 09/10/2021 Administered Fluarix Quadrivalent IM Intramuscular 09/19/2022 Administe red SARS-COV-2 Moderna Unknown 09/19/2022 Administered Fluarix Quadrivalent IM Intramuscular 07/13/2023 Administe red SARS-COV-2 Pfizer Unknown 09/06/2023 Administered [facility] SOCIAL HISTORY Tobacco Use: Social History Observation [...] Never (0 point) Points 1 Interpretation Negative PROBLEMS Problem Type ICD Code Onset Dates Problem Status W/U Status Risk SNOMED Code Notes Problem Anxiety (F41.9) Active confirmed 023595 02 Problem 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90) Active confirmed 085200360 Problem Social phobia (F40.10) Active confirmed Social phobia (22834367) Problem Pure hypercholesterolemia (E78.00) Active confirmed 205595998 Problem Acute asthma (J45.909) Active confirmed Acute asthma (097255462) Problem Calculus of parotid gland (K11.5) Active confirmed 468832242 Problem Tinnitus of both ear s (H93.13) Active confirmed 1795589944868 VITAL SIGNS Blood pressure diastolic 60 mm Hg 10/09/2024 Height 71.25 in 10/09/2024 Blood pressure systolic 102 mm Hg 10/09/2024 Weight 214 lbs 10/09/2024 BMI 29.63 kg/m2 10/09/2024 Encounters Encounter Location Date Provider Diagnosis Memo Hamilton MD [address] [place] [id number] 10/09/2024 Memo Hamilton Anxiety F41.9 ; [facility]co unter for general adult medical examination with abnormal findings Z00.01 ; Pure hypercholesterolemia E78.00 ; 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 ; Subcutaneous nodule R22.9 and Unspecified atrial fibrillation I48.91 Memo Hamilton MD [address] [place] [id number] 09/23/2024 Memo Hamilton Blood tests for rout ine general physical examination Z00.00 and Pure hypercholesterolemia E78.00 Memo Hamilton MD [address] [place] [id number] 02/12/2024 Memo Hamilton Pure hypercholestero lemia E78.00 Memo Hamilton MD [address] [place] [id number] 07/04/2024 Memo Hamilton Pure hypercholestero lemia E78.00 and Hemorrhoids, external K64.4 Memo Hamilton MD [address] [place] [id number] 04/04/2024 Memo Hamilton Typical atrial flutt er I48.3 ; Mild intermittent asthma without complication J45.20 ; Pure hypercholesterolemia E78.00 and Hemorrhoids, external K64.4 Memo Hamilton MD [address] [place] [id number] 09/19/2024 Memo Hamilton Anxiety F41.9 and Tenderness of right calf M79.661 Memo Hamilton MD [address] [place] [id number] 08/15/2024 Memo Hamilton Unspecified atrial fibrillation I48.91 Memo Hamilton MD [address] [place] [id number] 12/06/2023 Memo Hamilton Anxiety F41.9 Memo Hamilton MD [address] [place] [id number] 04/04/2024 Memo Hamilton Anxiety F41.9 Memo Hamilton MD [address] [place] [id number] 07/25/2024 Memo Hamilton Anxiety F41.9 Memo Hamilton MD [address] [place] [id number] 07/29/2024 Memo Hamilton MD [address] [place] [id number] 08/15/2024 Memo Hamilton MD [address] [place] [id number] 10/07/2024 Memo Hamilton MD [address] [place] [id number] 10/30/2024 Memo Hamilton ASSESSMENTS Encounter Date Diagnosis Assessment Notes Treatment Notes Treatment Clinical Notes 10/09/2024 Anxiety (ICD-10 - F41.9) 10/09/2024 Encounter for genera l adult medical examination with abnormal findings (ICD-10 - Z00.01) Labs reviewed and discussed with patient 09/23/2024 Pure hypercholestero lemia (ICD-10 - E78.00) 09/23/[address] ine general physical examination (ICD-10 - Z00.00) 02/12/2024 Pure hypercholestero lemia (ICD-10 - E78.00) 07/04/2024 Pure hypercholestero lemia (ICD-10 - E78.00) 07/04/2024 Hemorrhoids, externa l (ICD-10 - K64.4) 04/04/2024 Typical atrial flutt er (ICD-10 - I48.3) no further problems since ablation, will continue to monitor 04/04/2024 Mild intermittent as thma without complication (ICD-10 - J45.20) not having any problems this year.will continue current regiment 09/19/2024 Anxiety (ICD-10 - F41.9) Tot al time spent on the date of the encounter is 35 minutes including both face to face time spent and time spent reviewing documentation, and counseling the patient. 09/19/2024 Tenderness of right calf (ICD-10 - M79.661) seems that is not a clot but has family history of clots/ 08/15/2024 Unspecified atrial fibrillation (ICD-10 - I48.91) has resolved. has intermitant episodes. usually after eating or drinking too much/ lab order given to patient, pending lab 12/06/2023 Anxiety (ICD-10 - F41.9) 04/04/2024 Anxiety (ICD-10 - F41.9) 07/25/2024 Anxiety (ICD-10 - F41.9) 10/09/2024 Pure hypercholestero lemia (ICD-10 - E78.00) well controlled 04/04/2024 Pure hypercholestero lemia (ICD-10 - E78.00) stable, will continue current regiment 10/09/2024 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 04/04/2024 Hemorrhoids, externa l (ICD-10 - K64.4) refer to dr aldana 10/09/2024 Subcutaneous nodule (ICD-10 - R22.9) needs referral to [facility] info given to patient to call and make his own appt 10/09/2024 Unspecified atrial fibrillation (ICD-10 - I48.91) is being evaluated by cardiology PLAN OF TREATMENT Pending Test Test Name Order Date Electrocardiogram (EKG) 04/11/2013 Electrocardiogram (EKG) 05/24/2017 Electrocardiogram (EKG) 06/07/2018 Electrocardiogram (EKG) 06/20/2019 DIRECT MICROSCOPIC EXAM 11/13/2019 XR CHEST 2 VIEW PA & LAT 09/13/2020 XR CHEST 2 VIEW PA & LAT 10/05/2015 XR CHEST 2 VIEW PA & LAT 12/11/2022 XR chest 2V 07/12/2023 UA ClnCatch+Micro w/rflx Cult 09/23/2024 Next Appt Details Provider Name:Memo cummings, 04/03/2025 07:30:00 AM, [address] [place] [address], [address], [phone], Provider Name:Memo panr, 04/10/2025 09:00:00 AM, [address] [place] [address], [address] [place] [address], [phone], Provider Name:Memo panr, 10/06/2025 07:45:00 AM, [address] [place] [address], [address] [place] [address], [phone], Provider Name:Memo Christiansen ier, 10/13/2025 08:30:00 AM, [address] [place] [address], [address], [phone], Insurance Providers Payer Name Payer Address Payer Phone Subscriber Number Group Number Insured Name Patient Relationship to Insured Coverage Start Date Coverage End Date [employer] [address] [place], [place] [id number] Gerardo Vergara Self - patient is the insured MEDICAL (GENERAL) HISTORY Medical History History ICD Code colonoscopy 01/02/2013 - repe at 12 years: 12/19/21 Upper endoscopy repeat 3 years hematuria evaluation 2014 History of kidney stones CHADS SCORE 2023 of 1
--- OUTSIDE RECORDS SUMMARY | 2024-11-03 10:03 | XMS_ITS ---
Author Organization Memo Hamilton MD Address [address] [place] [address] [place] [phone] Care Team Providers Care Pattern Changer Name Role Phone Memo Hamilton Primary Care Provider REASON FOR VISIT referral Encounters Encounter Location Date Provider Diagnosis Memo Hamilton MD [address] [place] [address] [place] [phone] 10/07/2024 Memo Hamilton PLAN OF TREATMENT Next Appt Details Provider Name:Memo cummings, 04/03/2025 07:30:00 AM, [address] [place] [address], [address], [phone], Provider Name:Memo cummings, 04/10/2025 09:00:00 AM, [address] [place] [address], [address], [phone], Provider Name:Memo cummings, 10/06/2025 07:45:00 AM, [address] [place] [address], [address], [phone], Provider Name:Memo cummings, 10/13/2025 08:30:00 AM, [address] [place] [address], [phone],
--- OUTSIDE RECORDS SUMMARY | 2024-11-03 10:04 | XMS_ITS | Patient Health Record ---
Author Organization [facility] Address [address] [place] [address] Care Team Providers Care Director Apparel Name Role Phone Memo Hamilton MD Primary Care Provider Bala Villanueva [phone] ALLERGIES Allergen (clinical drug ingredient) Drug/Non Drug Allergy documented on EMR Reaction Allergy Type Onset Date Status IVP Dye (uncoded) Unknown Allergy Ac tive REASON FOR REFERRAL No Information MEDICATIONS Medication SIG (Take, Route, Frequency, Duration) Notes Start Date End Date Status Levalbuterol HCl 1.25 MG/3ML Inhalation for 30 Active PriLOSEC 20 MG 1 capsule 30 minutes before morning meal Orally Once a day for 30 day(s) Active ZyrTEC Active Vitamin D Active Ventolin HFA 90mg Un known Qvar RediHaler 80 MCG/ACT Inhalation for 30 Active Flonase 50mg Unknown IMMUNIZATIONS Vaccine Route Administration Date Status Comme nts Influenza Unknown 07/06/2021 Administered SOCIAL HISTORY Sex Assigned At : Social History Observation Description Sex Assigned At Unknown PROBLEMS Problem Type ICD Code Onset Dates Problem Status W/U Status Risk SNOMED Code Notes Problem Colon cancer screening (Z12.11) Active confirmed Colon can cer screening (334664262) Problem Encounter for screening for malignant neoplasm of colon (Z12.11) Active confirmed 508798413 Problem Gastric polyp (K31.7) Active confirmed Gastric polyp (14629181) Problem Abnormal barium swallow (R93.3) Active confirmed 888647911 Problem Gastroesophageal reflux (K21.9) Active confirmed Esophageal reflux finding (485316390) Problem Galan''s esophagus without dysplasia (K22.70) Active confirmed Galan (907188372) Problem Gastroesophageal reflux disease, unspecified whether esophagitis present (K21.9) Active confirmed 783448556 PLAN OF TREATMENT Pending Test Test Name Order Date Pathology 12/12/2021 Future Test Test Name Order Date COLONOSCOPY 11/12/2012 UPPER GI ENDOSCOPY 11/15/2021 COLONOSCOPY 07/18/2022 Next Appt Details Provider Name:Bala Romero , 12/23/2024 02:00:00 PM, [address] [place] [address], [address], [place], [phone], Insurance Providers Payer Name Payer Address Payer Phone Subscriber Number Group Number Insured Name Patient Relationship to Insured Coverage Start Date Coverage End Date [employer] PPO [address] [place] [phone] [id number] KEVON IRVIN Self - patient is the insured MEDICAL (GENERAL) HISTORY Medical History History ICD Code Asthma-sees Dr. Schroeder Denies [place],DM,CVA,renal disease Afib -he had a cardiac ablation in Octob er of 2020- Dr. Mclaughlin Kidney stones GERD-describes a negative EGD 20-30 year s ago Negative screening colonoscopy his [email or web address] Upper endoscopy in December of 2021-Galan's esophagus without dysplasia, small hiatal hernia, benign gastric polyps Surgical History Surgery Date(Month/Year) Tonsillectomy 1965
== END ==
LOC: HO.CARD 09:59
PROVIDERS: PCP Internal Medicine; Visit Provider Internal Medicine
DX: I48.0 Paroxysmal atrial fibrillation (principal); I48.92 Unspecified atrial flutter
CPT/HCPCS: 93246; 93306

== ENCOUNTER → 2024-11-03 10:03 | Outpatient (BNV) | payer BC, SELFPAY | PROVIDERS: PCP Internal Medicine; Visit Provider Internal Medicine Cardiovascular Disease | DX: I48.92 Unspecified atrial flutter (principal) | CPT/HCPCS: 93306 ==

== ENCOUNTER 2024-12-23 10:04 | Emergency (ER) | payer BC, SELFPAY ==
--- NOTE | ~2024-12-23 | XR_ITS ---
EXAMINATION: XR CHEST CLINICAL INFORMATION: CP COMPARISON: 07/14/2023, 01/07/2023. TECHNIQUE: 2 views of the chest were obtained. FINDINGS: Stable moderately elevated left hemidiaphragm. Mild eventration right hemidiaphragm. The cardiac, hilar, and mediastinal contours are normal. The lungs demonstrate mild chronic appearing scarring/atelectasis left base. Lungs otherwise clear. There is no pneumothorax or pleural effusion. There is no focal osseous or soft tissue abnormality. XR/XR chest 2V IMPRESSION: No active pulmonary disease. Stable moderately elevated left hemidiaphragm. No interval change. Electronically signed by: Gigi Ivory MD 12/23/2024 01:05 PM KARMEN
--- NOTE | 2024-12-23 10:06 | ECG_ITS ---
Test Reason : chest pain Blood Pressure : */* mmHG Vent. Rate : 63 BPM Atrial Rate : 63 BPM P-R Int : 178 ms QRS Dur : 96 ms QT Int : 404 ms P-R-T Axes : 52 28 42 degrees QTcB Int : 413 ms Normal sinus rhythm Normal ECG When compared with ECG of 07-Jan-2023 13:23, Sinus rhythm has replaced Atrial flutter Referred By: Generic ED Physician Electronically Signed By: RANDALL GOMEZ
[2024-12-23 10:10] VITALS: BP 146/80; PULSE 66; RESP 16; TEMP 36.6; O2SAT 98; BMI 30.7
[2024-12-23 10:31] LABS: MANUAL DIFF FLAG NO
[2024-12-23 10:33] LABS: Basophils Absolute Auto 0.1 X10*3/uL (0.0-0.2); Basophils Percent Auto 0.8 % (0-2); Eosinophils Absolute Auto 0.1 X10*3/uL (0.0-0.4); Eosinophils Percent Auto 1.7 % (0-4); Hematocrit 46.4 % (42.0-52.0); Hemoglobin 15.6 g/dl (14.0-18.0); Imm Gran Abs Auto 0.03 X10*3/uL (0.00-0.03); Imm Gran Pct Auto 0.5 % (0.0-0.4); Lymphocytes Absolute Auto 1.5 X10*3/uL (1.2-4.9); Lymphocytes Percent Auto 23.5 % (20-40); Mean Corpuscular HGB Conc 33.6 g/dl (31.0-36.0); Mean Corpuscular Volume 89.2 fL (80.0-98.0); Mean Platelet Volume 9.4 fL (9.4-12.4); Monocytes Absolute Auto 0.5 X10*3/uL (0.1-1.2); Monocytes Percent Auto 7.4 % (2-11); Neutrophils Absolute Auto 4.3 x10*3/uL (2.0-8.3); Neutrophils Percent Auto 66.1 % (45-73); Platelet Count 257 X10*3/uL (160-400); Red Cell Distribution Width 13.2 % (11.0-16.0); White Blood Count 6.5 X10*3/uL (4.8-10.8)
[2024-12-23 10:37] LABS: Prothrombin Time 11.9 SEC (10.9-12.4)
[2024-12-23 10:51] LABS: Alanine Aminotransferase 22 U/L (0-40); Albumin Level 4.3 g/dL (3.5-5.0); Alkaline Phosphatase 81 U/L (39-117); Anion Gap 14 (12-20); Aspartate Amino Transferase 24 U/L (5-37); Bilirubin Total 0.8 mg/dL (0.0-1.0); Blood Urea Nitrogen 18 mg/dL (9-16); Calcium 9.1 mg/dL (8.4-10.2); Carbon Dioxide 23 mmol/L (22-29); Chloride 109 mmol/L (96-108); Creatinine Clr Calc Pharmacy 113.8; Estimated Glomerular Filt Rate > 60; Glucose Random 97 mg/dL (60-115); Potassium 4.7 mmol/L (3.3-5.1); Sodium 141 mmol/L (135-145)
[2024-12-23 10:56] LABS: Troponin-I High Sensitivity < 2.7 ng/L (<3.5-35.0)
--- OUTSIDE RECORDS SUMMARY | 2024-12-23 11:14 | XMS_ITS ---
Author Organization Memo Hamilton MD Address [address] [place] [address] [place] [phone] Care Team Providers Care Delivery Driver/Supervisor Name Role Phone Memo Hamilton Primary Care Provider [phone] REASON FOR VISIT referral Encounters Encounter Location Date Provider Diagnosis Memo Hamilton MD [address] [place] [address] [place] [phone] 10/07/2024 Memo Hamilton Plan Of Treatment Next Appt Details Provider Name:Memo cummings, 04/03/2025 07:30:00 AM, [address] [place] [address], [address], [phone], Provider Name:Memo cummings, 04/10/2025 09:00:00 AM, [address] [place] [address], [address], [phone], Provider Name:Memo cummings, 10/06/2025 07:45:00 AM, [address] [place] [address], [address], [phone], Provider Name:Memo cummings, 10/13/2025 08:30:00 AM, [address] [place] [address], [address], [phone], Progress Notes * Gerardo VERGARA KDOB:1960 (64 yo M)Acc No.[id number]:10/07/2024 Patient:?Gerardo Vergara :1960???Age:64 Y???Sex:Male Address:[address] [place] [address] [place], [place] [address] * true * Date:? Generated for Rian lang/Katt/Bksmitting on:?12/23/2024 11:14 AM EST
--- OUTSIDE RECORDS SUMMARY | 2024-12-23 11:14 | XMS_ITS ---
Author Organization [facility] Address [address] [place] [address] Care Team Providers Care Train Dispatcher Name Role Phone Memo Hamilton MD Primary Care Provider Bala Villanueva Unavailable [phone] REASON FOR VISIT Patient presents today for egd/colon screening Encounters Encounter Location Date Provider Diagnosis [facility] [address] [place] [address] 12/23/2024 Bala Romero PLAN OF TREATMENT Next Appt Details Provider Name:Bala Romero , 12/23/2024 02:00:00 PM, [address], [address], [place], [address],
--- OUTSIDE RECORDS SUMMARY | 2024-12-23 11:14 | XMS_ITS ---
Author Organization Memo Hamilton MD Address [address] [place], [place] [id number] Care Team Providers Care Sleep Technologist Name Role Phone Memo Hamilton Primary Care Provider [phone] Allergies Allergen (clinical drug ingredient) Drug/Non Drug Allergy documented on EMR Reaction Allergy Type Onset Date Status IVP Dye (uncoded) panic attack Allergy Active REASON FOR VISIT annual visit Medications Medication SIG (Take, Route, Frequency, Duration) Notes [...] device Inhalation Once a day Not-Taking Nystatin 181248 UNIT/ML as directed Mouth/Throat 01/26/2023 Not-Taking Nystatin 414160 UNIT/ML as directed Mouth/Throat every 8 hrs [...] times a day for 30 day(s) Active Social History Tobacco Use: Social History Observation Description Date Details (start date - stop date) Never Smoker NA - NA Tobacco Use/Smoking Question Answer Notes Patient is [...] Never (0 point) Points 1 Interpretation Negative Vital Signs Blood pressure systolic 102 mm Hg 10/09/20 24 Blood pressure diastolic 60 mm Hg 024 Height 71.25 in 10/09/2024 Weight 214 lbs 10/09/2024 BMI 29.63 kg/m2 10/09/2024 Encounters Encounter Location Date Provider Diagnosis Memo Hamilton MD [address] [place] [phone] 10/09/2024 Memo Hamilton Anxiety F41.9 ; [place] [facility] for general adult medical examination with abnormal findings Z00.01 ; Pure hypercholesterolemia E78.00 ; 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 ; Subcutaneous nodule R22.9 and Unspecified atrial fibrillation I48.91 Assessments Encounter Date Diagnosis (ICD Code) Assessment Notes Treatment Notes Treatment Clinical Notes Section Notes 10/09/2024 Anxiety (ICD-10 - F41.9) 10/09/2024 Encounter for genera l adult medical examination with abnormal findings (ICD-10 - Z00.01) Labs reviewed and discussed with patient 10/09/2024 Pure hypercholesterolemia (ICD-10 - E78.00) well controlled 10/09/2024 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 10/09/2024 Subcutaneous nodule (ICD-10 - R22.9) needs referral to [facility] info given to patient to call and make his own appt 10/09/2024 Unspecified atrial fibrillation (ICD-10 - I48.91) is being evaluated by cardiology Plan Of Treatment Medication Medication Name Sig Start Date Stop [...] in sooner. Subcutaneous nodule needs referral to [facility] info given to patient to call and make his own appt Unspecified atrial fibrillation is being evaluated by cardiology Next Appt Details Follow Up: 6 Months, Reason: Provider Name:Memo cummings, 04/03/2025 07:30:00 AM, [address] [place] [address], [address] [place] [address], [phone], Provider Name:Memo cummings, 04/10/2025 09:00:00 AM, [address] [place] [address], [address] [place] [address], [phone], Provider Name:Memo cummings, 10/06/2025 07:45:00 AM, [address] [place] [address], [address] [place] [address], [phone], Provider Name:Memo cummings, 10/13/2025 08:30:00 AM, [address] [place] [address], [address] [place] [address], [phone], Progress Notes * Gerardo VERGARA KDOB:1960 (64 yo M)Acc No.[id number]:10/09/2024 Progress Notes Patient:?Gerardo Vergara Provider:?Memo Hamilton MD :1960???Age:64 Y???Sex:Male Claude e:10/09/2024 Address: [place], [id number] Subjective: * Chief Complaints: * ???Annual visit * HPI: ???Depression Screening:?PHQ-9?Little interest or pleasure in doing things?Not at all,?Feeling down, depressed, or hopeless?Not at all,?Trouble falling or staying asleep, or sleeping too much?Not at all,?Feeling tired or having little energy?Not at all,?Poor appetite or overeating?Not at all,?Feeling bad about yourself or that you are a failure, or have let yourself or your family down?Not at all,?Trouble concentrating on things, such as reading the newspaper or watching television?Not at all,?Moving or speaking so slowly that other people could have noticed; or the opposite, being so fidgety or restless that you have been moving around a lot more than usual?Not at all,?Thoughts that you would be better off or of hurting yourself in some way?Not at all,?Total Score?0.? here for follow up/ has not felt well since his vaccines. has knee pain and goes from rt lower back to knee./ doesn't go to foot. ???Communication Needs:?Communication Needs?Does the patient have a hearing impairment?No,?Does the patient have a vision impairment??Yes,?If yes, what is the vision impairment??Glasses,?Does the patient have a cognition impairment??No.?Fall Risk:?History?Have you had any falls with injury in the past year??No,?Have you had two or more falls in the past year??No.?SDOH Questions:?SDOH Questions?In the past year have you been worried about losing housing??No,?In the past year have you or any family members you live with been unable to get any of the following when it was really needed? Check all that apply:?None.? * ROS:?General/Constitutional:?Change in appetite?denies.?Chills?denies.?Fever?denies.?Ophthalmologic:?Blurred vision?denies.?Discharge?denies.?Pain?denies.?ENT:?Decreased hearing?denies.?Sore throat?denies.?Swollen glands?denies.?Endocrine:?Cold intolerance?denies.?Excessive thirst?denies.?Heat intolerance?denies.?Weight loss?denies.?Respiratory:?Cough?denies.?Shortness of breath at rest?denies.?Shortness of breath with exertion?denies.?Wheezing?denies.?Cardiovascular:?Chest pain at rest?denies.?Chest pain with exertion?denies.?Irregular heartbeat?denies.?Shortness of breath?denies.?Gastrointestinal:?Abdominal pain?denies.?Change in bowel habits?denies.?Diarrhea?denies.?Nausea?denies.?Rectal bleeding?denies.?Vomiting?denies .?Genitourinary:?Blood in urine?denies.?Difficulty urinating?denies.?Frequent urination?denies.?Musculoskeletal:?Painful joints?denies.?Weakness?denies.?Skin:?Dry skin?denies.?Itching?denies.?Denies?Mole(s),? changes in moles, new moles or any lesions of concern.?Denies?Photosensitivity.?Rash?denies.?Neurologic:?Dizziness?denies.?Fainting?denies.?Headache?denies.? * Medical History:? * Surgical History:? * Hospitalization/Major Diagno stic Procedure:? * Family History:?Father: dece ased 87 yrs, diagnosed with Diabetes.?Mother: 83 yrs, diagnosed with Diabetes, CHF, Hypertension.?1 brother(s) , 1 sister(s) . 1 son(s) , 2 daughter(s) . .? Mother - CVA son OCD, Denies mental health/substance abuse family history, Denies mental health/substance abuse family history, Denies mental health/substance abuse family history, No pertinent family medical history. * Social History:?Tobacco Use:?Tobacco Use/Smoking?Patient is a?nonsmoker,?Additional Findings: Tobacco Non-User?Current non-smoker, currently using no form of tobacco.?Drugs/Alcohol:?Alcohol Screen?Did you have a drink containing alcohol in the past year??Yes,?How often did you have a drink containing alcohol in the past year??Monthly or less (1 point),?How many drinks did you have on a typical day when you were drinking in the past year??1 or 2 drinks (0 point),?How often did you have 6 or more drinks on one occasion in the past year??Never (0 point),?Points?1,?Interpretation?Negative.?Miscellaneous:?Caffeine: yes, frequency:, 3-4 cups per day. Children: yes. Community involvements: yes, active in sports or recreation activities. Exercise: yes, rowing weights and walking the dog. Housing: owning. Living with: spouse. Marital status: . Occupation: works full-time. Pets: none. no Travel outside of the [place]. * Medications:?TakingPotassium Citrate ER 10 MEQ (1080 MG) Tablet Extended Release 1 tablet with meals Orally Three times a daydilTIAZem HCl 120 MG Tablet as directed Orally ZyrTEC Allergy 10 MG Tablet 1 tablet Orally Once a dayMetamucil 48.57 % Powder as directed Orally Vitamin D3 25 MCG (1000 UT) Capsule 1 capsule Orally Once a dayOmeprazole 20 MG Capsule Delayed Release 1 capsule Orally Once a daySingulair 10 MG Tablet 1 tablet Orally Once a dayLevalbuterol HCl 0.63 MG/3ML Nebulization Solution 3 mL as needed Inhalation every 8 hrsQvar RediHaler 40 MCG/ACT Aerosol Breath Activated 1 puff Inhalation Once a dayAtorvastatin Calcium 20 MG Tablet 1 tablet Orally Once a dayLORazepam 1 MG Tablet take 1 tablet by mouth at bedtime once a day as needed Orally Once a dayTaking Potassium Citrate ER 10 MEQ (1080 MG) Tablet Extended Release 1 tablet with meals Orally Three times a dayTaking dilTIAZem HCl 120 MG Tablet as directed Orally Taking ZyrTEC Allergy 10 MG Tablet 1 tablet Orally Once a dayTaking Metamucil 48.57 % Powder as directed Orally Taking Vitamin D3 25 MCG (1000 UT) Capsule 1 capsule Orally Once a dayTaking Omeprazole 20 MG Capsule Delayed Release 1 capsule Orally Once a dayTaking Singulair 10 MG Tablet 1 tablet Orally Once a dayTaking Levalbuterol HCl 0.63 MG/3ML Nebulization Solution 3 mL as needed Inhalation every 8 hrsTaking Qvar RediHaler 40 MCG/ACT Aerosol Breath Activated 1 puff Inhalation Once a dayTaking Atorvastatin Calcium 20 MG Tablet 1 tablet Orally Once a dayTaking LORazepam 1 MG Tablet take 1 tablet by mouth at bedtime once a day as needed Orally Once a dayNot-Taking/PRNNystatin 368491 UNIT/ML Suspension as directed Mouth/Throat every 8 hrsNystatin 539151 UNIT/ML Suspension as directed Mouth/Throat Spiriva HandiHaler 18 MCG Capsule 1 capsule by inhaling the contents of the capsule using the HandiHaler device Inhalation Once a dayIbuprofen 200 MG Tablet 1 tablet with food or milk as needed Orally Three times a dayPropranolol HCl 20 MG Tablet 2 tablet Orally once a dayXopenex HFA 45 MCG/ACT Aerosol 1 puff as needed Inhalation every 4 hrsTadalafil 20 MG Tablet 1 tablet Orally Once a dayMedication List reviewed and reconciled with the patientNot-Taking/PRN Nystatin 510198 UNIT/ML Suspension as directed Mouth/Throat every 8 hrsNot-Taking/PRN Nystatin 888166 UNIT/ML Suspension as directed Mouth/Throat Not-Taking/PRN Spiriva HandiHaler 18 MCG Capsule 1 capsule by inhaling the contents of the capsule using the HandiHaler device Inhalation Once a dayNot-Taking/PRN Ibuprofen 200 MG Tablet 1 tablet with food or milk as needed Orally Three times a dayNot-Taking/PRN Propranolol HCl 20 MG Tablet 2 tablet Orally once a dayNot-Taking/PRN Xopenex HFA 45 MCG/ACT Aerosol 1 puff as needed Inhalation every 4 hrsNot-Taking/PRN Tadalafil 20 MG Tablet 1 tablet Orally Once a dayMedication List reviewed and reconciled with the patient * Allergies:?IVP Dye: panic at tackyes[Allergies Verified] Objective: * Vitals:?Ht: 71.25, Wt:214, B TX:29.63, BP:102/60. * ???Past Orders: ???Lab:Potassium (Order Date - 08/15/2024) (Collection Date - 08/15/2024) ? Value Reference Range ?Potassium 4.7 3.3-5.1 - mmol/L ???Lab:Complete Blood Count Auto Diff (Order Date - 09/23/2024) (Collection Date - 09/23/2024) ? Value Reference Range ?White Blood Count 5.0 4. 8-10.8 - X10*3/uL ?Red Blood Count 5.09 4.60 -5.80 - X10*6/uL ?Hemoglobin 15.4 14.0-18.0 - g/dl ?Hematocrit 45.6 42.0-52.0 - % ?Mean Corpuscular Volume 89.6 80.0-98.0 - fL ?Mean Corpuscular Hemoglobin 30.3 27.0-33.0 - pg ?Mean Corpuscular HGB Conc 33.8 31.0-36.0 - g/dl ?Red Cell Distribution Width 12.8 11.0-16.0 - % ?Platelet Count 270 160-4 00 - X10*3/uL ?Mean Platelet Volume 9.9 9.4-12.4 - fL ?Neutrophils Percent Auto 52.9 45-73 - % ?Imm Gran Pct Auto 0.0 0. 0-0.4 - % ?Lymphocytes Percent Auto 35.1 20-40 - % ?Monocytes Percent Auto 8.0 2-11 - % ?Eosinophils Percent Auto 3.0 0-4 - % ?Basophils Percent Auto 1.0 0-2 - % ?NRBC Pct Auto 0.0 0.0-0. 2 - /100WBC ?Neutrophils Absolute Auto 2.6 2.0-8.3 - x10*3/uL ?Imm Gran Abs Auto 0.00 0. 00-0.03 - X10*3/uL ?Lymphocytes Absolute Auto 1.8 1.2-4.9 - X10*3/uL ?Monocytes Absolute Auto 0.4 0.1-1.2 - X10*3/uL ?Eosinophils Absolute Auto 0.2 0.0-0.4 - X10*3/uL ?Basophils Absolute Auto 0.1 0.0-0.2 - X10*3/uL ?NRBC Abs Auto 0.000 0.0-0. 012 - X10*3/uL ???Lab:Comprehensive [place]. P dimitri Fast (Order Date - 09/23/2024) (Collection Date - 09/23/2024) ? Value Reference Range ?Sodium 140 135-145 - mmo l/L ?Bilirubin Total 0.6 0.0- 1.0 - mg/dL ?Aspartate Amino Transferase 25 5-37 - U/L ?Alanine Aminotransferase 21 0-40 - U/L ?Total Protein 6.4 L 6.5-8. 0 - g/dL ?Albumin Level 4.0 3.5-5. 0 - g/dL ?Alkaline Phosphatase 77 39-117 - U/L ?Potassium 4.2 3.3-5.1 - mmol/L ?Chloride 109 H 96-108 - mm ol/L ?Carbon Dioxide 27 22-29 - mmol/L ?Anion Gap 8 L 12-20 - ?Blood Urea Nitrogen 13 9-16 - mg/dL ?Creatinine 0.83 0.5-1.4 - mg/dL ?Estimated Glomerular Filt Rate > 60 - ?Glucose Fasting 107 H 60-9 9 - mg/dL ?Calcium 9.0 8.4-10.2 - m g/dL ???Lab:Lipid Panel (Order Da te - 09/23/2024) (Collection Date - 09/23/2024) ? Value Reference Range ?Triglycerides 80 <150 - mg/dL ?Cholesterol 184 <200 - m g/dL ?LDL Cholesterol Calculated 102 H <100 - mg/dL ?HDL Cholesterol 66 >40 - mg/dL ???Lab:PSA,Total (Free>4and< 10) (Order Date - 09/23/2024) (Collection Date - 09/23/2024) ? Value Reference Range ?PSA,Total (Free>4and<10) 1.03 0.00-4.00 - ng/mL * Examination: ???General Examination: ?GENERAL APPEARANCE:?well developed, well nourished, in no acute distress.?HEAD:?normocephalic, atraumatic.?EYES:?pupils equal, round, reactive to light and accommodation, sclera non-icteric.?EARS:?normal.?ORAL CAVITY:?mucosa moist.?THROAT:?clear.?NECK/THYROID:?neck supple, full range of motion, no cervical lymphadenopathy, no bruits.?SKIN:?warm and dry, no suspicious lesions.?HEART:?regular rate and rhythm, S1, S2 normal, no murmurs.?LUNGS:?clear to auscultation bilaterally.?ABDOMEN:?soft, nontender, nondistended, bowel sounds present, normal, no organomegaly , no masses palpable.?RECTAL EXAM:?normal tone, no external hemorrhoids, no masses palpable, prostate normal, stool guaiac negative , abnormal o n the right buttocks is a one inch nodule.?MALE GENITOURINARY:?circumcised , no penile lesions or discharge , testes descended bilaterally , no testicular mass.?EXTREMITIES:?no clubbing, cyanosis, or edema.?NEUROLOGIC:?nonfocal, motor strength normal upper and lower extremities, sensory exam intact.? 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 Plan: * Treatment: 2.?Anxiety? Refill LORazepam Tablet, 1 MG, take 1 tablet by mouth at bedtime once a day as needed, Orally, Once a day, 30 days, 30, Refills 0.?? 3.?Pure hypercholesterolemia ? Notes: well controlled?? 4.?Galan esophagus? Notes: needs referral to dr weems/ already has an appt in January, patient will be calling to see if he can get in sooner.?? 5.?Subcutaneous nodule? Notes: needs referral to [facility] info given to patient to call and make his own appt?? 6.?Unspecified atrial fibril lation? Notes: is being evaluated by cardiology?? * Procedure Codes:? * Follow Up:?6 Months * * Sign off status: Completed true * Provider:?Memo Hamilton MD Date:?1 12/10/2023 Generated for Rian lang/Katt/eTransmitting on:?12/23/2024 11:14 AM EST History and Physical Notes * HPI (History of Present Illness) Category Sub-Category Detail Notes Category Not es Depression Screening PHQ-9 Little inte rest or pleasure in doing things: Not at all here for follow up/ has not felt well since his vaccines. has knee pain and goes from rt lower back to knee./ doesn't go to foot. Feeling down, depressed, or hopeless: No t [...] Have you had any falls with injury i n the past year?: No Have you had two or more falls in the year?: No Communication Needs Communication Needs Does the patient have a hearing impairment: No Does the patient have a vision impairmen t?: Yes ?If yes, what is the vision impairment?: Glasses Does the patient have a cognition impair ment?: No Examination Category Sub-Category Detail Notes Category Not es General Examination GENERAL APPEARANCE: well dev eloped, [...]
--- OUTSIDE RECORDS SUMMARY | 2024-12-23 11:15 | XMS_ITS | Patient Health Record ---
Author Organization [facility] Address [address] [place] [address] Care Team Providers Care Flux Mixer Name Role Phone eMmo Hamilton MD Primary Care Provider Bala Villanueva [phone] ALLERGIES Allergen (clinical drug ingredient) Drug/Non Drug [...] (Z12.11) Active confirmed Colon can cer screening (831157909) Problem Encounter for screening for malignant neoplasm of colon (Z12.11) Active confirmed [id number] Problem Gastric polyp (K31.7) Active confirmed Gastric polyp (28449728) Problem Abnormal barium swallow (R93.3) Active confirmed 961754729 Problem Gastroesophageal reflux (K21.9) Active confirmed Esophageal reflux finding (070860014) Problem Galan''s esophagus without dysplasia (K22.70) Active confirmed Galan (743876225) Problem Gastroesophageal reflux disease, unspecified whether esophagitis present (K21.9) Active confirmed [id number] Encounters Encounter Location Date Provider Diagnosis [facility] [address] [place] [address] 12/23/2024 Bala Romero PLAN OF TREATMENT Pending Test Test Name Order Date Pathology 12/12/2021 Future Test Test Name Order Date COLONOSCOPY 11/12/2012 UPPER GI ENDOSCOPY 11/15/2021 COLONOSCOPY 07/18/2022 Next Appt Details Provider Name:Bala Romero , 12/23/2024 02:00:00 PM, [address], [address], [place], [address], Insurance Providers Payer Name Payer Address Payer Phone Subscriber Number Group Number Insured Name Patient Relationship to Insured Coverage Start Date Coverage End Date [employer] PPO [address] [place] [phone] [id number] KEVON IRVIN Self - patient is the insured MEDICAL (GENERAL) HISTORY Medical History History ICD Code Asthma-sees Dr. Schroeder Denies [place],DM,CVA,renal disease Afib -he had a cardiac ablation in Augob er of 2020- Dr. Mclaughlin Kidney stones GERD-describes a negative EGD 20-30 year s ago Negative screening colonoscopy his [email or web address] Upper endoscopy in December of 2021-Galan's esophagus without dysplasia, small hiatal hernia, benign gastric polyps Surgical History Surgery Date(Month/Year) Tonsillectomy 1965
--- OUTSIDE RECORDS SUMMARY | 2024-12-23 11:15 | XMS_ITS ---
Author Organization Memo Hamilton MD Address [address] [place] [address] [place] [phone] Care Team Providers Care Surgical Services Asst Name Role Phone Memo Hamilton Primary Care Provider REASON FOR VISIT referral to urology Encounters Encounter Location Date Provider Diagnosis Memo Hamilton MD [address] [place] [address] [place] [phone] 10/30/2024 Memo Hamilton Plan Of Treatment Next Appt Details Provider Name:Memo Christiansen iekaylin, 04/03/2025 07:30:00 AM, [address] [place] [address], [address], [phone], Provider Name:Memo cummings, 04/10/2025 09:00:00 AM, [address] [place] [address], [address], [phone], Provider Name:Memo cummings, 10/06/2025 07:45:00 AM, [address] [place] [address], [address], [phone], Provider Name:Memo cummings, 10/13/2025 08:30:00 AM, [address] [place] [address], [address], [phone], Progress Notes * Gerardo VERGARA KDOB:1960 (64 yo M)Acc No.[id number]:10/30/2024 Patient:?Gerardo Vergara :1960???Age:64 Y???Sex:Male Address:[address] [place] [address] [address], [place] [address] * true * Date:? Generated for Rian lang/Katt/Bksmitting on:?12/23/2024 11:14 AM EST
--- NOTE | 2024-12-23 16:29 | ED.CHESTPAIN ---
HPI - Chest Pain General Chief Complaint: Chest Pain Stated Complaint: Chest Pain Time Seen by Provider: 12/23/24 16:28 History of Present Illness ED Provider: Dr. Chang HPI narrative: 64 y/o M patient; PMH YOLANDE, paroxysmal atrial fibrillation, asthma; presents from home reporting left-sided chest tightness that began while walking his dog this morning. Mild associated shortness of breath which is pleuritic in nature. He otherwise denies: cough/congestion, nausea/vomiting, fever or chills, syncope. Cardiology: Dr. Mclaughlin Related Data Home Medications ?Medication ?Instructions ?Recorded ?Confirmed cetirizine 10 mg capsule (Zyrtec) 10 mg PO DAILY 05/30/21 10/07/24 lorazepam 1 mg tablet 1 tab PO BEDTIME PRN Insomnia 05/30/21 10/07/24 cholecalciferol (vitamin D3) 25 25 mcg PO DAILY 09/07/21 10/07/24 mcg (1,000 unit) capsule nebulizers 01/03/23 10/07/24 psyllium 1 packet PO DAILY 04/06/23 10/07/24 atorvastatin 20 mg tablet 20 mg PO DAILY 02/13/24 10/07/24 potassium citrate 10 mEq (1,080 2,160 mg PO BID 10/07/24 10/07/24 mg) tablet,extended release Previous Rx's ?Medication ?Instructions ?Recorded omeprazole 40 mg capsule,delayed 40 mg PO DAILY 30 days #30 caps 07/27/21 release montelukast 10 mg tablet 10 mg PO BEDTIME 30 days #30 tabs 02/13/24 (Singulair) levalbuterol HCl 1.25 mg/3 mL 1.25 mg (3 mL) inhalation BID PRN 07/29/24 solution for nebulization Shortness Of Breath Or Wheezing 30 days #90 mL levalbuterol tartrate 45 2 puff inhalation Q6H PRN 07/29/24 mcg/actuation aerosol inhaler shortness of breath or wheezing 30 (Xopenex HFA) days #1 ea beclomethasone dipropionate 80 1 inh PO BID #31.8 grams 11/10/24 mcg/actuation HFA breath activated aerosol (Qvar RediHaler) diltiazem HCl 120 mg 120 mg PO DAILY #90 caps 12/11/24 capsule,extended release 24 hr Allergies Allergy/AdvReac Type Severity Reaction Status Date / Time Iodinated Contrast Media Allergy Severe SHORTNESS Verified 12/23/24 10:14 [IV CONTRAST] OF BREATH Review of Systems Review of Systems: Yes all other systems are reviewed and are negative [facility] Past Medical History Attestation statement: The following information was validated with the patient. Source: old records reviewed Medical History YOLANDE (obstructive sleep apnea) Acquired elevated diaphragm Renal calculi History of cardioversion Chronic cough Atrial flutter with rapid ventricular response Asthma Surgical History History of ureteroscopy Hx of tonsillectomy History of esophagogastroduodenoscopy (EGD) H/O colonoscopy History of cardiac radiofrequency ablation Family History Family History Mother A-fib CVA (cerebral vascular accident) Father CVA (cerebral vascular accident) Social History Social History Household Members: Spouse and Children Housing: House Alcohol intake: current Alcohol intake frequency: former alcohol drinker Alcohol type: beer, wine and hard liquor Patient Tobacco Use Status: Never used Tobacco Advance Directives: Yes Advance Directives Information Provided: Yes Advance Directives on File: No service: No Current occupational status: employed Physical Exam Vital Signs: Vital Signs: Last Vital Signs Temp 97.9 F 12/23/24 16:33 Pulse 60 12/23/24 16:33 Resp 15 12/23/24 16:33 BP 141/76 H 12/23/24 16:33 Pulse Ox 97 12/23/24 16:33 O2 Del Method Room Air 12/23/24 16:33 BMI result Body Mass Index 30.7 Patient is afebrile and hemodynamically stable Const: General: cooperative and no acute distress HEENT: Head: Yes normal to inspection and Yes atraumatic Eyes: General: appearance normal, both eyes and all related structures Pupils: Equal, round and reactive pupils present EOM: EOMs intact bilaterally Neck: Neck: Yes normal visual inspection, Yes full ROM, Yes supple and No tender Chest: Chest palpation & inspection: normal inspection of the chest and normal palpation of entire chest wall Resp: Effort & Inspection: normal respiratory effort, able to speak in complete sentences, no cough and no respiratory distress Auscultation: clear to auscultation bilaterally Cardio: Rate: regular rate Rhythm: regular rhythm Peripheral pulses: Peripheral pulses 2+ throughout GI: Inspection: No Abdominal wall edema and No distended Palpation (GI): Soft to palpation, not firm, nontender, no guarding and not rigid Auscultation: normal bowel sounds Back/Spine/Pelvis: Back: No back tenderness Neuro: Cranial nerves: Yes Equal, round and reactive pupils present Course Course Course Narrative: Patient is afebrile and hemodynamically stable. Reviewed triage work up. Labs reviewed. No leukocytosis. First troponin <2.7, repeat troponin ordered. CXR without focal infiltrate. 2nd troponin negative. COVID/Flu/RSV negative. Plan: Discharge to home with PCP follow up Return precautions given Medical Decision Making Lab Data 12/23/24 10:26 12/23/24 10:26 Labs: Lab Results 12/23/24 12/23/24 Range/Units 10:26 16:40 WBC 6.5 (4.8-10.8) X10*3/uL RBC 5.20 (4.60-5.80) X10*6/uL Hgb 15.6 (14.0-18.0) g/dl Hct 46.4 (42.0-52.0) % MCV 89.2 (80.0-98.0) fL MCH 30.0 (27.0-33.0) pg MCHC 33.6 (31.0-36.0) g/dl RDW 13.2 (11.0-16.0) % Plt Count 257 (160-400) X10*3/uL MPV 9.4 (9.4-12.4) fL Immature Gran % (Auto) 0.5 H (0.0-0.4) % Neut % (Auto) 66.1 (45-73) % Lymph % (Auto) 23.5 (20-40) % [place]oddard % (Auto) 7.4 (2-11) % Eos % (Auto) 1.7 (0-4) % Baso % (Auto) 0.8 (0-2) % Lymph # (Auto) 1.5 (1.2-4.9) X10*3/uL [place]ard # (Auto) 0.5 (0.1-1.2) X10*3/uL Eos # (Auto) 0.1 (0.0-0.4) X10*3/uL Baso # (Auto) 0.1 (0.0-0.2) X10*3/uL Abs Immat Gran (auto) 0.03 (0.00-0.03) X10*3/uL Absolute Neuts (auto) 4.3 (2.0-8.3) x10*3/uL Absolute Nucleated RBC 0.000 (0.0-0.012) X10*3/uL Nucleated RBC % (auto) 0.0 (0.0-0.2) /100WBC PT 11.9 (10.9-12.4) SEC INR 1.0 (0.9-1.1) Sodium 141 (135-145) mmol/L Potassium 4.7 (3.3-5.1) mmol/L Chloride 109 H (96-108) mmol/L Carbon Dioxide 23 (22-29) mmol/L Anion Gap 14 (12-20) BUN 18 H (9-16) mg/dL Creatinine 0.81 (0.5-1.4) mg/dL Estim Creat Clear Calc 113.8 Estimated GFR > 60 Random Glucose 97 (60-115) mg/dL Calcium 9.1 (8.4-10.2) mg/dL Total Bilirubin 0.8 (0.0-1.0) mg/dL AST 24 (5-37) U/L ALT 22 (0-40) U/L Alkaline Phosphatase 81 (39-117) U/L Troponin I High Sens < 2.7 D < 2.7 (<3.5-35.0) ng/L Total Protein 7.0 (6.5-8.0) g/dL Albumin 4.3 (3.5-5.0) g/dL Influenza Type A (PCR) NEGATIVE (Negative) Influenza Type B (PCR) NEGATIVE (Negative) RSV RNA Qual (PCR) NEGATIVE (Negative) SARS-CoV-2 RNA (RT-PCR) NEGATIVE (Negative) Independent Interpretation I performed an independent interpretation of an: EKG Interpretation: NSR 63BPM without ischemic changes, normal intervals Radiology Impression Discussion of test interpretation with radiology: I have reviewed the radiologist's reading. Radiologist Impression: EXAMINATION: XR CHEST CLINICAL INFORMATION: CP COMPARISON: 07/14/2023, 01/07/2023. TECHNIQUE: 2 views of the chest were obtained. FINDINGS: Stable moderately elevated left hemidiaphragm. Mild eventration right hemidiaphragm. The cardiac, hilar, and mediastinal contours are normal. The lungs demonstrate mild chronic appearing scarring/atelectasis left base. Lungs otherwise clear. There is no pneumothorax or pleural effusion. There is no focal osseous or soft tissue abnormality. XR/XR chest 2V IMPRESSION: No active pulmonary disease. Stable moderately elevated left hemidiaphragm. No interval change. Electronically signed by: Gigi Ivory MD 12/23/2024 01:05 PM EST Discharge Plan Discharge Clinical Impression: Chest pain Patient Disposition: Home, Self-Care Instructions: Chest Pain (ED) Additional Instructions: You were seen in the emergency department today for chest tightness with shortness of breath. Your EKG of your heart, two heart enzymes, and chest XR were reassuring. Please follow up with your PCP within the next 1 - 2 days for re-evaluation and to discuss your recent emergency department visit. Return to the emergency department for: Chest pain Difficulty breathing Passing out Prescriptions: No Action Qvar RediHaler 80 mcg/actuation HFA aerosol breath activated 1 inh PO BID Qty: 31.8 3RF diltiazem HCl 120 mg capsule,extended release 24hr 120 mg PO DAILY Qty: 90 3RF lorazepam 1 mg tablet 1 tab PO BEDTIME PRN (Reason: Insomnia) Zyrtec 10 mg Capsule 10 mg PO DAILY psyllium Packet 1 packet PO DAILY Rx Instructions: mix into at least 8 oz of water or juice before administering omeprazole 40 mg capsule,delayed release(DR/EC) 40 mg PO DAILY 30 Days Qty: 30 4RF cholecalciferol (vitamin D3) 25 mcg (1,000 unit) capsule 25 mcg PO DAILY (DME) nebulizers Misc See Rx Instructions .Route Rx Instructions: As directed atorvastatin 20 mg tablet 20 mg PO DAILY montelukast [Singulair] 10 mg tablet 10 mg PO BEDTIME 30 Days Qty: 30 11RF levalbuterol HCl 1.25 mg/3 mL solution for nebulization 1.25 mg inhalation BID PRN (Reason: Shortness Of Breath Or Wheezing) 30 Days Qty: 90 11RF levalbuterol tartrate [Xopenex HFA] 45 mcg/actuation HFA aerosol inhaler 2 puff inhalation Q6H PRN (Reason: shortness of breath or wheezing) 30 Days Qty: 1 11RF potassium citrate 10 mEq (1,080 mg) tablet extended release 2,160 mg PO BID Print Language: Tamazight
[2024-12-23 16:33] VITALS: BP 141/76; PULSE 60; RESP 15; TEMP 36.6; O2SAT 97
[2024-12-23 17:12] LABS: Troponin-I High Sensitivity < 2.7 ng/L (<3.5-35.0)
[2024-12-23 17:40] LABS: Influenza A PCR NEGATIVE (Negative); Influenza B PCR NEGATIVE (Negative); Resp Syncy Virus RNA Qual PCR NEGATIVE (Negative); SARS COV2 PCR INHOUSE NEGATIVE (Negative)
[2024-12-23 17:56] VITALS: BP 131/84; PULSE 58; RESP 16; TEMP 36.6; O2SAT 97
== END 2024-12-23 17:57 | disposition home or self-care (01) ==
PROVIDERS: Emergency Provider Emergency Medicine; PCP Internal Medicine
DX: R07.9 Chest pain, unspecified (principal); J45.909 Unspecified asthma, uncomplicated; R06.02 Shortness of breath; Z03.818 Encounter for observation for suspected exposure to other biological agents ruled out; I48.0 Paroxysmal atrial fibrillation; Z79.01 Long term (current) use of anticoagulants; Z79.899 Other long term (current) drug therapy
CPT/HCPCS: 0241U; 36415; 71046; 80053; 84484; 85025; 85610; 93005; 99283

== ENCOUNTER → 2024-12-23 10:06 | Outpatient (BNV) | payer BC, SELFPAY | PROVIDERS: PCP Internal Medicine; Visit Provider Internal Medicine | DX: R07.9 Chest pain, unspecified (principal) | CPT/HCPCS: 93010 ==

== ENCOUNTER → 2024-12-23 10:42 | Outpatient (BNV) | payer BC, SELFPAY | PROVIDERS: PCP Internal Medicine; Visit Provider Radiology Diagnostic Radiology | DX: J98.6 Disorders of diaphragm (principal) | CPT/HCPCS: 71046 ==

== ENCOUNTER 2024-12-30 13:12 | Outpatient (AMB) | payer BC, SELFPAY ==
--- NOTE | 2024-12-30 13:21 | MHC.OFFVIS ---
Vital Signs 12/30/24 13:24 Height 5 ft 11 in Weight 227 lb 15.327 oz BMI 31.8 BP 130/70 Blood Pressure Location Lt brachial Position Sitting Pulse 60 Pulse Source Monitor Intake Visit Reasons: [facility] ED f/u Tester Sound Required: No Accompanied by: Self / Same As Patient Allergies Iodinated Contrast Media [IV CONTRAST] Allergy (Severe, Verified 12/23/24 10:14) SHORTNESS OF BREATH Medication List - Last Reconciled 12/30/24 by Andres Mclaughlin MD atorvastatin 20 mg PO DAILY beclomethasone dipropionate 80 mcg/actuation (Qvar RediHaler) 1 inh PO BID cetirizine (Zyrtec) 10 mg PO DAILY cholecalciferol (vitamin D3) 25 mcg PO DAILY diltiazem HCl CD 120 mg PO DAILY levalbuterol HCl 1.25 mg (3 mL) inhalation BID PRN 30 days levalbuterol tartrate 45 mcg/actuation (Xopenex HFA) 2 puffs inhalation Q6H PRN 30 days lorazepam 1 tab PO BEDTIME PRN montelukast (Singulair) 10 mg PO BEDTIME 30 days nebulizers As directed omeprazole 40 mg PO DAILY 30 days potassium citrate ER 2,160 mg PO BID psyllium 1 packet PO DAILY HPI Comments Details: Gerardo returns for follow-up regarding atrial flutter. He has undergone 2 cardioversions as well as 2 ablations. Last atrial flutter ablation was performed in January 2023. Brief intermittent palpitations. On One occasion, he was having chest pains when walking his dog and came to the ER. He was ruled out for ACS and discharged home. No recurrence. No known coronary disease. Otherwise, he feels good. [facility], [facility] Medical History YOLANDE (obstructive sleep apnea) Acquired elevated diaphragm Renal calculi History of cardioversion Chronic cough Atrial flutter with rapid ventricular response Asthma Surgical History History of ureteroscopy Hx of tonsillectomy History of esophagogastroduodenoscopy (EGD) H/O colonoscopy History of cardiac radiofrequency ablation Family History Mother A-fib CVA (cerebral vascular accident) Father CVA (cerebral vascular accident) Social History Household Members: Spouse and Children Housing: House Alcohol intake: current Alcohol intake frequency: former alcohol drinker Alcohol type: beer, wine and hard liquor Patient Tobacco Use Status: Never used Tobacco service: No Current occupational status: employed Review of Systems Const Denies chills, Denies fatigue, Denies fever(s), Denies frequent falls, Denies weakness, Denies weight gain and Denies weight loss ENT Denies dizziness Card Denies chest pain, Denies leg edema, Denies lightheadedness, Denies palpitations, Denies dyspnea and Denies dyspnea on exertion Resp Denies cough, Denies dyspnea and Denies dyspnea on exertion GI Denies hematochezia Musc Denies abnormal gait, Denies muscle weakness, Denies numbness, Denies radiating pain into limb and Denies tingling Neuro Denies abnormal gait, Denies dizziness, Denies frequent falls, Denies numbness, Denies tingling and Denies weakness Endo Denies fatigue and Denies palpitations Physical Exam Vital Signs: Last Vital Signs Pulse 60 12/30/24 13:24 BP 130/70 12/30/24 13:24 BMI result Body Mass Index 31.8 Const General: comfortable and no acute distress Orientation/consciousness: patient oriented x3 HEENT Other: Unremarkable Head: Yes normal to inspection Neck Neck: Yes normal visual inspection Chest Chest palpation & inspection: normal inspection of the chest Resp Auscultation: clear to auscultation bilaterally Cardio Palpation: normal PMI Heart sounds: S1 normal heart sound present, S2 normal heart sound present, no gallops, no murmurs and no rubs GI Palpation (GI): Soft to palpation Back/Spine/Pelvis Other: unremarkable Skin General skin exam: no rashes or lesions noted Neuro General: patient oriented x3 Extrem General: Yes normal to inspection Psych Mental Status: mental status grossly normal Office Procedures EKG Details: EKG with underlying sinus rhythm at 60/Min; T inversions in the inferior leads; normal DC and corrected QT. T-wave changes not seen in the previous EKG from few days back. [id number], Complete Assessment & Plan Assessment & Plan (1) Paroxysmal atrial flutter: Comment: s/p ablation Code(s): I48.92 - Unspecified atrial flutter Category: Medical (2) Status post catheter ablation of atrial flutter: Comment: 2020 and again 01/10/23 Code(s): Z98.890 - Other specified postprocedural states Category: Surgical (3) Paroxysmal atrial fibrillation: Code(s): I48.0 - Paroxysmal atrial fibrillation Category: Medical (4) Precordial chest pain: Code(s): R07.2 - Precordial pain Category: Medical Plan Status post cardioversion x2 as well as flutter ablation x2. In the Holter monitor, underlying rhythm is sinus with brief atrial fibrillation for less than 2 minutes. In the echocardiogram, LVEF 60-65%. Mildly dilated left atrium. Otherwise unremarkable. Overall, he is reasonably stable from the atrial arrhythmias with only rare/low burden atrial fibrillation. We can go up on the diltiazem to 180 mg daily. His thromboembolic risk is quite low and we can hopefully avoid anticoagulation. He was on Eliquis in the past but not recently. Stopped after the ablation. If necessary, consider resuming based on the extent of recurrent/burden. With regard to the chest pain, there was suggestion of some T inversions in the inferior leads. Previously, unremarkable perfusion imaging. We will do a coronary CTA. He has not had any recurrent chest pains. There is apparently some allergic reaction from many decades ago. We will send him allergy prep for the same. Follow-up after the above. Orders: Orders CT Cardiac Coronary Angio Today I25.10 - Atherosclerotic heart disease of [place] coronary artery without angina pectoris Basic Metabolic Panel Today I48.92 - Unspecified atrial flutter Medications: New diltiazem HCl ER 180 mg PO DAILY 90 caps 3RF Discontinued diltiazem HCl CD Discontinued Reason: Doctor's Order 120 mg PO DAILY 90 caps 3RF Coding Level of Care Code Est Pt Level 4 (97796) Complex EM visit Add On G2211 Diagnoses Paroxysmal atrial flutter I48.92 Status post catheter ablation of atrial flutter Z98.890 Paroxysmal atrial fibrillation I48.0 Precordial chest pain R07.2 CPT Codes EKG - CPT: 50442-[id number], Complete ([id number])
[2024-12-30 13:24] VITALS: BP 130/70; PULSE 60; BMI 31.8
--- OUTSIDE RECORDS SUMMARY | 2024-12-30 16:10 | XMS_ITS ---
Author Organization Memo Hamilton MD Address [address] [place], [place] [id number] Care Team Providers Care Industrial Plant Custodian Name Role Phone Memo Hamilton Primary Care Provider [phone] Allergies Allergen (clinical drug ingredient) Drug/Non Drug [...] device Inhalation Once a day Not-Taking Nystatin 994944 UNIT/ML as directed Mouth/Throat 01/26/2023 Not-Taking Nystatin 184766 UNIT/ML as directed Mouth/Throat every 8 hrs [...] Location Date Provider Diagnosis Memo Hamilton MD [address] [place] [phone] 10/09/2024 Memo Hamilton Anxiety F41.9 ; Enco [...] nodule (ICD-10 - R22.9) needs referral to [facility]/ [facility] info given to patient to call [...] in sooner. Subcutaneous nodule needs referral to [facility]/ [facility] info given to patient to call and make his own appt Unspecified atrial fibrillation is being evaluated by cardiology Next Appt Details Follow Up: 6 Months, Reason: Provider Name:Memo cummings, 04/03/2025 07:30:00 AM, [address] [place] [address], [address] [place] [address], [phone], Provider Name:Memo cummings, 04/10/2025 09:00:00 AM, [address] [place] [address], [address] [place] [address], [phone], Provider Name:Memo cummings, 10/06/2025 07:45:00 AM, [address] [place] [address], [address] [place] [address], [id number], Provider Name:Memo cummings, 10/13/2025 08:30:00 AM, [address] [place] [address], [address] [place] [address], [phone], Progress Notes * Gerardo VERGARA KDOB:1960 (64 yo M)Acc No.[id number]:10/09/2024 Progress Notes Patient:?Gerardo Vergara Provider:?Memo Hamilton MD :1960???Age:64 Y???Sex:Male Claude e:10/09/2024 Address: [place], [id number] Subjective: * Chief Complaints: * ???Annual visit [...] Pets: none. no Travel outside of the [place]. * Medications:?TakingPotassium Citrate ER 10 MEQ [...] day as needed Orally Once a dayNot-Taking/PRNNystatin 984444 UNIT/ML Suspension as directed Mouth/Throat every 8 hrsNystatin 592123 UNIT/ML Suspension as directed Mouth/Throat Spiriva HandiHaler [...] reviewed and reconciled with the patientNot-Taking/PRN Nystatin 623440 UNIT/ML Suspension as directed Mouth/Throat every 8 hrsNot-Taking/PRN Nystatin 413669 UNIT/ML Suspension as directed Mouth/Throat Not-Taking/PRN Spiriva [...] Verified] Objective: * Vitals:?Ht: 71.25, Wt:214, B TN:29.63, BP:102/60. * ???Past Orders: ???Lab:Potassium (Order Date [...] Auto 0.000 0.0-0. 012 - X10*3/uL ???Lab:[facility] P dimitri Fast (Order Date - 09/23/2024) [...] sooner.?? 5.?Subcutaneous nodule? Notes: needs referral to [facility]/ [facility] info given to patient to call and make his own appt?? 6.?Unspecified atrial fibril lation? Notes: is being evaluated by cardiology?? * Procedure Codes:? * Follow Up:?6 Months * * Sign off status: Completed true * Provider:?Memo Hamilton MD Date:?1 12/10/2023 Generated for Rian lang/Katt/eTransmitting on:?12/30/2024 04:09 PM EST History and Physical Notes * HPI [...]
--- OUTSIDE RECORDS SUMMARY | 2024-12-30 16:10 | XMS_ITS ---
Author Organization Memo Hamilton MD Address [address] [place] [address] [place] [phone] Care Team Providers Care Dental Appliance Repairer Name Role Phone Memo Hamilton Primary Care Provider REASON FOR VISIT ER Encounters Encounter Location Date Provider Diagnosis Memo Hamilton MD [address] [place] [address] [address] [place] [address] [phone] 12/25/2024 Memo Hamilton Plan Of Treatment Next Appt Details Provider Name:Memo cummings, 04/03/2025 07:30:00 AM, [address] [place] [address], [address], [phone], Provider Name:Memo cummings, 04/10/2025 09:00:00 AM, [address] [place] [address], [address], [phone], Provider Name:Memo cummings, 10/06/2025 07:45:00 AM, [address] [place] [address], [address], [phone], Provider Name:Memo cummings, 10/13/2025 08:30:00 AM, [address] [place] [address], [address], [phone], Progress Notes * Gerardo VERGARA KDOB:1960 (64 yo M)Acc No.[id number]:12/25/2024 Patient:?Gerardo VERGARA :1960???Age:64 Y???Sex:Male Address:[address] [place] [address] [place], [place] [address] * true * Date:? Generated for Rian lang/Katt/Pastor on:?12/30/2024 04:09 PM EST
--- OUTSIDE RECORDS SUMMARY | 2024-12-30 16:10 | XMS_ITS ---
Author Organization Memo Hamilton MD Address [address] [place] [address] [place] [phone] Care Team Providers Care Medical Records Manager Name Role Phone Memo Hamilton Primary Care Provider [phone] REASON FOR VISIT referral to urology Encounters Encounter Location Date Provider Diagnosis Memo Hamilton MD [address] [place] [address] [place] [phone] 10/30/2024 Memo Hamilton Plan Of Treatment Next Appt Details Provider Name:Memo Christiansen iekaylin, 04/03/2025 07:30:00 AM, [address] [place] [address], [address], [phone], Provider Name:Memo cummings, 04/10/2025 09:00:00 AM, [address] [place] [address], [address], [phone], Provider Name:Memo cummings, 10/06/2025 07:45:00 AM, [address] [place] [address], [address], [phone], Provider Name:Memo cummings, 10/13/2025 08:30:00 AM, [address] [place] [address], [address], [phone], Progress Notes * Gerardo VERGARA KDOB:1960 (64 yo M)Acc No.[id number]:10/30/2024 Patient:?Gerardo Vergara :1960???Age:64 Y???Sex:Male Address:[address] [place] [address] [address], [place] [address] * true * Date:? Generated for Rian lang/Katt/Pastor on:?12/30/2024 04:09 PM EST
== END 2024-12-30 13:51 | disposition home or self-care (01) ==
PROVIDERS: PCP Internal Medicine; Visit Provider Internal Medicine
DX: I48.92 Unspecified atrial flutter (principal); Z98.890 Other specified postprocedural states; I48.0 Paroxysmal atrial fibrillation; R07.2 Precordial pain
CPT/HCPCS: 93010; 99214

== ENCOUNTER → 2024-12-30 13:12 | Outpatient (BNVA) | payer BC, SELFPAY | PROVIDERS: PCP Internal Medicine; Visit Provider Internal Medicine | DX: I48.92 Unspecified atrial flutter (principal); I48.0 Paroxysmal atrial fibrillation; R07.2 Precordial pain | CPT/HCPCS: 93005 ==

== ENCOUNTER 2025-02-19 14:23 | Outpatient (REF) | payer BC, SELFPAY ==
[2025-02-19 16:17] LABS: Anion Gap 14 (12-20); Blood Urea Nitrogen 20 mg/dL (9-16); Calcium 9.4 mg/dL (8.4-10.2); Carbon Dioxide 26 mmol/L (22-29); Chloride 105 mmol/L (96-108); Estimated Glomerular Filt Rate > 60; Glucose Random 83 mg/dL (60-115); Potassium 4.2 mmol/L (3.3-5.1); Sodium 141 mmol/L (135-145)
== END 2025-02-19 14:24 | disposition home or self-care (01) ==
LOC: HO.LAB 14:23
PROVIDERS: PCP Internal Medicine; Visit Provider Internal Medicine
DX: I48.92 Unspecified atrial flutter (principal)
CPT/HCPCS: 36415; 80048

== ENCOUNTER 2025-03-20 16:13 | Emergency (ER) | payer BC, SELFPAY ==
--- NOTE | ~2025-03-20 | XR_ITS ---
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 From level of proximal to mid femoral shaft and distally no acute fracture is demonstrated and there is no dislocation. No significant degenerative changes. No erosions. No knee joint effusion. IMPRESSION: 1. No acute fracture or dislocation. Proximal aspect of femur image with right hip x-rays. This document has been electronically signed by: Carito Johnson MD on 03/20/2025 18:18:07
--- NOTE | ~2025-03-20 | XR_ITS ---
EXAMINATION: XR WRIST, RIGHT CLINICAL INFORMATION: pain s/p fall COMPARISON: None available. TECHNIQUE: PA, lateral, and oblique views of the right wrist. FINDINGS: The bones and soft tissues are normal. No fracture. Alignment is anatomic with normal joint spaces. No erosions or abnormal soft tissue calcifications. XR/XR wrist RT min 3V IMPRESSION: Normal right wrist. Electronically signed by: Gigi Ivory MD 03/23/2025 08:10 AM EDT
--- NOTE | ~2025-03-20 | XR_ITS ---
CLINICAL HISTORY: R hip pain s p fall 3 view, pelvis and right hip Comparison: None Findings: No acute fracture or dislocation. No significant arthritic change. The soft tissues are unremarkable. IMPRESSION: No acute findings. This document has been electronically signed by: Carito Johnson MD on 03/20/2025 18:20:42
--- NOTE | 2025-03-20 16:41 | ED_ITS ---
HPI - Fall General Chief Complaint: Fall Stated Complaint: right wrist, thigh and buttocks pain Time Seen by Provider: 03/20/25 19:33 Source: patient Mode of arrival: ambulatory Limitations: no limitations History of Present Illness HPI Narrative: This is a 65-year-old man with a past medical history of YOLANDE, paroxysmal atrial fibrillation, asthma who presents for evaluation after a fall. He states that he his dog and states that right before he fell he felt the pain in his left upper posterior thigh/buttocks. He states that he fell forward scraping his right knee and wrist, but states that he is having more pain in the back of his right thigh/buttocks. He states no associated head strike. He states taking no blood thinning medications. He states no headache or neck pain. He states no extremity paresthesias or loss of sensation. He states no back pain, chest pain, abdominal pain or dyspnea. He states no nausea or vomiting. He has no syncope. Patient states he is unsure of his last tetanus immunization. Related Data Home Medications ?Medication ?Instructions ?Recorded ?Confirmed cetirizine 10 mg capsule (Zyrtec) 10 mg PO DAILY 05/30/21 12/30/24 lorazepam 1 mg tablet 1 tab PO BEDTIME PRN Insomnia 05/30/21 12/30/24 cholecalciferol (vitamin D3) 25 25 mcg PO DAILY 09/07/21 12/30/24 mcg (1,000 unit) capsule nebulizers 01/03/23 10/07/24 psyllium 1 packet PO DAILY 04/06/23 12/30/24 atorvastatin 20 mg tablet 20 mg PO DAILY 02/13/24 12/30/24 potassium citrate 10 mEq (1,080 2,160 mg PO BID 10/07/24 12/30/24 mg) tablet,extended release Previous Rx's ?Medication ?Instructions ?Recorded omeprazole 40 mg capsule,delayed 40 mg PO DAILY 30 days #30 caps 07/27/21 release levalbuterol HCl 1.25 mg/3 mL 1.25 mg (3 mL) inhalation BID PRN 07/29/24 solution for nebulization Shortness Of Breath Or Wheezing 30 days #90 mL levalbuterol tartrate 45 2 puff inhalation Q6H PRN 07/29/24 mcg/actuation aerosol inhaler shortness of breath or wheezing 30 (Xopenex HFA) days #1 ea beclomethasone dipropionate 80 1 inh PO BID #31.8 grams 11/10/24 mcg/actuation HFA breath activated aerosol (Qvar RediHaler) diltiazem HCl 180 mg capsule,24 180 mg PO DAILY #90 caps 12/30/24 hr,extended release diphenhydramine HCl 50 mg tablet 50 mg PO ONCE allergy symptoms #1 12/30/24 (Benadryl Allergy) tab prednisone 50 mg tablet 50 mg PO BID #3 tabs 12/30/24 montelukast 10 mg tablet 10 mg PO BEDTIME 30 days #30 tabs 03/03/25 (Singulair) Allergies Allergy/AdvReac Type Severity Reaction Status Date / Time Iodinated Contrast Media Allergy Severe SHORTNESS Verified 03/20/25 16:44 [IV CONTRAST] OF BREATH Review of Systems Review of Systems: ROS as per HPI [facility] Past Medical History Medical History YOLANDE (obstructive sleep apnea) Acquired elevated diaphragm Renal calculi History of cardioversion Chronic cough Atrial flutter with rapid ventricular response Asthma Surgical History History of ureteroscopy Hx of tonsillectomy History of esophagogastroduodenoscopy (EGD) H/O colonoscopy History of cardiac radiofrequency ablation Family History Family History Mother A-fib CVA (cerebral vascular accident) Father CVA (cerebral vascular accident) Social History Social History Household Members: Spouse and Children Housing: House Alcohol intake: current Alcohol intake frequency: former alcohol drinker Alcohol type: beer, wine and hard liquor Patient Tobacco Use Status: Never used Tobacco Smoked in Last 30 Days: No Use of substances other than those prescribed or required for medical reasons: No Advance Directives: No Advance Directives Information Provided: Yes Do you have a plan to hurt others: No Plan service: No Current occupational status: employed Physical Exam Vital Signs: Vital Signs: Last Vital Signs Temp 97.7 F 03/20/25 20:03 Pulse 62 03/20/25 20:03 Resp 18 03/20/25 20:03 BP 145/84 H 03/20/25 20:03 Pulse Ox 94 03/20/25 20:03 O2 Del Method Room Air 03/20/25 20:03 BMI result Body Mass Index 30.4 Gen: NAD, AOx3 HEENT: NCAT, EOMI, normal conjunctiva, no periorbital postauricular ecchymosis CV: RRR, 2+ bilateral radial pulses Pulm: CTAB, no increased work of breathing GI: Soft, NTND, no rebound, guarding or rigidity MSK: No midline vertebral tenderness to palpation, full active range motion with neck flexion/extension and lateral 45 degree rotation, intact motor function to the bilateral upper extremity radial/median/ulnar/anterior interosseous nerves, full active range motion with bilateral hip/knee flexion/extension, full active range motion with bilateral elbow/wrist flexion/extension, pain with resisted right hip extension and right knee flexion, bilateral lower extremity compartments are soft, no extremity deformity, no bilateral anatomical snuffbox tenderness to palpation Neuro: GCS 15, 5/5 bilateral upper and lower extremity strength, sensation intact to light touch in bilateral upper and lower extremities Skin: Warm, dry, hemostatic superficial abrasion to the right wrist and right knee Course Course Course Narrative: This is a Rapid Medical Exam performed in triage by Ida Segura PA-C. Full HPI, ROS and PE to be performed by primary ED provider. 65-year-old male with a past medical history of YOLANDE, AFib not on AC, asthma, presenting to the ED c/o R upper thigh pain s/p falling off curb while walking dog INSTALLATION TECH. Denies head trauma or LOC PE: +abrasion to R wrist & R knee. +R hip with ttp, difficult to examine in wheelchair in triage. Unable to bear weight on extremity Plan: XRs Medications Administered Discontinued Medications Generic Name Dose Route Start Last Admin Trade Name Freq PRN Reason Stop Dose Admin Acetaminophen 650 mg 03/20/25 20:20 03/20/25 20:28 Acetaminophen 325 Mg Tablet PO 03/20/25 20:21 650 mg ONCE ONE Administration Diphtheria/Tetanus/Acell Pertussis 0.5 ml 03/20/25 20:20 03/20/25 20:29 Diphth,Pertus(Acell),Tet Adult 0.5 Ml Syringe IM 03/20/25 20:21 0.5 ml .ONCE ONE Administration Ibuprofen 600 mg 03/20/25 20:20 03/20/25 20:29 Ibuprofen 600 Mg Tablet PO 03/20/25 20:21 600 mg ONCE ONE Administration Medical Decision Making Medical Decision Making [facility] Narrative: Differential diagnosis includes, but is not limited to sprain, strain, fracture. Patient is afebrile and hemodynamically stable on room air. Exam is benign and reassuring. The affected extremities are neurovascularly intact. Patient is treated supportively with Tylenol and ibuprofen. Tetanus immunization is updated. Patient is provided crutches. I reviewed x-rays as below. On re-examination, patient is well-appearing and in no acute distress.?There is no indication for further emergent evaluation in this otherwise well-appearing patient as above. ?Patient is provided written and verbal instructions, educational materials, recommendations for outpatient follow-up, strict return precautions and teach back is performed. ?Patient states understanding and agreement with plan of care. ?Patient is discharged home in stable and improved condition. Admission/Observation Consideration of admission/observation: Escalation of care including admission/observation considered Independent Interpretation I performed an independent interpretation of an: Plain X-Ray Interpretation: I reviewed x-rays of the right hip/femur and right wrist, which demonstrates no acute fracture or dislocation. Radiology Impression Discussion of test interpretation with radiology: I have reviewed the r adiologist's reading. Radiologist Impression: IMPRESSION: No acute findings. This document has been electronically signed by: Carito Johnson MD on 03/20/2025 18:20:42 Dictated By: Carito Johnson MD Signed By: <Electronically signed by Carito Johnson MD in OV> 03/20/25 1821 IMPRESSION: 1. No acute fracture or dislocation. Proximal aspect of femur image with right hip x-rays. This document has been electronically signed by: Carito Johnson MD on 03/20/2025 18:18:07 Dictated By: Carito Johnson MD Signed By: <Electronically signed by Carito Johnson MD in OV> 03/20/25 1819 Discharge Plan Discharge Clinical Impression: Strain of hip and thigh Patient Disposition: Home, Self-Care Instructions: Crutch Instructions (ED), Muscle Strain (DC) Additional Instructions: You were seen and evaluated in the emergency room. Your x-rays were reassuring with no broken or dislocated bones. Please keep your abrasions clean by washing with soap and water. Please apply a triple antibiotic ointment such as Neosporin 2-3x per day until healed. You are given crutches for the injury to your leg. Please only apply weight on your injured leg as tolerated. Please ice 20 minutes at a time with 20 minutes break in between. Repeat 3 times in a row. Feel free to repeat the entire cycle several times a day. Please be sure to protect your skin from the ice. Please take 600mg ibuprofen every 6 hours with food AND water for the next 3 days. After 3 days, please decrease use to every 6 hours NEEDED. You may take 500-1000mg Tylenol every 8 hours as needed for additional pain relief. Please elevate your leg as much as possible throughout the day. Follow up with your primary care doctor for reevaluation in 1-2 weeks. Return to the emergency room with any new concerns or symptoms. Prescriptions: No Action Qvar RediHaler 80 mcg/actuation HFA aerosol breath activated 1 inh PO BID Qty: 31.8 3RF prednisone 50 mg tablet 50 mg PO BID Qty: 3 0RF Rx Instructions: Prednisone 50mg afternoon prior, night prior and morning of CT scan. Benadryl Allergy 50 mg tablet 50 mg PO ONCE Qty: 1 0RF Rx Instructions: Benadryl 50mg one hour prior to CT scan. montelukast [Singulair] 10 mg tablet 10 mg PO BEDTIME 30 Days Qty: 30 1RF lorazepam 1 mg tablet 1 tab PO BEDTIME PRN (Reason: Insomnia) Zyrtec 10 mg Capsule 10 mg PO DAILY psyllium Packet 1 packet PO DAILY Rx Instructions: mix into at least 8 oz of water or juice before administering omeprazole 40 mg capsule,delayed release(DR/EC) 40 mg PO DAILY 30 Days Qty: 30 4RF cholecalciferol (vitamin D3) 25 mcg (1,000 unit) capsule 25 mcg PO DAILY (DME) nebulizers Misc See Rx Instructions .Route Rx Instructions: As directed atorvastatin 20 mg tablet 20 mg PO DAILY levalbuterol HCl 1.25 mg/3 mL solution for nebulization 1.25 mg inhalation BID PRN (Reason: Shortness Of Breath Or Wheezing) 30 Days Qty: 90 11RF levalbuterol tartrate [Xopenex HFA] 45 mcg/actuation HFA aerosol inhaler 2 puff inhalation Q6H PRN (Reason: shortness of breath or wheezing) 30 Days Qty: 1 11RF diltiazem HCl 180 mg capsule,extended release 24hr 180 mg PO DAILY Qty: 90 3RF potassium citrate 10 mEq (1,080 mg) tablet extended release 2,160 mg PO BID Print Language: Armenian
[2025-03-20 16:43] VITALS: BP 126/69; PULSE 69; RESP 16; TEMP 36.9; O2SAT 94; BMI 30.4
[2025-03-20 20:03] VITALS: BP 145/84; PULSE 62; RESP 18; TEMP 36.5; O2SAT 94
[2025-03-20] MEDS: Acetaminophen 325 MG TABLET 650 MG PO (20:28)
[2025-03-20] MEDS: Diphth,Pertus(ACell),Tet Adult 0.5 ML SYRINGE IM (20:29)
[2025-03-20] MEDS: Ibuprofen 600 MG TABLET PO (20:29)
[2025-03-20 21:28] VITALS: BP 145/84; PULSE 62; RESP 18; TEMP 36.5; O2SAT 94
== END 2025-03-20 21:28 | disposition home or self-care (01) ==
PROVIDERS: Emergency Provider Emergency Medicine; PCP Internal Medicine
DX: S76.011A Strain of muscle, fascia and tendon of right hip, initial encounter (principal); W10.1XXA Fall (on)(from) sidewalk curb, initial encounter; S80.211A Abrasion, right knee, initial encounter; S60.811A Abrasion of right wrist, initial encounter; S70.211A Abrasion, right hip, initial encounter; Y93.K1 Activity, walking an animal; Y92.480 Sidewalk as the place of occurrence of the external cause; Y99.9 Unspecified external cause status; Z23 Encounter for immunization
CPT/HCPCS: 73110; 73502; 73552; 90471; 90715; 99284

== ENCOUNTER → 2025-03-20 16:45 | Outpatient (BNV) | payer BC, SELFPAY | PROVIDERS: PCP Internal Medicine; Visit Provider Specialist | DX: S76.311A Strain of muscle, fascia and tendon of the posterior muscle group at thigh level, right thigh, initial encounter (principal); W19.XXXA Unspecified fall, initial encounter; M25.551 Pain in right hip | CPT/HCPCS: 73502; 73552 ==

== ENCOUNTER 2025-04-01 12:50 | Outpatient (AMB) | payer BC, SELFPAY ==
--- NOTE | 2025-04-01 12:51 | A.OFFVIS_ITS ---
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: No Allergies Iodinated Contrast Media [IV CONTRAST] Allergy (Severe, Verified 03/20/25 16:44) SHORTNESS OF BREATH Medication List - Last Reconciled 04/01/25 by Andres Mclaughlin MD atorvastatin 20 mg PO DAILY beclomethasone dipropionate 80 mcg/actuation (Qvar RediHaler) 1 inh PO BID cetirizine (Zyrtec) 10 mg PO DAILY cholecalciferol (vitamin D3) 25 mcg PO DAILY diltiazem HCl ER 180 mg PO DAILY diphenhydramine HCl (Benadryl Allergy) 50 mg PO ONCE levalbuterol HCl 1.25 mg (3 mL) inhalation BID PRN 30 days levalbuterol tartrate 45 mcg/actuation (Xopenex HFA) 2 puffs inhalation Q6H PRN 30 days lorazepam 1 tab PO BEDTIME PRN montelukast (Singulair) 10 mg PO BEDTIME 30 days nebulizers As directed omega 1-dvg-rky-fish oil 60-90-500 mg (Fish Oil) 1 cap PO DAILY omeprazole 40 mg PO DAILY 30 days potassium citrate ER 2,160 mg PO BID tramadol 50 mg PO BID PRN HPI Comments Details: Gerardo returns for follow-up regarding atrial flutter. He has undergone 2 cardioversions as well as 2 ablations. Last atrial flutter ablation was performed in January 2023. Brief intermittent palpitations. On One occasion, he was having chest pains when walking his dog and came to the ER. He was ruled out for ACS and discharged home. No recurrence. No known coronary disease. Otherwise, he feels good. He has now completed a coronary CTA. Otherwise getting along fine. REPLACED BY [facility] Medical History YOLANDE (obstructive sleep apnea) Acquired elevated diaphragm Renal calculi History of cardioversion Chronic cough Atrial flutter with rapid ventricular response Asthma Surgical History History of ureteroscopy Hx of tonsillectomy History of esophagogastroduodenoscopy (EGD) H/O colonoscopy History of cardiac radiofrequency ablation Family History Mother A-fib CVA (cerebral vascular accident) Father CVA (cerebral vascular accident) Social History Household Members: Spouse and Children Housing: House Alcohol intake: current Alcohol intake frequency: former alcohol drinker Alcohol type: beer, wine and hard liquor Patient Tobacco Use Status: Never used Tobacco service: No Current occupational status: employed Review of Systems Const Denies chills, Denies fatigue, Denies fever(s), Denies frequent falls, Denies weakness, Denies weight gain and Denies weight loss ENT Denies dizziness Card Denies chest pain, Denies leg edema, Denies lightheadedness, Denies palpitations, Denies dyspnea, Denies dyspnea on exertion, Denies orthopnea and Denies other (loss of consciousness) Resp Denies cough, Denies dyspnea and Denies dyspnea on exertion GI Denies hematochezia and Denies change in stool character Musc Denies abnormal gait, Denies muscle weakness, Denies numbness, Denies radiating pain into limb and Denies tingling Neuro Denies abnormal gait, Denies dizziness, Denies frequent falls, Denies numbness, Denies tingling and Denies weakness Endo Denies fatigue and Denies palpitations Physical Exam Vital Signs: Last Vital Signs Pulse 64 04/01/25 12:52 BP 120/80 04/01/25 12:52 BMI result Body Mass Index 31.1 Const General: comfortable and no acute distress Orientation/consciousness: patient oriented x3 HEENT Other: Unremarkable Head: Yes normal to inspection Neck Neck: Yes normal visual inspection Chest Chest palpation & inspection: normal inspection of the chest Resp Auscultation: clear to auscultation bilaterally Cardio Palpation: normal PMI Heart sounds: S1 normal heart sound present, S2 normal heart sound present, no gallops, no murmurs and no rubs GI Palpation (GI): Soft to palpation Back/Spine/Pelvis Other: unremarkable Skin General skin exam: no rashes or lesions noted Neuro General: patient oriented x3 Extrem General: Yes normal to inspection Psych Mental Status: mental status grossly normal Assessment & Plan Assessment & Plan (1) Paroxysmal atrial flutter: Comment: s/p ablation Code(s): I48.92 - Unspecified atrial flutter Category: Medical (2) Paroxysmal atrial fibrillation: Code(s): I48.0 - Paroxysmal atrial fibrillation Category: Medical (3) Status post catheter ablation of atrial flutter: Comment: 2020 and again 01/10/23 Code(s): Z98.890 - Other specified postprocedural states Category: Surgical Plan Status post cardioversion x2 as well as flutter ablation x2. In the Holter monitor, underlying rhythm is sinus with brief atrial fibrillation for less than 2 minutes. In the echocardiogram, LVEF 60-65%. Mildly dilated left atrium. Otherwise unremarkable. Coronary CTA with no significant coronary disease. He can continue on diltiazem at the current dose. He is off anticoagulation but if necessary we can resume if there is clear recurrence and reasonable burden. Otherwise, follow-up in one year. He will call with any interim concerns. Discussion Notes I discussed with the patient the management of his atrial fibrillation, emphasizing the importance of adhering to the diltiazem ER regimen. We reviewed the recent CT scan results, which were reassuring, showing no blockages. I advised the patient on the importance of weight management to help control atrial fibrillation symptoms. We agreed to monitor symptoms and follow up with annual Holter monitoring, unless there is an escalation in symptoms. The patient was informed to contact me if any increase in palpitations occurs. Patient was informed and verbally consented to the use of an ambient scribe for clinic note documentation during this visit. Orders: Orders ECG 3 day holter monitor 1 Year I48.0 - Paroxysmal atrial fibrillation Patient Instructions: - Continue taking Diltiazem ER as prescribed. - Watch for increased palpitations and call me if they get worse. - Work on losing weight as discussed. - Follow up with the scheduled annual Holter monitoring. - Call if you have any new symptoms or concerns. Coding Level of Care Code Est Pt Level 4 (54180) Complex EM visit Add On G2211 Diagnoses Paroxysmal atrial flutter I48.92 Paroxysmal atrial fibrillation I48.0 Status post catheter ablation of atrial flutter Z98.890
[2025-04-01 12:52] VITALS: BP 120/80; PULSE 64; BMI 31.1
== END 2025-04-01 13:10 | disposition home or self-care (01) ==
LOC: HO.HCS 12:51
PROVIDERS: PCP Internal Medicine; Visit Provider Internal Medicine
DX: I48.92 Unspecified atrial flutter (principal); I48.0 Paroxysmal atrial fibrillation; Z98.890 Other specified postprocedural states
CPT/HCPCS: 99214

== ENCOUNTER 2025-04-03 11:14 | Outpatient (REF) | payer BC, SELFPAY ==
[2025-04-03 12:30] LABS: Alanine Aminotransferase 21 U/L (0-40); Albumin Level 4.4 g/dL (3.5-5.0); Alkaline Phosphatase 77 U/L (39-117); Aspartate Amino Transferase 28 U/L (5-37); Bilirubin Direct 0.2 mg/dL (0.0-0.5); Bilirubin Total 0.8 mg/dL (0.0-1.0); Cholesterol 211 mg/dL (<200); HDL Cholesterol 58 mg/dL (>40); LDL Cholesterol Calculated 133 mg/dL (<100); Triglycerides 101 mg/dL (<150)
[2025-04-03 13:43] LABS: Reflex LDLD? No
== END 2025-04-03 11:15 | disposition home or self-care (01) ==
LOC: HO.LNP 11:14
PROVIDERS: Visit Provider Internal Medicine
DX: E78.00 Pure hypercholesterolemia, unspecified (principal)
CPT/HCPCS: 80061; 80076

== ENCOUNTER 2025-04-09 04:10 | Inpatient (IN) | payer BC, SELFPAY ==
[2025-04-09] VITALS (11 sets, daily range): BP systolic 118–142; BP diastolic 56–99; PULSE 50–118; RESP 10–20; TEMP 36.2–36.7; O2SAT 94–98; BMI 29.3; BMI 31.0
--- NOTE | 2025-04-09 | ECG_ITS ---
Test Reason : AFIB RVR Blood Pressure : */* mmHG Vent. Rate : 112 BPM Atrial Rate : 326 BPM P-R Int : * ms QRS Dur : 92 ms QT Int : 340 ms P-R-T Axes : * 40 13 degrees QTcB Int : 464 ms Atrial flutter with variable A-V block vs atrial fibrillatoin Abnormal ECG When compared with ECG of 23-Dec-2024 10:20, Atrial flutter has replaced Sinus rhythm Vent. rate has increased by 49 bpm Referred By: Generic ED Physician Electronically Signed By: RANDALL GOMEZ
--- NOTE | 2025-04-09 04:26 | PC.NURSE ---
pt walked over to room 22, pt placed on bed side monitor. awaiting to be seen
[2025-04-09 04:38] LABS: Basophils Absolute Auto 0.1 X10*3/uL (0.0-0.2); Basophils Percent Auto 0.8 % (0-2); Eosinophils Absolute Auto 0.1 X10*3/uL (0.0-0.4); Eosinophils Percent Auto 2.2 % (0-4); Hematocrit 43.9 % (42.0-52.0); Hemoglobin 15.3 g/dl (14.0-18.0); Imm Gran Abs Auto 0.02 X10*3/uL (0.00-0.03); Imm Gran Pct Auto 0.3 % (0.0-0.4); Lymphocytes Absolute Auto 2.1 X10*3/uL (1.2-4.9); MANUAL DIFF FLAG NO; Mean Corpuscular HGB Conc 34.9 g/dl (31.0-36.0); Mean Corpuscular Hemoglobin 29.8 pg (27.0-33.0); Mean Corpuscular Volume 85.6 fL (80.0-98.0); Mean Platelet Volume 9.2 fL (9.4-12.4); Monocytes Absolute Auto 0.6 X10*3/uL (0.1-1.2); Monocytes Percent Auto 8.8 % (2-11); Neutrophils Absolute Auto 3.6 x10*3/uL (2.0-8.3); Neutrophils Percent Auto 54.9 % (45-73); Platelet Count 259 X10*3/uL (160-400); Red Blood Count 5.13 X10*6/uL (4.60-5.80); Red Cell Distribution Width 12.8 % (11.0-16.0); White Blood Count 6.5 X10*3/uL (4.8-10.8)
[2025-04-09 05:02] LABS: Alanine Aminotransferase 21 U/L (0-40); Albumin Level 4.2 g/dL (3.5-5.0); Alkaline Phosphatase 82 U/L (39-117); Anion Gap 14 (12-20); Aspartate Amino Transferase 23 U/L (5-37); Bilirubin Total 0.7 mg/dL (0.0-1.0); Blood Urea Nitrogen 20 mg/dL (9-16); Calcium 9.4 mg/dL (8.4-10.2); Carbon Dioxide 24 mmol/L (22-29); Chloride 108 mmol/L (96-108); Estimated Glomerular Filt Rate > 60; Glucose Random 108 mg/dL (60-115); Potassium 4.1 mmol/L (3.3-5.1); Sodium 142 mmol/L (135-145); Total Protein 6.5 g/dL (6.5-8.0); Troponin-I High Sensitivity < 2.7 ng/L (<3.5-35.0)
[2025-04-09] MEDS: dilTIAZem HCL 50 MG/10 ML VIAL 10 MG IVPUSH (06:18)
--- NOTE | 2025-04-09 06:19 | PC.NURSE ---
patient HR noted to be 37 prior to Card[address]em administration. Dr melendez aware. stated to this RN give 5mg iv push Cardizem instead of 10mg.
--- NOTE | 2025-04-09 07:09 | ECG_ITS ---
Test Reason : RETURN TO SINUS Blood Pressure : */* mmHG Vent. Rate : 48 BPM Atrial Rate : 48 BPM P-R Int : 172 ms QRS Dur : 90 ms QT Int : 428 ms P-R-T Axes : 51 26 38 degrees QTcB Int : 382 ms Sinus bradycardia with sinus arrhythmia Otherwise normal ECG When compared with ECG of 09-Apr-2025 04:34, Sinus rhythm has replaced Atrial flutter Vent. rate has decreased by 64 bpm Referred By: Natalia Chase Electronically Signed By: RANDALL GOMEZ
--- NOTE | 2025-04-09 07:18 | PC.NURSE ---
a fib on monitor, pt felt near syncopal with hr in 20's for a few seconds, md informed, repeat ekg and pacer pads placed on pt with cart in room, alert, nad, skin wpd,
--- NOTE | 2025-04-09 07:35 | ED_ITS ---
HPI - General Adult General Chief complaint: General Medical Stated complaint: Afib? Time Seen by Provider: 04/09/25 05:05 Source: patient Mode of arrival: ambulatory Limitations: no limitations History of Present Illness ED Provider: Dr. Natalia Chase HPI narrative: Patient comes to the emergency room complaining of palpitations. Patient states that he has history of atrial fibrillation, takes diltiazem p.o. 180 mg daily, states he is compliant with his medication. Patient states that around 01:00, patient got up to the bathroom and his watch alert him of his heart rate being in the 120s and being on AFib. Patient came to the emergency room. Patient denies chest pain. Had a bit of pressure but states that he has been constantly in AFib for couple of hours. Patient denies any recent illnesses. Denies any syncopal or near syncopal episodes. Related Data Home Medications ?Medication ?Instructions ?Recorded ?Confirmed cetirizine 10 mg capsule (Zyrtec) 10 mg PO DAILY 05/30/21 04/01/25 lorazepam 1 mg tablet 1 tab PO BEDTIME PRN Insomnia 05/30/21 04/01/25 cholecalciferol (vitamin D3) 25 25 mcg PO DAILY 09/07/21 04/01/25 mcg (1,000 unit) capsule nebulizers 01/03/23 10/07/24 atorvastatin 20 mg tablet 20 mg PO DAILY 02/13/24 04/01/25 potassium citrate 10 mEq (1,080 2,160 mg PO BID 10/07/24 04/01/25 mg) tablet,extended release omega 7-lyg-yhs-fish oil 60 mg-90 1 cap PO DAILY 04/01/25 04/01/25 mg-500 mg capsule (Fish Oil) tramadol 50 mg tablet 50 mg PO BID PRN 04/01/25 04/01/25 Previous Rx's ?Medication ?Instructions ?Recorded omeprazole 40 mg capsule,delayed 40 mg PO DAILY 30 days #30 caps 07/27/21 release levalbuterol HCl 1.25 mg/3 mL 1.25 mg (3 mL) inhalation BID PRN 07/29/24 solution for nebulization Shortness Of Breath Or Wheezing 30 days #90 mL levalbuterol tartrate 45 2 puff inhalation Q6H PRN 07/29/24 mcg/actuation aerosol inhaler shortness of breath or wheezing 30 (Xopenex HFA) days #1 ea beclomethasone dipropionate 80 1 inh PO BID #31.8 grams 11/10/24 mcg/actuation HFA breath activated aerosol (Qvar RediHaler) diphenhydramine HCl 50 mg tablet 50 mg PO ONCE allergy symptoms #1 12/30/24 (Benadryl Allergy) tab montelukast 10 mg tablet 10 mg PO BEDTIME 30 days #30 tabs 03/03/25 (Singulair) diltiazem HCl 180 mg capsule,24 180 mg PO DAILY #90 caps 04/01/25 hr,extended release Allergies Allergy/AdvReac Type Severity Reaction Status Date / Time Iodinated Contrast Media Allergy Severe SHORTNESS Verified 04/09/25 04:19 [IV CONTRAST] OF BREATH Review of Systems 2 Review of Systems: Constitutional : No Weight loss, No Fever, No Chills, No Night Sweats, No Fatigue, No Malaise ENT/Mouth : No Hearing loss, No Ear Pain, No Nasal Congestion, No Sinus Pain, No Hoarseness, No sore throat, No Rhinorrhea, No Swallowing Difficulty Eyes: No Eye Pain, No Swelling, No Redness, No Foreign Body, No Discharge, No Vision Changes Cardiovascular : Complaining of chest pressure without Chest Pain, No SOB, No Dyspnea on Exertion, No Orthopnea, No Edema, complaining of Palpitations Respiratory : No Cough, No Sputum, No Wheezing, No Smoke Exposure, No Dyspnea Gastrointestinal : No Nausea, No Vomiting, No Diarrhea, No Constipation, No abdominal Pain, No Hematochezia, No Melena Genitourinary : no irregular bleeding, No Dysuria, No Urinary Frequency, No Hematuria, No Urinary Incontinence, No Urgency, No Flank Pain, No Urinary Flow Changes, No Hesitancy Musculoskeletal : No joint pain, No Myalgias, No Joint Swelling Skin : No Skin Lesions, No rash Neuro : No Weakness, No Numbness, No Paresthesias, No Loss of Consciousness, No Dizziness, No Headache Psych : No Anxiety/Panic, No Depression, No SI/HI/AH/VH, No Social Issues, Heme/Lymph: No Bruising, No Bleeding,No Lymphadenopathy Endocrine : No Polyuria, No Polydipsia, No Temperature Intolerance [facility] Past Medical History Medical History YOLANDE (obstructive sleep apnea) Acquired elevated diaphragm Renal calculi History of cardioversion Chronic cough Atrial flutter with rapid ventricular response Asthma Surgical History History of ureteroscopy Hx of tonsillectomy History of esophagogastroduodenoscopy (EGD) H/O colonoscopy History of cardiac radiofrequency ablation Family History Family History Mother A-fib CVA (cerebral vascular accident) Father CVA (cerebral vascular accident) Social History Social History Household Members: Spouse and Children Housing: House Alcohol intake: current Alcohol intake frequency: former alcohol drinker Alcohol type: beer, wine and hard liquor Patient Tobacco Use Status: Never used Tobacco Smoked in Last 30 Days: No Use of substances other than those prescribed or required for medical reasons: No Advance Directives: No Advance Directives Information Provided: Yes Do you have a plan to hurt others: No Plan service: No Current occupational status: employed Physical Exam ED Vital Signs: Vital Signs - 24 hr 04/09/25 04:17 04/09/25 05:17 04/09/25 06:17 Temperature 97.1 F Pulse Rate 101 H 118 H 93 Respiratory Rate 20 Blood Pressure 142/92 H 130/95 H 133/99 H Pulse Oximetry 98 Oxygen Delivery Method Room Air 04/09/25 06:18 04/09/25 06:29 04/09/25 07:16 Temperature 98.0 F Pulse Rate 93 80 78 Respiratory Rate 10 L 19 Blood Pressure 133/99 H 135/93 H 140/86 H Pulse Oximetry 95 97 Oxygen Delivery Method Room Air BMI result Body Mass Index 29.3 Const Other: Appearance: Alert. Oriented X3. No acute distress. Eyes: Pupils equal, round and reactive to light. ENT: Pharynx normal. Neck: Normal inspection. Neck supple. No lymph nodes noted. No crepitus CVS: Irregular heart rate and rhythm. Heart rate in the 120s Respiratory: No respiratory distress. Breath sounds normal. No Wheezing. No rales Abdomen: Soft and nontender. No rigidity. No distention. Skin: Skin warm and dry. Normal skin color. Normal skin turgor. Extremities: No lower extremity edema. No Lacerations. No Rash Neuro: Oriented X 3. No motor deficit. No sensory deficit. Moving all extremities. No slurred speech. CN 2 through 12 grossly intact Psych: calm, cooperative, normal affect Course Course Course Narrative: Patient comes in complaining of palpitations and irregular heart rate, patient compliant with his medications cellulitis them 180 mg, no chest pain, slight chest pressure All of patient's labs pending. Medications Administered Discontinued Medications Generic Name Dose Route Start Last Admin Trade Name Coreen PRN Reason Stop Dose Admin Diltiazem HCl 10 mg 04/09/25 06:05 04/09/25 06:18 Diltiazem Hcl 50 Mg/10 Ml Vial IVPUSH 04/09/25 06:06 5 mg STAT STA Administration Medical Decision Making Medical Decision Making [facility] Narrative: My interpretation of EKG: Atrial flutter, heart rate 112, no ST segment depressions or elevations, no T-wave inversion, QTC 464 My interpretation of hematology and chemistry, no obvious abnormality, troponin negative Initially patient in AFib with RVR, heart rate 112, blood pressure 142/92, patient received 5 mg of Cardizem. Patient's heart rate improved to the 90s, blood pressure in the 140s systolic. However, it was noted that patient occasionally drops his heart rate to the low 30s. Patient does feel lightheaded/near syncopal, which self resolved within a few sec and heart rate goes up to the 90s again. Patient has no chest pain or shortness of breath. I discussed the patient with Dr. Mclaughlin cardiology and Dr. Roche for the Medicine team, patient being admitted. Patient's current heart rate is in the 90s, blood pressure still in the 140s systolic. Differential Diagnosis Differential Diagnoses: The differential diagnosis associated with the presentation includes (Atrial flutter, atrial fibrillation, sick sinus syndrome) Admission/Observation Consideration of admission/observation: Escalation of care including admission/observation considered Consult Healthcare Provider Management of the patient was discussed with: Hospitalist and Digital Sales Representative Lab Data [facility] Lab Attestation statement: I reviewed the patient's lab results. 04/09/25 04:32 04/09/25 04:32 Labs: Lab Results 04/09/25 Range/Units 04:32 WBC 6.5 (4.8-10.8) X10*3/uL RBC 5.13 (4.60-5.80) X10*6/uL Hgb 15.3 (14.0-18.0) g/dl Hct 43.9 (42.0-52.0) % MCV 85.6 (80.0-98.0) fL MCH 29.8 (27.0-33.0) pg MCHC 34.9 (31.0-36.0) g/dl RDW 12.8 (11.0-16.0) % Plt Count 259 (160-400) X10*3/uL MPV 9.2 L (9.4-12.4) fL Immature Gran % (Auto) 0.3 (0.0-0.4) % Neut % (Auto) 54.9 (45-73) % Lymph % (Auto) 33.0 (20-40) % [place] % (Auto) 8.8 (2-11) % Eos % (Auto) 2.2 (0-4) % Baso % (Auto) 0.8 (0-2) % Lymph # (Auto) 2.1 (1.2-4.9) X10*3/uL [place] # (Auto) 0.6 (0.1-1.2) X10*3/uL Eos # (Auto) 0.1 (0.0-0.4) X10*3/uL Baso # (Auto) 0.1 (0.0-0.2) X10*3/uL Abs Immat Gran (auto) 0.02 (0.00-0.03) X10*3/uL Absolute Neuts (auto) 3.6 (2.0-8.3) x10*3/uL Absolute Nucleated RBC 0.000 (0.0-0.012) X10*3/uL Nucleated RBC % (auto) 0.0 (0.0-0.2) /100WBC Sodium 142 (135-145) mmol/L Potassium 4.1 (3.3-5.1) mmol/L Chloride 108 (96-108) mmol/L Carbon Dioxide 24 (22-29) mmol/L Anion Gap 14 (12-20) BUN 20 H (9-16) mg/dL Creatinine 0.89 (0.5-1.4) mg/dL Estim Creat Clear Calc 100.0 Estimated GFR > 60 Random Glucose 108 (60-115) mg/dL Calcium 9.4 (8.4-10.2) mg/dL Total Bilirubin 0.7 (0.0-1.0) mg/dL AST 23 (5-37) U/L ALT 21 (0-40) U/L Alkaline Phosphatase 82 (39-117) U/L Troponin I High Sens < 2.7 (<3.5-35.0) ng/L Total Protein 6.5 (6.5-8.0) g/dL Albumin 4.2 (3.5-5.0) g/dL Independent Interpretation I performed an independent interpretation of an: EKG Critical Care Time Critical Care Time Critical Care Time: Yes Total Critical Care Time: 60 Attestation: I have personally provided critical care time. Time includes review of lab data, radiology results, discussion with consultants, and monitoring for potential decompensation. Intervention performed as documented. Discharge Plan Discharge Clinical Impression: Atrial fibrillation with RVR, Bradycardia Patient Disposition: Admitted As Inpatient Prescriptions: No Action Qvar RediHaler 80 mcg/actuation HFA aerosol breath activated 1 inh PO BID Qty: 31.8 3RF Benadryl Allergy 50 mg tablet 50 mg PO ONCE Qty: 1 0RF Rx Instructions: Benadryl 50mg one hour prior to CT scan. montelukast [Singulair] 10 mg tablet 10 mg PO BEDTIME 30 Days Qty: 30 1RF diltiazem HCl 180 mg capsule,extended release 24hr 180 mg PO DAILY Qty: 90 3RF lorazepam 1 mg tablet 1 tab PO BEDTIME PRN (Reason: Insomnia) Zyrtec 10 mg Capsule 10 mg PO DAILY omeprazole 40 mg capsule,delayed release(DR/EC) 40 mg PO DAILY 30 Days Qty: 30 4RF cholecalciferol (vitamin D3) 25 mcg (1,000 unit) capsule 25 mcg PO DAILY (DME) nebulizers Misc See Rx Instructions .Route Rx Instructions: As directed atorvastatin 20 mg tablet 20 mg PO DAILY levalbuterol HCl 1.25 mg/3 mL solution for nebulization 1.25 mg inhalation BID PRN (Reason: Shortness Of Breath Or Wheezing) 30 Days Qty: 90 11RF levalbuterol tartrate [Xopenex HFA] 45 mcg/actuation HFA aerosol inhaler 2 puff inhalation Q6H PRN (Reason: shortness of breath or wheezing) 30 Days Qty: 1 11RF potassium citrate 10 mEq (1,080 mg) tablet extended release 2,160 mg PO BID tramadol 50 mg tablet 50 mg PO BID PRN omega 3-tjd-xuv-fish oil [Fish Oil] 60-90-500 mg capsule 1 cap PO DAILY Print Language: Turkish
--- NOTE | 2025-04-09 08:40 | P.HPHOSP_ITS ---
History of Present Illness Date of Service: 04/09/25 Attending physician on admission: Anant Del Rio Chief Complaint: AFib Pt is a 65-year-old male with a PMH significant for?atrial fibrillation/flutter s/p cardioversion x2 and ablation x2, not on anticoagulation, asthma, GERD, and insomnia who presents to the ED for evaluation of palpitations. Pt began experiencing palpitations after using the restroom earlier this morning. Confirmed with his watch that he was in AFib. Took his diltiazem 180 mg p.o. early in the hopes that he would convert back to sinus, but continued to feel palpitations for the next two hours, which prompted his presentation to the ED. Denies any other significant symptoms at that time: Slight chest pressure, but no pain. Denies shortness or breath or [place], no lightheadedness or dizziness. In the ED pt arrived with HR in the 120s and EKG showing AFib. BP stable. Pt's HR noted to drop as low as 37 on the monitor, though was nonsustained and jumped back up to the 120s. Pt was given diltiazem 5 mg IV push for RVR instead of the ordered 10 mg. Subsequently pt had additional 3 episodes of nonsustained bradycardia in the 20s and 30s that would last a few sec before jumping back into the 90s to 100s. Pt was presyncopal with lightheadedness and dizziness during these episodes. Pacer pads were placed on the pt. Pt reports that normal resting HR is around 63-65 during waking hours, and 55 while sleeping. Currently pt has no acute medical complaints. Pt is in NSR with HR in the 50s. In the ED pt was tachycardic up to 118, bradycardic into the 30s, and hypertensive up to 142/92. Labs were grossly unremarkable and around baseline for pt. No leukocytosis. Stable H&H. No significant electrolyte abnormalities. Renal and hepatic function WNL. Troponin negative. Initial EKG demonstrated atrial flutter with variable AV block, and repeat showing sinus bradycardia of 48 with sinus arrhythmia. Pt was treated in the ED with diltiazem 10 mg IV. Pt is admitted to the hospital for treatment and further evaluation of symptomatic bradycardia concerning for tachy-augustin syndrome vs iatrogenic induced. Review of Systems 2 Review of Systems: Negative except for that which is stated in the HPI. [facility] Medical History YOLANDE (obstructive sleep apnea) Acquired elevated diaphragm Renal calculi History of cardioversion Chronic cough Atrial flutter with rapid ventricular response Asthma Family History Mother A-fib CVA (cerebral vascular accident) Father CVA (cerebral vascular accident) Surgical History History of ureteroscopy Hx of tonsillectomy History of esophagogastroduodenoscopy (EGD) H/O colonoscopy History of cardiac radiofrequency ablation Social History Household Members: Spouse and Children Housing: House Alcohol intake: current Alcohol intake frequency: former alcohol drinker Alcohol type: beer, wine and hard liquor Patient Tobacco Use Status: Never used Tobacco Smoked in Last 30 Days: No Use of substances other than those prescribed or required for medical reasons: No Advance Directives: No Advance Directives Information Provided: Yes Do you have a plan to hurt others: No Plan service: No Current occupational status: employed Meds Allergies Allergy/AdvReac Type Severity Reaction Status Date / Time Iodinated Contrast Media Allergy Severe SHORTNESS Verified 04/09/25 04:19 [IV CONTRAST] OF BREATH Home Medications ?Medication ?Instructions ?Recorded ?Confirmed ?Last Taken ?Type cetirizine 10 mg capsule (Zyrtec) 10 mg PO DAILY 05/30/21 04/09/25 04/09/25 History lorazepam 1 mg tablet 1 tab PO BEDTIME PRN Insomnia 05/30/21 04/09/25 04/07/25 History cholecalciferol (vitamin D3) 25 25 mcg PO DAILY 09/07/21 04/09/25 04/09/25 History mcg (1,000 unit) capsule nebulizers 01/03/23 10/07/24 Unknown History atorvastatin 20 mg tablet 20 mg PO DAILY 02/13/24 04/09/25 04/07/25 History omega 8-inm-stw-fish oil 60 mg-90 1 cap PO DAILY 04/01/25 04/09/25 04/07/25 History mg-500 mg capsule (Fish Oil) beclomethasone dipropionate 80 1 inh inhalation DAILY 04/09/25 04/09/25 04/07/25 History mcg/actuation HFA breath activated aerosol (Qvar RediHaler) diltiazem HCl 180 mg capsule,24 180 mg PO DAILY 04/09/25 04/09/25 04/09/25 History hr,extended release (Tiadylt ER) potassium citrate 10 mEq (1,080 10 meq PO DAILY 04/09/25 04/09/25 04/07/25 History mg) tablet,extended release Physical Exam 2 Vital Signs and Narrative: Vital Signs: Last Vital Signs Temp 98.0 F 04/09/25 06:29 Pulse 78 04/09/25 07:16 Resp 19 04/09/25 07:16 BP 140/86 H 04/09/25 07:16 Pulse Ox 97 04/09/25 07:16 O2 Del Method Room Air 04/09/25 06:29 BMI result Body Mass Index 29.3 General: AOx3, no acute distress Resp: CTA bilalerally CVS: S1, S2, regular rate, bradycardic GI: +BS, NT, no distention Skin: Warm, dry Neuro: Cranial nerves II-XII grossly intact bilaterally. Motor grossly intact bilaterally Extremities: No edema Psych: Appropriate affect Results Labs 04/09/25 04:32 04/09/25 04:32 Labs: Laboratory Results - last 24 hr 04/09/25 04:32 MCV 85.6 MCH 29.8 MCHC 34.9 RDW 12.8 Plt Count 259 MPV 9.2 L Immature Gran % (Auto) 0.3 Neut % (Auto) 54.9 Lymph % (Auto) 33.0 [place] % (Auto) 8.8 Eos % (Auto) 2.2 Baso % (Auto) 0.8 Lymph # (Auto) 2.1 [place] # (Auto) 0.6 Eos # (Auto) 0.1 Baso # (Auto) 0.1 Abs Immat Gran (auto) 0.02 Absolute Neuts (auto) 3.6 Absolute Nucleated RBC 0.000 Nucleated RBC % (auto) 0.0 Anion Gap 14 Estim Creat Clear Calc 100.0 Estimated GFR > 60 Random Glucose 108 Calcium 9.4 Total Bilirubin 0.7 AST 23 ALT 21 Alkaline Phosphatase 82 Troponin I High Sens < 2.7 Total Protein 6.5 Albumin 4.2 Assessment and Plan (1) Symptomatic bradycardia: Status: Acute Plan Pt is a 65-year-old male with a PMH significant for?atrial fibrillation/flutter s/p cardioversion x2 and ablation x2, not on anticoagulation, asthma, GERD, and insomnia who presents to the ED for evaluation of palpitations. Pt is admitted to the hospital for treatment and further evaluation of symptomatic bradycardia concerning for tachy-augustin syndrome vs iatrogenic induced. Symptomatic bradycardia Pt noted to be in AFib with RVR early this morning with HR in the 120s Took a home dose of diltiazem 180 mg p.o. without relief In ED was in AFib with RVR of 120s, though with brief dip as low as 37 Pt given diltiazem 5 mg IV with subsequent 3 brief episodes of HR in the 20s-30s Pt was presyncopal with lightheadedness and dizziness Concerning for iatrogenic vs tachy-augustin syndrome Pacer pads in place Will start Eliquis 5 mg b.i.d. Cardiology consult Monitor on telemetry Asthma Not in acute exacerbation Continue home inhalers HLD Continue statin GERD Continue omeprazole Insomnia Continue lorazepam Full Code Attending:?Dr. Del Rio DVT Prophylaxis: On Eliquis Pt will require a hospitalization of at least two nights for treatment of?AFib with RVR with subsequent symptomatic bradycardia concerning for tachy-augustin syndrome vs iatrogenic induced. Quality Stroke Does the patient have a stroke diagnosis?: No VTE Prior VTE?: No VTE Risk Level:: Medical - moderate - high VTE Device Contraindication: Treatment Not Indicated VTE Drug Contraindication: N/A - Med Ordered
--- NOTE | 2025-04-09 08:41 | PHA.MEDREC ---
Addendum entered by Ananth Griggs RPh 04/09/25 09:26: Patient told Poly that he only uses Qvar once a day and takes 1 tablet of potassium daily and he no longer takes tamsulosin. MED REC WAS REVIEWED BY PRHaydee. Original Note: Pharmacy Consult ? Medication Reconciliation Pharmacy has completed the medication reconciliation. Spoke to patient to confirm med list. Patient had a list of medications with him. Patient states he is no longer taking Tramadol 50 mg. all other medication on list matched claims.
[2025-04-09] MEDS: Loratadine 10 MG TABLET PO (11:28)
[2025-04-09] MEDS: Apixaban 5 MG TABLET PO ×2 (11:28→20:02)
[2025-04-09] MEDS: Cholecalciferol (Vitamin D3) 25 MCG TABLET PO (11:28)
[2025-04-09] MEDS: Atorvastatin Calcium 20 MG TABLET PO (11:28)
[2025-04-09] MEDS: Omeprazole 40 MG CAPSULE.DR PO (11:28)
--- NOTE | 2025-04-09 11:59 | PM.CNCAR ---
History of Present Illness History of Present Illness Date of Service: 04/09/25 Chief complaint: Tachy Yovany Afib Narrative: This is a cardiology consultation regarding atrial fibrillation. Patient is known to us. Recently seen in the clinic and he was actually doing well. He has a history of atrial flutter and he has undergone 2 cardioversions as well as to ablations. Last flutter ablation was done in January of 2023. He was still having some intermittent palpitations and we did a Holter monitor which showed low burden atrial fibrillation. Otherwise, he also underwent a coronary CTA which showed no significant CAD. He was only on diltiazem and was off anticoagulation. Current admissions because of palpitations that started overnight. Found to be in atrial fibrillation per ER doc and he got IV diltiazem. He also took the morning dose of diltiazem earlier. There was question of profound bradycardia during the time of conversion but after that, he stabilized and currently in the 50s. He states he feels well and would like to rather go home. Review of Systems Review of Systems: Yes all other systems are reviewed and are negative Constitutional: Constitutional: Reports as per HPI and Reports no additional constitutional complaints Eyes: Eyes: Reports as per HPI and Denies no additional eye complaints ENT: Denies system reviewed and no additional complaints, except as documented and Reports as per HPI Cardiovascular: Cardiovascular: Reports as per HPI, Reports no additional cardiovascular complaints, Denies acrocyanosis, Denies cool extremities, Denies chest pain, Denies leg edema, Denies lightheadedness, Reports palpitations and Denies dyspnea Respiratory: Respiratory: Reports as per HPI, Denies no additional respiratory complaints and Denies dyspnea Gastrointestinal: Gastrointestinal: Reports as per HPI and Denies no additional gastrointestinal complaints Genitourinary: Genitourinary: Reports no additional male genitourinary complaints and Reports as per HPI Musculoskeletal: Musculoskeletal: Reports no additional musculoskeletal complaints and Reports as per HPI Integumentary/Breasts: Skin/Breast: Reports system reviewed and no additional complaints, except as docu Neurologic: Reports system reviewed and no additional complaints, except as documented and Reports as per HPI Psychiatric: Psychiatric: Reports no additional psychiatric complaints and Reports as per HPI Endocrine: Endocrine: Reports no additional endocrine complaints, Reports as per HPI and Reports palpitations Hematologic/Lymphatic: Hematologic/Lymphatic: Reports no additional hematologic/lymphatic complaints and Reports as per HPI Allergic/Immunologic: Allergic/Immunologic: Reports no additional allergic/immunologic complaints and Reports as per HPI [facility] Past Medical History Medical History YOLANDE (obstructive sleep apnea) Acquired elevated diaphragm Renal calculi History of cardioversion Chronic cough Atrial flutter with rapid ventricular response Asthma Family History Family History Mother A-fib CVA (cerebral vascular accident) Father CVA (cerebral vascular accident) Surgical History Surgical History History of ureteroscopy Hx of tonsillectomy History of esophagogastroduodenoscopy (EGD) H/O colonoscopy History of cardiac radiofrequency ablation Social History Social History Household Members: Significant Other and Children Housing: House Alcohol intake: current Alcohol intake frequency: former alcohol drinker Alcohol type: beer, wine and hard liquor Patient Tobacco Use Status: Never used Tobacco Smoked in Last 30 Days: No Use of substances other than those prescribed or required for medical reasons: No Have you been hit, kicked, punched, or otherwise hurt by someone within the past year? If so, by whom?: No Do you feel safe in your current relationship?: Yes Is there a partner from a previous relationship who is making you feel unsafe now?: No Are you made to feel afraid or neglected: No Advance Directives: No Advance Directives Information Provided: Yes Do you have a plan to hurt others: No Plan Recently lost weight without trying: No Eating poorly because of decreased appetite: No Nutrition Risks: No Nutritional Risk Poor oral hygiene: No service: No Current occupational status: employed Meds Allergies Allergy/AdvReac Type Severity Reaction Status Date / Time Iodinated Contrast Media Allergy Severe SHORTNESS Verified 04/09/25 04:19 [IV CONTRAST] OF BREATH Active Medications: Current Medications Acetaminophen (Acetaminophen 325 Mg Tablet) 650 mg PO Q6H PRN PRN Reason: Pain, Mild 1-3,fever,headache Apixaban (Apixaban 5 Mg Tablet) 5 mg PO BID [facility] Last Admin: 04/09/25 11:28 Dose: 5 mg Atorvastatin Calcium (Atorvastatin Calcium 20 Mg Tablet) 20 mg PO DAILY [facility] Last Admin: 04/09/25 11:28 Dose: 20 mg Calcium Carbonate (Calcium Carbonate 750 Mg Tab.Chew) 750 mg PO Q4H PRN PRN Reason: Heartburn Levalbuterol HCl (Levalbuterol Hcl 1.25 Mg/3 Ml Vial.Neb) 1.25 mg INHALE BID PRN PRN Reason: Shortness Of Breath Or Wheezing Loratadine (Loratadine 10 Mg Tablet) 10 mg PO DAILY [facility] Last Admin: 04/09/25 11:28 Dose: 10 mg Lorazepam (Lorazepam 1 Mg Tablet) 1 mg PO BEDTIME PRN PRN Reason: Insomnia Magnesium Hydroxide (Milk Of Magnesia 30 Ml Oral.Susp) 30 ml PO DAILY PRN PRN Reason: Constipation Melatonin (Melatonin 3 Mg Tablet) 6 mg PO BEDTIME PRN PRN Reason: Insomnia Montelukast Sodium (Montelukast Sodium 10 Mg Tablet) 10 mg PO BEDTIME [facility] Omeprazole (Omeprazole 40 Mg Capsule.Dr) 40 mg PO DAILY@0630 [facility] Last Admin: 04/09/25 11:28 Dose: 40 mg Sodium Chloride (0.9 % Sodium Chloride Flush 3 Ml Syringe) 3 ml [facility]USH [facility] Vitamin D (Cholecalciferol (Vitamin D3) 25 Mcg Tablet) 25 mcg PO DAILY [facility] Last Admin: 04/09/25 11:28 Dose: 25 mcg Home Medications ?Medication ?Instructions ?Recorded ?Confirmed ?Last Taken ?Type cetirizine 10 mg capsule (Zyrtec) 10 mg PO DAILY 05/30/21 04/09/25 04/09/25 History lorazepam 1 mg tablet 1 tab PO BEDTIME PRN Insomnia 05/30/21 04/09/25 04/07/25 History cholecalciferol (vitamin D3) 25 25 mcg PO DAILY 09/07/21 04/09/25 04/09/25 History mcg (1,000 unit) capsule nebulizers 01/03/23 10/07/24 Unknown History atorvastatin 20 mg tablet 20 mg PO DAILY 02/13/24 04/09/25 04/07/25 History omega 0-avf-lav-fish oil 60 mg-90 1 cap PO DAILY 04/01/25 04/09/25 04/07/25 History mg-500 mg capsule (Fish Oil) beclomethasone dipropionate 80 1 inh inhalation DAILY 04/09/25 04/09/25 04/07/25 History mcg/actuation HFA breath activated aerosol (Qvar RediHaler) diltiazem HCl 180 mg capsule,24 180 mg PO DAILY 04/09/25 04/09/25 04/09/25 History hr,extended release (Tiadylt ER) potassium citrate 10 mEq (1,080 10 meq PO DAILY 04/09/25 04/09/25 04/07/25 History mg) tablet,extended release Physical Exam Vital Signs: Vital Signs: Last Vital Signs Temp 98.0 F 04/09/25 11:11 Pulse 50 04/09/25 11:11 Resp 16 04/09/25 11:11 BP 118/56 L 04/09/25 11:11 Pulse Ox 94 04/09/25 11:11 O2 Del Method Room Air 04/09/25 11:11 BMI result Body Mass Index 31.0 Const: General: comfortable and no acute distress Orientation/consciousness: patient oriented x3 HEENT: Other: Unremarkable Head: Yes normal to inspection Neck: Neck: Yes normal visual inspection Chest: Chest palpation & inspection: normal inspection of the chest Resp: Auscultation: clear to auscultation bilaterally Cardio: Palpation: normal PMI Heart sounds: S1 normal heart sound present, S2 normal heart sound present, no gallops, no murmurs and no rubs GI: Palpation (GI): Soft to palpation Back/Spine/Pelvis: Other: unremarkable Skin: General skin exam: no rashes or lesions noted Neuro: General: patient oriented x3 Extrem: General: Yes normal to inspection Psych: Mental Status: mental status grossly normal Objective Labs and Meds 04/09/25 04:32 04/09/25 04:32 Lab results: Laboratory Results - last 24 hr 04/09/25 04:32 WBC 6.5 RBC 5.13 Hgb 15.3 Hct 43.9 MCV 85.6 MCH 29.8 MCHC 34.9 RDW 12.8 Plt Count 259 MPV 9.2 L Immature Gran % (Auto) 0.3 Neut % (Auto) 54.9 Lymph % (Auto) 33.0 Trigg % (Auto) 8.8 Eos % (Auto) 2.2 Baso % (Auto) 0.8 Lymph # (Auto) 2.1 Trigg # (Auto) 0.6 Eos # (Auto) 0.1 Baso # (Auto) 0.1 Abs Immat Gran (auto) 0.02 Absolute Neuts (auto) 3.6 Absolute Nucleated RBC 0.000 Nucleated RBC % (auto) 0.0 Sodium 142 Potassium 4.1 Chloride 108 Carbon Dioxide 24 Anion Gap 14 BUN 20 H Creatinine 0.89 Estim Creat Clear Calc 100.0 Estimated GFR > 60 Random Glucose 108 Calcium 9.4 Total Bilirubin 0.7 AST 23 ALT 21 Alkaline Phosphatase 82 Troponin I High Sens < 2.7 Total Protein 6.5 Albumin 4.2 ECG Interpretation: Initial EKG with suggestion of either flutter versus fibrillation at 112/Min. In the repeat EKG, sinus bradycardia at 48/Min. They were post conversion bradycardic episodes. Assessment and Plan (1) Atrial fibrillation with RVR: Status: Acute (2) Sinus bradycardia: Status: Acute Plan He has had previous ablation for flutter. Current EKGs again suggestive of possibly flutter but not very typical appearing. Received IV diltiazem and he converted to sinus bradycardia with post conversion profound bradycardia episodes. Currently, stable in the 50s. Keep him on the current dose of diltiazem. We can try flecainide 50 mg b.i.d. and monitor him on telemetry today. Resume Eliquis. We will likely need EP consultation for another ablation. Discussed with significant other. Procedures Date of Service Date of Service: 04/09/25
[2025-04-09] MEDS: Flecainide Acetate 50 MG TABLET PO ×2 (14:50→21:14)
[2025-04-09] MEDS: 0.9 % Sodium Chloride Flush 3 ML SYRINGE IVFLUSH ×2 (16:13→20:08)
[2025-04-09] MEDS: Montelukast Sodium 10 MG TABLET PO (20:02)
[2025-04-09] MEDS: LORazepam 1 MG TABLET PO (20:05)
[2025-04-09] MEDS: Melatonin 3 MG TABLET 6 MG PO (20:05)
[2025-04-10 03:21] VITALS: BP 118/60; PULSE 52; RESP 18; TEMP 36.3; O2SAT 97
[2025-04-10] MEDS: Omeprazole 40 MG CAPSULE.DR PO (06:09)
[2025-04-10 07:10] VITALS: BP 128/75; PULSE 52; RESP 20; TEMP 36.2; O2SAT 95
[2025-04-10] MEDS: Cholecalciferol (Vitamin D3) 25 MCG TABLET PO (08:07)
[2025-04-10] MEDS: Loratadine 10 MG TABLET PO (08:07)
[2025-04-10] MEDS: Apixaban 5 MG TABLET PO (08:07)
[2025-04-10] MEDS: Atorvastatin Calcium 20 MG TABLET PO (08:07)
[2025-04-10] MEDS: 0.9 % Sodium Chloride Flush 3 ML SYRINGE IVFLUSH (08:08)
--- NOTE | 2025-04-10 08:21 | PM.PNCARD ---
Subjective Subjective Date of Service: 04/10/25 Interval history: Seen and examined. He states he feels good. No complaints. Review of Systems Review of Systems Yes all other systems are reviewed and are negative Constitutional: Reports as per HPI and Reports no additional constitutional complaints Eyes: Reports as per HPI and Denies no additional eye complaints Denies system reviewed and no additional complaints, except as documented and Reports as per HPI Cardiovascular: Reports as per HPI, Reports no additional cardiovascular complaints, Denies acrocyanosis, Denies cool extremities, Denies chest pain, Denies leg edema, Denies lightheadedness, Denies palpitations and Denies dyspnea Respiratory: Reports as per HPI, Denies no additional respiratory complaints and Denies dyspnea Gastrointestinal: Reports as per HPI and Denies no additional gastrointestinal complaints Genitourinary: Reports no additional male genitourinary complaints and Reports as per HPI Musculoskeletal: Reports no additional musculoskeletal complaints and Reports as per HPI Skin/Breast: Reports system reviewed and no additional complaints, except as docu Reports system reviewed and no additional complaints, except as documented and Reports as per HPI Psychiatric: Reports no additional psychiatric complaints and Reports as per HPI Endocrine: Reports no additional endocrine complaints, Reports as per HPI and Denies palpitations Hematologic/Lymphatic: Reports no additional hematologic/lymphatic complaints and Reports as per HPI Allergic/Immunologic: Reports no additional allergic/immunologic complaints and Reports as per HPI Physical Exam Vital Signs: Last Vital Signs Temp 97.1 F 04/10/25 07:10 Pulse 52 04/10/25 07:10 Resp 20 04/10/25 07:10 BP 128/75 04/10/25 07:10 Pulse Ox 95 04/10/25 07:10 O2 Del Method Room Air 04/10/25 07:10 BMI result Body Mass Index 31.0 Const General: comfortable and no acute distress Orientation/consciousness: patient oriented x3 HEENT Other: Unremarkable Head: Yes normal to inspection Neck Neck: Yes normal visual inspection Chest Chest palpation & inspection: normal inspection of the chest Resp Auscultation: clear to auscultation bilaterally Cardio Palpation: normal PMI Heart sounds: S1 normal heart sound present, S2 normal heart sound present, no gallops, no murmurs and no rubs GI Palpation (GI): Soft to palpation Back/Spine/Pelvis Other: unremarkable Skin General skin exam: no rashes or lesions noted Neuro General: patient oriented x3 Extrem General: Yes normal to inspection Psych Mental Status: mental status grossly normal Objective Labs and Meds 04/09/25 04:32 04/09/25 04:32 Progress Note: A&P Assessment and plan (1) Atrial fibrillation with RVR: Status: Acute (2) Sinus bradycardia: Status: Acute Plan He has had previous ablations for flutter. Current EKGs again suggestive of possibly flutter but not very typical appearing. Received IV diltiazem and he converted to sinus bradycardia with post conversion bradycardia episodes. Currently, stable in the 50s-60s. Continue diltiazem. Add a small dose of flecainide to keep him in sinus rhythm. Eliquis. Message sent to to see him in follow up to see if he needs another ablation. Discussed with . Time Spent With Patient Time: Total time managing care of this patient today ____ minutes. Progress Note: Quality Stroke Does the patient have a stroke diagnosis?: No Procedures Date of Service Date of Service: 04/10/25
--- NOTE | 2025-04-10 08:56 | PM.DS ---
DS: Providers Provider Date of Service: 04/10/25 Date of admission: 04/09/25 07:36 Date of discharge: 04/10/25 Primary care physician: Unknown Physician Consults: 04/09/25 07:36 Consult to Cardiology Routine Consulting Provider: [facility] Reason for consultation: tachy augustin afib Has provider been notified: Yes DS: Diagnosis Discharge Diagnosis (1) Atrial fibrillation with RVR: Status: Acute (2) Sinus bradycardia: Status: Acute DS: Summary Hospital Course Hospital Course: from initial hpi: 65-year-old male with a PMH significant for?atrial fibrillation/flutter s/p cardioversion x2 and ablation x2, not on anticoagulation, asthma, GERD, and insomnia who presents to the ED for evaluation of palpitations. Pt began experiencing palpitations after using the restroom earlier this morning. Confirmed with his watch that he was in AFib. Took his diltiazem 180 mg p.o. early in the hopes that he would convert back to sinus, but continued to feel palpitations for the next two hours, which prompted his presentation to the ED. Denies any other significant symptoms at that time: Slight chest pressure, but no pain. Denies shortness or breath or HASKINS, no lightheadedness or dizziness. In the ED pt arrived with HR in the 120s and EKG showing AFib. BP stable. Pt's HR noted to drop as low as 37 on the monitor, though was nonsustained and jumped back up to the 120s. Pt was given diltiazem 5 mg IV push for RVR instead of the ordered 10 mg. Subsequently pt had additional 3 episodes of nonsustained bradycardia in the 20s and 30s that would last a few sec before jumping back into the 90s to 100s. Pt was presyncopal with lightheadedness and dizziness during these episodes. Pacer pads were placed on the pt. Pt reports that normal resting HR is around 63-65 during waking hours, and 55 while sleeping. Currently pt has no acute medical complaints. Pt is in NSR with HR in the 50s. In the ED pt was tachycardic up to 118, bradycardic into the 30s, and hypertensive up to 142/92. Labs were grossly unremarkable and around baseline for pt. No leukocytosis. Stable H&H. No significant electrolyte abnormalities. Renal and hepatic function WNL. Troponin negative. Initial EKG demonstrated atrial flutter with variable AV block, and repeat showing sinus bradycardia of 48 with sinus arrhythmia. Pt was treated in the ED with diltiazem 10 mg IV. Pt is admitted to the hospital for treatment and further evaluation of symptomatic bradycardia concerning for tachy-augustin syndrome vs iatrogenic induced. hospital course: Patient was admitted for paroxysmal AFib with symptomatic bradycardia. Symptoms resolved and heart rate returned to normal rate. Was seen by Cardiology recommended continuing apixaban, diltiazem and adding flecainide 50 b.i.d.. Will be discharged home and follow up with Cardiology. For mild intermittent asthma remained stable. For hyperlipidemia continued on statin. For GERD continued on omeprazole. For insomnia continued on lorazepam. Time Attestation Discharge Coordination Time (in mins): 34 Quality: Safe Use of Opioids Does Pt have an Active Cancer Diagnosis on the Problem List?: No Quality: Stroke Does the patient have a stroke diagnosis?: No Physical Exam Vital Signs: Vital Signs: Last Vital Signs Temp 97.1 F 04/10/25 07:10 Pulse 52 04/10/25 07:10 Resp 20 04/10/25 07:10 BP 128/75 04/10/25 07:10 Pulse Ox 95 04/10/25 07:10 O2 Del Method Room Air 04/10/25 07:10 BMI result Body Mass Index 31.0 General: AO X 3, no acute distress Resp: CTA bilateral, no accessory muscles used CVS: S1,S2,RRR GI: soft, non tender, non distended Neuro: motor grossly intact, alert Psych: appropriate affect, appropriate insight DS: Data Data Completed and Pending Completed studies during hospitalization [Text1]: Procedures Rastafarian of Cardiac Rhythm, Single (05/30/21) Discharge Plan Discharge Anticipated Discharge Date/Time: 04/10/25 08:53 Patient Disposition: Home, Self-Care Discharge Diagnosis: augustin Referrals: Physician,Unknown J [Primary Care Provider] - 1 Week Discharge Medications: New Eliquis 5 mg Tablet 5 mg PO BID Qty: 180 0RF flecainide 50 mg tablet 50 mg PO Q12H Qty: 180 0RF Continued montelukast [Singulair] 10 mg tablet 10 mg PO BEDTIME 30 Days Qty: 30 1RF lorazepam 1 mg tablet 1 tab PO BEDTIME PRN (Reason: Insomnia) Zyrtec 10 mg Capsule 10 mg PO DAILY diltiazem HCl [Tiadylt ER] 180 mg capsule,extended release 24hr 180 mg PO DAILY potassium citrate 10 mEq (1,080 mg) tablet extended release 10 meq PO DAILY Qvar RediHaler 80 mcg/actuation HFA aerosol breath activated 1 inh INHALATION DAILY omeprazole 40 mg capsule,delayed release(DR/EC) 40 mg PO DAILY 30 Days Qty: 30 4RF cholecalciferol (vitamin D3) 25 mcg (1,000 unit) capsule 25 mcg PO DAILY (DME) nebulizers Misc See Rx Instructions .Route Rx Instructions: As directed atorvastatin 20 mg tablet 20 mg PO DAILY levalbuterol HCl 1.25 mg/3 mL solution for nebulization 1.25 mg inhalation BID PRN (Reason: Shortness Of Breath Or Wheezing) 30 Days Qty: 90 11RF levalbuterol tartrate [Xopenex HFA] 45 mcg/actuation HFA aerosol inhaler 2 puff inhalation Q6H PRN (Reason: shortness of breath or wheezing) 30 Days Qty: 1 11RF omega 9-[id number]-[id number]-fish oil [Fish Oil] 60-90-500 mg capsule 1 cap PO DAILY Discharge Orders: Discharge Order (Routine); Ordered 04/10/25 Ordered By: Jose Lambert Diet: Advance to usual diet Activity on Discharge: As tolerated Stand Alone Forms: Patient Portal Discharge page Print Language: Urdu Care Plan Goals: manage afib Health Concerns: afib Plan of Treatment: starting eliquis, flecanide, follow up with cardio Assessment: see above
--- NOTE | 2025-04-10 10:43 | MHC.CM.PN ---
EMR REVIEWD, CM MET W/PT WHO REPORTS HE LIVES W/ [facility] AND [facility], PT IS FULLY INDEP W/CARE, DENIES USE OF DME/SERVICES, GOAL IS HOME TODAY AND DC ORDER IN. PT VERIFIES PCP IS [place] COTTO MD AND HCP ON FILE VERIFIED. PT DISCHARGING HOME SELF-CARE, PT PROVIDED W/ELIQUIS INFO PACKET AND COMMERCIAL INS $10 COPAY CARD, PT WILL CALL [facility] FOR TRANSPORT.
== END 2025-04-10 11:19 | disposition home or self-care (01) | DRG 201 ==
LOC: HO.ED 07:49 → HO.EDOVER 07:57 → HO.IMC 09:11
PROVIDERS: Admitting Provider Internal Medicine; Emergency Provider Emergency Medicine; PCP Internal Medicine; Visit Provider Internal Medicine
DX: I48.0 Paroxysmal atrial fibrillation (principal); E78.5 Hyperlipidemia, unspecified; G47.33 Obstructive sleep apnea (adult) (pediatric); J45.909 Unspecified asthma, uncomplicated; K21.9 Gastro-esophageal reflux disease without esophagitis; R00.1 Bradycardia, unspecified; G47.00 Insomnia, unspecified; Z79.899 Other long term (current) drug therapy
CPT/HCPCS: 36415; 80053; 84484; 85025; 93005; 99285

== ENCOUNTER → 2025-04-09 07:36 | Outpatient (BNV) | payer BC, SELFPAY | PROVIDERS: Admitting Provider Internal Medicine; Emergency Provider Emergency Medicine; Visit Provider Internal Medicine | DX: I48.91 Unspecified atrial fibrillation (principal); R00.1 Bradycardia, unspecified | CPT/HCPCS: 99233; 99253 ==

== ENCOUNTER → 2025-04-09 07:36 | Outpatient (BNV) | payer BC, SELFPAY | PROVIDERS: Admitting Provider Internal Medicine; Emergency Provider Emergency Medicine; Visit Provider Student in an Organized Health Care Education/Training Program | DX: I48.91 Unspecified atrial fibrillation (principal); R00.1 Bradycardia, unspecified | CPT/HCPCS: 99223; 99239 ==

== ENCOUNTER 2025-04-24 10:27 | Outpatient (AMB) | payer BC, SELFPAY ==
[2025-04-24 10:39] VITALS: BP 102/62; PULSE 58; O2SAT 95; BMI 31.1
--- NOTE | 2025-04-24 10:39 | MHC.OFFVIS ---
Vital Signs 04/24/25 10:39 Height 5 ft 11 in Weight 222 lb 10.67 oz BMI 31.1 BP 102/62 Blood Pressure Location Lt brachial Position Sitting Pulse 58 Pulse Source Pulse Oximeter Pulse Oximetry (%) 95 Oxygen Delivery Method Room Air Intake Visit Reasons: asthma Anesthesia Technician Required: No Accompanied by: Self / Same As Patient Allergies Iodinated Contrast Media (IV CONTRAST) Allergy (Severe, Verified 04/24/25 10:42) SHORTNESS OF BREATH HPI Comments Details: The patient is a 65-year-old gentleman with a previous history of asthma who apparently it has been noticing increasing chest tightness and coughing for the last few years but now getting worse. Per the patient required a short-acting beta agonist a more recently he was placed on Advair. The inhalers to help control his symptoms But only partially. In addition to this the patient started developing vague symptoms of fatigue and chest heaviness. He was evaluated by his primary care doctor who symptom to the ER to be evaluated for tachyarrhythmia. The patient is diagnosed with AFib and flutter. he has been cardioverted x2. Currently on anticoagulation. He was also placed on a anti rhythmic agent. Now considering ablation which is likely going to her in the next few weeks. In the meantime the patient denies any significant exposures. he was exposed to secondhand smoke. May also have mold in his home. denies having any birds or any farm animals. The patient does complaint of heartburn. He has been taking omeprazole iohr-ody-vniutrx. Symptoms usually worse at nighttime. 09/07/2021 the patient is here for a pulmonary follow-up visit. Overall he is doing better. He is tolerating the QVAR. Since we last spoke he did have his ablation and now has been in normal sinus mechanism. This is been reassuring. We did review his blood work demonstrating no evidence of any allergies or any eosinophilia. He also had a barium swallow which was relatively normal severe did mention some initial irregularity to the mucosa in the cervical area. Therefore, the patient is aware and the symptoms that may be will need to be looked that is specially if he continues having any symptoms. We did review his pulmonary function studies which demonstrated small airways disease in addition to a reversible obstruction consistent with asthma moderate severity. The patient also had air trapping consistent with small airways disease. He did have 1 episode where he felt chest tightness but he was concerned about using his albuterol. Specially with a history of AFib and failed cardioversions. Therefore, I will prescribe Xopenex for in order for him to be able to use short-acting beta agonist with less concern of precipitating cardiac arrhythmias with his history will continue with reflux diet for now and will follow-up in 6 months. 01/03/2022 the patient is here for a pulmonary follow-up visit. He continues to do well. He continues on the QVAR. He was able to stop the singular. He has been doing well after the ablation and was able to stop the Eliquis as well. He has not required a short-acting beta agonist. He does have Xopenex because of history of tachyarrhythmias. He did receive a letter from his insurance company that they are no longer going to cover it. Right now he has enough medication and will add readdress that once he needs a refill. In the meantime he did follow-up with GI he was diagnosed with Galan's esophagus. He is going to be closely monitor for that. He continue the reflux diet and seems to be helpful. Overall the patient is doing well. Will plan to follow-up in a year's time will PFTs. 08/01/2022 the patient is here for sick visit. Apparently he started developing worsening chest tightness and shortness of breath. He denies any sick contacts although the recently spent time with a therefore may have been exposed then. Denies any fevers or chills denies any for throat. He has continued to use the QVAR. He also start using his rescue inhaler. He felt that he needed a nebulizer because of the chest tightness that was moderate severity. The inhaler was only partially helpful. However when he went to use the nebulizer was broken. The patient actually has now received a nebulizer himself this was a stoney down. Therefore, the patient needs to get a nebulizer at this time. I did provide him with Xopenex nebulized therapy in the office. The patient does have a history of AFib and flutter so therefore try to minimize beta agonist effect. Currently he does have some expiratory wheezing but minimal. I am hopeful that increasing the inhaled steroids and using the nebulizer would help him improve his symptoms. However, the patient is not better by the end of week he will call the office in order to send him additional medicines of pharmacy including prednisone and possibly an antibiotic if he is congested. We can also consider long-acting muscarinic antagonist if he continues to have symptoms in order to provide bronchodilation without interacting with his cardiac issues. 01/03/2023 the patient is here for a pulmonary follow-up visit. Last night he had to go to the ER because his AFib was acting up. He was rate controlled and he was able to be discharged home. He is back in the [facility] and he is taking better care of himself. Sore breathing standpoint the patient did have COVID and he was taking QVAR his rescue inhaler more often. Now he is recovering and doing better. He it does continue to use the QVAR but has not had to use the Xopenex recently. On examination he still has some wheezing. Specially when the forced exhalation. Therefore we talked about considering to try a small dose of long-acting muscarinic antagonist to help with breathing but not interfere with his cardiac issues. The patient is willing to do so. I did give him a prescription on paper for him to in order to consider. He is continue the QVAR for now. We did review his chest x-ray that he had recently specially when he had COVID and he still has that elevated left hemidiaphragm. Otherwise no acute disease. Will plan to follow-up in the fall or sooner if he develops any other new issues. 08/08/2023 the patient is here for a pulmonary follow-up visit. The patient was doing well till about a week ago when he started developing URI like symptoms. Had some fevers and chills. Also runny nose. Positive sick contacts in the house. His fevers went away he tested negative for COVID but then started developing increasing chest tightness and shortness of breath and wheezing. Increased the QVAR to twice a day. He has been using the Xopenex via the nebulizer. This has been partially helpful. He still has some wheezing on examination. The patient will benefit from additional prednisone and antibiotics at this time. Likely has a component of post viral reactive airway disease and or the possibility of a postviral bacterial process that may be starting. In the meantime the patient did have a chest x-ray in July 13 before he got sick and was noted again that he is left hemidiaphragm is elevated. This goes back sometime. We talked about that is likely related to an injury of some type. Will go ahead and request a sniff study to assess for any diaphragmatic excursion of that left hemidiaphragm. 02/13/2024 the patient is here for a pulmonary follow-up visit. The patient has been doing well. He did undergo an ablation and has been sinus rhythm. The patient was taken off the Eliquis. His breathing has been very good. Denies any significant chest tightness or wheezing. He was able to come off the Spiriva and also had not been using his rescue inhaler. He has continued on the QVAR. However, more recently he started developing some chest tightness and cough. He is thinking about using the levo albuterol. He does not have the Spiriva any longer. The patient may have a component of allergies as well. He did not have his sniff study done. At this point the patient is doing well would like to hold off. Therefore will continue to monitor his symptoms and will hold off on the sniff study. He understands he does have an elevated diaphragm doing likely an injury of some type. The patient will continue with current respiratory therapy and follow-up in a year's time unless he has any new issues he will call for an earlier assessment. 07/29/2024 the patient is here for a pulmonary follow-up visit. Overall the patient has been doing okay. He is still having episodes of atrial fibrillation at times. Seems like the asthma seems to be better controlled on the singular. He does take that nightly. In addition to that he is continue with respiratory inhalers. Seems to be tolerating well. He does need a refill Xopenex as he is out at this time. The patient does have underlying daytime drowsiness. Does have headaches in the morning. His Bradford score is elevated 09/28. In view of his underlying cardiac arrhythmias and daytime drowsiness the patient should definitely get a sleep study. I will request a home sleep study at this time. If he does have sleep apnea then we need to talk about potential therapies specially with a cardiac history. 04/24/2025 the patient is here for pulmonary follow-up visit. Since we last spoke he went back into atrial fibrillation and required additional medication. He was placed on flecainide. He will be following up with EP soon. He feels well though from a respiratory status the asthma has been stable on the current respiratory regimen and he has not required any additional beta agonist therapy. Guarding his sleep he stating that he is sleeping well although he has a hard time sleeping because of the hamstring injury. Denies any significant snoring. His Bradford score is within normal limits. He did have a sleep study back in the winter of 2023 which did not see any significant sleep apnea. If however the patient becomes more symptomatic or if his atrial fibrillation has been difficult to control we can consider an in-lab sleep study. Patient will practice positional therapy for now though because he did sleep better on his size. Needs to stay away sleeping on his back. We did talk about different ways that he can do that. Therefore, he will continue the current respiratory therapy he will continue with positional sleep therapy and will follow-up in a year's time. If he decides to have a sleep study can always call me and I can always schedule 1 in this case an in-lab sleep study. [facility] Medical History YOLANDE (obstructive sleep apnea) Acquired elevated diaphragm Renal calculi History of cardioversion Chronic cough Atrial flutter with rapid ventricular response Asthma Surgical History History of ureteroscopy Hx of tonsillectomy History of esophagogastroduodenoscopy (EGD) H/O colonoscopy History of cardiac radiofrequency ablation Family History Mother A-fib CVA (cerebral vascular accident) Father CVA (cerebral vascular accident) Social History Household Members: Significant Other and Children Housing: House Alcohol intake: current Alcohol intake frequency: former alcohol drinker Alcohol type: beer, wine and hard liquor Patient Tobacco Use Status: Never used Tobacco service: No Current occupational status: employed Review of Systems Const Denies chills, Reports daytime sleepiness, Reports difficulty sleeping, Denies fatigue, Denies fever(s), Denies frequent falls, Reports snoring, Denies weakness, Denies weight gain and Denies weight loss ENT Denies dizziness Card Denies chest pain, Denies leg edema, Denies lightheadedness, Reports palpitations, Denies dyspnea, Reports dyspnea on exertion and Denies other (Loss of consciousness) Resp Denies chest congestion, Reports cough, Denies dyspnea, Reports dyspnea on exertion, Reports snoring and Reports wheezing GI Denies hematochezia and Denies change in bowel habits Musc Denies abnormal gait, Denies muscle weakness, Denies numbness, Denies radiating pain into limb and Denies tingling Neuro Denies abnormal gait, Denies dizziness, Denies frequent falls, Denies numbness, Denies tingling and Denies weakness Endo Denies fatigue and Reports palpitations Aller/Immun Reports wheezing Physical Exam Vital Signs: Last Vital Signs Pulse 58 04/24/25 10:39 BP 102/62 04/24/25 10:39 Pulse Ox 95 04/24/25 10:39 Oxygen Delivery Method Room Air 04/24/25 10:39 BMI result Body Mass Index 31.1 Const General: alert Neck Neck: Yes normal visual inspection, Yes full ROM and Yes no lymphadenopathy Chest Chest palpation & inspection: normal inspection of the chest Resp Effort & Inspection: normal respiratory effort Auscultation: clear to auscultation bilaterally and no wheezes Cardio Rate: regular rate Rhythm: regular rhythm Heart sounds: S1 normal heart sound present and S2 normal heart sound present GI Palpation (GI): Soft to palpation and nontender Auscultation: normal bowel sounds Skin General skin exam: rashes and/or lesions noted Results Reviewed Results Reviewed: HOME PSG- NO YOLANDE Assessment & Plan Assessment & Plan (1) Asthma: Code(s): J45.909 - Unspecified asthma, uncomplicated Category: Medical Qualifiers: Asthma complication type: uncomplicated Asthma persistence: persistent Asthma severity: moderate Qualified Code(s): J45.40 - Moderate persistent asthma, uncomplicated (2) Paroxysmal atrial flutter: Comment: s/p ablation Code(s): I48.92 - Unspecified atrial flutter Category: Medical Plan: s/p ablation (3) Chronic cough: Code(s): R05 - Cough Category: Medical (4) Acquired elevated diaphragm: Code(s): J98.6 - Disorders of diaphragm Category: Medical Plan continue reflux diet continue QVAR 2puff Xopenex as needed continue Singulair consider spiriva positional sleep therapy, consider in lab PSG if worsen F/U 12 months Coding Level of Care Code Est Pt Level 4 (67850) Diagnoses Moderate persistent asthma without complication J45.40 Asthma complication type: uncomplicated Asthma persistence: persistent Asthma severity: moderate Paroxysmal atrial flutter I48.92 Chronic cough R05 Acquired elevated diaphragm J98.6 Time Spent (min) 16
== END 2025-04-24 11:47 | disposition home or self-care (01) ==
LOC: HO.HPS 10:28
PROVIDERS: PCP Internal Medicine; Visit Provider Hospitalist
DX: J45.40 Moderate persistent asthma, uncomplicated (principal); I48.92 Unspecified atrial flutter; R05.9 Cough, unspecified; J98.6 Disorders of diaphragm
CPT/HCPCS: 99214

== ENCOUNTER → 2025-04-24 10:27 | Outpatient (BNVA) | payer BC, SELFPAY | PROVIDERS: PCP Internal Medicine; Visit Provider Hospitalist | DX: Z09 Encounter for follow-up examination after completed treatment for conditions other than malignant neoplasm (principal); I48.92 Unspecified atrial flutter | CPT/HCPCS: 93005 ==

== ENCOUNTER 2025-04-24 13:56 | Outpatient (AMB) | payer BC, SELFPAY ==
--- NOTE | 2025-04-24 13:59 | A.OFFVIS_ITS ---
Vital Signs 04/24/25 14:01 Height 5 ft 11 in Weight 223 lb 15.834 oz BMI 31.2 BP 124/60 Blood Pressure Location Lt brachial Position Sitting Pulse 53 Pulse Source Monitor Intake Visit Reasons: 2 week f/[place] [facility] [place]c dr segal pt Intake Note: 2wk f/u[place] [place] Personal Injury Specialist Required: No Accompanied by: Self / Same As Patient Allergies Iodinated Contrast Media (IV CONTRAST) Allergy (Severe, Verified 04/24/25 10:42) SHORTNESS OF BREATH Medication List - Last Reconciled 04/24/25 by Mariusz Cox NP apixaban (Eliquis) 5 mg PO BID atorvastatin 20 mg PO DAILY beclomethasone dipropionate 80 mcg/actuation (Qvar RediHaler) 1 inh inhalation DAILY cetirizine (Zyrtec) 10 mg PO DAILY cholecalciferol (vitamin D3) 25 mcg PO DAILY diltiazem HCl ER (Tiadylt ER) 180 mg PO DAILY flecainide 50 mg PO Q12H levalbuterol HCl 1.25 mg (3 mL) inhalation BID PRN 30 days levalbuterol tartrate 45 mcg/actuation (Xopenex HFA) 2 puffs inhalation Q6H PRN 30 days lorazepam 1 tab PO BEDTIME PRN montelukast (Singulair) 10 mg PO BEDTIME 30 days nebulizers As directed omeprazole 40 mg PO DAILY 30 days potassium citrate ER 10 mEq PO DAILY HPI Comments Details: This is a 65-year-old male patient coming in for a hospital discharge follow-up visit. Patient with a history of paroxysmal flutter status post 2 cardioversion s and 2 ablations 1 in 2020 and 1 January of 2023. Patient states that he has been having intermittent palpitations where it was noted that patient did have recurrence and reasonable burden of AFib. Due to this, patient was referred to EP for another possible ablation but patient states that he has not heard yet from their office. Patient was then recently seen in the hospital for palpitations where he was noted to be in AFib with a RVR. Patient converted to sinus after IV diltiazem and was started on flecainide. Today, patient reports feeling well overall and denies any symptoms of exertional chest pain, shortness of breath, palpitations, dizziness, orthopnea, PND, leg edema, presyncope or syncope. Patient states that he has been compliant with all his medications. [facility] Medical History YOLANDE (obstructive sleep apnea) Acquired elevated diaphragm Renal calculi History of cardioversion Chronic cough Atrial flutter with rapid ventricular response Asthma Surgical History History of ureteroscopy Hx of tonsillectomy History of esophagogastroduodenoscopy (EGD) H/O colonoscopy History of cardiac radiofrequency ablation Family History Mother A-fib CVA (cerebral vascular accident) Father CVA (cerebral vascular accident) Social History Household Members: Significant Other and Children Housing: House Alcohol intake: current Alcohol intake frequency: former alcohol drinker Alcohol type: beer, wine and hard liquor Patient Tobacco Use Status: Never used Tobacco service: No Current occupational status: employed Review of Systems Const Denies chills, Denies fatigue, Denies fever(s), Denies frequent falls, Denies weakness, Denies weight gain and Denies weight loss ENT Denies dizziness Card Denies chest pain, Denies leg edema, Denies lightheadedness, Denies palpitations, Denies dyspnea and Denies dyspnea on exertion Resp Denies cough, Denies dyspnea and Denies dyspnea on exertion GI Denies hematochezia Musc Denies abnormal gait, Denies muscle weakness, Denies numbness, Denies radiating pain into limb and Denies tingling Neuro Denies abnormal gait, Denies dizziness, Denies frequent falls, Denies numbness, Denies tingling and Denies weakness Endo Denies fatigue and Denies palpitations Physical Exam Vital Signs: Last Vital Signs Pulse 53 04/24/25 14:01 BP 124/60 04/24/25 14:01 BMI result Body Mass Index 31.2 Const General: cooperative, healthy appearing, comfortable and no acute distress Orientation/consciousness: patient oriented x3 HEENT Head: Yes normal to inspection Neck Neck: Yes normal visual inspection, Yes trachea midline and Yes supple Chest Chest palpation & inspection: normal inspection of the chest Resp Effort & Inspection: normal respiratory effort Auscultation: clear to auscultation bilaterally, no crackles, no rales, no rhonchi and no wheezes Cardio Jugular venous distension: no JVD Palpation: normal PMI Rate: bradycardic Rhythm: regular rhythm Heart sounds: S1 normal heart sound present, S2 normal heart sound present, no click, no gallops, no murmurs and no rubs Peripheral pulses: Peripheral pulses 2+ throughout GI Inspection: Yes normal to inspection Palpation (GI): Soft to palpation Auscultation: normal bowel sounds Skin General skin exam: no rashes or lesions noted Neuro General: patient oriented x3 Extrem General: Yes normal to inspection, No no pedal edema and No calf tenderness Psych Appearance: grossly normal Mental Status: mental status grossly normal Speech and movement: Normal speech and movement present Office Procedures EKG Details: EKG today showed sinus bradycardia with sinus arrhythmia, rate 53 beats per minute, normal [place], [place]. [id number], Complete Assessment & Plan Assessment & Plan (1) Paroxysmal atrial fibrillation: Code(s): I48.0 - Paroxysmal atrial fibrillation Category: Medical (2) Hospital discharge follow-up: Code(s): Z09 - Encounter for follow-up examination after completed treatment for conditions other than malignant neoplasm Plan Recently in the hospital for AFib with RVR where he patient was treated with IV diltiazem and was discharged on flecainide therapy. Patient converted to sinus in the hospital and is still sinus today on the EKG. It seems that there was some confusion about Holter monitor but have requested patient to call centralized scheduling to have him scheduled for 1 to look for any recurrence and burden of AFib. Since patient has not heard back yet, we will try to contact Dr. Gao's office for an appointment to discuss possible ablation. Continue Eliquis therapy for full anticoagulation. Continue flecainide for rhythm control. No reported signs of bleeding. Recent coronary CTA showed no significant coronary artery disease. Continue statin therapy. Today's blood pressure is within normal limits. Advised heart healthy diet, regular exercise, adequate hydration, med compliance, and management of vascular risk factors. Follow-up after a visit with Dr. Gao. In the interim, patient will call the office with any concerns or change in symptoms. This note was generated using voice recognition software. While every effort has been made to ensure accuracy and proper chain hooker, there may be occasional errors that could affect the content or meaning of the described symptoms. Orders: Orders AMB EKG-In Office Today I48.0 - Paroxysmal atrial fibrillation Coding Level of Care Code Est Pt Level 4 (86673) Complex EM visit Add On G2211 Diagnoses Paroxysmal atrial fibrillation I48.0 Hospital discharge follow-up Z09 CPT Codes EKG - CPT: 17001-[id number], Complete ([id number]) Time Spent (min) 31 Comment Time spent in reviewing the chart, test results, assessment, counseling and documentation.
[2025-04-24 14:01] VITALS: BP 124/60; PULSE 53; BMI 31.2
== END 2025-04-24 14:16 | disposition home or self-care (01) ==
LOC: HO.HCS 13:57
PROVIDERS: PCP Internal Medicine
DX: I48.0 Paroxysmal atrial fibrillation (principal); Z09 Encounter for follow-up examination after completed treatment for conditions other than malignant neoplasm
CPT/HCPCS: 93010; 99214

== ENCOUNTER → 2025-05-11 10:59 | Outpatient (REF) | payer BC, SELFPAY ==
--- NOTE | 2025-05-11 11:01 | HM_ITS ---
Conclusion: 1. Patient was monitored for total period of 3 days 2. Baseline was normal sinus rhythm with average heart of 70 beats per minute 3. No significant pauses or arrhythmias noted 4. Patient marked the counter 1 times without any reported symptoms correlating with sinus rhythm MTDD
== END ==
LOC: HO.CARD 10:59
PROVIDERS: PCP Internal Medicine; Visit Provider Internal Medicine
DX: I48.0 Paroxysmal atrial fibrillation (principal)
CPT/HCPCS: 93242

== ENCOUNTER → 2025-05-11 11:01 | Outpatient (BNV) | payer BC, SELFPAY | PROVIDERS: PCP Internal Medicine; Visit Provider Internal Medicine Cardiovascular Disease | DX: I48.0 Paroxysmal atrial fibrillation (principal); I47.10 Supraventricular tachycardia, unspecified | CPT/HCPCS: 93244 ==

== ENCOUNTER 2025-07-20 10:12 | Outpatient (REF) | payer BC, SELFPAY ==
--- NOTE | ~2025-07-20 | XR_ITS ---
EXAMINATION: XR CHEST CLINICAL INFORMATION: ACUTE ASTHMA COMPARISON: 12/23/2024. 07/13/2023. 01/07/2023. TECHNIQUE: 2 views of the chest were obtained. FINDINGS: The cardiac, hilar, and mediastinal contours are normal. The lungs demonstrate mild chronic appearing scarring/atelectasis left base. Lungs otherwise clear. There is no pneumothorax or pleural effusion. There is no focal osseous or soft tissue abnormality. XR/XR chest 2V IMPRESSION: No active pulmonary disease. Stable moderately elevated left hemidiaphragm. No significant interval change. Electronically signed by: Gigi Ivory MD 07/20/2025 10:51 AM EDT
--- OUTSIDE RECORDS SUMMARY | 2025-07-20 12:53 | XMS_ITS | Clinical Summary ---
Author Organization [facility] Address [address] [address] Phone Care Team Providers Care Raimann Machine Operator Name Role Phone Pcp, Unknown Primary [...] HEPATITIS C SCREENING 02/06/1980 HIV ONE-TIME SCREENING (18-65 YEARS) 02/06/1980 COLOGUARD 2007 COLONOSCOPY 2007 COLORECTAL CANCER SCREENING 2007 FIT TEST 2007 FOBT 2007 SIGMOIDOSCOPY 2007 VIRTUAL COLONOSCOPY 2007 PNEUMOCOCCAL VACCINES (50+ years) (2 of 2 - PCV) 09/07/2021 09/07/2020 INFLUENZA VACCINE (#1) 2025 , 08/05/2020, 08/05/2019, Additional history exists COVID-19 VACCINE (2 - season) 2025 02/12/2021 Adult Td,Tdap Booster 05/03/2031 05/03/2021, 019 RSV VACCINE (1 - 1-dose 75+ series) [...] topic Medical Devices Not on file Insurance [facility] POS [facility] POS Care Teams Raimann Machine Operator Relationship Specialty Start Date End Date Pcp, Unknown PCP - General 06/20/21 Additional Source Comments The information contained in this document represents components of the legal health record. It is not the complete legal health record.[facility]
== END 2025-07-20 10:13 | disposition home or self-care (01) ==
LOC: HO.XRAY 10:12
PROVIDERS: PCP Internal Medicine; Visit Provider Internal Medicine
DX: J45.909 Unspecified asthma, uncomplicated (principal)
CPT/HCPCS: 71046

== ENCOUNTER → 2025-07-20 10:23 | Outpatient (BNV) | payer BC, SELFPAY | PROVIDERS: PCP Internal Medicine; Visit Provider Radiology Diagnostic Radiology | DX: J45.901 Unspecified asthma with (acute) exacerbation (principal) | CPT/HCPCS: 71046 ==

== ENCOUNTER 2025-07-20 12:23 | Outpatient (REF) | payer BC, SELFPAY ==
[2025-07-20 13:37] LABS: Alanine Aminotransferase 18 U/L (0-40); Albumin Level 4.3 g/dL (3.5-5.0); Alkaline Phosphatase 81 U/L (39-117); Aspartate Amino Transferase 22 U/L (5-37); Cholesterol 207 mg/dL (<200); HDL Cholesterol 69 mg/dL (>40); Total Protein 6.4 g/dL (6.5-8.0); Triglycerides 62 mg/dL (<150)
== END 2025-07-20 12:24 | disposition home or self-care (01) ==
LOC: HO.LNP 12:23
PROVIDERS: Visit Provider Internal Medicine
DX: E78.00 Pure hypercholesterolemia, unspecified (principal)
CPT/HCPCS: 80061; 80076; 82947

== ENCOUNTER 2025-07-30 13:33 | Outpatient (AMB) | payer BC, SELFPAY ==
--- NOTE | 2025-07-30 13:37 | A.OFFVIS_ITS ---
Vital Signs 07/30/25 13:38 Height 5 ft 11 in Weight 227 lb 1.218 oz BMI 31.7 BP 120/70 Blood Pressure Location Lt brachial Position Sitting Pulse 62 Pulse Source Pulse Oximeter Pulse Oximetry (%) 93 Oxygen Delivery Method Room Air Intake Visit Reasons: Asthma Retail Planning Manager Required: No Accompanied by: Self / Same As Patient Allergies Iodinated Contrast Media (IV CONTRAST) Allergy (Severe, Verified 07/30/25 13:41) SHORTNESS OF BREATH HPI Comments Details: The patient is a 65-year-old gentleman with a previous history of asthma who apparently it has been noticing increasing chest tightness and coughing for the last few years but now getting worse. Per the patient required a short-acting beta agonist a more recently he was placed on Advair. The inhalers to help control his symptoms But only partially. In addition to this the patient started developing vague symptoms of fatigue and chest heaviness. He was evaluated by his primary care doctor who symptom to the ER to be evaluated for tachyarrhythmia. The patient is diagnosed with AFib and flutter. he has been cardioverted x2. Currently on anticoagulation. He was also placed on a anti rhythmic agent. Now considering ablation which is likely going to her in the next few weeks. In the meantime the patient denies any significant exposures. he was exposed to secondhand smoke. May also have mold in his home. denies having any birds or any farm animals. The patient does complaint of heartburn. He has been taking omeprazole [id number]. Symptoms usually worse at nighttime. 09/07/2021 the patient is here for a pulmonary follow-up visit. Overall he is doing better. He is tolerating the QVAR. Since we last spoke he did have his ablation and now has been in normal sinus mechanism. This is been reassuring. We did review his blood work demonstrating no evidence of any allergies or any eosinophilia. He also had a barium swallow which was relatively normal severe did mention some initial irregularity to the mucosa in the cervical area. Therefore, the patient is aware and the symptoms that may be will need to be looked that is specially if he continues having any symptoms. We did review his pulmonary function studies which demonstrated small airways disease in addition to a reversible obstruction consistent with asthma moderate severity. The patient also had air trapping consistent with small airways disease. He did have 1 episode where he felt chest tightness but he was concerned about using his albuterol. Specially with a history of AFib and failed cardioversions. Therefore, I will prescribe Xopenex for in order for him to be able to use short-acting beta agonist with less concern of precipitating cardiac arrhythmias with his history will continue with reflux diet for now and will follow-up in 6 months. 01/03/2022 the patient is here for a pulmonary follow-up visit. He continues to do well. He continues on the QVAR. He was able to stop the singular. He has been doing well after the ablation and was able to stop the Eliquis as well. He has not required a short-acting beta agonist. He does have Xopenex because of history of tachyarrhythmias. He did receive a letter from his insurance company that they are no longer going to cover it. Right now he has enough medication and will add readdress that once he needs a refill. In the meantime he did follow-up with GI he was diagnosed with Galan's esophagus. He is going to be closely monitor for that. He continue the reflux diet and seems to be helpful. Overall the patient is doing well. Will plan to follow-up in a year's time will PFTs. 08/01/2022 the patient is here for sick visit. Apparently he started developing worsening chest tightness and shortness of breath. He denies any sick contacts although the recently spent time with a therefore may have been exposed then. Denies any fevers or chills denies any for throat. He has continued to use the QVAR. He also start using his rescue inhaler. He felt that he needed a nebulizer because of the chest tightness that was moderate severity. The inhaler was only partially helpful. However when he went to use the nebulizer was broken. The patient actually has now received a nebulizer himself this was a stoney down. Therefore, the patient needs to get a nebulizer at this time. I did provide him with Xopenex nebulized therapy in the office. The patient does have a history of AFib and flutter so therefore try to minimize beta agonist effect. Currently he does have some expiratory wheezing but minimal. I am hopeful that increasing the inhaled steroids and using the nebulizer would help him improve his symptoms. However, the patient is not better by the end of week he will call the office in order to send him additional medicines of pharmacy including prednisone and possibly an antibiotic if he is congested. We can also consider long-acting muscarinic antagonist if he continues to have symptoms in order to provide bronchodilation without interacting with his cardiac issues. 01/03/2023 the patient is here for a pulmonary follow-up visit. Last night he had to go to the ER because his AFib was acting up. He was rate controlled and he was able to be discharged home. He is back in the [facility] and he is taking better care of himself. Sore breathing standpoint the patient did have COVID and he was taking QVAR his rescue inhaler more often. Now he is recovering and doing better. He it does continue to use the QVAR but has not had to use the Xopenex recently. On examination he still has some wheezing. Specially when the forced exhalation. Therefore we talked about considering to try a small dose of long-acting muscarinic antagonist to help with breathing but not interfere with his cardiac issues. The patient is willing to do so. I did give him a prescription on paper for him to in order to consider. He is continue the QVAR for now. We did review his chest x-ray that he had recently specially when he had COVID and he still has that elevated left hemidiaphragm. Otherwise no acute disease. Will plan to follow-up in the fall or sooner if he develops any other new issues. 08/08/2023 the patient is here for a pulmonary follow-up visit. The patient was doing well till about a week ago when he started developing URI like symptoms. Had some fevers and chills. Also runny nose. Positive sick contacts in the house. His fevers went away he tested negative for COVID but then started developing increasing chest tightness and shortness of breath and wheezing. Increased the QVAR to twice a day. He has been using the Xopenex via the nebulizer. This has been partially helpful. He still has some wheezing on examination. The patient will benefit from additional prednisone and antibiotics at this time. Likely has a component of post viral reactive airway disease and or the possibility of a postviral bacterial process that may be starting. In the meantime the patient did have a chest x-ray in July 13 before he got sick and was noted again that he is left hemidiaphragm is elevated. This goes back sometime. We talked about that is likely related to an injury of some type. Will go ahead and request a sniff study to assess for any diaphragmatic excursion of that left hemidiaphragm. 02/13/2024 the patient is here for a pulmonary follow-up visit. The patient has been doing well. He did undergo an ablation and has been sinus rhythm. The patient was taken off the Eliquis. His breathing has been very good. Denies any significant chest tightness or wheezing. He was able to come off the Spiriva and also had not been using his rescue inhaler. He has continued on the QVAR. However, more recently he started developing some chest tightness and cough. He is thinking about using the levo albuterol. He does not have the Spiriva any longer. The patient may have a component of allergies as well. He did not have his sniff study done. At this point the patient is doing well would like to hold off. Therefore will continue to monitor his symptoms and will hold off on the sniff study. He understands he does have an elevated diaphragm doing likely an injury of some type. The patient will continue with current respiratory therapy and follow-up in a year's time unless he has any new issues he will call for an earlier assessment. 07/29/2024 the patient is here for a pulmonary follow-up visit. Overall the patient has been doing okay. He is still having episodes of atrial fibrillation at times. Seems like the asthma seems to be better controlled on the singular. He does take that nightly. In addition to that he is continue with respiratory inhalers. Seems to be tolerating well. He does need a refill Xopenex as he is out at this time. The patient does have underlying daytime drowsiness. Does have headaches in the morning. His [place] score is elevated 09/28. In view of his underlying cardiac arrhythmias and daytime drowsiness the patient should definitely get a sleep study. I will request a home sleep study at this time. If he does have sleep apnea then we need to talk about potential therapies specially with a cardiac history. 04/24/2025 the patient is here for pulmonary follow-up visit. Since we last spoke he went back into atrial fibrillation and required additional medication. He was placed on flecainide. He will be following up with EP soon. He feels well though from a respiratory status the asthma has been stable on the current respiratory regimen and he has not required any additional beta agonist therapy. Guarding his sleep he stating that he is sleeping well although he has a hard time sleeping because of the hamstring injury. Denies any significant snoring. His [place] score is within normal limits. He did have a sleep study back in the winter of 2023 which did not see any significant sleep apnea. If however the patient becomes more symptomatic or if his atrial fibrillation has been difficult to control we can consider an in-lab sleep study. Patient will practice positional therapy for now though because he did sleep better on his size. Needs to stay away sleeping on his back. We did talk about different ways that he can do that. Therefore, he will continue the current respiratory therapy he will continue with positional sleep therapy and will follow-up in a year's time. If he decides to have a sleep study can always call me and I can always schedule 1 in this case an in-lab sleep study. 07/30/2025 the patient is here for a sick visit. He is having hard time breathing for the last 2 weeks. Started developing laryngitis and lost his voice. He went to see his primary care doctor checking COVID x2. He tested negative. The patient was placed on a prednisone taper in addition to given respiratory medications. Unfortunately his atrial fibrillation started flaring up and he did start the flecainide. The patient has been finishing up the prednisone taper and still having hard time with the breathing. Still complains of chest congestion. His voice is coming back. The patient had a positive sick contact as is grandchild was sick with croup. Start clear the patient has had a pertussis booster. Unfortunately he takes on flecainide so I can not use macrol kathy therapy to treat for pertussis. Will go ahead and treat him with doxycycline this time. In the meantime the patient does have significant wheezing. We did give him Xopenex in the office via nebulizer did partially helped but he still has wheezing. Will start him on prednisone 60 mg taper in addition to the doxycycline and cough medication. The patient did have a chest x-ray which was personally by me. His left base is a little abnormal but he has had issues with overlapping bowel gas pattern in that area. If he continues to be symptomatic a CT scan of the chest may be helpful in the future. He was wondering biologic therapy. At this point his exacerbation is likely due to an infectious process. We had checked his eosinophil levels in the past and they have been normal. His IgE levels have not been checked. Once the patient is better we can do blood work to assess him for allergic flare-ups and if indeed he is a candidate for biologics. Will go ahead and start him on Spiriva. Unfortunately he can not tolerate the beta agonist therapy too much due to the fact that he has the atrial fibrillation. He does tolerate the levo albuterol okay and he can use it as needed. [facility] Medical History YOLANDE (obstructive sleep apnea) Acquired elevated diaphragm Renal calculi History of cardioversion Chronic cough Atrial flutter with rapid ventricular response Asthma Surgical History History of ureteroscopy Hx of tonsillectomy History of esophagogastroduodenoscopy (EGD) H/O colonoscopy History of cardiac radiofrequency ablation Family History Mother A-fib CVA (cerebral vascular accident) Father CVA (cerebral vascular accident) Social History Household Members: Significant Other and Children Housing: House Alcohol intake: current Alcohol intake frequency: former alcohol drinker Alcohol type: beer, wine and hard liquor Patient Tobacco Use Status: Never used Tobacco service: No Current occupational status: employed Review of Systems Const Denies chills, Reports daytime sleepiness, Reports difficulty sleeping, Denies fatigue, Denies fever(s), Denies frequent falls, Reports snoring, Denies weakness, Denies weight gain and Denies weight loss ENT Denies dizziness Card Denies chest pain, Denies leg edema, Denies lightheadedness, Reports palpitations, Denies dyspnea, Reports dyspnea on exertion and Denies other (Loss of consciousness) Resp Reports chest congestion, Reports cough, Denies dyspnea, Reports dyspnea on exertion, Reports snoring and Reports wheezing GI Denies hematochezia and Denies change in bowel habits Musc Denies abnormal gait, Denies muscle weakness, Denies numbness, Denies radiating pain into limb and Denies tingling Neuro Denies abnormal gait, Denies dizziness, Denies frequent falls, Denies numbness, Denies tingling and Denies weakness Endo Denies fatigue and Reports palpitations Aller/Immun Reports wheezing Physical Exam Vital Signs: Last Vital Signs Pulse 62 07/30/25 13:38 BP 120/70 07/30/25 13:38 Pulse Ox 93 07/30/25 13:38 Oxygen Delivery Method Room Air 07/30/25 13:38 BMI result Body Mass Index 31.7 Const General: alert Neck Neck: Yes normal visual inspection, Yes full ROM and Yes no lymphadenopathy Chest Chest palpation & inspection: normal inspection of the chest Resp Effort & Inspection: normal respiratory effort, Actively coughing and prolonged expiratory phase Auscultation: wheezes and diminished lung sounds Cardio Rate: regular rate Rhythm: regular rhythm Heart sounds: S1 normal heart sound present and S2 normal heart sound present GI Palpation (GI): Soft to palpation and nontender Auscultation: normal bowel sounds Skin General skin exam: rashes and/or lesions noted Assessment & Plan Assessment & Plan (1) Laryngotracheitis: Code(s): J04.2 - Acute laryngotracheitis Category: Medical (2) Asthma: Code(s): J45.909 - Unspecified asthma, uncomplicated Category: Medical Qualifiers: Asthma complication type: with acute exacerbation Asthma persistence: persistent Asthma severity: moderate Qualified Code(s): J45.41 - Moderate persistent asthma with (acute) exacerbation (3) Paroxysmal atrial flutter: Comment: s/p ablation Code(s): I48.92 - Unspecified atrial flutter Category: Medical Plan: s/p ablation (4) Chronic cough: Code(s): R05 - Cough Category: Medical (5) Acquired elevated diaphragm: Code(s): J98.6 - Disorders of diaphragm Category: Medical Plan start Prednisone 60mg taper start Doxycycline (No Macrolides due to Flecanide) cough medicine continue reflux diet continue QVAR 2puff Xopenex as needed, use nebulizer continue Singulair start spiriva positional sleep therapy, consider in lab PSG if worsen F/U 12 months Medications: New prednisone PO daily; Take 6 tabs daily x 3 days, then 5 tabs x 3 days, then 4 tabs x 3 days, then 3 tabs x 3 days, then 2 tabs daily x 3 days, then 1 tab x 3 days to complete. 63 tabs 0RF 18 days doxycycline hyclate 100 mg PO BID 20 caps 0RF 10 days tiotropium bromide 2.5 mcg/actuation (Spiriva Respimat) 2 puffs inhalation DAILY 1 ea 11RF 30 days benzonatate 200 mg PO BID PRN 60 caps 0RF cough 30 days Coding Level of Care Code Est Pt Level 4 (02563) Complex EM visit Add On G2211 Diagnoses Laryngotracheitis J04.2 Moderate persistent asthma with acute exacerbation J45.41 Asthma complication type: with acute exacerbation Asthma persistence: persistent Asthma severity: moderate Paroxysmal atrial flutter I48.92 Chronic cough R05 Acquired elevated diaphragm J98.6
[2025-07-30 13:38] VITALS: BP 120/70; PULSE 62; O2SAT 93; BMI 31.7
== END 2025-07-30 14:29 | disposition home or self-care (01) ==
LOC: HO.HPS 13:33
PROVIDERS: PCP Internal Medicine; Visit Provider Hospitalist
DX: J04.2 Acute laryngotracheitis (principal); J45.41 Moderate persistent asthma with (acute) exacerbation; I48.92 Unspecified atrial flutter; R05.9 Cough, unspecified; J98.6 Disorders of diaphragm
CPT/HCPCS: 99214

== ENCOUNTER 2025-09-07 15:47 | Outpatient (AMB) | payer BC, SELFPAY ==
[2025-09-07 15:48] VITALS: BP 114/62; PULSE 71; O2SAT 94; BMI 32.0
--- NOTE | 2025-09-07 15:48 | A.OFFVIS_ITS ---
Vital Signs 09/07/25 15:48 Height 5 ft 11 in Weight 229 lb 4.492 oz BMI 32.0 BP 114/62 Blood Pressure Location Lt brachial Position Sitting Pulse 71 Pulse Source Pulse Oximeter Pulse Oximetry (%) 94 Oxygen Delivery Method Room Air Intake Visit Reasons: Asthma [employer] Required: No Accompanied by: Self / Same As Patient Allergies Iodinated Contrast Media (IV CONTRAST) Allergy (Severe, Verified 09/07/25 15:51) SHORTNESS OF BREATH HPI Comments Details: The patient is a 65-year-old gentleman with a previous history of asthma who apparently it has been noticing increasing chest tightness and coughing for the last few years but now getting worse. Per the patient required a short-acting beta agonist a more recently he was placed on Advair. The inhalers to help control his symptoms But only partially. In addition to this the patient started developing vague symptoms of fatigue and chest heaviness. He was evaluated by his primary care doctor who symptom to the ER to be evaluated for tachyarrhythmia. The patient is diagnosed with AFib and flutter. he has been cardioverted x2. Currently on anticoagulation. He was also placed on a anti rhythmic agent. Now considering ablation which is likely going to her in the next few weeks. In the meantime the patient denies any significant exposures. he was exposed to secondhand smoke. May also have mold in his home. denies having any birds or any farm animals. The patient does complaint of heartburn. He has been taking omeprazole [id number]. Symptoms usually worse at nighttime. 09/07/2021 the patient is here for a pulmonary follow-up visit. Overall he is doing better. He is tolerating the QVAR. Since we last spoke he did have his ablation and now has been in normal sinus mechanism. This is been reassuring. We did review his blood work demonstrating no evidence of any allergies or any eosinophilia. He also had a barium swallow which was relatively normal severe did mention some initial irregularity to the mucosa in the cervical area. Therefore, the patient is aware and the symptoms that may be will need to be looked that is specially if he continues having any symptoms. We did review his pulmonary function studies which demonstrated small airways disease in addition to a reversible obstruction consistent with asthma moderate severity. The patient also had air trapping consistent with small airways disease. He did have 1 episode where he felt chest tightness but he was concerned about using his albuterol. Specially with a history of AFib and failed cardioversions. Therefore, I will prescribe Xopenex for in order for him to be able to use short-acting beta agonist with less concern of precipitating cardiac arrhythmias with his history will continue with reflux diet for now and will follow-up in 6 months. 01/03/2022 the patient is here for a pulmonary follow-up visit. He continues to do well. He continues on the QVAR. He was able to stop the singular. He has been doing well after the ablation and was able to stop the Eliquis as well. He has not required a short-acting beta agonist. He does have Xopenex because of history of tachyarrhythmias. He did receive a letter from his insurance company that they are no longer going to cover it. Right now he has enough medication and will add readdress that once he needs a refill. In the meantime he did follow-up with GI he was diagnosed with Galan's esophagus. He is going to be closely monitor for that. He continue the reflux diet and seems to be helpful. Overall the patient is doing well. Will plan to follow-up in a year's time will PFTs. 08/01/2022 the patient is here for sick visit. Apparently he started developing worsening chest tightness and shortness of breath. He denies any sick contacts although the recently spent time with a therefore may have been exposed then. Denies any fevers or chills denies any for throat. He has continued to use the QVAR. He also start using his rescue inhaler. He felt that he needed a nebulizer because of the chest tightness that was moderate severity. The inhaler was only partially helpful. However when he went to use the nebulizer was broken. The patient actually has now received a nebulizer himself this was a stoney down. Therefore, the patient needs to get a nebulizer at this time. I did provide him with Xopenex nebulized therapy in the office. The patient does have a history of AFib and flutter so therefore try to minimize beta agonist effect. Currently he does have some expiratory wheezing but minimal. I am hopeful that increasing the inhaled steroids and using the nebulizer would help him improve his symptoms. However, the patient is not better by the end of week he will call the office in order to send him additional medicines of pharmacy including prednisone and possibly an antibiotic if he is congested. We can also consider long-acting muscarinic antagonist if he continues to have symptoms in order to provide bronchodilation without interacting with his cardiac issues. 01/03/2023 the patient is here for a pulmonary follow-up visit. Last night he had to go to the ER because his AFib was acting up. He was rate controlled and he was able to be discharged home. He is back in the [facility] and he is taking better care of himself. Sore breathing standpoint the patient did have COVID and he was taking QVAR his rescue inhaler more often. Now he is recovering and doing better. He it does continue to use the QVAR but has not had to use the Xopenex recently. On examination he still has some wheezing. Specially when the forced exhalation. Therefore we talked about considering to try a small dose of long-acting muscarinic antagonist to help with breathing but not interfere with his cardiac issues. The patient is willing to do so. I did give him a prescription on paper for him to in order to consider. He is continue the QVAR for now. We did review his chest x-ray that he had recently specially when he had COVID and he still has that elevated left hemidiaphragm. Otherwise no acute disease. Will plan to follow-up in the fall or sooner if he develops any other new issues. 08/08/2023 the patient is here for a pulmonary follow-up visit. The patient was doing well till about a week ago when he started developing URI like symptoms. Had some fevers and chills. Also runny nose. Positive sick contacts in the house. His fevers went away he tested negative for COVID but then started developing increasing chest tightness and shortness of breath and wheezing. Increased the QVAR to twice a day. He has been using the Xopenex via the nebulizer. This has been partially helpful. He still has some wheezing on examination. The patient will benefit from additional prednisone and antibiotics at this time. Likely has a component of post viral reactive airway disease and or the possibility of a postviral bacterial process that may be starting. In the meantime the patient did have a chest x-ray in July 13 before he got sick and was noted again that he is left hemidiaphragm is elevated. This goes back sometime. We talked about that is likely related to an injury of some type. Will go ahead and request a sniff study to assess for any diaphragmatic excursion of that left hemidiaphragm. 02/13/2024 the patient is here for a pulmonary follow-up visit. The patient has been doing well. He did undergo an ablation and has been sinus rhythm. The patient was taken off the Eliquis. His breathing has been very good. Denies any significant chest tightness or wheezing. He was able to come off the Spiriva and also had not been using his rescue inhaler. He has continued on the QVAR. However, more recently he started developing some chest tightness and cough. He is thinking about using the levo albuterol. He does not have the Spiriva any longer. The patient may have a component of allergies as well. He did not have his sniff study done. At this point the patient is doing well would like to hold off. Therefore will continue to monitor his symptoms and will hold off on the sniff study. He understands he does have an elevated diaphragm doing likely an injury of some type. The patient will continue with current respiratory therapy and follow-up in a year's time unless he has any new issues he will call for an earlier assessment. 07/29/2024 the patient is here for a pulmonary follow-up visit. Overall the patient has been doing okay. He is still having episodes of atrial fibrillation at times. Seems like the asthma seems to be better controlled on the singular. He does take that nightly. In addition to that he is continue with respiratory inhalers. Seems to be tolerating well. He does need a refill Xopenex as he is out at this time. The patient does have underlying daytime drowsiness. Does have headaches in the morning. His Riverton score is elevated 09/28. In view of his underlying cardiac arrhythmias and daytime drowsiness the patient should definitely get a sleep study. I will request a home sleep study at this time. If he does have sleep apnea then we need to talk about potential therapies specially with a cardiac history. 04/24/2025 the patient is here for pulmonary follow-up visit. Since we last spoke he went back into atrial fibrillation and required additional medication. He was placed on flecainide. He will be following up with EP soon. He feels well though from a respiratory status the asthma has been stable on the current respiratory regimen and he has not required any additional beta agonist therapy. Guarding his sleep he stating that he is sleeping well although he has a hard time sleeping because of the hamstring injury. Denies any significant snoring. His River[place] score is within normal limits. He did have a sleep study back in the winter of 2023 which did not see any significant sleep apnea. If however the patient becomes more symptomatic or if his atrial fibrillation has been difficult to control we can consider an in-lab sleep study. Patient will practice positional therapy for now though because he did sleep better on his size. Needs to stay away sleeping on his back. We did talk about different ways that he can do that. Therefore, he will continue the current respiratory therapy he will continue with positional sleep therapy and will follow-up in a year's time. If he decides to have a sleep study can always call me and I can always schedule 1 in this case an in-lab sleep study. 07/30/2025 the patient is here for a sick visit. He is having hard time breathing for the last 2 weeks. Started developing laryngitis and lost his voice. He went to see his primary care doctor checking COVID x2. He tested negative. The patient was placed on a prednisone taper in addition to given respiratory medications. Unfortunately his atrial fibrillation started flaring up and he did start the flecainide. The patient has been finishing up the prednisone taper and still having hard time with the breathing. Still complains of chest congestion. His voice is coming back. The patient had a positive sick contact as is grandchild was sick with croup. Start clear the patient has had a pertussis booster. Unfortunately he takes on flecainide so I can not use macrol kathy therapy to treat for pertussis. Will go ahead and treat him with doxycycline this time. In the meantime the patient does have significant wheezing. We did give him Xopenex in the office via nebulizer did partially helped but he still has wheezing. Will start him on prednisone 60 mg taper in addition to the doxycycline and cough medication. The patient did have a chest x-ray which was personally by me. His left base is a little abnormal but he has had issues with overlapping bowel gas pattern in that area. If he continues to be symptomatic a CT scan of the chest may be helpful in the future. He was wondering biologic therapy. At this point his exacerbation is likely due to an infectious process. We had checked his eosinophil levels in the past and they have been normal. His IgE levels have not been checked. Once the patient is better we can do blood work to assess him for allergic flare-ups and if indeed he is a candidate for biologics. Will go ahead and start him on Spiriva. Unfortunately he can not tolerate the beta agonist therapy too much due to the fact that he has the atrial fibrillation. He does tolerate the levo albuterol okay and he can use it as needed. 09/07/2025 the patient is here for pulmonary follow-up visit. The patient overall has been doing little bit better. Although he still has not regained his voice. He did follow-up with ENT and was told he has a left paralyzed vocal cord. I believe he is going to go for Botox injections soon. In the meantime he stopped using the QVAR because we were not sure if it was related to thrush. He is doing well off it. He does have some chest congestion her. We did talk about making sure that he sleeps elevated to avoid any micro aspirations. He can also try some Mucinex to see if helps some with expectoration. Otherwise the patient is doing well. His cardiac status is stable. His chest x-ray from July was stable. Will get an update from him after his ENT intervention. The patient follow-up in 4-6 months. If he has any issues prior to this she can always call for an earlier assessment or recommendations. [facility] Medical History (Updated 09/07/25 @ 21:50 by Luis Schroeder MD) Vocal cord paralysis Laryngitis Acute laryngitis YOLANDE (obstructive sleep apnea) Acquired elevated diaphragm Renal calculi History of cardioversion Chronic cough Atrial flutter with rapid ventricular response Asthma Surgical History History of ureteroscopy Hx of tonsillectomy History of esophagogastroduodenoscopy (EGD) H/O colonoscopy History of cardiac radiofrequency ablation Family History Mother A-fib CVA (cerebral vascular accident) Father CVA (cerebral vascular accident) Social History Household Members: Significant Other and Children Housing: House Alcohol intake: current Alcohol intake frequency: former alcohol drinker Alcohol type: beer, wine and hard liquor Patient Tobacco Use Status: Never used Tobacco service: No Current occupational status: employed Review of Systems Const Denies chills, Reports daytime sleepiness, Reports difficulty sleeping, Denies fatigue, Denies fever(s), Denies frequent falls, Reports snoring, Denies weakness, Denies weight gain and Denies weight loss ENT Denies dizziness and Reports hoarseness Card Denies chest pain, Denies leg edema, Denies lightheadedness, Reports palpitations, Denies dyspnea, Denies dyspnea on exertion and Denies other (Loss of consciousness) Resp Reports chest congestion, Reports cough, Denies dyspnea, Denies dyspnea on exertion, Reports snoring and Denies wheezing GI Denies hematochezia and Denies change in bowel habits Musc Denies abnormal gait, Denies muscle weakness, Denies numbness, Denies radiating pain into limb and Denies tingling Neuro Denies abnormal gait, Denies dizziness, Denies frequent falls, Denies numbness, Denies tingling and Denies weakness Endo Denies fatigue and Reports palpitations Aller/Immun Denies wheezing Physical Exam Vital Signs: Last Vital Signs Pulse 71 09/07/25 15:48 BP 114/62 09/07/25 15:48 Pulse Ox 94 09/07/25 15:48 Oxygen Delivery Method Room Air 09/07/25 15:48 BMI result Body Mass Index 32.0 Const General: alert Neck Neck: Yes normal visual inspection, Yes full ROM and Yes no lymphadenopathy Chest Chest palpation & inspection: normal inspection of the chest Resp Effort & Inspection: normal respiratory effort and No prolonged expiratory phase Auscultation: clear to auscultation bilaterally, no wheezes and lung sounds not diminished Cardio Rate: regular rate Rhythm: regular rhythm Heart sounds: S1 normal heart sound present and S2 normal heart sound present GI Palpation (GI): Soft to palpation and nontender Auscultation: normal bowel sounds Skin General skin exam: rashes and/or lesions noted Assessment & Plan Assessment & Plan (1) Asthma: Code(s): J45.909 - Unspecified asthma, uncomplicated Category: Medical Qualifiers: Asthma complication type: uncomplicated Asthma persistence: persistent Asthma severity: moderate Qualified Code(s): J45.40 - Moderate persistent asthma, uncomplicated (2) Paroxysmal atrial flutter: Comment: s/p ablation Code(s): I48.92 - Unspecified atrial flutter Category: Medical Plan: s/p ablation (3) Chronic cough: Code(s): R05 - Cough Category: Medical (4) Acquired elevated diaphragm: Code(s): J98.6 - Disorders of diaphragm Category: Medical (5) Vocal cord paralysis: Code(s): J38.00 - Paralysis of vocal cords and larynx, unspecified Category: Medical Plan ENT to evaluate and treat continue reflux diet continue QVAR 2puff Xopenex as needed, use nebulizer continue Singulair positional sleep therapy, consider in lab PSG if worsen F/U 6 months Coding Level of Care Code Est Pt Level 4 (55214) Diagnoses Moderate persistent asthma without complication J45.40 Asthma complication type: uncomplicated Asthma persistence: persistent Asthma severity: moderate Paroxysmal atrial flutter I48.92 Chronic cough R05 Acquired elevated diaphragm J98.6 Vocal cord paralysis J38.00 Time Spent (min) 16
--- OUTSIDE RECORDS SUMMARY | 2025-09-07 16:55 | XMS_ITS | Continuity of Care Document ---
Author Organization [place] - [facility], [facility] Address [address] [place] [address] Care Team Providers Care Tableau Administrator Name Role Phone CAROLINA MOON Primary Care Provider CAROLINA MOON Primary Care Provider [phone] Assessment No assessment recorded. Plan of Treatment Reminders Order Date Submit Date Provider Last Modified By Organization Details Last Modified Time Details Appointments SURGERY 60 2024 11:00A Michael Encinas MD Not available Not available Not available Post Op 30 2025 11:00A Michael Encinas MD Not available Not available Not available Lab None recorded. Referral None recorded. Procedures None recorded. Surgeries laryngosc opy, direct, with injection into vocal cord(s), therapeut ic; with operating microscpe or telescope (SURG) 2024 025 [email or web address] Not available 09/02/2025 09:48:[address], neck, soft tissue, w/ contrast - CT of the neck with contrast from the skull base to the aortic arch to evaluate the entire course of the recurrent laryngeal nerve for tumors 2024 025 [email or web address] [facility] [place], [facility] [address], [place], [address], 09/07/2025 10:45:28 Medication Orders None recorded. Patient TargetsNo targets recorded. Patient InstructionsNo instructions recorded. Reason for Referral None Reported. Results Created Date Observation Date Name Description Value Unit Range Abnormal Flag Note LastModifiedBy Organization Detail LastModifiedTime 09/02/2009/03/2025 BUN BUN 18 mg/dL 8-27 normal Not Available [facility] ([facility]) [address] [facility], [place], [address], 09/03/2025 07:45:54 09/02/2009/03/2025 CREAT ININE creatinine 1.10 mg/dL 0.76-1 .27 normal Not Available [facility] ([facility]) [address] [facility], [place], [address], 09/03/2025 07:45:54 09/02/2009/03/2025 CREAT ININE eGFR 75 mL/mi n/1.7 3 >59 normal Not Available [facility] ([facility]) [address] [facility], [place], [address], 09/03/2025 07:45:54 Result Notes None recorded. Problems Name Problem SNOMED Code Status Onset Date Resolution Date Notes Provider Name and Address Organization Details Recorded Time Chronic hoarseness 9385109420761 Active 2024 LISA Encinas MD [address] [place] [address], [phone], [facility] 09:33:53 Vocal cord paralysis 145222349 Active 2024 LISA Encinas MD [address] [place] [address], [phone], [facility] 09:33:58 Disorder of the larynx 43352298 Active 2024 LISA Encinas MD [address] [place] [address], [phone], [facility] 09:41:47 Problem Notes None recorded. Procedures Surgical History Date Name Laterality Status Provider Name and Address Organization Details Recorded Time 09/02/2025 FFL_RE completed LISA VIGIL MD [address] [place] [address], [phone], [facility] 09/02/2025 09:37:54 Imaging Results None recorded. Procedure Notes None recorded. Medical Equipment None Reported. Medications Name Sig Start Date Stop Date Status Note LastModified by Organization Details LastModified Time prednisone 10 mg tablet PLEASE SEE ATTACHED FOR DETAILED DIRECTION S 09/01 completed Not Available Not Available Not Available doxycycline hyclate 100 mg capsule TAKE 1 CAPSULE BY MOUTH TWICE A DAY FOR 10 DAYS 08/31 completed Not Available Not Available Not Available atorvastati n 20 mg tablet TAKE 1 TABLET BY MOUTH EVERY DAY active Not Available Not Available No t Available benzonatate 200 mg capsule TAKE 1 CAPSULE ORALLY 2 TIMES A DAY NEEDED FOR COUGH FOR 30 DAYS 09/01 completed Not Available Not Available Not Available prednisone 20 mg tablet TAKE 2 TABLETS BY MOUTH ONCE DAILY FOR 4 DAYS 05/25 completed Not Available Not Available Not Available nystatin 500,000 unit tablet TAKE 1 TABLET BY MOUTH 3 TIMES A DAY FOR 10 DAYS active Not Available Not Available No t Available Zyrtec 10 mg tablet 10 mg every 24 hours by oral route. 2020 active Not Available Not Available Not Avai lable tramadol 50 mg tablet TAKE 1 TABLET BY MOUTH EVERY 12 HOURS NEEDED FOR 10 DAYS 09/01 completed Not Available Not Available Not Available tamsulosin 0.4 mg capsule TAKE 1 CAPSULE A DAY TO HELP WITH RENAL COLIC. MAY STOP IF SIDE EFFECTS OCCUR. 09/01 completed Not Available Not Available Not Available potassium citrate ER 10 mEq (1,080 mg) tablet,exte nded release TAKE 1 TABLET BY MOUTH TWICE A DAY active Not Available Not Available No t Available Banophen 25 mg tablet TAKE 2 TABLETS BY MOUTH ONCE FOR ALLERGY SYMPTOMS BENADRYL 50MG ONE HOUR PRIOR TO CT SCAN. 09/01 completed Not Available Not Available Not Available prednisone 50 mg tablet TAKE 1 TAB BY MOUTH 2X A DAY PREDNISON E 50MG AFTERNOON PRIOR, NIGHT PRIOR AND MORNING OF CT SCAN. 08/17 completed Not Available Not Available Not Available flecainide 50 mg tablet TAKE 1 TABLET BY MOUTH EVERY 12 HOURS active Not Available Not Available No t Available diltiazem CD 120 mg capsule,ext ended release 24 hr TAKE 1 CAPSULE BY MOUTH DAILY 09/01 completed Not Available Not Available Not Available montelukast 10 mg tablet TAKE 1 TABLET BY MOUTH EVERYDAY AT BEDTIME active Not Available Not Available No t Available levalbutero l 1.25 mg/3 mL solution for nebulizatio n USE 1 VIAL INHALED 2 TIMES A DAY NEEDED FOR SHORTNESS OF BREATH OR WHEEZING FOR 30 DAYS active Not Available Not Available No t Available lorazepam 1 mg tablet TAKE 1 TABLET BY MOUTH AT BEDTIME ONCE A DAY NEEDED ORALLY ONCE A DAY 30 DAYS active Not Available Not Available No t Available methylpredn isolone 4 mg tablets in a dose pack TAKE 6 TABLETS ON DAY 1 DIRECTED ON PACKAGE AND DECREASE BY 1 TAB EACH DAY FOR A TOTAL OF 6 DAYS 08/21 completed Not Available Not Available Not Available azithromyci n 500 mg tablet TAKE 1 TABLET BY MOUTH EVERY DAY FOR 3 DAYS 08/31 completed Not Available Not Available Not Available Vitamin D3 25 mcg (1,000 unit) tablet 1 tablet every 24 hours by oral route. 2020 active Not Available Not Available Not Avai lable Prilosec OTC 20 mg tablet,apurva yed release 20 mg every 24 hours by oral route. 2004 active Not Available Not Available Not Avai lable Eliquis 5 mg tablet TAKE 1 TABLET BY MOUTH TWICE A DAY active Not Available Not Available No t Available Spiriva Respimat 2.5 mcg/actuati on solution for inhalation TAKE 2 PUFFS BY MOUTH EVERY DAY active Not Available Not Available No t Available Qvar RediHaler 80 mcg/actuati on HFA breath activated aerosol INHALE 1 PUFF ORALLY 2 TIMES A DAY 07/30 completed Not Available Not Available Not Available Tiadylt ER 180 mg capsule,ext ended release TAKE 1 CAPSULE BY MOUTH EVERY DAY active Not Available Not Available No t Available Vitals Date Recorded Body height Body mass index (BMI) Body weight Systolic And Diastolic Provider Name and Address Organization Details Last Updated DateTime 09/02/2025 177.8 cm 32.4 kg/m2 812454.88 g 132/70 mm[Hg] Archana Yin [place] - [facility] 09/02/2025 09:24:50 Social History Question Answer Notes LastModified by Organizat ion Details LastModified Time Tobacco Smoking Status Never Smoker FREDO Miller [facility] 09/02/2025 09:23:52 What Type Of Validation Intern Do You Use? None Information not available 09/02/2025 Do You Have Any Pets? Yes Information not available 09/02/2025 Are You Passively Exposed To Smoke? No Information not available 09/02/2025 Are There Any Smokers In Your House? No Information not available 09/02/2025 Sex: Unknown Functional Status Question Answer Note LastModified by Organization Details LastModified Time Do you use any illicit or recreational drugs? No Information not available 09/02/2025 Do you or have you ever used any other forms of tobacco or nicotine? No Information not available 09/02/2025 What is your level of alcohol consumption? None Information not available 09/02/2025 What type of noise exposure are you exposed to? noExposureToExcessiveNoise Infor mation not available 09/02/2025 Mental Status None recorded. Family History Relationship Description Onset Age of this Age Resolved Age Notes LastModified by Organization Details LastModified Time Mother Allergy 15 [email or web address] Not availab le 09/02/2025 09:23:57 Mother Cerebrovascu lar accident 83 83 [email or web address] Not available 1 09:23:57 Mother Diabetes mellitus 74 [email or web address] Not available 08/06 09:23:57 Father Cerebrovascu lar accident 87 87 [email or web address] Not available 1 09:23:57 Father Diabetes mellitus 82 [email or web address] Not available 08/06 09:23:57 Medical History Condition Response Allergies/Hayfever Y Heart Problems Y Anxiety Y Tonsil Infections N Emphysema N Migraines N Thyroid Problems N COPD N Depression N Developmental Delay N Glaucoma N Nasal or Sinus Problems N Anemia N Immune System Disorder N Anesthesia Complications N Heart Attack ([place]) N Other Skin Condition N Diabetes N Rhinitis N Bleeding Disorder N Food Allergy N Hearing Loss N Arthritis N Hyperlipidemia N Cancer N Stroke N Dementia N Nasal polyps N Asthma Y Sleep Disorder N High Cholesterol Y GERD/Reflux Y Liver Disease N Headaches N Fibromyalgia N Hypertension N Speech Delay N Kidney Disease N Past Encounters Encounter ID Performer Location Encounter Start Date Encounter Closed Date Diagnosis/Indication Diagnosis SNOMED-CT Code Diagnosis ICD10 Code Diagnosis IMO Codes Diagnosis Note [id number] LISA VIGIL MD [facility] on [address] [place] [address] 09/02/2025 09:08:44 09/02/2025 13:11:57 Chronic hoarseness 3967748038 105 R49.0 [id number] see below Disorder o f the larynx 09702974 J38.01 268587 The patient is indicated for and a good candidate for direct laryngosco py with LEFT injection laryngopla sty. I discussed the risks, benefits, and alternativ es to direct laryngosco py and bronchosco py in the operating room. Specifical ly I discussed the risk of damaging the structures we are working on or around including for direct laryngosco py damaging the lips, teeth, gums, tongue, palate, oropharynx , larynx and trachea. I discussed if biopsy of the vocal cords is performed that there is a risk of temporary or permanent hoarseness and voice change. The patient understand s the risks and would like to proceed. We will schedule surgery mutually convenient time. I also discussed the risks of injection laryngopla sty including airway compromise necessitat ing reintubati on, observatio n in the hospital, or additional procedures . I discussed the risk of swallowing problems after surgery. I discussed that the material injected is synthetic and is temporary and that benefit will likely decline over time. I discussed variable voice and swallowing outcomes with the procedure. I recommend a CT of the neck with contrast from the skull base to the aortic arch to evaluate the entire course of the recurrent laryngeal nerve. Health Concerns Section Related Observation LastModified by Organization Detai ls LastModified Time None Recorded Concern Status LastModified by Organization Details LastModified Time None Recorded Payers Encounter Date Sequence Insurance Name Policy Number Policy Ortiz Covered Member ID Ortiz Member ID Guarantor Name 09/02/2025 1 [facility] ([place]) [id number] Mylene Vergara [id number] Gerardo Ursula Notes Date Note Type Note Provider Name and Address Organization Details Recorded Time 09/02/2025 text/html ROS as noted in the HPI He presents with hoarseness since 07/15. He had a flu shot on 07/11 and was coughing a lot after and the voice difficulty on 07/17. His voice is now a whisper. He has had no improvement. No hx of neck or chest surgery but has had 2 cardiac ablations (last was in 2022). He occasionally chokes on thin liquids but not often. In general he can swallow ok. He has occasional throat pain. He does not smoke. Hx of afib and asthma. LISA VIGIL MD [address] [place] [address], [place], [address], [place] - [facility] 09/02/2025 09:45:04
--- OUTSIDE RECORDS SUMMARY | 2025-09-07 16:55 | XMS_ITS | Clinical Summary ---
Author Organization [facility] Address [address] [address] Phone Care Team Providers Care Alpine Guide Name Role Phone Pcp, Unknown Primary Care [...] topic Medical Devices Not on file Insurance [employer]AHPETON POS UNITED POS [employer] POS [employer] POS [facility] UNITED POS WAHPETON POS UNITED POS Care Teams Alpine Guide Relationship Specialty Start Date End Date Pcp, Unknown PCP - General 06/20/21 Additional Source Comments The information contained in this document represents components of the legal health record. It is not the complete legal health record.[facility]
--- OUTSIDE RECORDS SUMMARY | 2025-09-07 16:55 | XMS_ITS | Data Portability ---
Author Organization [place] - [facility], Allergy Address [address] [address] Care Team Providers Care Quality Assurance Technician Name Role Phone CAROLINA MOON Primary Care Provider CAROLINA MOON Primary Care Provider Assessment No assessment recorded. Plan of Treatment [...] for tumors 2024 [id number] [email or web address] [facility] [place], [address] [place] [address], [place], [address], 09/07/2025 10:45:28 Medication Orders None recorded. Patient TargetsNo targets recorded. Patient InstructionsNo instructions recorded. Reason for Referral None Reported. Results Created Date Observation Date Name Description Value Unit Range Abnormal Flag Note LastModifiedBy Organization Detail LastModifiedTime 09/02/2009/03/2025 BUN BUN 18 mg/dL 8-27 normal Not Available [facility] ([facility]) [address], [place], [address], 09/03/2025 07:45:54 09/02/2009/03/2025 CREAT ININE creatinine 1.10 mg/dL 0.76-1 .27 normal Not Available [facility] ([facility]) [address], [place], [address], 09/03/2025 07:45:54 09/02/2009/03/2025 CREAT ININE eGFR 75 mL/mi n/1.7 3 >59 normal Not Available [facility] ([facility]) [address], [place], [address], 09/03/2025 07:45:54 Result Notes None recorded. Problems Name Problem SNOMED Code Status Onset Date Resolution Date Notes Provider Name and Address Organization Details Recorded Time Chronic hoarseness 7394337807092 Active 2024 LISA Encinas MD [address] [place] [address], [place], [phone], [facility] 09:33:53 Vocal cord paralysis 815163490 Active 2024 LISA Encinas MD [address] [place] [address], [place], [phone], [facility] 09:33:58 Disorder of the larynx 50164957 Active 2024 LISA Encinas MD [address] [place] [address], [phone], [facility] 09:41:47 Problem Notes None recorded. Procedures Surgical History Date Name Laterality Status Provider Name and Address Organization Details Recorded Time 09/02/2025 FFL_RE completed LISA VIGIL MD [address] [place] [address], [phone], [facility] 09/02/2025 09:37:54 Imaging Results None recorded. [...] Updated DateTime 09/02/2025 177.8 cm 32.4 kg/m2 672717.88 g 132/70 mm[Hg] Archana Yin [place] - [facility] 09/02/2025 09:24:50 Social History Question Answer Notes LastModified by Organizat ion Details LastModified Time Tobacco Smoking Status Never Smoker FREDO Miller [facility] 09/02/2025 09:23:52 What Type Of Slip Feeder Do You Use? None Information not available [...] Emphysema N Migraines N Thyroid Problems N Glaucoma N Depression N COPD N Developmental Delay N Nasal or Sinus Problems N Anemia N Immune System Disorder N Anesthesia Complications N Heart Attack ([place]) N Other Skin Condition N Diabetes N Rhinitis N Bleeding Disorder N Food Allergy N Arthritis N Hearing Loss N Hyperlipidemia N Cancer N Stroke N Dementia N Nasal polyps N Asthma Y Sleep Disorder N GERD/Reflux Y High Cholesterol Y Liver Disease N Headaches N Fibromyalgia N Hypertension N Speech Delay N Kidney Disease N Past Encounters Encounter ID Performer Location Encounter Start Date Encounter Closed Date Diagnosis/Indication Diagnosis SNOMED-CT Code Diagnosis ICD10 Code Diagnosis IMO Codes Diagnosis Note [id number] LISA VIGIL MD [facility] on [address] [place] [address] 09/02/2025 09:08:44 09/02/2025 13:11:57 Chronic hoarseness 4131679203 105 R49.0 [id number] see below Disorder o f the larynx 57212972 J38.01 [id number] The patient is indicated for and a [...] by Organization Details LastModified Time None Recorded Advance Directives Directive None Recorded Payers Insurance Date Sequence Insurance Name Policy Number Policy Ortiz Covered Member ID Ortiz Member ID Guarantor Name 09/02/2025 1 [facility] [id number] Mylene Vergara [id number] Gerardo Vergara Notes Date Note Type Note Provider Name [...] of afib and asthma. LISA VIGIL MD [address] [place] [address], [place], [address], [place] - [facility] 09/02/2025 09:45:04
--- OUTSIDE RECORDS SUMMARY | 2025-09-07 16:55 | XMS_ITS | Clinical Summary ---
Author Organization [facility] Address [address] [place] [phone] Phone Care Team Providers Care And Drying Supervisor Cooking Casing Name Role Phone Unavailable Primary Care Provider Unavailabl e Allergies Active Allergy Reactions Criticality Noted Date Comments Iodinated Contrast Media Shortness of breath High Medications apixaban (ELIQUIS) 5 mg tablet Take 1 tablet (5 mg total) by mouth 2 (two) times a day. Active flecainide (TAMBOCOR) 50 mg tablet Take 1 tablet (50 mg total) by mouth 2 (two) times a day. Active dilTIAZem (TIAZAC) 180 mg 24 hr capsule Take 1 capsule (180 mg total) by mouth 1 (one) time each day. Active atorvastatin (LIPITOR) 20 mg tablet Take 1 tablet (20 mg total) by mouth at bedtime. Active montelukast (SINGULAIR) 10 mg tablet Take 1 tablet (10 mg total) by mouth at bedtime. Active LORazepam (ATIVAN) 1 mg tablet Take 1 tablet (1 mg total) by mouth every 6 (six) hours if needed for anxiety. Max Daily Amount: 4 mg Active omeprazole (PriLOSEC) [address] capsule Take 1 capsule (20 mg total) by mouth 1 (one) time each day. Do not crush or chew. Active cetirizine (ZyrTEC) 10 mg tablet Take 1 tablet (10 mg total) by mouth 1 (one) time each day. Active cholecalciferol (VITAMIN D-3) 25 mcg (1,000 unit) tablet Take 1 tablet (1,000 Units total) by mouth 1 (one) time each day. Active potassium citrate (UROCIT-K) 10 mEq (1,080 mg) CR tablet Take by mouth 3 (three) times a day with meals. Do not crush, chew, or split. Active tiotropium (Spiriva Respimat) 1.25 mcg/actuation inhalation spray Inhale 2 puffs by mouth 1 (one) time each day. Active albuterol HFA (PROAIR HFA ; PROVENTIL HFA ; VENTOLIN HFA) 90 mcg/actuation inhaler Inhale 2 puffs by mouth every 6 (six) hours if needed for wheezing. Active Surgical History Surgery Date Site/Laterality Comments UPPER GASTROINTESTINAL ENDOSCOPY COLONOSCOPY ABLATION OF DYSRHYTHMIC FOCUS X 2 CYSTOSCOPY Medical History Medical History Date Comments Asthma Hyperlipidemia Hypertension GERD (gastroesophageal reflux disease) Anxiety Atrial fibrillation ([facility] V24, [facility] V28) Galan's esophagus Social History Tobacco Use Types Packs/Day Years Used Date Smoking Tobacco: Never Assessed Sex and Gender Information Value Date Recorded Sex Assigned at Not on file Legal Sex Male 2:24 PM EST Gender Identity Not on file Sexual Orientation Not on file Obstetrics History Last Filed Vital Signs Vital Sign Reading Time Taken Comments Blood Pressure - - Pulse - - Temperature - - Respiratory Rate - - Oxygen Saturation - - Inhaled Oxygen Concentration - - Weight 103 kg (228 lb) 09/07/2025 3:00 PM EST Height 177.8 cm (5' 10 ) 09/07/2025 3:00 PM EST Body Mass Index 32.71 09/07/2025 3:00 PM EST Plan of Treatment Upcoming Encounters Date Type Department Care Team (Latest Contact Info) Description 09/10/2025 11:00 AM EST Hospital Encounter [address] [phone] aBla Okeefe MD [address] [address] 09/10/2025 11:00 AM EST - 09/10/2025 12:30 PM EST Surgery [address] [phone] Bala Okeefe MD [address] [email or web address] [address] [address] DIRECT LARYNGOSCOPY WITH VOCAL CORD INJECTION [87993 (CPT )] Scheduled Procedures Name Priority Associated Diagnoses Date/Ti me LARYNGOSCOPY DIRECT Paralysis of vocal cords and larynx, unilateral 09/10/2025 11:00 AM EST Goals Goal Patient Goal Type Associated Problems Recent Progress Patient-Stated? Author Autogenerat ed Goal Care Plan Autogenerated Problem No Jordyn Onesimo Additional Health Concerns Active Problems Noted Date Diagnosed Date Autogenerated Problem 09/07/2025 Insurance
--- OUTSIDE RECORDS SUMMARY | 2025-09-07 16:55 | XMS_ITS | Encounter Summary ---
Author Organization [facility] Address [address] [place] [address] Care Team Providers Care Desk Reporter Name Role Phone Unavailable Primary Care Provider Unavailabl e Reason for Referral * ENT (Routine) - Authorized Specialty Diagnoses / Procedures Referred By Doni ham Referred To Contact Otolaryngology Diagnoses Laryngitis, acute Memo [place] MD [address] [place] [address] [place] [address] Phone: tel: fax: [facility] [address] [address] Phone: tel: fax: Referral ID Status Reason Start Date Expiration Date V isits Requested Visits Authorized [id number] Authorized Consult 08/27/2025 08/28/2026 1 1 Encounter Details Date Type Department Care Team (Late st Contact Info) Description 08/27/2025 Transcribe Orders [facility] Memo [place] MD [address] [place] [address] [place] [address] Laryngitis, acute (Primary Dx) Social History Tobacco Use Types Packs/Day Years Used Date Smoking Tobacco: Never Assessed Sex and Gender Information Value Date Recorded Sex Assigned at Not on file Legal Sex Male 6:11 PM EST Gender Identity Not on file Sexual Orientation Not on file documented as of this encounter Plan of Treatment Scheduled Referrals Name Type Priority Associated Diagnoses Order Schedule Ambulatory referral to ENT Outpatient Referral Routine Laryngitis, acute Ordered: 08/27/2025 documented as of this encounter Visit Diagnoses Diagnosis Laryngitis, acute- Primary Acute laryngitis, without mention of obstruction documented in this encounter
--- OUTSIDE RECORDS SUMMARY | 2025-09-07 16:55 | XMS_ITS | Clinical Summary ---
Author Organization [facility] Address [address] [place] [address] Care Team Providers Care Investigation Division Sergeant Name Role Phone Unavailable Primary Care Provider Unavailabl e Encounters Date Type Department Care Team Description 08/27/2025 Transcribe Orders [facility] PRIMARY CARE SCAN Memo Hamilton MD Laryngitis, acute (Primary Dx) from Last 3 Months Social History Tobacco Use Types Packs/Day Years Used Date Smoking Tobacco: Never Assessed Sex and Gender Information Value Date Recorded Sex Assigned at Not on file Legal Sex Male 6:11 PM EST Gender Identity Not on file Sexual Orientation Not on file Plan of Treatment Health Maintenance Due Date Last Done Comments Hepatitis C Virus Screening 1962 HIV Screening 1975 DTaP/Tdap/Td Vaccines (1 - Tdap) 1981 Colonoscopy 2007 Pneumococcal Vaccines 50+ (1 of 1 - PCV) 02/06/2012 Zoster (Shingles) Vaccine (1 of 2) 02/06/2012 Influenza Vaccine 06/05/2025 COVID-19 Vaccine ( - 2023-2 5 season) 2025 RSV Vaccine 50 years and old er and Patients (1 - 1-dose 75+ series) 2037 Hepatitis B Vaccines Aged Out No long er eligible based on patient's age to complete this topic Insurance [facility] H[facility]
== END 2025-09-07 16:20 | disposition home or self-care (01) ==
PROVIDERS: PCP Internal Medicine; Visit Provider Hospitalist
DX: J45.40 Moderate persistent asthma, uncomplicated (principal); I48.92 Unspecified atrial flutter; R05.9 Cough, unspecified; J98.6 Disorders of diaphragm; J38.00 Paralysis of vocal cords and larynx, unspecified
CPT/HCPCS: 99214

== ENCOUNTER 2025-09-25 10:49 | Day surgery (SDC) | payer BC, SELFPAY ==
--- OUTSIDE RECORDS SUMMARY | 2025-06-01 09:33 | XMS_ITS | Clinical Summary ---
Author Organization [facility] Address [address] [facility] [address] [place] [id number] Phone Care Team Providers Care Sorting Grapple Operator Name Role Phone Pcp, Unknown Primary Care Provider Unavailabl e Social History Tobacco Use Types Packs/Day Years Used Date Smoking Tobacco: Never Assessed Education Answer Date Recorded Are you interested in more education? Not on marcio e 03/03/2023 Are you concerned about learning? Not on file 03/03/2023 No 03/03/2023 No 03/03/2023 Digital Access Answer Date Recorded No 04/01/2023 No 04/01/2023 No 04/01/2023 Reliable internet access at home? Not on file 04/01/2023 Device with a working camera? Not on file Sex and Gender Information Value Date Recorded Sex Assigned at Not on file Legal Sex Male 12:40 PM EDT Gender Identity Not on file Sexual Orientation Not on file Plan of Treatment Health Maintenance Due Date Last Done Comments LIPID PANEL 1962 DEPRESSION SCREENING 1974 SMOKING Hx and SMOKELESS TOBACCO SCREENING 1975 HEPATITIS C SCREENING 02/06/1980 HIV ONE-TIME SCREENING (18-6 5 YEARS) 02/06/1980 COLOGUARD 2007 COLONOSCOPY 2007 COLORECTAL CANCER SCREENING 2007 FIT TEST 2007 FOBT 2007 SIGMOIDOSCOPY 2007 VIRTUAL COLONOSCOPY 2007 PNEUMOCOCCAL VACCINES (50+ years) (2 of 2 - PCV) 09/07/2021 09/07/2020 COVID-19 VACCINE (2 - 2023-2 5 season) 2024 02/12/2021 Adult Td,Tdap Booster 05/03/2031 05/03/2021 , 06/30/2019 RSV VACCINE (1 - 1-dose 75+ series) 2037 ZOSTER VACCINES Completed 12/12/2018, 09/12/2018 HEPATITIS A VACCINES Aged Out No long er eligible based on patient's age to complete this topic HIB VACCINES Aged Out No longer eligi ble based on patient's age to complete this topic MENINGOCOCCAL VACCINES (ACWY) Aged Out No longer eligible based on patient's age to complete this topic MENINGOCOCCAL VACCINES (B) Aged Out N o longer eligible based on patient's age to complete this topic Medical Devices Not on file Insurance [facility] POS Care Teams Sorting Grapple Operator Relationship Specialty Start Date End Date Pcp, Unknown PCP - General 06/20/21 Additional Source Comments The information contained in this document represents components of the legal health record. It is not the complete legal health record.[facility]
--- NOTE | 2025-09-22 13:32 | HO.ANESPROP2 ---
Documented by User: Dinorah Chong NP 09/24/25 08:09 HPI - Anesthesia Eval Consult details Narrative: 65yo M for Upper Endoscopy and Colonoscopy Pulmo: [place] [facility] [place]. Last office visit 09/2025. Stable. 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 Neck CT at [facility] 09/18/25 show paralyzed L vocal cord CV: [place] [facility] [place]. Last office visit 04/2025 s/p [facility] [place] for recurrent afib. History of paroxysmal flutter status post 2 cardioversions and 2 ablations 1 in 2020 and 1 January of 2023. 04/2025 recurrent afib, converted to sinus with diltiazem. F/u with [facility] EP 07/2025 with plan for another ablation, not done yet. [facility] Active Problems Active Problems: All Active Problems Vocal cord paralysis (Acute) Laryngitis (Acute) Acute laryngitis (Acute) Laryngotracheitis (Acute) Sinus bradycardia (Acute) Symptomatic bradycardia (Acute) Bradycardia (Acute) Atrial fibrillation with RVR (Acute) Precordial chest pain (Acute) Paroxysmal atrial fibrillation (Acute) YOLANDE (obstructive sleep apnea) (Acute) Acquired elevated diaphragm (Acute) Paroxysmal atrial flutter (Acute) Status post catheter ablation of atrial flutter (Acute) Anticoagulation management encounter (Acute) Chronic cough (Acute) Asthma (Acute) Atrial flutter with rapid ventricular response (Acute) Past Medical History Medical History History of vocal cord paralysis Vocal cord paralysis Laryngitis Acute laryngitis YOLANDE (obstructive sleep apnea) Acquired elevated diaphragm Renal calculi History of cardioversion Chronic cough Atrial flutter with rapid ventricular response Asthma Family History Family History Mother A-fib CVA (cerebral vascular accident) Father CVA (cerebral vascular accident) Family history of problems with anesthesia: No Surgical History Surgical History History of ureteroscopy Hx of tonsillectomy History of esophagogastroduodenoscopy (EGD) H/O colonoscopy History of cardiac radiofrequency ablation History of Problems with Anesthesia: No Social History Social History Household Members: Significant Other and Children Housing: House Alcohol intake: current Alcohol intake frequency: former alcohol drinker Alcohol type: beer, wine and hard liquor Patient Tobacco Use Status: Never used Tobacco Use of substances other than those prescribed or required for medical reasons: No Advance Directives: No Advance Directives Information Provided: Yes service: No Current occupational status: employed Meds Allergies Allergy/AdvReac Type Severity Reaction Status Date / Time Iodinated Contrast Media (IV Allergy Severe SHORTNESS Verified 09/07/25 15:51 CONTRAST) OF BREATH Home Medications ?Medication ?Instructions ?Recorded ?Confirmed ?Last Taken ?Type cetirizine 10 mg capsule (Zyrtec) 10 mg PO DAILY 05/30/21 09/23/25 04/09/25 History lorazepam 1 mg tablet 1 tab PO BEDTIME PRN Insomnia 05/30/21 09/23/25 04/07/25 History cholecalciferol (vitamin D3) 25 25 mcg PO DAILY 09/07/21 09/23/25 04/09/25 History mcg (1,000 unit) capsule nebulizers 01/03/23 04/24/25 Unknown History atorvastatin 20 mg tablet 20 mg PO DAILY 02/13/24 09/23/25 04/07/25 History diltiazem HCl 180 mg capsule,24 180 mg PO DAILY 04/09/25 09/23/25 04/09/25 History hr,extended release (Tiadylt ER) potassium citrate 10 mEq (1,080 10 meq PO DAILY 04/09/25 09/23/25 04/07/25 History mg) tablet,extended release Exam Narrative Narrative: ECG 12-Lead ? 11:16:34 Ventricular Rate: 60 BPM Atrial Rate: 60 BPM P-R Interval: 166 ms QRS Duration: 96 ms Q-T Interval: 422 ms QTC Calculation(Bazett): 422 ms P Huntley: 65 degrees R Huntley: 41 degrees T Huntley: 51 degrees Normal sinus rhythm Normal ECG When compared with ECG of 12-Oct-2021 09:44, No significant change was found Confirmed CT Neck 09/2025 IMPRESSION: Left vocal cord paralysis. Assessment and Plan Assessment Anesthesia Assessment: Chart Reviewed Final Anesthetic Review Family History of Problems with Anesthesia: No History of Problems with Anesthesia: No Documented by User: Joseph Sylvester MD 09/25/25 12:00 PMF Past Medical History Medical History History of vocal cord paralysis Vocal cord paralysis Laryngitis Acute laryngitis YOLANDE (obstructive sleep apnea) Acquired elevated diaphragm Renal calculi History of cardioversion Chronic cough Atrial flutter with rapid ventricular response Asthma Functional capacity: independent ambulation Family History Family History Mother A-fib CVA (cerebral vascular accident) Father CVA (cerebral vascular accident) Surgical History Surgical History History of ureteroscopy Hx of tonsillectomy History of esophagogastroduodenoscopy (EGD) H/O colonoscopy History of cardiac radiofrequency ablation Social History Social History Household Members: Significant Other and Children Housing: House Alcohol intake: current Alcohol intake frequency: former alcohol drinker Alcohol type: beer, wine and hard liquor Patient Tobacco Use Status: Never used Tobacco Use of substances other than those prescribed or required for medical reasons: No Advance Directives: No Advance Directives Information Provided: Yes service: No Current occupational status: employed Meds Allergies Allergy/AdvReac Type Severity Reaction Status Date / Time Iodinated Contrast Media (IV Allergy Severe SHORTNESS Verified 09/07/25 15:51 CONTRAST) OF BREATH Home Medications ?Medication ?Instructions ?Recorded ?Confirmed ?Last Taken ?Type cetirizine 10 mg capsule (Zyrtec) 10 mg PO DAILY 05/30/21 09/23/25 04/09/25 History lorazepam 1 mg tablet 1 tab PO BEDTIME PRN Insomnia 05/30/21 09/23/25 04/07/25 History cholecalciferol (vitamin D3) 25 25 mcg PO DAILY 09/07/21 09/23/25 04/09/25 History mcg (1,000 unit) capsule nebulizers 01/03/23 04/24/25 Unknown History atorvastatin 20 mg tablet 20 mg PO DAILY 02/13/24 09/23/25 04/07/25 History diltiazem HCl 180 mg capsule,24 180 mg PO DAILY 04/09/25 09/23/25 04/09/25 History hr,extended release (Tiadylt ER) potassium citrate 10 mEq (1,080 10 meq PO DAILY 04/09/25 09/23/25 04/07/25 History mg) tablet,extended release
[2025-09-23 14:21] VITALS: BMI 31.0
[2025-09-25 11:00] VITALS: BMI 31.7
[2025-09-25] MEDS: Lactated Ringers 1,000 ML 100 ML IVCONT (11:14)
[2025-09-25 11:15] VITALS: BP 146/94; PULSE 68; RESP 16; TEMP 36.8; O2SAT 96
[2025-09-25 14:15] VITALS: BP 108/68; PULSE 70; RESP 16; TEMP 36.4; O2SAT 95
--- NOTE | 2025-09-25 14:16 | P.BOP_ITS ---
Brief Operative Note Date of Service: 09/25/25 Pre-op diagnosis: Galan's, Screening Post-op diagnosis: other (Same, Hiatal hernia, Diverticulosis) Procedure: EGD with biopsies, Cypher, and WATS, and Colonoscopy to the cecum and TI Surgeon: Bala Romero MD Anesthesia: MAC Was an Inhalation Therapist used for this Procedure?: No Estimated blood loss (mL): 2.0 Pathology: other (A. Esophagus 35-36cm) Condition: stable Disposition: PACU
[2025-09-25 14:30] VITALS: BP 112/74; PULSE 57; RESP 15; TEMP 36.6; O2SAT 96
--- NOTE | 2025-09-26 03:53 | OP_ITS ---
DATE OF SERVICE: 09/25/2025 SURGEON: Bala Romero MD INDICATIONS: The patient presents for evaluation of Galan's esophagus and colorectal cancer screening. Full consent has been obtained from him for both procedures, including risks of bleeding and perforation. PREOPERATIVE DIAGNOSIS: POSTOPERATIVE DIAGNOSIS: PROCEDURE PERFORMED: Esophagogastroduodenoscopy with biopsies, WATS brushings, and Cypher study. Colonoscopy to the cecum and terminal ileum. ESTIMATED BLOOD LOSS: COMPLICATIONS: ANESTHESIA: Medication used, monitored anesthesia care. ASSISTANTS: SPECIMENS: PREOPERATIVE DIAGNOSES: Galan's esophagus and colorectal cancer screening. POSTOPERATIVE DIAGNOSES: Galan's esophagus, hiatal hernia, diverticulosis, internal hemorrhoids. DESCRIPTION OF PROCEDURE: The patient was placed in the left lateral decubitus position. The Olympus video gastroscope was passed in the posterior oropharynx and upper esophagus under direct vision. The scope was passed slowly to the distal esophagus. The gastroesophageal junction was seen at 36 cm. Extending from this for about 1 cm was a non circumferential patch of Galan mucosa without any overlying esophagitis nor any lesions. The scope entered the stomach, there was a small hiatal hernia. The scope was advanced to the pylorus and the duodenum was cannulated to the descending portion. The duodenum including the bulb appeared normal without mass or ulceration. The scope was withdrawn back in the stomach. The gastric antrum and body appeared normal with good peristalsis. The scope was retroflexed visualizing the proximal stomach carefully which appeared normal, without any sign of mass or ulceration. The scope was straightened and withdrawn back to the esophagus. Multiple biopsies were obtained from the Galan's appearing mucosa between 35 and 36 cm. I also obtained brushings for the WATS testing. A specimen from the biopsies was also ordered to be sent for a Cypher study. Proximal to 35 cm, the esophageal mucosa appeared normal. The scope was withdrawn from the patient. He was turned around for colonoscopy. The digital rectal exam revealed no abnormalities. The Olympus video pediatric colonoscope was entered into the rectum, advanced easily to the cecum. Once in the cecum, I did identify normal-appearing cecal pouch with appendiceal orifice and a normal-appearing ileocecal valve. The terminal ileum was cannulated and appeared normal. The scope was withdrawn back in the colon. The entire cecum and ileocecal valve appeared normal. The scope was slowly withdrawn assessing all mucosal surfaces carefully. Preparation was excellent. I did not visualize any sign of polyps, colitis, nor angiodysplasia. There was a mild amount of sigmoid diverticulosis. In the rectum, the scope was retroflexed visualizing internal hemorrhoids, but no other pathology. The rectal mucosa appeared normal. The scope was straightened and withdrawn from the patient. He tolerated the procedures well and was returned to the recovery area in stable condition. IMPRESSION: 1. Galan's esophagus. 2. Hiatal hernia. 3. Diverticulosis. 4. Internal hemorrhoids. PLAN: The results of the biopsies and the other studies in regard to the Galan's esophagus will be checked. He has been advised to continue his daily acid suppression with omeprazole. He was advised to resume his Eliquis in 48 hours. He was advised to stay off all aspirin and NSAIDs long-term while on Eliquis. He was advised to repeat the upper endoscopy in 3 years and repeat the colonoscopy in 10 years. He will see me otherwise on a p.r.n. basis. MD SINGH Beck/DENICE / [id number] MTDD
== END 2025-09-25 15:07 | disposition home or self-care (01) ==
PROVIDERS: PCP Internal Medicine; Visit Provider Internal Medicine
PROC: (CPT 43239; principal; 2025-09-25 12:10)
DX: Z12.11 Encounter for screening for malignant neoplasm of colon (principal); K22.70 Barrett's esophagus without dysplasia; K21.9 Gastro-esophageal reflux disease without esophagitis; K57.30 Diverticulosis of large intestine without perforation or abscess without bleeding; K64.8 Other hemorrhoids; K44.9 Diaphragmatic hernia without obstruction or gangrene
CPT/HCPCS: 43239; 88305; J2003; J2704; J3010

== ENCOUNTER 2025-10-06 10:41 | Outpatient (REF) | payer BC, SELFPAY ==
[2025-10-06 10:44] LABS: MANUAL DIFF FLAG NO
[2025-10-06 10:59] LABS: Appearance Urine Clear; Glucose Urine UA Negative (Negative); Hematocrit 42.4 % (42.0-52.0); Hemoglobin 14.2 g/dl (14.0-18.0); Imm Gran Abs Auto 0.20 X10*3/uL (0.00-0.03); Imm Gran Pct Auto 2.1 % (0.0-0.4); Lymphocytes Absolute Auto 2.6 X10*3/uL (1.2-4.9); Mean Corpuscular HGB Conc 33.5 g/dl (31.0-36.0); Mean Corpuscular Hemoglobin 29.6 pg (27.0-33.0); Mean Corpuscular Volume 88.3 fL (80.0-98.0); NRBC Abs Auto 0.020 X10*3/uL (0.0-0.012); NRBC Pct Auto 0.2 /100WBC (0.0-0.2); PH 5.5 (5.0-9.0); Platelet Count 267 X10*3/uL (160-400); Red Blood Count 4.80 X10*6/uL (4.60-5.80); Specific Gravity - Urine 1.020 (1.005-1.025); UMIC TRIGGER UACC YES; White Blood Count 9.7 X10*3/uL (4.8-10.8)
[2025-10-06 11:14] LABS: Alanine Aminotransferase 19 U/L (0-40); Albumin Level 4.1 g/dL (3.5-5.0); Alkaline Phosphatase 93 U/L (39-117); Anion Gap 11 (12-20); Aspartate Amino Transferase 28 U/L (5-37); Blood Urea Nitrogen 19 mg/dL (9-16); Calcium 9.2 mg/dL (8.4-10.2); Carbon Dioxide 26 mmol/L (22-29); Chloride 108 mmol/L (96-108); Cholesterol 175 mg/dL (<200); Estimated Glomerular Filt Rate > 60; HDL Cholesterol 55 mg/dL (>40); Potassium 4.0 mmol/L (3.3-5.1); Sodium 141 mmol/L (135-145); Total Protein 6.2 g/dL (6.5-8.0); Triglycerides 114 mg/dL (<150)
[2025-10-06 11:30] LABS: PSA,Total (Free>4and<10) 1.57 ng/mL (0.00-4.00)
--- OUTSIDE RECORDS SUMMARY | 2025-10-06 12:27 | XMS_ITS | Clinical Summary ---
Author Organization [facility] Address [address] [address] Phone Care Team Providers Care Hydrochloric Acid Operator Name Role Phone Pcp, Unknown Primary [...] Additional history exists COVID-19 VACCINE (2 - 2024- season) 2025 02/12/2021 Adult Td,Tdap Booster 05/03/2031 [...] topic Medical Devices Not on file Insurance NINILCHIK POS UNITED POS N[place]IK POS [place] POS [facility] UNITED POS NINILCHIK POS UNITED POS Care Teams Hydrochloric Acid Operator Relationship Specialty Start Date End Date Pcp, Unknown PCP - General 06/20/21 Additional Source Comments The information contained in this document represents components of the legal health record. It is not the complete legal health record.[facility]
--- OUTSIDE RECORDS SUMMARY | 2025-10-06 12:27 | XMS_ITS ---
[facility] Name [facility] Organization Unknown Problems Problem Status Onset Date Problem Type Date of Resoluti on Source Laryngitis, acute [facility]
--- OUTSIDE RECORDS SUMMARY | 2025-10-06 12:27 | XMS_ITS ---
PRIOR TO CT SCAN. 09/01 completed Not Available Not Available Not Available Medrol 16 mg tablet Take 2 tablets twice a day by oral route. 2024 active Not Available Not Available Not Avai lable prednisone 50 mg tablet TAKE 1 TAB [...] Updated DateTime 09/02/2025 177.8 cm 32.4 kg/m2 686293.88 g 132/70 mm[Hg] Archana Yin [place] - [facility] 09/02/2025 09:24:50 Social History Question Answer Notes LastModified by Organizat ion Details LastModified Time Tobacco Smoking Status Never Smoker Archana elias [facility] 09/02/2025 09:23:52 What Type Of Supervisor Twisting Department Do You Use? None Information not available [...] Disorder N Anesthesia Complications N Heart Attack ([place]) N Other Skin Condition N Diabetes N [...] ICD10 Code Diagnosis IMO Codes Diagnosis Note [id number] LISA VIGIL MD [facility] on [address] [place] [address] 09/02/2025 09:08:44 09/02/2025 13:11:57 Chronic hoarseness 5289178515 105 R49.0 [id number] see below Disorder o f the larynx 12202597 J38.01 192729 The patient is indicated for and a [...] Ortiz Member ID Guarantor Name 09/02/2025 1 [place] [facility] [place] [id number] Mylene Vergara [id number] Gerardo Vergara Notes Date Note Type [...] of afib and asthma. LISA VIGIL MD [address] [place] [address],[place] [address], [place], [address], [place] - [facility] 09/02/2025 09:45:04
--- OUTSIDE RECORDS SUMMARY | 2025-10-06 12:28 | XMS_ITS | Clinical Summary ---
Author Organization [facility] Address [address] [place] [phone] Phone Care Team Providers Care Talent Acquisition Relationship Manager Name Role Phone Memo Hamilton MD Primary Care Provider Allergies Active Allergy Reactions Criticality Noted Date [...] GERD (gastroesophageal reflux disease) Anxiety Atrial fibrillation ([facility] V24, [facility] V28) Galan's esophagus Social History Tobacco Use [...] 09/07/2025 3:00 PM EST Plan of Treatment Health Maintenance Due Date Last Done Comments Colorectal Cancer Screening: Colonoscopy 1962 DTaP,Tdap,and Td Vaccines (1 - Tdap) 1981 Pneumococcal Vaccine: 50+ Ye ars (1 of 1 - PCV) 02/06/2012 Zoster Vaccines (1 of 2) 02/06/2012 Depression Screening 11/05/2024 COVID-19 Vaccine (1 - 2024-2 6 season) 2025 Influenza Vaccine (#1) 2025 Cholesterol Screening (Lipid Panel) 09/07/2025 HIV Screening 09/07/2025 Hepatitis C Screening 09/07/2025 Social Influencers of Health Screening 09/07/2025 RSV Immunization Adult Patie nts (1 - 1-dose 75+ series) 2037 HIB Vaccines Aged Out No longer eligi ble based on patient's age to complete this topic HPV Vaccines Aged Out No longer eligi ble based on patient's age to complete this topic Hepatitis A Vaccines Aged Out No long er eligible based on patient's age to complete this topic Hepatitis B Vaccines Aged Out No long er eligible based on patient's age to complete this topic IPV Vaccines Aged Out No longer eligi ble based on patient's age to complete this topic MMR Vaccines Aged Out No longer eligi ble based on patient's age to complete this topic Meningococcal ACWY Vaccine Aged Out N o longer eligible based on patient's age to complete this topic Meningococcal B Vaccine Aged Out No l onger eligible based on patient's age to complete this topic RSV Immunization Patients Un carolee 20 months Aged Out No longer eligible b ased on patient's age to complete this topic Varicella Vaccines Aged Out No longer eligible based on patient's age to complete this topic Insurance [facility] Care Teams Talent Acquisition Relationship Manager Relationship Specialty Start Date End Date Memo Hamilton MD [address] [place] [address] Drive [address] [place] [address] PCP - General Internal Medicine 09/08/25
--- OUTSIDE RECORDS SUMMARY | 2025-10-06 12:28 | XMS_ITS | Data Portability ---
Author Organization [place] - [facility], Allergy Address [address] [address] Care Team Providers Care Drafter Patent Name Role Phone CAROLINA MOON Primary Care Provider [phone] CAROLINA MOON Primary Care Provider Assessment No assessment recorded. Plan of Treatment Reminders Order Date Submit Date Provider Last Modified By Organization Details Last Modified Time Details Appointments None recorded. Lab None recorded. Referral None recorded. Procedures None recorded. Surgeries laryngosco py, direct, with injection into vocal cord(s), therapeuti c; with operating microscpe or telescope (SURG) 2024 025 [email or web address] Not available 09:48:[address], neck, soft tissue, w/ contrast - CT of the neck with contrast from the skull base to the aortic arch to evaluate the entire course of the recurrent laryngeal nerve for tumors 2024 025 [email or web address] [facility] [place], [address] [facility], [facility] [address], [place], [address], 13:13:55 Medication Orders None recorded. Patient TargetsNo targets recorded. Patient InstructionsNo instructions recorded. Reason for Referral None Reported. Results Created Date Observation Date Name Description Value Unit Range Abnormal Flag Note LastModifiedBy Organization Detail LastModifiedTime 09/02/20 25 09/03/2025 BUN BUN 18 mg/dL 8-27 normal Not Available [facility] [address] [facility], [place], [address], 09/03/2025 07:45:54 09/02/20 25 09/03/2025 CREAT ININE creatinine 1.10 mg/dL 0.76-1 .27 normal Not Available [facility] [address] [facility], [place], [address], 09/03/2025 07:45:54 09/02/2009/03/2025 CREAT ININE eGFR 75 mL/mi n/1.7 3 >59 normal Not Available [facility] [address] [facility], [place], [address], 09/03/2025 07:45:54 09/22/2009/22/2025 CT, neck, soft tissu e, w/ contr ast No observ ation record ed. [email or web address] [facility] [address] [place], [address], 09/24/2025 14:26:16 Result Notes None recorded. Problems Name Problem SNOMED Code Status Onset Date Resolution Date Notes Provider Name and Address Organization Details Recorded Time Chronic hoarseness 6690271894430 Active 2024 LISA Encinas MD [address] [place] [address], [phone], [facility] 09:33:53 Vocal cord paralysis 242817118 Active 2024 LISA Encinas MD [address] [place] [address], [phone], [facility] 09:33:58 Disorder of the larynx 15400980 Active 2024 LISA Encinas MD [address] [place] [address], [phone], [facility] 09:41:47 Problem Notes None recorded. Procedures Surgical History Date Name Laterality Status Provider Name and Address Organization Details Recorded Time 09/02/2025 FFL_RE completed LISA VIGIL MD [address] [place] [address], [phone], [place] - [facility] 09/02/2025 09:37:54 Imaging Results None recorded. Procedure Notes None recorded. Medical Equipment None Reported. Allergies Allergen ID Allergen Name Allergen Category Reaction Reaction Severity Criticality Documentation Date Start Date Code Code System Note Provider Name and Address Organization Details Recorded Time [id number] Iodinated contrast media (substanc e) medicatio n Not available Not available Not available 09/24/2025 [id number] SNOMED Not Available maricel - External Data Service - prod 16:17:50 Medications Name Sig Start Date Stop Date [...] No t Available Zyrtec 10 mg tablet Take 10 mg every day by oral route for 1 day. 09/24 completed Not Available Not Available Not Available tramadol 50 mg tablet TAKE 1 TABLET [...] Updated DateTime 09/02/2025 177.8 cm 32.4 kg/m2 559051.88 g 132/70 mm[Hg] Archana Yin [place] - [facility] 09/02/2025 09:24:50 Social History Question Answer Notes LastModified by Organizat ion Details LastModified Time Tobacco Smoking Status Never Smoker Archana elias [facility] 09/02/2025 09:23:52 What Type Of Supervisor Fertilizer Do You Use? None Information not available [...] noise exposure are you exposed to? noExposureToExcessiveNoise [email or web address] Infor mation not available 09/02/2025 Mental Status [...] Disorder N Anesthesia Complications N Heart Attack ([place]) N Other Skin Condition N Diabetes N [...] ICD10 Code Diagnosis IMO Codes Diagnosis Note [id number] LISA VIGIL MD [facility] on [address] [place] [phone] 09/02/2025 09:08:44 09/02/2025 13:11:57 Chronic hoarseness 1732671135 105 R49.0 [id number] see below Disorder o f the larynx 64573231 J38.01 409642 The patient is indicated for and a [...] Concerns Section Related Observation LastModified by Organization Evan wong LastModified Time None Recorded Concern Status LastModified by Organization Details LastModified Time None Recorded Advance Directives Directive None Recorded Payers Insurance Date Sequence Insurance Name Policy Number Policy Ortiz Covered Member ID Ortiz Member ID Guarantor Name 09/08/2025 1 [place] [employer] [facility] [id number] Mylene Vergara [id number] Gerardo Vergara Notes Date Note Type [...] of afib and asthma. LISA VIGIL MD [address] [place] [address],[place] [address], [place], [address], [place] - [facility] 09/02/2025 09:45:04
== END 2025-10-06 10:42 | disposition home or self-care (01) ==
LOC: HO.LNP 10:41
PROVIDERS: Visit Provider Internal Medicine
DX: Z00.00 Encounter for general adult medical examination without abnormal findings (principal); E78.00 Pure hypercholesterolemia, unspecified; Z12.5 Encounter for screening for malignant neoplasm of prostate
CPT/HCPCS: 80053; 80061; 81001; 84153; 85025

== ENCOUNTER 2025-10-08 11:25 | Emergency (ER) | payer BC, SELFPAY ==
--- NOTE | ~2025-10-08 | CT_ITS ---
EXAMINATION: CT LOWER EXTREMITY ANGIOGRAPHY WITH IV CONTRAST BILATERAL HISTORY: S/p cardiac catheterization, R/O pseudo aneurysm COMPARISON: There are no prior studies for available comparison. TECHNIQUE: CT angiogram of the abdominal aorta was performed from the celiac axis through the proximal thighs following administration of 80 mL Omnipaque 350 using standard departmental protocol. Coronal and sagittal reformatted images were generated and reviewed. This CT exam was performed with one or more of the following dose reduction techniques: automated exposure control, adjustment of the mA and/or kV according to patient size, use of iterative reconstruction technique. DLP: 326 mGy-cm FINDINGS: LIVER: The visualized portion of the liver is normal in size and contour. GALLBLADDER / BILE DUCTS: The gallbladder is unremarkable. KIDNEYS/RETROPERITONEUM: There is a 4 mm nonobstructing calculus at the lower pole of the right kidney. There is a 4 mm calculus at the left UPJ without hydronephrosis. LYMPH NODES: No abdominal or pelvic lymphadenopathy. VASCULATURE: The abdominal aorta is normal in caliber. The bilateral common and external iliac arteries are widely patent. There is mild infiltration of the subcutaneous fat in both inguinal regions, consistent with the patient's history of recent cardiac catheterization. There is no pseudoaneurysm or abnormal fluid collection. MESENTERY/PERITONEUM: No free fluid. No masses. There is no free intraperitoneal gas. SMALL BOWEL: The visualized small bowel is normal in caliber. COLON: The visualized portion of the colon is unremarkable. URINARY BLADDER/PELVIC ORGANS: The urinary bladder is unremarkable. The prostate is normal in size. BONES / SOFT TISSUES: No suspicious bony or soft tissue abnormalities. CT/CT angio pelvis IMPRESSION: 1. Mild infiltration of the subcutaneous fat in both inguinal regions, consistent with the patient's history of recent cardiac catheterization. No pseudoaneurysm or abnormal fluid collection. 2. 4 mm left UPJ calculus without hydronephrosis. Electronically signed by: Bala Peña MD 10/08/2025 02:51 PM EST
[2025-10-08 11:38] VITALS: BP 149/86; PULSE 66; RESP 16; TEMP 36.6; O2SAT 96; BMI 33.4
--- NOTE | 2025-10-08 11:41 | ED.GENADULT ---
HPI - General Adult General Chief complaint: General Medical Stated complaint: Blood In Stool Time Seen by Provider: 10/08/25 12:07 Source: patient and family Mode of arrival: ambulatory Limitations: no limitations History of Present Illness ED Provider: DR. De La Cruz HPI narrative: A 65-year-old male on anticoagulation Eliquis daily, patient s/P bilateral cardiac catheterization for cardiac ablation 6 days ago at [facility] after holding Eliquis for 1 day before the procedure then patient resume the Eliquis after the procedure, reportedly the procedure was complicated with postoperative bleeding control that was successful after applying pressure on the area, patient returned today for increased discoloration in bilateral groin area, expanding of the hematoma to the suprapubic and scrotal area, patient also had a subjective fever of 99.3, no chills. Patient reported that before any IV contrast radiographic study he gets Benadryl and Solu-Medrol for a mild allergic reaction he developed after the IV contrast. Related Data Home Medications ?Medication ?Instructions ?Recorded ?Confirmed cetirizine 10 mg capsule (Zyrtec) 10 mg PO DAILY 05/30/21 09/23/25 lorazepam 1 mg tablet 1 tab PO BEDTIME PRN Insomnia 05/30/21 09/23/25 cholecalciferol (vitamin D3) 25 25 mcg PO DAILY 09/07/21 09/23/25 mcg (1,000 unit) capsule nebulizers 01/03/23 04/24/25 atorvastatin 20 mg tablet 20 mg PO DAILY 02/13/24 09/23/25 diltiazem HCl 180 mg capsule,24 180 mg PO DAILY 04/09/25 09/23/25 hr,extended release (Tiadylt ER) potassium citrate 10 mEq (1,080 10 meq PO DAILY 04/09/25 09/23/25 mg) tablet,extended release Previous Rx's ?Medication ?Instructions ?Recorded omeprazole 40 mg capsule,delayed 40 mg PO DAILY 30 days #30 caps 07/27/21 release levalbuterol tartrate 45 2 puff inhalation Q6H PRN 07/29/24 mcg/actuation aerosol inhaler shortness of breath or wheezing 30 (Xopenex HFA) days #1 ea levalbuterol HCl 1.25 mg/3 mL 1.25 mg (3 mL) inhalation BID PRN 05/15/25 solution for nebulization Shortness Of Breath Or Wheezing 30 days #90 mL montelukast 10 mg tablet 10 mg PO BEDTIME 90 days #90 tabs 06/05/25 (Singulair) apixaban 5 mg tablet (Eliquis) 5 mg PO BID #180 tabs 07/07/25 flecainide 50 mg tablet 50 mg PO Q12H #180 tabs 07/07/25 tiotropium bromide 2.5 2 puff inhalation DAILY 30 days #1 07/30/25 mcg/actuation mist for inhalation ea (Spiriva Respimat) Allergies Allergy/AdvReac Type Severity Reaction Status Date / Time Iodinated Contrast Media (IV Allergy Severe SHORTNESS Verified 10/08/25 11:41 CONTRAST) OF BREATH Review of Systems Review of Systems: All other systems are reviewed and are negative Constitutional: Reports as per HPI and Reports no additional constitutional complaints Eyes: Reports as per HPI and Reports no additional eye complaints Reports system reviewed and no additional complaints, except as documented Cardiovascular: Reports as per HPI and Reports no additional cardiovascular complaints Respiratory: Reports as per HPI and Reports no additional respiratory complaints Gastrointestinal: Reports as per HPI and Reports no additional gastrointestinal complaints Genitourinary: Reports no additional female genitourinary complaints Musculoskeletal: Reports no additional musculoskeletal complaints Skin/Breast: Reports system reviewed and no additional complaints, except as docu Psychiatric: Reports no additional psychiatric complaints Endocrine: Reports no additional endocrine complaints Hematologic/Lymphatic: Reports no additional hematologic/lymphatic complaints Allergic/Immunologic: Reports no additional allergic/immunologic complaints Reports system reviewed and no additional complaints, except as documented and Reports Abnormal speech present [facility] Past Medical History Medical History History of vocal cord paralysis Vocal cord paralysis Laryngitis Acute laryngitis YOLANDE (obstructive sleep apnea) Acquired elevated diaphragm Renal calculi History of cardioversion Chronic cough Atrial flutter with rapid ventricular response Asthma Surgical History History of ureteroscopy Hx of tonsillectomy History of esophagogastroduodenoscopy (EGD) H/O colonoscopy History of cardiac radiofrequency ablation Family History Family History Mother A-fib CVA (cerebral vascular accident) Father CVA (cerebral vascular accident) Social History Social History Household Members: Significant Other and Children Housing: House Alcohol intake: current Alcohol intake frequency: former alcohol drinker Alcohol type: beer, wine and hard liquor Patient Tobacco Use Status: Never used Tobacco Advance Directives Date on File: 10/08/25 service: No Current occupational status: employed Physical Exam ED Vital Signs: Vital Signs - 24 hr 10/08/25 16:03 10/08/25 16:21 Temperature 98.3 F 98.3 F Pulse Rate 61 61 Respiratory Rate 18 Blood Pressure 135/76 135/76 Pulse Oximetry 94 94 Oxygen Delivery Method Room Air Room Air BMI result Body Mass Index 33.4 Vital signs have been reviewed and appear to be correct. Blood pressure elevated. Heart rate normal. Respiratory rate normal. Temperature normal. Oxygen saturation normal. Appearance: Alert. Oriented X3. No acute distress. Head: Normal external exam. Normocephalic. Atraumatic. No Roach signs noted. No raccoon eyes noted Eyes: PERRLA. EOMI. Conjunctiva and sclera normal. Eyelids normal. ENT: TM's Normal. Pharynx normal. Uvula midline. Moist mucous membranes. No trismus noted. No drooling noted. No muffled voice noted. Neck: Normal inspection. Neck supple. FROM. No adenopathy. Thyroid Normal. No meningeal signs. No neck mass noted. CVS: Normal heart rate and rhythm. Heart sound normal. No murmurs noted. Pulses normal throughout. Respiratory: No respiratory distress. Painless inspiration. Breath sounds normal. No wheezes/rales/rhonchi noted. Chest nontender. No accessory muscle usage noted or decreased air movement noted. Abdomen: Soft and nontender. Bowel sounds normal in all 4 quadrants. No distention noted. No organomegaly noted. No visible injury noted. Back: No CVA tenderness. Full range of motion noted. Skin: Skin warm and dry. Normal skin color. Normal skin turgor. No rashes/lesions/lacerations noted. Extremities: Bilateral large groin hematoma right more than left, suprapubic hematoma and scrotal hematoma. +strong right and left femoral pulse. Neuro: Oriented X 3. Cranial nerve exam: II-XII are grossly intact No motor deficit. No sensory deficit. Reflexes normal. Course Course Course Narrative: RME: 65 yold male s/p cardiac albation presents to the ED for fever and right groin heatoma, right flank pain, and possible blood in urine. labs ordered Reevaluation(s) Reevaluation #1: 65-year-old male s/p cardiac catheterization 6 days ago presented with bilateral groin hematoma. Patient has no dizziness, no chest pain, stable H&H, CT of the groin is revealing a small subcutaneous blood infiltrate but no active bleeding, no sizable hematoma, no pseudoaneurysm. Patient was instructed to continue taking his Eliquis, keep monitoring the size of the hematoma and seek immediate medical attention for dizziness, chest pain, or shortness of breath or noticed to be pale. Incidental 4 mm left UPJ kidney stone patient with a significant history of kidney stones currently has no flank pain or abdominal pain, no hematuria. Appeared to be asymptomatic kidney stone. Patient was instructed to follow-up with his urologist. Time: 15:16 Medications Administered Discontinued Medications Generic Name Dose Route Start Last Admin Trade Name Jhonq PRN Reason Stop Dose Admin Dexamethasone Sodium Phosphate 8 mg 10/08/25 12:23 10/08/25 13:14 Dexamethasone Sod Phosphate 4 Mg/Ml Vial IVPUSH 10/08/25 12:24 8 mg ONCE ONE Administration Diphenhydramine HCl 50 mg 10/08/25 12:23 10/08/25 13:15 Diphenhydramine Hcl 50 Mg/Ml Vial IVPUSH 10/08/25 12:24 50 mg ONCE ONE Administration Iohexol 100 ml 10/08/25 14:24 10/08/25 14:25 Iohexol 350 Mg/Ml 100 Ml Infus..Btl IV 10/08/25 14:25 80 ml ONCE ONE Administration Medical Decision Making Differential Diagnosis Differential Diagnoses: The differential diagnosis associated with the presentation includes (Pseudoaneurysm, groin hematoma, vascular damage, coagulopathy, severe anemia, electrolyte derangement.) Admission/Observation Consideration of admission/observation: Escalation of care including admission/observation considered Lab Data MDM Lab Attestation statement: I reviewed the patient's lab results. 10/08/25 12:10/08/25 12:27 Labs: Lab Results 10/08/25 10/08/25 10/08/25 Range/Units 12:26 12:27 12:32 WBC 9.2 (4.8-10.8) X10*3/uL RBC 4.81 (4.60-5.80) X10*6/uL Hgb 14.3 (14.0-18.0) g/dl Hct 42.9 (42.0-52.0) % MCV 89.2 (80.0-98.0) fL MCH 29.7 (27.0-33.0) pg MCHC 33.3 (31.0-36.0) g/dl RDW 13.6 (11.0-16.0) % Plt Count 284 (160-400) X10*3/uL MPV 9.2 L (9.4-12.4) fL Immature Gran % (Auto) 1.6 H (0.0-0.4) % Neut % (Auto) 61.6 (45-73) % Lymph % (Auto) 23.0 (20-40) % [place] % (Auto) 9.7 (2-11) % Eos % (Auto) 3.6 (0-4) % Baso % (Auto) 0.5 (0-2) % Lymph # (Auto) 2.1 (1.2-4.9) X10*3/uL [place] # (Auto) 0.9 (0.1-1.2) X10*3/uL Eos # (Auto) 0.3 (0.0-0.4) X10*3/uL Baso # (Auto) 0.1 (0.0-0.2) X10*3/uL Abs Immat Gran (auto) 0.15 H (0.00-0.03) X10*3/uL Absolute Neuts (auto) 5.7 (2.0-8.3) x10*3/uL Absolute Nucleated RBC 0.020 H (0.0-0.012) X10*3/uL Nucleated RBC % (auto) 0.2 (0.0-0.2) /100WBC PT 12.8 (11.2-13.5) SEC INR 1.0 (0.9-1.1) APTT 30.6 (26.7-34.1) SEC Sodium 140 (135-145) mmol/L Potassium 4.8 (3.3-5.1) mmol/L Chloride 106 (96-108) mmol/L Carbon Dioxide 30 H (22-29) mmol/L Anion Gap 9 L (12-20) BUN 17 H (9-16) mg/dL Creatinine 0.97 (0.5-1.4) mg/dL Estim Creat Clear Calc 94.8 Estimated GFR > 60 Random Glucose 78 (60-115) mg/dL Calcium 9.3 (8.4-10.2) mg/dL Total Bilirubin 0.7 (0.0-1.0) mg/dL AST 17 (5-37) U/L ALT 19 (0-40) U/L Alkaline Phosphatase 102 (39-117) U/L Total Protein 6.5 (6.5-8.0) g/dL Albumin 4.2 (3.5-5.0) g/dL Lipase 24 (8-78) U/L Urine Color Yellow Urine Appearance Clear Urine pH 5.5 (5.0-9.0) Ur Specific [place] <= 1.005 (1.005-1.025) Urine Protein Negative (Neg-Trace) mg/dL Urine Glucose (UA) Negative (Negative) mg/dL Urine Ketones Negative (Negative) mg/dL Urine Blood Moderate (2+) H (Negative) Urine Nitrite Negative (Negative) Ur Leukocyte Esterase Negative (Negative) Urine RBC 3-5 H (0-2) /HPF Urine WBC 0-5 (0-5) /HPF Ur Squamous Epith Cells 0-2 (0-2) /HPF Urine Bacteria None Seen (None Seen) Hyaline Casts 0-2 (0-2) /LPF COVID-19 (MARQUIS) Negative (Negative) COVID-19 Clin Com See Note Influenza Type A (SILVIA) Negative (Negative) Influenza Type B (SILVIA) Negative (Negative) Influenza A & B Note See Note Independent Interpretation I performed an independent interpretation of an: CT Scan (Groins:1. Mild infiltration of the subcutaneous fat in both inguinal regions, consistent with the patient's history of recent cardiac catheterization. No pseudoaneurysm or abnormal fluid collection. 2. 4 mm left UPJ calculus without hydronephrosis. ) Radiology Impression Discussion of test interpretation with radiology: I have reviewed the radiologist's reading. Discharge Plan Discharge Clinical Impression: Groin hematoma Patient Disposition: Home, Self-Care Instructions: Hematoma (ED) Additional Instructions: Monitor the discoloration on your groin if any increase in size seek medical attention. Prescriptions: No Action levalbuterol HCl 1.25 mg/3 mL solution for nebulization 1.25 mg inhalation BID PRN (Reason: Shortness Of Breath Or Wheezing) 30 Days Qty: 90 11RF montelukast [Singulair] 10 mg tablet 10 mg PO BEDTIME 90 Days Qty: 90 3RF Eliquis 5 mg tablet 5 mg PO BID Qty: 180 3RF flecainide 50 mg tablet 50 mg PO Q12H Qty: 180 3RF lorazepam 1 mg tablet 1 tab PO BEDTIME PRN (Reason: Insomnia) Zyrtec 10 mg Capsule 10 mg PO DAILY diltiazem HCl [Tiadylt ER] 180 mg capsule,extended release 24hr 180 mg PO DAILY potassium citrate 10 mEq (1,080 mg) tablet extended release 10 meq PO DAILY omeprazole 40 mg capsule,delayed release(DR/EC) 40 mg PO DAILY 30 Days Qty: 30 4RF cholecalciferol (vitamin D3) 25 mcg (1,000 unit) capsule 25 mcg PO DAILY (DME) nebulizers Misc See Rx Instructions .Route Rx Instructions: As directed atorvastatin 20 mg tablet 20 mg PO DAILY levalbuterol tartrate [Xopenex HFA] 45 mcg/actuation HFA aerosol inhaler 2 puff inhalation Q6H PRN (Reason: shortness of breath or wheezing) 30 Days Qty: 1 11RF Spiriva Respimat 2.5 mcg/actuation mist 2 puff inhalation DAILY 30 Days Qty: 1 11RF Referrals: Memo Hamilton MD [Primary Care Provider, Medical] Interventions: ED Discharge Assessment Last Done: 10/08/25 16:21 Discharge Date/Time: 10/08/25 16:22 Print Language: Swedish
[2025-10-08 12:14] VITALS: BP 123/72; PULSE 59; RESP 18; TEMP 36.6; O2SAT 96
[2025-10-08 12:36] LABS: MANUAL DIFF FLAG NO
[2025-10-08 12:38] LABS: Hematocrit 42.9 % (42.0-52.0); Hemoglobin 14.3 g/dl (14.0-18.0); Imm Gran Abs Auto 0.15 X10*3/uL (0.00-0.03); Imm Gran Pct Auto 1.6 % (0.0-0.4); Lymphocytes Absolute Auto 2.1 X10*3/uL (1.2-4.9); Mean Corpuscular HGB Conc 33.3 g/dl (31.0-36.0); Mean Corpuscular Hemoglobin 29.7 pg (27.0-33.0); Mean Corpuscular Volume 89.2 fL (80.0-98.0); NRBC Abs Auto 0.020 X10*3/uL (0.0-0.012); NRBC Pct Auto 0.2 /100WBC (0.0-0.2); Platelet Count 284 X10*3/uL (160-400); Red Blood Count 4.81 X10*6/uL (4.60-5.80); White Blood Count 9.2 X10*3/uL (4.8-10.8)
[2025-10-08 12:50] LABS: Alanine Aminotransferase 19 U/L (0-40); Albumin Level 4.2 g/dL (3.5-5.0); Alkaline Phosphatase 102 U/L (39-117); Anion Gap 9 (12-20); Aspartate Amino Transferase 17 U/L (5-37); Blood Urea Nitrogen 17 mg/dL (9-16); Calcium 9.3 mg/dL (8.4-10.2); Carbon Dioxide 30 mmol/L (22-29); Chloride 106 mmol/L (96-108); Creatinine Clr Calc Pharmacy 94.8; Estimated Glomerular Filt Rate > 60; Lipase 24 U/L (8-78); Potassium 4.8 mmol/L (3.3-5.1); Sodium 140 mmol/L (135-145); Total Protein 6.5 g/dL (6.5-8.0)
[2025-10-08 12:51] LABS: Appearance Urine Clear; Glucose Urine UA Negative (Negative); PH 5.5 (5.0-9.0)
[2025-10-08 12:52] LABS: Specific Gravity - Urine <= 1.005 (1.005-1.025); UMIC TRIGGER UACC YES
[2025-10-08 12:57] LABS: INTERNATIONAL NORM RATIO 1.0 (0.9-1.1); Prothrombin Time 12.8 SEC (11.2-13.5)
[2025-10-08 12:59] LABS: COVID-19 Test Negative (Negative); IDNOW Serial# 55D5AD1C; IDNOW Serial# 58CA691E; Influenza B2 Negative (Negative)
[2025-10-08 13:00] LABS: Partial Thromboplastin Time 30.6 SEC (26.7-34.1)
[2025-10-08] MEDS: iohexoL 350 MG/ML 100 ML INFUS..BTL IV (14:25)
[2025-10-08 16:03] VITALS: BP 135/76; PULSE 61; TEMP 36.8; O2SAT 94
[2025-10-08 16:21] VITALS: BP 135/76; PULSE 61; RESP 18; TEMP 36.8; O2SAT 94
== END 2025-10-08 16:22 | disposition home or self-care (01) ==
PROVIDERS: Physician Assistant; Emergency Provider Emergency Medicine; PCP Internal Medicine
DX: L76.32 Postprocedural hematoma of skin and subcutaneous tissue following other procedure (principal); Y84.0 Cardiac catheterization as the cause of abnormal reaction of the patient, or of later complication, without mention of misadventure at the time of the procedure; Y92.238 Other place in hospital as the place of occurrence of the external cause; N20.1 Calculus of ureter; Z87.442 Personal history of urinary calculi; Z79.01 Long term (current) use of anticoagulants; Z79.899 Other long term (current) drug therapy
CPT/HCPCS: 36415; 72191; 80053; 81001; 83690; 85025; 85610; 85730; 87502; 87635; 96374; 96375; 99284; 99285; J1100; J1200; Q9967

== ENCOUNTER → 2025-10-08 12:35 | Outpatient (BNV) | payer BC, SELFPAY | PROVIDERS: Emergency Provider Emergency Medicine; PCP Internal Medicine; Visit Provider Radiology Diagnostic Radiology | DX: N20.1 Calculus of ureter (principal) | CPT/HCPCS: 72191 ==